=== PATIENT | male | born 1965 | race Caucasian/White ===

== ENCOUNTER 2022-09-10 07:17 | Outpatient (REF) | payer OTHER, SELFPAY ==
[2022-09-10 11:12] LABS: Appearance Urine Turbid; Color Urine Yellow; Glucose Urine UA Negative (Negative); Leukocyte Esterase Urine Negative (Negative); MANUAL DIFF FLAG NO; Nitrite Urine Negative (Negative); PH 5.5 (5.0-9.0); Specific Gravity - Urine 1.025 (1.005-1.025); Urine Blood Negative (Negative); Urine Ketones Negative (Negative); Urine Protein Negative (Neg-Trace)
[2022-09-10 11:28] LABS: Basophils Percent Auto 0.2 % (0-2); Eosinophils Absolute Auto 0.1 X10*3/uL (0.0-0.4); Eosinophils Percent Auto 1.1 % (0-4); Hematocrit 49.5 % (42.0-52.0); Hemoglobin 15.7 g/dl (14.0-18.0); Imm Gran Abs Auto 0.05 X10*3/uL (0.00-0.03); Imm Gran Pct Auto 0.6 % (0.0-0.4); Lymphocytes Absolute Auto 2.7 X10*3/uL (1.2-4.9); Lymphocytes Percent Auto 29.3 % (20-40); Mean Corpuscular HGB Conc 31.7 g/dl (31.0-36.0); Mean Corpuscular Hemoglobin 29.9 pg (27.0-33.0); Mean Corpuscular Volume 94.3 fL (80.0-98.0); Mean Platelet Volume 9.3 fL (9.4-12.4); Monocytes Absolute Auto 0.6 X10*3/uL (0.1-1.2); Neutrophils Absolute Auto 5.6 x10*3/uL (2.0-8.3); Neutrophils Percent Auto 61.8 % (45-73); Platelet Count 216 X10*3/uL (160-400); Red Blood Count 5.25 X10*6/uL (4.60-5.80); Red Cell Distribution Width 12.8 % (11.0-16.0); White Blood Count 9.1 X10*3/uL (4.8-10.8)
[2022-09-10 11:55] LABS: Alanine Aminotransferase 22 U/L (0-40); Albumin Level 3.8 g/dL (3.5-5.0); Alkaline Phosphatase 71 U/L (39-117); Anion Gap 9 (12-20); Aspartate Amino Transferase 19 U/L (5-37); Bilirubin Total 0.4 mg/dL (0.0-1.0); Blood Urea Nitrogen 15 mg/dL (9-16); Calcium 8.5 mg/dL (8.4-10.2); Carbon Dioxide 31 mmol/L (22-29); Chloride 106 mmol/L (96-108); Cholesterol 168 mg/dL; Estimated Glomerular Filt Rate > 60; Glucose Fasting 104 mg/dL (60-99); HDL Cholesterol 29 mg/dL; LDL Cholesterol Calculated 118 mg/dl; Potassium 4.3 mmol/L (3.3-5.1); Prostate Specific Antigen Scr 0.51 ng/mL (<0.05-4.0); Sodium 142 mmol/L (135-145); TSH reflex Free T4 1.81 uIU/mL (0.32-4.0); Triglycerides 106 mg/dL
== END 2022-09-10 07:18 | disposition home or self-care (01) ==
LOC: HO.HMGCLDS 07:17
PROVIDERS: PCP Nurse Practitioner Family; Visit Provider Nurse Practitioner Family
DX: Z00.00 Encounter for general adult medical examination without abnormal findings (principal); Z12.5 Encounter for screening for malignant neoplasm of prostate
CPT/HCPCS: 36415; 80053; 80061; 81003; 84153; 84443; 85025

== ENCOUNTER 2022-09-11 13:44 | Outpatient (REF) | payer OTHER, SELFPAY | END 2022-09-11 13:45 | disposition home or self-care (01) | LOC: HO.SH 13:44 | PROVIDERS: Visit Provider Nurse Practitioner Family | DX: Z01.118 Encounter for examination of ears and hearing with other abnormal findings (principal); H90.3 Sensorineural hearing loss, bilateral; H93.13 Tinnitus, bilateral | CPT/HCPCS: 92557; 92567; 92588; 92700 ==

== ENCOUNTER 2022-10-23 14:00 | Outpatient (REF) | payer OTHER, SELFPAY ==
--- NOTE | ~2022-10-23 | CT_ITS ---
EXAMINATION: CT CHEST SCREENING CLINICAL INFORMATION: Smoker. One pack per day x40 years. COMPARISON: None. TECHNIQUE: Multidetector volumetric CT imaging of the chest is performed without contrast using low dose technique. Additional 2D coronal and sagittal reformatted images and axial 3D maximum intensity projection (MIP) images are generated on the CT workstation. This CT examination was performed using dose optimization techniques as appropriate, variously including the following: *Automated exposure control *Adjustment of mA and/or kV according to patient size (this includes techniques or standardized protocols for targeted exams where dose is matched to indication/reason for exam; i.e. extremities or head) *Use of iterative reconstruction technique DLP: 85 mGy-cm FINDINGS: LUNGS: The lungs are well-expanded and clear of acute pneumonic consolidation. There is no pulmonary nodule, mass, atelectasis or ground-glass density. MEDIASTINUM: The thyroid lobes are symmetric and normal. The central trachea and the bronchi are widely patent. Heart size and the great vessels are normal caliber. Small shotty lymph nodes are seen in the pretracheal space. No pericardial effusion seen. CORONARY ARTERY CALCIFICATION: Mild coronary artery calcifications are present. PLEURA: There is no pleural effusion. No pleural mass or thickening. AXILLA: No lymphadenopathy. UPPER ABDOMEN: Visualized liver, spleen, adrenal glands and kidneys are unremarkable. There is a small radiopaque gallstone. There is bilateral T8-T9 and right T9-T10 facet joint arthropathy. CT/CT lung screening IMPRESSION: Unremarkable CT chest exam. ASSESSMENT: Lung-RADS category 1: Negative RECOMMENDATION: Low-dose annual CT chest.
== END 2022-10-23 14:01 | disposition home or self-care (01) ==
LOC: HO.CT 14:00
PROVIDERS: PCP Nurse Practitioner Family; Visit Provider Physician Assistant Medical
DX: F17.210 Nicotine dependence, cigarettes, uncomplicated (principal)
CPT/HCPCS: 71271; G0296

== ENCOUNTER 2023-03-08 09:14 | Outpatient (REF) | payer OTHER, SELFPAY ==
[2023-03-08 11:06] LABS: MANUAL DIFF FLAG NO
[2023-03-08 11:16] LABS: Appearance Urine Clear; Color Urine Yellow; Glucose Urine UA Negative (Negative); Leukocyte Esterase Urine Negative (Negative); Nitrite Urine Negative (Negative); Urine Blood Negative (Negative); Urine Ketones Negative (Negative); Urine Protein Negative (Neg-Trace)
[2023-03-08 11:21] LABS: Basophils Percent Auto 0.3 % (0-2); Eosinophils Absolute Auto 0.1 X10*3/uL (0.0-0.4); Hematocrit 50.3 % (42.0-52.0); Hemoglobin 16.4 g/dl (14.0-18.0); Imm Gran Abs Auto 0.06 X10*3/uL (0.00-0.03); Imm Gran Pct Auto 0.7 % (0.0-0.4); Lymphocytes Absolute Auto 2.4 X10*3/uL (1.2-4.9); Lymphocytes Percent Auto 28.4 % (20-40); Mean Corpuscular HGB Conc 32.6 g/dl (31.0-36.0); Mean Corpuscular Hemoglobin 30.4 pg (27.0-33.0); Mean Corpuscular Volume 93.3 fL (80.0-98.0); Mean Platelet Volume 9.3 fL (9.4-12.4); Monocytes Absolute Auto 0.5 X10*3/uL (0.1-1.2); Monocytes Percent Auto 6.3 % (2-11); Neutrophils Absolute Auto 5.4 x10*3/uL (2.0-8.3); Neutrophils Percent Auto 63.3 % (45-73); Platelet Count 228 X10*3/uL (160-400); Red Blood Count 5.39 X10*6/uL (4.60-5.80); Red Cell Distribution Width 12.9 % (11.0-16.0); White Blood Count 8.6 X10*3/uL (4.8-10.8)
[2023-03-08 12:06] LABS: Alanine Aminotransferase 19 U/L (0-40); Alkaline Phosphatase 69 U/L (39-117); Anion Gap 12 (12-20); Aspartate Amino Transferase 16 U/L (5-37); Bilirubin Total 0.6 mg/dL (0.0-1.0); Blood Urea Nitrogen 13 mg/dL (9-16); Calcium 9.7 mg/dL (8.4-10.2); Carbon Dioxide 33 mmol/L (22-29); Chloride 105 mmol/L (96-108); Cholesterol 174 mg/dL; Estimated Glomerular Filt Rate > 60; Glucose Fasting 88 mg/dL (60-99); HDL Cholesterol 35 mg/dL; Iron 102 mcg/dL (45-160); LDL Cholesterol Calculated 120 mg/dl; Percent Iron Saturation 36 % (15-50); Potassium 4.7 mmol/L (3.3-5.1); Sodium 145 mmol/L (135-145); Total Iron Binding Capacity 286 mcg/dL (228-428); Total Protein 6.9 g/dL (6.5-8.0); Triglycerides 99 mg/dL; Unsaturated Iron Binding 184 ug/dL
[2023-03-08 12:10] LABS: Ferritin 115 ng/mL (20-250); Vitamin D 25-OH Total 28.2 ng/mL (>30)
[2023-03-08 12:25] LABS: Folate 5.8 ng/mL (> or = 4.0); Vitamin B12 523 pg/mL (200-900)
[2023-03-12 17:03] LABS: Testosterone, Free 29.5 pg/mL (35.0-155.0); Testosterone, Total 217 ng/dL (250-1100)
== END 2023-03-08 09:15 | disposition home or self-care (01) ==
LOC: HO.HMGCLDS 09:14
PROVIDERS: PCP Nurse Practitioner Family; Visit Provider Nurse Practitioner Family
DX: I25.10 Atherosclerotic heart disease of native coronary artery without angina pectoris (principal); R53.83 Other fatigue; E55.9 Vitamin D deficiency, unspecified
CPT/HCPCS: 36415; 80053; 80061; 81003; 82306; 82607; 82728; 82746; 83540; 84402; 84403; 84443; 85025

== ENCOUNTER 2023-03-30 14:06 | Outpatient (AMB) | payer OTHER, SELFPAY ==
--- NOTE | 2023-03-30 14:13 | A.OFFVIS_ITS ---
Intake Vital Signs 03/30/23 14:14 Height 5 ft 11 in Weight 264 lb 8.875 oz BMI 36.9 BP 146/87 H Blood Pressure Location Lt brachial Position Sitting Pulse 92 Intake Visit Reasons: Colonoscopy Screening Intake Note: Rudi presents in the office as a new colonoscopy screening CC: He has no concerns today! 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 PMH includes CAD with hx of PCI 2006 in [facility], tobacco use disorder, HLD. Patient is at average risk of colon cancer due to no family history of colon cancer or colon polyps in first degree relatives. Patient does not have any other gastrointestinal symptoms to include abdominal p ain, nausea, vomiting, diarrhea, blood in stool, weight loss. Labs reviewed to confirm patient does not have anemia. Of note - pt's current meds only include a statin. Not on any antiplatelet or BB . 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 Does not recall having an echo in the past 5-10 years. Cont to smoke - reduced to 1PPD. Also reports daytime fatigue, which he attributes to low testosterone. STOP BANG score suggestive of high probability of mod to severe GIOVANNI. PFSH Medical History CAD (coronary artery disease) History of myocardial infarction Nicotine dependence, cigarettes, uncomplicated Sensorineural hearing loss (SNHL) of both ears Surgical History History of heart artery stent Social History Housing: House Patient Tobacco Use Status: Current everyday Tobacco user Cigarettes Per Day: 8 Years Smoked: (onset 19yo, 1/2-1ppd x 38yrs, 30pyh) e-Cigarette/Vaping Use: Never Used Second Hand Smoke Exposure: No service: No Current occupational status: employed Current occupation: [employer] Current occupational exposures/hazards: Yes Cognitive needs: No Hearing needs: No Vision needs: No Review of Systems Const All systems reviewed & are unremarkable except as noted in HPI and below Physical Exam Vital Signs: Last Vital Signs Pulse 92 03/30/23 14:14 BP 146/87 H 03/30/23 14:14 BMI result Body Mass Index 36.9 Gen appear: NAD, well nourished HEENT: no icterus, no cervical lymphadenopathy Chest: clear to auscultation CVS: Regular S1/S2 Abd: soft, nontender, nondistended Ext: no peripheral edema Neuro: A/Ox3, noted to move all extremities spontaneously Assessment & Plan Assessment & Plan (1) Fatigue: Code(s): R53.83 - Other fatigue (2) CAD (coronary artery disease): Comment: (Hx NE at age 41 - 2 stent placed) Code(s): I25.10 - Atherosclerotic heart disease of [place] coronary artery without angina pectoris (3) Obesity: Code(s): E66.9 - Obesity, unspecified (4) Screening for colon cancer: Code(s): Z12.11 - Encounter for screening for malignant neoplasm of colon Plan Reviewed with the pt that falls under average risk for CRC. 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 However, before this can be scheduled needs basic cardiac work up given hx of ACS in his 40s. Echocardiogram ordered. He is also aware to discuss referral to Cardiology with his PCP. Pt also appears to have features suggestive of GIOVANNI and will recommend sleep study to help inform the anesthesia protocol the day of the procedure. Workload sent to PCP. Fatigue could also be secondary to low Vit D and supplement was sent to pharmacy x 4 weeks. Otherwise, from CRC screening standpoint, once above has been addressed a colonscopy will be booked. Split PEG prep instructions were reviewed and a handout was given as well. Follow up after colo. Orders: Orders CA echo transthoracic complete Today I25.10 - Atherosclerotic heart disease of [place] coronary artery without angina pectoris Medications: New cholecalciferol (vitamin D3) 1,250 mcg PO QWEEK 4 weeks 4 caps 0RF peg 3350-electrolytes 236-22.74-6.74 -5.86 gram (Golytely) as per split prep instructions, until fecal effluent is clear 240 mL PO Q10M 4,000 mL 0RF colonoscopy Coding Level of Care Code New Pt Level 4 (34698) Diagnoses Fatigue R53.83 CAD (coronary artery disease) I25.10 Obesity E66.9 Screening for colon cancer Z12.11
[2023-03-30 14:14] VITALS: BP 146/87; PULSE 92; BMI 36.9
== END 2023-03-30 15:47 | disposition home or self-care (01) ==
PROVIDERS: PCP Nurse Practitioner Family; Visit Provider Internal Medicine
DX: R53.83 Other fatigue (principal); I25.10 Atherosclerotic heart disease of native coronary artery without angina pectoris; E66.9 Obesity, unspecified; Z12.11 Encounter for screening for malignant neoplasm of colon
CPT/HCPCS: 99204

== ENCOUNTER → 2023-03-30 14:06 | Outpatient (BNVA) | payer OTHER, SELFPAY | PROVIDERS: PCP Nurse Practitioner Family; Visit Provider Internal Medicine ==

== ENCOUNTER 2023-04-26 10:30 | Outpatient (AMB) | payer OTHER, SELFPAY ==
--- NOTE | 2023-04-26 10:38 | A.OFFVIS_ITS ---
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 Melo. He has a past medical history of coronary artery disease, hyperlipidemia, CA ap proximately 17 years ago, nicotine dependence and sensorineural hearing loss of both ears. He presents to the office today as a new patient for hypogonadism. In discussion with the patient today he reports during last annual physical with PCP he had reported erectile dysfunction as well as fatigue at which time a testosterone was ordered. These results were reviewed with the patient today. 03/12-Total testosterone--217 09/10-PSA--0.5 When asked he reports symptoms of erectile dysfunction and fatigue to have been present for quite some time. He otherwise denies any urinary issues or concerns at this time. He denies urinary urgency, urinary frequency, incontinence, hematuria, dysuria, foul smelling urine, changes to urinary stream, flank pain, fever, and or chills. He does report nocturia however does not find this bothersome. He is happy with his current voiding parameters. In office urinalysis results reviewed with the patient today. Discussed at length potential causes for microscopic hematuria. Discussed microscopic hematuria in the setting of nicotine dependence. Discussed further microscopic hematuria workup with CT urogram, cytology, and in office cystoscopy. However patient declines at this time. He otherwise offers no issues or concerns at this time. [facility] Medical History CAD (coronary artery disease) History of myocardial infarction Nicotine dependence, cigarettes, uncomplicated Sensorineural hearing loss (SNHL) of both ears Surgical History History of heart artery stent Social History Housing: House Patient Tobacco Use Status: Current everyday Tobacco user Cigarettes Per Day: 8 Years Smoked: (onset 19yo, 1/2-1ppd x 38yrs, 30pyh) e-Cigarette/Vaping Use: Never Used Second Hand Smoke Exposure: No service: No Current occupational status: employed Current occupation: [employer] Current occupational exposures/hazards: Yes Cognitive needs: No Hearing needs: No Vision needs: No Review of Systems Const Reports as per HPI Eyes Reports no additional complaints ENT Reports as per HPI Card Reports as per HPI Resp Reports no additional complaints GI Reports no additional complaints Reports as per HPI Musc Reports no additional complaints Neuro Reports no additional complaints Psych Reports no additional complaints Endo Reports no additional complaints Kedar/Lymph Reports no additional complaints Aller/Immun Reports no additional complaints Physical Exam Const General: cooperative, healthy appearing, comfortable, no acute distress, well developed, alert and awake Nutritional Appearance: overweight Orientation/consciousness: patient oriented x3 Limitations: no limitations HEENT Head: Yes normal to inspection, Yes normocephalic and Yes atraumatic Eyes General: appearance normal, both eyes and all related structures Neck Neck: Yes normal visual inspection and Yes trachea midline Chest Chest palpation & inspection: normal inspection of the chest Resp Effort & Inspection: normal respiratory effort and able to speak in complete sentences Cardio Rate: regular rate GI Inspection: Yes normal to inspection General: Yes no CVA tenderness Back/Spine/Pelvis Back: no CVA tenderness Skin General skin exam: no rashes or lesions noted Neuro General: patient oriented x3 Extrem General: Yes normal to inspection Psych Appearance: grossly normal and well kempt Mental Status: mental status grossly normal Speech and movement: Normal speech and movement present and Clear speech present Affect: normal affect Attitude: cooperative Thought process: Normal thought process present Thought content: Normal thought content present Insight: Good insight present (Psych) Judgement: Good judgement present (Psych) Results AMB Urinalysis, Automated UA Leukoctes 0 Sharon/uL Last Edit by Glen Joseph on 04/26/23 11:00 UA Nitrite Last Edit by Glen Joseph on 04/26/23 11:00 UA Urobilinogen 0.2 mg/dL Last Edit by Glen Vannessaflor on 04/26/23 11:00 UA Protein 0 mg/dL Last Edit by Glen Joseph on 04/26/23 11:00 UA pH 6.0 Last Edit by Donyjuanito Vannessaflor on 04/26/23 11:00 UA Blood 10 Ayan/uL Last Edit by Glen Vannessaflor on 04/26/23 11:00 UA Specific [place] 1.025 Last Edit by Donyjuanito Vannessaflor on 04/26/23 11:00 UA Ketone Last Edit by Glen Joseph on 04/26/23 11:00 UA Bilirubin 0 mg/dL Last Edit by Glen Joseph on 04/26/23 11:00 UA Glucose 0 mg/dL Last Edit by Glen Joseph on 04/26/23 11:00 Results Reviewed Results Reviewed: Laboratory Last Values Urine pH (Auto) 6.0 04/26/23 10:42 Specific [place] (Auto) 1.025 04/26/23 10:42 Urine Protein (Auto) 0 mg/dL 04/26/23 10:42 Glucose (UA)(Auto) 0 mg/dL 04/26/23 10:42 Urine Blood (Auto) 10 Ayan/uL 04/26/23 10:42 Urine Bilirubin (Auto) 0 mg/dL 04/26/23 10:42 Urine Urobilinogen (Auto) 0.2 mg/dL 04/26/23 10:42 Leukocyte Esterase (Auto) 0 Sharon/uL 04/26/23 10:42 Assessment & Plan Assessment & Plan (1) Hypogonadism in male: Code(s): E29.1 - Testicular hypofunction (2) Fatigue: Code(s): R53.83 - Other fatigue (3) Erectile dysfunction: Code(s): N52.9 - Male erectile dysfunction, unspecified Plan In office urinalysis results reviewed with the patient today; will send for cytology Recent testosterone and PSA results reviewed with the patient today; as noted above. Discussed at length microscopic hematuria in the setting of nicotine dependence Discussed further microscopic hematuria workup with cytology, imaging, and in office cystoscopy Will obtain FSH, LH, prolactin, SHBG, testosterone free and total, and TSH for further assessment and evaluation Discussed at length importance of adequate sleep, limiting/quitting smoking, and weight loss for improvement in hypogonadism, erectile dysfunction, and overall health and well-being. Start low-dose 5 mg Cialis daily as discussed and prescribed. Patient denies any bothersome urinary issues at this time. Follow-up in 1 month with labs to be completed prior; or sooner with any issues, concerns, and or questions. Orders: Orders Follicle Stimulating Hormone Today E29.1 - Testicular hypofunction, R53.83 - Other fatigue Lutenizing Hormone Today E29.1 - Testicular hypofunction, R53.83 - Other fatigue Prolactin Today E29.1 - Testicular hypofunction, R53.83 - Other fatigue Sex Hormone Binding Globulin Today E29.1 - Testicular hypofunction, R53.83 - Other fatigue Free T4 (Free Thyroxine) Today E29.1 - Testicular hypofunction, R53.83 - Other fatigue Testosterone, Free/Total Today E29.1 - Testicular hypofunction, R53.83 - Other fatigue Thyroid Stimulating Hormone Today E29.1 - Testicular hypofunction, R53.83 - Other fatigue Urine Cytology Today Z13.9 - Encounter for screening, unspecified AMB Urinalysis Automated Today Z13.9 - Encounter for screening, unspecified Medications: New tadalafil (Cialis) [id number] [facility] [id number] Member [id number] 5 mg PO DAILY 90 days 90 tabs 3RF Patient Instructions: The patient had an opportunity to ask questions regarding the treatment plan. All questions were answered. Physical exam, labs, and imaging were discussed and reviewed in detail. As well as risks, benefits, and discussion of treatment cho ices. No major barriers to understanding were identified. The patient expressed understanding and agreement with the above treatment plan. The patient was made aware they should contact our office by phone for worsening of their current condition, the appearance of new symptoms, or with any questions or concerns. Compliance is encouraged with any medications and follow up testing that is ordered. It is a privilege to be allowed the opportunity to participate in? your urological care.? Again, if you have any questions or concerns If you have any questions or concerns please do not hesitate to contact me. The office is [phone]. This note is constructed using voice recognition software. While every effort has been made to ensure accuracy traffic signal technician errors may have been included. Yours sincerely, KELLY Witt-ASHIA Coding Level of Care Code New Pt Level 4 (74231) Diagnoses Hypogonadism in male E29.1 Fatigue R53.83 Erectile dysfunction N52.9
== END 2023-04-26 12:05 | disposition home or self-care (01) ==
PROVIDERS: PCP Nurse Practitioner Family; Visit Provider Nurse Practitioner Family
DX: E29.1 Testicular hypofunction (principal); R53.83 Other fatigue; N52.9 Male erectile dysfunction, unspecified
CPT/HCPCS: 99204

== ENCOUNTER 2023-04-26 13:53 | Outpatient (REF) | payer OTHER, SELFPAY ==
[2023-04-26 17:22] LABS: Urine Cytology See Pathology rpt
== END 2023-04-26 13:54 | disposition home or self-care (01) ==
LOC: HO.LNP 13:53
PROVIDERS: Visit Provider Nurse Practitioner Family
DX: Z13.9 Encounter for screening, unspecified (principal)
CPT/HCPCS: 88112

== ENCOUNTER → 2023-04-26 14:54 | Outpatient (REF) | payer OTHER, SELFPAY ==
--- NOTE | 2023-04-26 14:56 | CA_ITS ---
Transthoracic Echocardiogram Patient (Last, First, Middle): Rudi Trivedi T Gender: Male Date of : 1965 Age: 58 Procedure Date: 04/26/2023 Procedure Type: Transthoracic Echocardiogram Location: OP Height: 175.26 cm Weight: 119.75 kg BSA: 2.32 m2 Heart Rate: bpm BP: 132 / 80 mmHg Fitter Tacker: Referring MD: Elena Llamas MD Symptoms: I25.10 - Atherosclerotic heart disease of [place] coronary artery without... Study Quality: Fair w Contrast ECG Rhythm: Sinus Conclusions: - The left ventricular systolic function is severely decreased. The calculated ejection fraction is 28% by biplane method. - No obvious valvular pathology seen on this study. Findings Procedure Information Contrast agent, definity, is being given per protocol without apparent complications. Left Ventricle Normal left ventricular cavity size. There is mildly increased left ventricular wall thickness. The left ventricular systolic function is severely decreased. The calculated ejection fraction is 28% by biplane method. There is severe global hypokinesis. Evidence suggests grade I (mild) diastolic dysfunction. Right Ventricle Normal right ventricular cavity size and systolic function. Atria Both atria are normal in size. Aortic Valve There is a normal trileaflet aortic valve. There is no aortic valve stenosis. There is no aortic valve regurgitation. Mitral Valve The mitral valve appears normal. There is no mitral valve regurgitation. There is no mitral valve stenosis. Pulmonic Valve The pulmonic valve is likely normal. Tricuspid Valve There is trace tricuspid valve regurgitation. There is no evidence of pulmonary hypertension. Great Vessels The asc aorta is normal in size. Venous The inferior vena cava is normal in size and collapses greater than 50% with inspiration. Pericardium/Pleural There is no evidence of pericardial effusion. Prior Study Comparison No prior study available for comparison. Recommendations, Care & Conclusions No obvious valvular pathology seen on this study. Measurements 2D Linear Measurements IVSd: 1.40 0.6-0.9/0.6-1.0 cm LVIDd: 4.80 3.9-5.3/4.2-5.9 cm LVIDd Index: 2.07 2.4-3.2/2.2-3.1 cm/m2 LVIDs: 3.10 2.0-3.6 cm LVPWd: 1.40 0.7-1.1 cm Ao Root: 3.50 2.1-3.5 cm LA Diam: 4.20 2.7-3.8/3.0-4.0 cm LAIDs Index: 1.81 1.5-2.3 cm/m2 LV Mass: 341.52 67-162/88-224 g LV Mass Index: 147.21 43-95/49-115 g/m2 LVOT Diam: 2.40 3.0+(-)1.3 cm 2D Systolic Function EF 4C: 23.40 >55% EF 2C: 39.30 >55% EF BiP: 28.30 >55% Mitral Valve MV Pk E: 0.93 MV PK A: 1.12 MV Decel Time: 230.00 E/A: 0.80 E'Lateral: 8.16 E'Medial: 5.77 E/E' Med: 16.10 E/E' Lat: 11.40 PHT: 67.00 MVA PHT: 3.28 Decel [place]: 4.03 Aortic Valve AoV Pk David: 1.61 AoV Mn David: 1.11 AoV VTI: 0.31 AoV Pk Grad: 10.00 Aov Mn Grad: 6.00 [place] Cont.VTI: 2.81 LVOT LVOT Pk David: 1.01 LVOT Mn David: 0.72 LVOT VTI: 0.19 LVOT Pk Grad: 4.00 LVOT Mn Grad: 2.00 LVOT Diam: 2.40 LVOT Area: 4.52 Diastolic Function MV Pk E: 0.93 MV Pk A: 1.12 E/A: 0.80 E'Medial: 5.77 E/E' Med: 16.10 E' Laterial: 8.16 E/E' Lat: 11.40 Right Ventricle TAPSE (mm): 28.00 TVS' David: 15.00 Tricuspid Valve TR Pk David: 1.80 TR Pk Grad: 13.00 RA Press: 3.00 RVSP: 16.00 Great Vessels Aorta Ao Root-2D: 3.50 2.0-3.7 cm Ao Asc: 3.80 2.1-3.4 cm Pulmonary Valve PV Pk David: 1.21 Peak PV Grad: 6.00 Updated in Other Vendor System with Status of Final Jamaal Fisher MD electronically signed on 04/27/2023 9:04:38 AM with status of Final
== END ==
LOC: HO.CARD 14:54
PROVIDERS: PCP Nurse Practitioner Family; Visit Provider Internal Medicine
DX: I25.10 Atherosclerotic heart disease of native coronary artery without angina pectoris (principal)
CPT/HCPCS: 93306; Q9957

== ENCOUNTER → 2023-04-26 14:56 | Outpatient (BNV) | payer OTHER, SELFPAY | PROVIDERS: PCP Nurse Practitioner Family; Visit Provider Internal Medicine | DX: I25.10 Atherosclerotic heart disease of native coronary artery without angina pectoris (principal) | CPT/HCPCS: 93306 ==

== ENCOUNTER 2023-04-27 06:04 | Outpatient (REF) | payer OTHER, SELFPAY ==
[2023-04-27 13:23] LABS: Free T4 (Free Thyroxine) 0.71 ng/dL (0.71-1.85); Thyroid Stimulating Hormone 2.55 uIU/mL (0.32-4.0)
[2023-04-29 04:14] LABS: Sex Hormone Binding Globulin 29 nmol/L (22-77)
[2023-04-29 04:18] LABS: Follicle Stimulating Hormone 4.6 mIU/mL (1.6-8.0); Lutenizing Hormone 3.4 mIU/mL (1.5-9.3); Prolactin 10.5 ng/mL (2.0-18.0)
[2023-05-07 18:28] LABS: Testosterone, Free 57.2 pg/mL (35.0-155.0); Testosterone, Total 261 ng/dL (250-1100)
== END 2023-04-27 06:05 | disposition home or self-care (01) ==
LOC: HO.HMGCLDS 06:04
PROVIDERS: PCP Nurse Practitioner Family; Visit Provider Nurse Practitioner Family
DX: R53.83 Other fatigue (principal); E29.1 Testicular hypofunction
CPT/HCPCS: 36415; 83001; 83002; 84146; 84270; 84402; 84403; 84439; 84443

== ENCOUNTER 2023-06-22 12:30 | Outpatient (AMB) | payer OTHER, SELFPAY ==
--- NOTE | 2023-06-22 12:52 | A.OFFVIS_ITS ---
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 Pt states he does not have any difficulty sleeping. Patients states he snores but denies having any sleeping difficulty. Pt states he is tired a lot. Allergies amoxicillin Allergy (Unknown, Unverified 06/22/23 12:55) anaphylaxis HPI HPI Comments 2 History of Present Illness Details 58 y/o male patient presents for new in- person visit for sleep consultation. Pt reports snoring and daytime tiredness. He sleeps about 7-7:30 hrs nightly, but feels run out of energy quickly. Pt has hx of NM in his 40s, and had two stent in. Pt recently started statin for high cholesterol. He gain about 50 lb over the last two years. GI doctor recommended to do sleep study to r/o sleep apnea. Sleep questionnaire: Have you ever been diagnosed with a sleep disorder? No. Have you ever had a sleep study in the past? No. Have you ever been treated for a sleep disorder? No. Do you take medications for a sleep disorder? No. Do you snore? Yes. Do you wake up gasping at night? No. Do you have episodes of apneas? No. If yes, are they witnessed? No. Do you have episodes of nocturnal chest pain or dyspnea? No. Do you have difficulty initiating sleep? No. Do you have difficulty maintaining sleep? No. Do you wake up tired? Yes. Do you have headaches upon awakening? No. Do you wake up with dry mouth or throat? Yes, once in a while. Do you have GERD? No. Do you have nocturia? Yes. Do you have nocturnal leg cramps? No. Do you have symptoms of restless legs? No. Do you act out your dreams? No. Sleep hygiene questionnaire: What is your usual sleep routine? Usual bedtime is at 9 pm; Usual wake up time is at 4:30 am. Do you take naps? No. Is your sleep environment cool, dark, and quiet? Yes. Do you exercise? No. Do you take caffeine or other stimulants? 3 cups of coffee daily, the last cup of coffee will 3:30 pm. Do you use electronics in bed? No. What is your work schedule? 6 am to 3 pm. Hypersomnolence questionnaire: Do you have daytime tiredness or fatigue? Yes. Do you easily fall asleep when inactive? Yes. Have you ever had episodes of sudden weakness? No. Have you ever had episodes of sudden weakness associated with strong emotions? No. PFSH Medical History History of myocardial infarction Nicotine dependence, cigarettes, uncomplicated Sensorineural hearing loss (SNHL) of both ears CAD (coronary artery disease) Surgical History History of heart artery stent Social History (Updated 06/22/23 @ 12:57 by Narcisa Payne MA) Housing: House Alcohol intake: never Patient Tobacco Use Status: Current everyday Tobacco user Cigarettes Per Day: 8 Years Smoked: (onset 19yo, 1/2-1ppd x 39yrs, 30pyh) e-Cigarette/Vaping Use: Never Used Second Hand Smoke Exposure: No service: No Current occupational status: employed Current occupation: [employer] Current occupational exposures/hazards: Yes Cognitive needs: No Hearing needs: No Vision needs: No Review of Systems Const All systems reviewed & are unremarkable except as noted in HPI and below ENT Reports Normal hearing present Neuro Reports Normal hearing present Physical Exam Vital Signs: Last Vital Signs Pulse 87 06/22/23 12:53 BP 136/82 06/22/23 12:53 Pulse Ox 91 L 06/22/23 12:53 Oxygen Delivery Method Room Air 06/22/23 12:53 BMI result Body Mass Index 37.6 Const General: cooperative and tired appearing Orientation/consciousness: patient oriented x3 Neck Neck: Yes full ROM and Yes supple Resp Effort & Inspection: normal respiratory effort and able to speak in complete sentences Neuro General: patient oriented x3, gait normal, moves all extremities and no focal motor deficits Cranial nerves: Yes Bilaterally intact EOM present, Yes Normal facial strength present, Yes Midline tongue present, Yes Symmetric palate elevation present, Yes Normal hearing present and Yes Ability to bilaterally elevate shoulders present Cognition (Neuro): normal cognition Gait exam (Neuro): Normal gait present Motor exam (neuro): 5/5 motor strength present throughout, Pronator motor function not present and no tremor noted Psych Appearance: grossly normal Mental Status: mental status grossly normal Speech and movement: Normal speech and movement present Affect: normal affect Attitude: cooperative Assessment & Plan Assessment & Plan (1) Sleep apnea: Code(s): G47.30 - Sleep apnea, unspecified (2) CAD (coronary artery disease): Comment: (Hx [place] at age 41 - 2 stent placed) Code(s): I25.10 - Atherosclerotic heart disease of [place] coronary artery without angina pectoris (3) Obesity: Code(s): E66.9 - Obesity, unspecified (4) Snoring: Code(s): R06.83 - Snoring (5) Daytime sleepiness: Code(s): R40.0 - Somnolence Plan Pt is advised to undergo home sleep study to assess for sleep apnea. Will f/u with pt after study to discuss results and appropriate treatment options. Pt to call with any worsening concerns or questions. Sleep hygiene education provided. Advised patient to reduce smoking and reduction advised. Coding Level of Care Code New Pt Level 4 (83704) Diagnoses Sleep apnea G47.30 CAD (coronary artery disease) I25.10 Obesity E66.9 Snoring R06.83 Daytime sleepiness R40.0
[2023-06-22 12:53] VITALS: BP 136/82; PULSE 87; O2SAT 91; BMI 37.6
== END 2023-06-22 13:45 | disposition home or self-care (01) ==
PROVIDERS: PCP Nurse Practitioner Family; Visit Provider Nurse Practitioner Family
DX: G47.30 Sleep apnea, unspecified (principal); I25.10 Atherosclerotic heart disease of native coronary artery without angina pectoris; E66.9 Obesity, unspecified; R06.83 Snoring; R40.0 Somnolence
CPT/HCPCS: 99204

== ENCOUNTER → 2023-06-22 12:30 | Outpatient (BNVA) | payer OTHER, SELFPAY | PROVIDERS: PCP Nurse Practitioner Family; Visit Provider Nurse Practitioner Family ==

== ENCOUNTER 2023-06-24 13:20 | Outpatient (AMB) | payer OTHER, SELFPAY ==
--- NOTE | 2023-06-24 13:57 | MHC.OFFVIS ---
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 He had an echocardiogram few months back and that showed severely impaired LV function and hence he has been referred here. He states that age of 41, he had acute myocardial infarction and was seen at [facility] in [place]. At that time, he had stents put in but no further information available. We do not have the anatomy. After that, he states that he saw a controls technician only once but nothing since that time. He is generally doing okay but has numerous factors. Morbidly obese. Chronic smoker and still smokes. He does not get any clear-cut angina but he states he gets short of breath with activity like going up stairs. FORMERLY [facility], 1928–1983 Medical History History of myocardial infarction Nicotine dependence, cigarettes, uncomplicated Sensorineural hearing loss (SNHL) of both ears CAD (coronary artery disease) Surgical History History of heart artery stent Social History Housing: House Alcohol intake: never Patient Tobacco Use Status: Current everyday Tobacco user Cigarettes Per Day: 8 Years Smoked: (onset 19yo, 1/2-1ppd x 38yrs, 30pyh) e-Cigarette/Vaping Use: Never Used Second Hand Smoke Exposure: No service: No Current occupational status: employed Current occupation: [employer] Current occupational exposures/hazards: Yes Cognitive needs: No Hearing needs: No Vision needs: No Review of Systems Const Denies weakness ENT Denies dizziness Card Denies chest pain, Denies chest pain with activity, Denies syncope, Denies rapid heart rate, Denies pedal edema, Denies edema, Denies leg edema, Denies lightheadedness, Denies palpitations, Denies dyspnea, Denies dyspnea on exertion and Denies orthopnea Resp Denies cough, Denies dyspnea and Denies dyspnea on exertion GI Denies hematochezia and Denies change in stool character Musc Denies abnormal gait, Denies muscle cramps, Denies muscle weakness, Denies numbness, Denies radiating pain into limb and Denies tingling Neuro Denies abnormal gait, Denies dizziness, Denies syncope, Denies numbness, Denies tingling and Denies weakness Endo Denies palpitations Physical Exam Vital Signs: Last Vital Signs Pulse 89 06/24/23 13:58 BP 126/82 06/24/23 13:58 BMI result Body Mass Index 37.5 Const General: comfortable and no acute distress Orientation/consciousness: patient oriented x3 HEENT Other: Unremarkable Head: Yes normal to inspection Neck Neck: Yes normal visual inspection Chest Chest palpation & inspection: normal inspection of the chest Resp Auscultation: clear to auscultation bilaterally Cardio Palpation: normal PMI Heart sounds: S1 normal heart sound present, S2 normal heart sound present, no gallops, no murmurs and no rubs GI Palpation (GI): Soft to palpation Back/Spine/Pelvis Other: unremarkable Skin General skin exam: no rashes or lesions noted Neuro General: patient oriented x3 Extrem General: Yes normal to inspection Psych Mental Status: mental status grossly normal Office Procedures EKG Details: EKG with sinus rhythm at 89/Min; old inferior infarct; cannot exclude old anterior infarct but could also be from body habitus; low-voltage lateral leads again from body habitus versus infar[place] [id number], Complete Assessment & Plan Assessment & Plan (1) Cardiomyopathy: Code(s): I42.9 - Cardiomyopathy, unspecified Qualifiers: Cardiomyopathy type: unspecified Qualified Code(s): I42.9 - Cardiomyopathy, unspecified (2) CAD (coronary artery disease): Comment: (Hx [place] at age 41 - 2 stent placed) Code(s): I25.10 - Atherosclerotic heart disease of [place] coronary artery without angina pectoris Qualifiers: Associated angina: with other forms of angina Coronary Disease-Associated Artery/Lesion type: [place] artery [place] vs. transplanted heart: iroquois heart Qualified Code(s): I25.118 - Atherosclerotic heart disease of [place] coronary artery with other forms of angina pectoris Plan In the echocardiogram, LVEF is 28%. Severe global hypokinesis. No significant valvular issues. Remote history of CAD/UT/PCI about 17 years ago. Will request those records if still available. Need to assess for progressive coronary artery disease. Considering his morbid obesity, stress test may be suboptimal. Hence may proceed with a diagnostic catheterization for further evaluation. Discussed about this with patient and he is agreeable. Once this is performed, will need to optimize medications including addition of ADRIAN inhibitor/ARB or Entresto but may do so after the procedure. Other meds will need to be optimized as well. Follow-up after the procedure. Orders: Orders Cardiac Cath LT Diagnostic Today I25.10 - Atherosclerotic heart disease of [place] coronary artery without angina pectoris, I42.9 - Cardiomyopathy, unspecified Basic Metabolic Panel Today I42.9 - Cardiomyopathy, unspecified Prothrombin Time INR Today I42.9 - Cardiomyopathy, unspecified B Type Natriuretic Peptide Today I42.9 - Cardiomyopathy, unspecified, I50.9 - Heart failure, unspecified Complete Blood Count no Diff Today I42.9 - Cardiomyopathy, unspecified Coding Level of Care Code New Pt Level 4 (94501) Diagnoses Cardiomyopathy, unspecified type I42.9 Cardiomyopathy type: unspecified Coronary artery disease involving iroquois coronary artery of iroquois heart with other form of angina pectoris I25.118 Associated angina: with other forms of angina Coronary Disease-Associated Artery/Lesion type: iroquois artery [place] vs. transplanted heart: iroquois heart CPT Codes EKG - CPT: 06066-[id number], Complete ([id number])
[2023-06-24 13:58] VITALS: BP 126/82; PULSE 89; BMI 37.5
== END 2023-06-24 14:32 | disposition home or self-care (01) ==
PROVIDERS: PCP Nurse Practitioner Family; Visit Provider Internal Medicine
DX: I42.9 Cardiomyopathy, unspecified (principal); I25.118 Atherosclerotic heart disease of native coronary artery with other forms of angina pectoris
CPT/HCPCS: 93010; 99204

== ENCOUNTER 2023-06-24 13:20 | Outpatient (REF) | payer OTHER, SELFPAY ==
[2023-06-24 15:01] LABS: Hematocrit 49.2 % (42.0-52.0); Hemoglobin 15.9 g/dl (14.0-18.0); Mean Corpuscular HGB Conc 32.3 g/dl (31.0-36.0); Mean Corpuscular Hemoglobin 30.2 pg (27.0-33.0); Mean Corpuscular Volume 93.5 fL (80.0-98.0); Mean Platelet Volume 9.1 fL (9.4-12.4); Platelet Count 209 X10*3/uL (160-400); Red Blood Count 5.26 X10*6/uL (4.60-5.80); Red Cell Distribution Width 12.8 % (11.0-16.0); White Blood Count 10.7 X10*3/uL (4.8-10.8)
[2023-06-24 15:26] LABS: Anion Gap 14 (12-20); Blood Urea Nitrogen 12 mg/dL (9-16); Calcium 9.5 mg/dL (8.4-10.2); Carbon Dioxide 30 mmol/L (22-29); Chloride 103 mmol/L (96-108); Estimated Glomerular Filt Rate > 60; Glucose Random 90 mg/dL (60-115); Potassium 4.1 mmol/L (3.3-5.1); Sodium 143 mmol/L (135-145)
[2023-06-24 15:32] LABS: INTERNATIONAL NORM RATIO 1.1 (0.9-1.1); Prothrombin Time 13.3 SEC (11.1-13.3)
== END 2023-06-24 13:21 | disposition home or self-care (01) ==
LOC: HO.LAB 13:20
PROVIDERS: PCP Nurse Practitioner Family; Visit Provider Internal Medicine
DX: I42.9 Cardiomyopathy, unspecified (principal); I25.118 Atherosclerotic heart disease of native coronary artery with other forms of angina pectoris
CPT/HCPCS: 36415; 80048; 83880; 85027; 85610; 93005

== ENCOUNTER → 2023-07-08 23:59 | Outpatient (BNV) | payer OTHER, SELFPAY | PROVIDERS: PCP Nurse Practitioner Family; Visit Provider Internal Medicine Cardiovascular Disease | DX: I42.9 Cardiomyopathy, unspecified (principal) | CPT/HCPCS: 93458; 93571; 99152 ==

== ENCOUNTER 2023-07-20 08:30 | Outpatient (AMB) | payer OTHER, SELFPAY ==
--- NOTE | 2023-07-20 08:58 | MHC.OFFVIS ---
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 He had an echocardiogram few months back and that showed severely impaired LV function and hence he has been referred here. He states that age of 41, he had acute myocardial infarction and was seen at [facility] in [place]. Per cardiac catheterization data, significant stenosis of the 2nd obtuse marginal branch leading to acute posterior wall infarction, status post angioplasty/stent. After that, he states that he saw a cement handler only once but nothing since that time. He is generally doing okay but has numerous factors. Morbidly obese. Chronic smoker and still smokes. He does not get any clear-cut angina but he states he gets short of breath with activity like going up stairs. Since last visit, he underwent a cardiac catheterization. That showed multivessel disease. Cardiac surgery has been recommended. [facility] Medical History History of myocardial infarction Nicotine dependence, cigarettes, uncomplicated Sensorineural hearing loss (SNHL) of both ears CAD (coronary artery disease) Surgical History History of heart artery stent Family History Unknown No problems noted. Social History Housing: House Alcohol intake: never Patient Tobacco Use Status: Current everyday Tobacco user Cigarettes Per Day: 8 Years Smoked: (onset 19yo, 1/2-1ppd x 38yrs, 30pyh) e-Cigarette/Vaping Use: Never Used Second Hand Smoke Exposure: No service: No Current occupational status: employed Current occupation: [employer] Current occupational exposures/hazards: Yes Cognitive needs: No Hearing needs: No Vision needs: No Review of Systems Const Denies weakness ENT Denies dizziness Card Denies chest pain, Denies chest pain with activity, Denies syncope, Denies rapid heart rate, Denies pedal edema, Denies edema, Denies leg edema, Denies lightheadedness, Denies palpitations, Denies dyspnea, Denies dyspnea on exertion and Denies orthopnea Resp Denies cough, Denies dyspnea and Denies dyspnea on exertion GI Denies hematochezia and Denies change in stool character Musc Denies abnormal gait, Denies muscle cramps, Denies muscle weakness, Denies numbness, Denies radiating pain into limb and Denies tingling Neuro Denies abnormal gait, Denies dizziness, Denies syncope, Denies numbness, Denies tingling and Denies weakness Endo Denies palpitations Physical Exam Vital Signs: Last Vital Signs Pulse 75 07/20/23 08:59 BP 112/70 07/20/23 08:59 BMI result Body Mass Index 37.3 Const General: comfortable and no acute distress Orientation/consciousness: patient oriented x3 HEENT Other: Unremarkable Head: Yes normal to inspection Neck Neck: Yes normal visual inspection Chest Chest palpation & inspection: normal inspection of the chest Resp Auscultation: clear to auscultation bilaterally Cardio Palpation: normal PMI Heart sounds: S1 normal heart sound present, S2 normal heart sound present, no gallops, no murmurs and no rubs GI Palpation (GI): Soft to palpation Back/Spine/Pelvis Other: unremarkable Skin General skin exam: no rashes or lesions noted Neuro General: patient oriented x3 Extrem General: Yes normal to inspection Psych Mental Status: mental status grossly normal Assessment & Plan Assessment & Plan (1) Cardiomyopathy: Code(s): I42.9 - Cardiomyopathy, unspecified Qualifiers: Cardiomyopathy type: unspecified Qualified Code(s): I42.9 - Cardiomyopathy, unspecified (2) CAD (coronary artery disease): Code(s): I25.10 - Atherosclerotic heart disease of [place] coronary artery without angina pectoris Qualifiers: Associated angina: with other forms of angina Coronary Disease-Associated Artery/Lesion type: [place] artery [place] vs. transplanted heart: [place] heart Qualified Code(s): I25.118 - Atherosclerotic heart disease of [place] coronary artery with other forms of angina pectoris Plan In the echocardiogram, LVEF is 28%. Severe global hypokinesis. No significant valvular issues. Cardiac catheterization shows severe multivessel disease. He has already been evaluated by cardiac surgery and awaiting CABG. Okay to continue current medications for now but once post bypass, will need to optimize medications for both coronary disease as well as cardiomyopathy. Otherwise, strongly urged him to stop smoking right away. He states he has not done that in the last few days. In the long run, will need to lose weight as well. Will follow-up after bypass. Coding Level of Care Code Est Pt Level 4 (50887) Diagnoses Cardiomyopathy, unspecified type I42.9 Cardiomyopathy type: unspecified Coronary artery disease involving [place] coronary artery of [place] heart with other form of angina pectoris I25.118 Associated angina: with other forms of angina Coronary Disease-Associated Artery/Lesion type: [place] artery [place] vs. transplanted heart: [place] heart
[2023-07-20 08:59] VITALS: BP 112/70; PULSE 75; BMI 37.3
== END 2023-07-20 09:11 | disposition home or self-care (01) ==
PROVIDERS: PCP Nurse Practitioner Family; Visit Provider Internal Medicine
DX: I42.9 Cardiomyopathy, unspecified (principal); I25.118 Atherosclerotic heart disease of native coronary artery with other forms of angina pectoris
CPT/HCPCS: 99214

== ENCOUNTER → 2023-07-20 08:30 | Outpatient (BNVA) | payer OTHER, SELFPAY | PROVIDERS: PCP Nurse Practitioner Family; Visit Provider Internal Medicine ==

== ENCOUNTER 2023-07-27 10:37 | Outpatient (REF) | payer OTHER, SELFPAY ==
--- NOTE | ~2023-07-27 | CT_ITS ---
EXAMINATION: CT CHEST AND ABDOMEN WITHOUT CONTRAST CLINICAL INFORMATION: Atherosclerosis of aorta COMPARISON: Chest CT dated 10/23/2022. No prior CT scan of the abdomen. TECHNIQUE: Multidetector volumetric CT imaging of the chest and abdomen was obtained without contrast. Axial MIP volume rendering provided. Sagittal and coronal reformatted images were obtained. This CT examination was performed using dose optimization techniques as appropriate, variously including the following: *Automated exposure control *Adjustment of mA and/or kV according to patient size (this includes techniques or standardized protocols for targeted exams where dose is matched to indication/reason for exam; i.e. extremities or head) *Use of iterative reconstruction technique DLP: 680 mGy-cm FINDINGS: LUNGS: 4.2 cm or less left lower lobe bullae, similar compared with October 2022. No infiltrate or nodule identified. MEDIASTINUM: The mediastinum appears unremarkable. CORONARY ARTERY CALCIFICATION: Mild to moderate. PLEURA: There is no pleural effusion. No pleural mass or thickening. AXILLA: No lymphadenopathy by size criteria. LIVER, GALLBLADDER, AND BILIARY TREE: The liver appears unremarkable in size, shape, and attenuation. No focal hepatic lesion or biliary ductal dilatation is appreciated. Tiny gallstone. No evidence of gallbladder wall thickening or pericholecystic inflammatory change. PANCREAS: Unremarkable SPLEEN: Unremarkable ADRENAL GLANDS: Unremarkable KIDNEYS AND URETERS: The kidneys appear unremarkable in size, shape, and attenuation. No hydronephrosis, hydroureter, or calculi seen. GASTROINTESTINAL TRACT: The stomach and visualized small bowel appear unremarkable. Scattered colonic diverticula without evidence of diverticulitis. Normal-appearing distal ileum and vermiform appendix. ABDOMINAL WALL: No significant hernia is appreciated. LYMPH NODES: No evidence of adenopathy by size criteria. VASCULAR: Unremarkable. OSSEOUS STRUCTURES: Unremarkable. CT/CT abdomen wo IV con IMPRESSION: No evidence of significant aortic atherosclerosis.
--- NOTE | ~2023-07-27 | US_ITS ---
EXAMINATION: US EXTRACRANIAL CAROTID DUPLEX, BILATERAL CLINICAL INFORMATION: Carotid bruit. COMPARISON: None available. TECHNIQUE: Real-time ultrasound and Doppler techniques (integrating B-mode 2-D vascular images, Doppler spectral analysis and color-flow Doppler imaging) were utilized to interrogate the extracranial carotid arteries, the vertebral arteries and proximal subclavian arteries bilaterally. The degree of stenosis is determined by criteria similar to NASCET. FINDINGS: Right Side: 1. There is mild atherosclerotic plaque seen in the bifurcation/proximal ICA region. 2. The common carotid artery PSV proximally is 97 cm/s and distally 64 cm/s. 3. The proximal internal carotid artery velocities are 58 cm/s systolic and 23 cm/s diastolic. 4. The proximal external carotid artery PSV is 96 cm/s. 5. The vertebral artery shows antegrade flow. 6. The subclavian artery waveforms are normal. Left Side: 1. There is mild atherosclerotic plaque seen in the bifurcation/proximal ICA region. 2. The common carotid artery PSV proximally is 96 cm/s and distally 73 cm/s. 3. The proximal internal carotid artery velocities are 53 cm/s systolic and 18 cm/s diastolic. 4. The proximal external carotid artery PSV is 103 cm/s. 5. The vertebral artery shows antegrade flow. 6. The subclavian artery waveforms are normal. US/US carotid duplex BI IMPRESSION: 1. RIGHT: Minimal, non-hemodynamically significant stenosis of the proximal right internal carotid artery corresponding to a 0-49% stenosis by velocity criteria. 2. LEFT: Minimal, non-hemodynamically significant stenosis of the proximal left internal carotid artery corresponding to a 0-49% stenosis by velocity criteria.
== END 2023-07-27 10:38 | disposition home or self-care (01) ==
LOC: HO.CT 10:37
PROVIDERS: PCP Nurse Practitioner Family; Visit Provider Thoracic Surgery (Cardiothoracic Vascular Surgery)
DX: I70.0 Atherosclerosis of aorta (principal); I71.40 Abdominal aortic aneurysm, without rupture, unspecified; R09.89 Other specified symptoms and signs involving the circulatory and respiratory systems
CPT/HCPCS: 71250; 74150; 93880

== ENCOUNTER 2023-09-14 07:22 | Outpatient (AMB) | payer OTHER, SELFPAY ==
--- NOTE | 2023-09-14 07:38 | A.OFFPC_ITS ---
Vital Signs 09/14/23 07:41 Height 5 ft 11 in Weight 266 lb BMI 37.1 BP 118/74 Blood Pressure Location Rt brachial Position Sitting Pulse 68 Pulse Source Pulse Oximeter Pulse Oximetry (%) 94 Oxygen Delivery Method Room Air Intake Visit Reasons: Annual PE Intake Note: Patient here for physical exam and would like to talk about quad bypass that was done on aug 10. Allergies amoxicillin Allergy (Unknown, Verified 09/14/23 08:15) anaphylaxis Medication List - Last Reconciled 09/14/23 by JACK Escobar amiodarone 200 mg PO BID aspirin (Adult Aspirin Regimen) 81 mg PO DAILY clopidogrel (Plavix) 75 mg PO DAILY metoprolol succinate ER 75 mg PO DAILY rosuvastatin 20 mg PO BEDTIME Tobacco use date assessed: 03/08/23 Dental Screening Dental Screen Date: 09/14/23 Did you have a dental visit in the last 12 months?: No Did you have a dental problem in the last 6 months where you did not have access to dental care?: No Was dental information given to patient?: Patient has dentist HPI Annual PE HPI Details Pt is here for a PE. Will order labs. Due for PSA, will order. Denies dribbling with urination, weak stream, and frequent nocturia. Pt underwent a CABG x4 on August 10. He is scheduled to start cardiac rehab on 09/16. Pt's colon screen was deferred due to CABG. Pt reports quitting smoking. Will increase rosuvastatin from 5mg to 20mg. pt is to continue the amiodarone 200mg bid until september 18, then stop . Pt is following up with his [place] farmer on september 19 + Sep 28. Colonoscopy is postposted currently. Pt refuses all and any vaccines today. Pt is a former smoker for many years. Will order PFT testing. [facility] Medical History History of myocardial infarction Nicotine dependence, cigarettes, uncomplicated Sensorineural hearing loss (SNHL) of both ears CAD (coronary artery disease) Surgical History (Updated 09/14/23 @ 07:49 by JACK Escobar) S/P CABG x 4 History of heart artery stent Family History Unknown No problems noted. Social History Housing: House Alcohol intake: never Patient Tobacco Use Status: Current everyday Tobacco user Cigarettes Per Day: 8 Years Smoked: (onset 19yo, 1/2-1ppd x 38yrs, 30pyh) e-Cigarette/Vaping Use: Never Used Second Hand Smoke Exposure: No service: No Current occupational status: employed Current occupation: [employer] Current occupational exposures/hazards: Yes Cognitive needs: No Hearing needs: No Vision needs: No Questionnaire PHQ-9 Over the last 2 weeks, how often have you been bothered by any of the following problems? 1. Little interest or pleasure in doing things: not at all 2. Feeling down, depressed, or hopeless: not at all 3. Trouble falling or staying asleep, or sleeping too much: not at all 4. Feeling tired or having little energy: not at all 5. Poor appetite or overeating: not at all 6. Feeling bad about yourself - or that you are a failure or have let yourself or your family down: not at all 7. Trouble concentrating on things, such as reading the newspaper or watching television: not at all 8. Moving or speaking so slowly that other people could have noticed. Or the opposite - being so fidgety or restless that you have been moving around a lot more than usual: not at all 9. Thoughts that you would be better off or of hurting yourself in some way: not at all Total score: 0 Depression Screening Interpretation: Negative Depression Screening Done: Yes 09260 - PHQ-9 Billing: Yes Source: Developed by Drs. Rock Guevara, Sana Freeman, Cody Mcwilliams and colleagues, with an educational otis from [employer]. Thrive Questionnaire Date Thrive assessed: 09/09/22 Currently or been in a relationship where the following occur: no concerns reported AUDIT C Alcohol Use Questionnaire (AUDIT-C) 1. How often do you have a drink containing alcohol?: Never 2. How many drinks containing alcohol do you have on a typical day when you are drinking?: 1 or 2 3. How often do you have six or more drinks on one occasion?: Never Total Score: 0 Score Reviewed/Action Taken: No CHRISTIANNE-7 AMB Questionnaire CHRISTIANNE-7 Date CHRISTIANNE - 7 assessed: 09/14/23 Feeling nervous, anxious, or on edge: 0 = Not at all Not being able to stop or control worryin = Not at all Worrying too much about different things: 0 = Not at all Trouble relaxin = Not at all Becoming easily annoyed or irritable: 0 = Not at all Feeling afraid as if something awful might happen: 0 = Not at all Source: Developed by Drs. Rock Guevara, Sana Freeman, Cody Mcwilliams and colleagues, with an educational otis from [employer]. CHRISTIANNE-7 Assessment Billing CHRISTIANNE-7 Assessment Tool: CHRISTIANNE-7 Assessment 11853 Review of Systems Const Denies chills and Denies fever(s) Eyes Denies blurry vision ENT Denies vertigo, Denies dizziness and Denies sore throat Card Denies chest pain at rest, Denies chest pain with activity, Denies diaphoresis, Denies dyspnea and Denies dyspnea on exertion Resp Denies cough, Denies dyspnea, Denies dyspnea on exertion and Denies wheezing GI Denies abdominal pain, Denies melena, Denies hematochezia, Denies constipation, Denies diarrhea and Denies loose stools Denies hematuria Musc Denies numbness and Denies tingling Skin/Breast Denies lesions Neuro Denies vertigo, Denies dizziness, Denies numbness and Denies tingling Psych Denies anxiety, Denies depression, Denies homicidal ideation, Denies suicidal ideation and Denies other (substance abuse) Aller/Immun Denies wheezing Physical exam (Primary Care) Vital Signs: Last Vital Signs Pulse 68 09/14/23 07:41 BP 118/74 09/14/23 07:41 Pulse Ox 94 09/14/23 07:41 Oxygen Delivery Method Room Air 09/14/23 07:41 BMI result Body Mass Index 37.1 Tobacco/Smoking Status: Tobacco use Status Tobacco use date assessed 03/08/23 09/14/23 07:39 Patient Tobacco Use Status Current everyday Tobacco 09/14/23 07:39 e-Cigarette/Vaping Use Never Used 09/14/23 07:39 Depression Screening Interpretation: Negative Thrive Assessment: Date of Thrive Assessment Date Thrive assessed 09/09/22 09/14/23 07:39 Currently or been in a relationship where the following occur: no concerns reported Const General: cooperative Nutritional Appearance: obese Orientation/consciousness: patient oriented x3 HENMT Head: Yes normal to inspection, Yes normocephalic and Yes atraumatic Ears: TM's normal bilaterally Eyes General: appearance normal, both eyes and all related structures Alignment and Position: alignment normal and position normal Neck Neck: Yes normal visual inspection and Yes no lymphadenopathy Thyroid: Thyroid normal Resp Other: faint scattered wheezes, moving air Effort & Inspection: normal respiratory effort Cardio Rate: regular rate Rhythm: regular rhythm Heart sounds: S1 normal heart sound present, S2 normal heart sound present and no murmurs GI Palpation (GI): Soft to palpation and nontender Auscultation: normal bowel sounds Male General Exam: Yes normal external exam Penis: normal penis Scrotum: scrotum normal, testes descended bilaterally and no inguinal hernias Testes: no testicular mass Skin Other: donor sites to RLE medial aspect of upper calf, also noted to left wrist, no signs of infection, small site to proximal left forearm, no signs of infection, large vertical incision to chest, healing well, 2 lap sites to abdomen, healing well without signs of infection Rashes: no rashes Neuro General: patient oriented x3, moves all extremities, no focal motor deficits and deep tendon reflexes 2+ bilaterally Romberg Test: Negative Psych Appearance: grossly normal Mental Status: mental status grossly normal Speech and movement: Normal speech and movement present Affect: normal affect Attitude: cooperative Thought process: Normal thought process present Thought content: Normal thought content present Insight: Good insight present (Psych) Judgement: Good judgement present (Psych) Assessment and Plan Assessment & Plan (1) CAD (coronary artery disease): Code(s): I25.10 - Atherosclerotic heart disease of [place] coronary artery without angina pectoris Qualifiers: Associated angina: with other forms of angina Coronary Disease- Associated Artery/Lesion type: [place] artery [place] vs. transplanted heart: [place] heart Qualified Code(s): I25.118 - Atherosclerotic heart disease of [place] coronary artery with other forms of angina pectoris Plan: Labs ordered (2) S/P CABG x 4: Comment: 08/10/2023 Code(s): Z95.1 - Presence of aortocoronary bypass graft Plan: Labs ordered (3) Screening PSA (prostate specific antigen): Code(s): Z12.5 - Encounter for screening for malignant neoplasm of prostate Plan: PSA ordered (4) Nicotine dependence, cigarettes, uncomplicated: Comment: (current smoker, onset 19yo, 1/2-1ppd x 38yrs, 30pyh) Code(s): F17.210 - Nicotine dependence, cigarettes, uncomplicated Plan The patient agreed to the use of a biomedical engineer for this encounter. Scribed for LUIS Bartlett by Giselle Lawrence biomedical engineer, on 09/14/2023 at 08:00 EST. Orders: Orders Complete Blood Count Auto Diff Today I25.10 - Atherosclerotic heart disease of [place] coronary artery without angina pectoris, Z00.01 - Encounter for general adult medical examination with abnormal findings Comprehensive [place]. Panel Fast Today I25.10 - Atherosclerotic heart disease of [place] coronary artery without angina pectoris, Z00.01 - Encounter for general adult medical examination with abnormal findings TSH reflex Free T4 Today I25.10 - Atherosclerotic heart disease of [place] coronary artery without angina pectoris, Z00.01 - Encounter for general adult medical examination with abnormal findings UA CC w/rflx Micro + Cult Today I25.10 - Atherosclerotic heart disease of [place] coronary artery without angina pectoris, Z00.01 - Encounter for general adult medical examination with abnormal findings Lipid Panel Today I25.10 - Atherosclerotic heart disease of [place] coronary artery without angina pectoris, Z00.01 - Encounter for general adult medical examination with abnormal findings Prostate Specific Antigen Scr Today Z12.5 - Encounter for screening for malignant neoplasm of prostate PFT pulmonary function test Today F17.210 - Nicotine dependence, cigarettes, uncomplicated Medications: Changed From metoprolol succinate ER 25 mg PO DAILY 90 tabs 0RF To metoprolol succinate ER 75 mg PO DAILY From rosuvastatin 5 mg PO BEDTIME 90 tabs 1RF To rosuvastatin 20 mg PO BEDTIME 90 tabs 1RF Coding Level of Care Code Est Pt Prev Care 40-64y(59717) Diagnoses Coronary artery disease involving [place] coronary artery of [place] heart with other form of angina pectoris I25.118 Associated angina: with other forms of angina Coronary Disease-Associated Artery/Lesion type: [place] artery [place] vs. transplanted heart: [place] heart S/P CABG x 4 Z95.1 Screening PSA (prostate specific antigen) Z12.5 Nicotine dependence, cigarettes, uncomplicated F17.210 Additional Codes CHRISTIANNE-7 Assessment Billing - CHRISTIANNE-7 Assessment Tool: CHRISTIANNE-7 Assessment [id number] ([id number])
[2023-09-14 07:41] VITALS: BP 118/74; PULSE 68; O2SAT 94; BMI 37.1
== END 2023-09-14 08:16 | disposition home or self-care (01) ==
PROVIDERS: Visit Provider Nurse Practitioner Family
DX: Z00.00 Encounter for general adult medical examination without abnormal findings (principal); I25.118 Atherosclerotic heart disease of native coronary artery with other forms of angina pectoris; Z95.1 Presence of aortocoronary bypass graft; Z12.5 Encounter for screening for malignant neoplasm of prostate; F17.210 Nicotine dependence, cigarettes, uncomplicated
CPT/HCPCS: 99396

== ENCOUNTER 2023-09-16 06:22 | Outpatient (REF) | payer OTHER, SELFPAY ==
[2023-09-16 11:14] LABS: MANUAL DIFF FLAG NO
[2023-09-16 11:33] LABS: Basophils Percent Auto 0.3 % (0-2); Eosinophils Absolute Auto 0.1 X10*3/uL (0.0-0.4); Eosinophils Percent Auto 1.1 % (0-4); Hematocrit 42.7 % (42.0-52.0); Hemoglobin 13.9 g/dl (14.0-18.0); Imm Gran Abs Auto 0.07 X10*3/uL (0.00-0.03); Lymphocytes Absolute Auto 1.8 X10*3/uL (1.2-4.9); Lymphocytes Percent Auto 24.6 % (20-40); Mean Corpuscular HGB Conc 32.6 g/dl (31.0-36.0); Mean Corpuscular Hemoglobin 31.1 pg (27.0-33.0); Mean Corpuscular Volume 95.5 fL (80.0-98.0); Monocytes Absolute Auto 0.5 X10*3/uL (0.1-1.2); Monocytes Percent Auto 6.8 % (2-11); Neutrophils Absolute Auto 4.9 x10*3/uL (2.0-8.3); Neutrophils Percent Auto 66.2 % (45-73); Platelet Count 162 X10*3/uL (160-400); Red Blood Count 4.47 X10*6/uL (4.60-5.80); Red Cell Distribution Width 13.7 % (11.0-16.0); White Blood Count 7.4 X10*3/uL (4.8-10.8)
[2023-09-16 11:37] LABS: Appearance Urine Turbid; Color Urine Yellow; Glucose Urine UA Negative (Negative); Leukocyte Esterase Urine Negative (Negative); Nitrite Urine Negative (Negative); PH 5.5 (5.0-9.0); Specific Gravity - Urine 1.025 (1.005-1.025); Urine Blood Negative (Negative); Urine Ketones Negative (Negative); Urine Protein Negative (Neg-Trace)
[2023-09-16 12:06] LABS: Alanine Aminotransferase 19 U/L (0-40); Albumin Level 3.9 g/dL (3.5-5.0); Alkaline Phosphatase 74 U/L (39-117); Anion Gap 10 (12-20); Aspartate Amino Transferase 18 U/L (5-37); Bilirubin Total 0.4 mg/dL (0.0-1.0); Blood Urea Nitrogen 18 mg/dL (9-16); Calcium 9.1 mg/dL (8.4-10.2); Carbon Dioxide 31 mmol/L (22-29); Chloride 105 mmol/L (96-108); Cholesterol 129 mg/dL (<200); Estimated Glomerular Filt Rate > 60; Glucose Fasting 92 mg/dL (60-99); HDL Cholesterol 43 mg/dL (>40); LDL Cholesterol Calculated 63 mg/dL (<100); Potassium 4.2 mmol/L (3.3-5.1); Sodium 142 mmol/L (135-145); Total Protein 6.8 g/dL (6.5-8.0); Triglycerides 117 mg/dL (<150)
[2023-09-16 12:08] LABS: Prostate Specific Antigen Scr 0.45 ng/mL (<0.05-4.0)
[2023-09-16 12:24] LABS: TSH reflex Free T4 5.77 uIU/mL (0.32-4.0)
[2023-09-16 12:58] LABS: Free T4 (Free Thyroxine) 0.76 ng/dL (0.71-1.85)
== END 2023-09-16 06:23 | disposition home or self-care (01) ==
LOC: HO.HMGCLDS 06:22
PROVIDERS: PCP Nurse Practitioner Family; Visit Provider Nurse Practitioner Family
DX: Z00.01 Encounter for general adult medical examination with abnormal findings (principal); I25.10 Atherosclerotic heart disease of native coronary artery without angina pectoris; D64.9 Anemia, unspecified; R79.89 Other specified abnormal findings of blood chemistry; Z12.5 Encounter for screening for malignant neoplasm of prostate
CPT/HCPCS: 36415; 80053; 80061; 81003; 84153; 84439; 84443; 85025

== ENCOUNTER 2023-09-28 08:59 | Outpatient (AMB) | payer OTHER, SELFPAY ==
[2023-09-28 09:20] VITALS: BP 120/62; PULSE 71; BMI 38.0
--- NOTE | 2023-09-28 09:20 | A.OFFVIS_ITS ---
Intake Vital Signs 09/28/23 09:20 Height 5 ft 11 in Weight 272 lb 7.861 oz BMI 38.0 BP 120/62 Blood Pressure Location Rt brachial Position Sitting Pulse 71 Pulse Source Pulse Oximeter Intake Visit Reasons: Post CABG Charity Fundraiser Required: No Allergies amoxicillin Allergy (Unknown, Verified 09/28/23 09:22) anaphylaxis Medication List - Last Reconciled 09/28/23 by Annita Hewitt, ARPITA-C aspirin (Adult Aspirin Regimen) 81 mg PO DAILY clopidogrel (Plavix) 75 mg PO DAILY metoprolol succinate ER mg PO rosuvastatin 20 mg PO BEDTIME HPI Post CABG HPI Details Rudi is a 58-year-old male with past medical history of hyperlipidemia, smoking, cardiomyopathy with recent cardiac catheterization showing multivessel CAD. He underwent coronary artery bypass grafting on 08/10/2023 and now presents for follow-up. Today he reports that he has been doing well since his surgery. He is very pleased with his recovery. He is noticing that his breathing is easier any is having less fatigue with activity. He is attending cardiac rehab at [facility]. He denies any chest wall discomfort. No heart palpitations, lightheadedness, presyncope, syncope. No PND, orthopnea or edema. He is taking all meds as directed. He quit smoking the day prior to his surgery. Has not been back to work yet. 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 [facility] Medical History History of myocardial infarction Nicotine dependence, cigarettes, uncomplicated Sensorineural hearing loss (SNHL) of both ears CAD (coronary artery disease) Surgical History S/P CABG x 4 History of heart artery stent Family History Unknown No problems noted. Social History Housing: House Alcohol intake: never Patient Tobacco Use Status: Current everyday Tobacco user Cigarettes Per Day: 8 Years Smoked: (onset 19yo, 1/2-1ppd x 38yrs, 30pyh) e-Cigarette/Vaping Use: Never Used Second Hand Smoke Exposure: No service: No Current occupational status: employed Current occupation: [employer] [place] Current occupational exposures/hazards: Yes Cognitive needs: No Hearing needs: No Vision needs: No Review of Systems Const All systems reviewed & are unremarkable except as noted in HPI and below ENT Denies dizziness Card Denies chest pain, Denies chest pain at rest, Denies chest pain with activity, Denies rapid heart rate, Denies pedal edema, Denies edema, Denies leg edema, Denies lightheadedness, Denies palpitations, Denies dyspnea, Denies dyspnea on exertion and Denies orthopnea Resp Denies cough, Denies dyspnea and Denies dyspnea on exertion GI Denies hematochezia and Denies change in stool character Musc Denies abnormal gait, Denies limited range of motion, Denies muscle cramps, Denies muscle weakness, Denies numbness, Denies radiating pain into limb, Denies stiffness and Denies tingling Neuro Denies abnormal gait, Denies dizziness, Denies numbness and Denies tingling Endo Denies palpitations Physical Exam Vital Signs: Last Vital Signs Pulse 71 09/28/23 09:20 BP 120/62 09/28/23 09:20 BMI result Body Mass Index 38.0 Const General: cooperative, healthy appearing, comfortable and no acute distress Orientation/consciousness: patient oriented x3 Neck Neck: Yes normal visual inspection and Yes no JVD Chest Other: Sternal incision well approximated, well healed, in sites healing well. No signs of infection or dehiscence. Resp Effort & Inspection: normal respiratory effort Auscultation: clear to auscultation bilaterally, no crackles, no rales, no rhonchi and no wheezes Cardio Jugular venous distension: no JVD Rate: regular rate Rhythm: regular rhythm Heart sounds: S1 normal heart sound present, S2 normal heart sound present, no murmurs and no rubs Neuro General: patient oriented x3 Extrem General: Yes normal to inspection and No no pedal edema Psych Appearance: grossly normal Mental Status: mental status grossly normal Speech and movement: Normal speech and movement present Assessment & Plan Assessment & Plan (1) CAD (coronary artery disease): Code(s): I25.10 - Atherosclerotic heart disease of [place] coronary artery without angina pectoris Qualifiers: Associated angina: with other forms of angina Coronary Disease- Associated Artery/Lesion type: [place] artery [place] vs. transplanted heart: [place] heart Qualified Code(s): I25.118 - Atherosclerotic heart disease of [place] coronary artery with other forms of angina pectoris Plan: History of CAD with reported RI and coronary stent in the past. He recently underwent echocardiogram showing severe LV dysfunction with EF 25-30%. He had symptoms of shortness of breath with exertion. He underwent cardiac c atheterization showing severe multi-vessel CAD and was referred for surgical revascularization. He underwent coronary artery bypass grafting on 08/10/2023. Today he reports doing well since his time of surgery. He is attending cardiac rehab at [facility]. He denies having any chest wall discomfort. He tells me his breathing and fatigue symptoms have improved. He is overall pleased with how he is doing. Will have him continue aspirin indefinitely. Continue Plavix for 1 year. Continue metoprolol XL and rosuvastatin with ideal LDL goal less than 70. Labs done 09/16/2023 showed LDL 63. Will check a limited echocardiogram to evaluate EF and wall motion. 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 Will hold off on return to work until full healing of sternum- approximally 12 weeks total. Cardiology follow-up in about 6 weeks, sooner if needed to go over echo results, evaluate for return to work. (2) S/P CABG x 4: Comment: 08/10/2023- rodarte to LAD, radial graft to D1, SVG to OM1 and right PDA Code(s): Z95.1 - Presence of aortocoronary bypass graft Plan: As above (3) Ischemic cardiomyopathy: Code(s): I25.5 - Ischemic cardiomyopathy Plan: Echocardiogram done on 04/26/2023 showed EF 28%. This led to cardiac catheterization then cardiac surgery as above. Will be obtaining limited echo to re-evaluate EF at this time. He will continue on metoprolol. Heart rate and blood pressure well controlled. No clinical signs of heart failure on examination. (4) Hyperlipemia: Code(s): E78.5 - Hyperlipidemia, unspecified Plan: [place] LDL goal less than 70. Currently well controlled on rosuvastatin 20 mg daily. (5) Nicotine dependence, cigarettes, uncomplicated: Comment: (current smoker, onset 19yo, 1/2-1ppd x 38yrs, 30pyh) Code(s): F17.210 - Nicotine dependence, cigarettes, uncomplicated Plan: Patient quit the day for prior to his surgery 08/09/2023. Applauded on this. Instructed to maintain ongoing cessation Plan Time spent on chart review, documentation, interview and assessment Orders: Orders CA echo limited Today I25.5 - Ischemic cardiomyopathy, Z95.1 - Presence of aortocoronary bypass graft Coding Level of Care Code Est Pt Level 4 (61993) Diagnoses Coronary artery disease involving [place] coronary artery of [place] heart with other form of angina pectoris I25.118 Associated angina: with other forms of angina Coronary Disease-Associated Artery/Lesion type: [place] artery [place] vs. transplanted heart: [place] heart S/P CABG x 4 Z95.1 Ischemic cardiomyopathy I25.5 Hyperlipemia E78.5 Nicotine dependence, cigarettes, uncomplicated F17.210 Time Spent (min) 28
== END 2023-09-28 09:59 | disposition home or self-care (01) ==
PROVIDERS: PCP Nurse Practitioner Family; Visit Provider Nurse Practitioner Family
DX: I25.118 Atherosclerotic heart disease of native coronary artery with other forms of angina pectoris (principal); Z95.1 Presence of aortocoronary bypass graft; I25.5 Ischemic cardiomyopathy; E78.5 Hyperlipidemia, unspecified; F17.210 Nicotine dependence, cigarettes, uncomplicated
CPT/HCPCS: 99214

== ENCOUNTER → 2023-09-28 08:59 | Outpatient (BNVA) | payer OTHER, SELFPAY | PROVIDERS: PCP Nurse Practitioner Family; Visit Provider Nurse Practitioner Family ==

== ENCOUNTER → 2023-10-13 13:33 | Outpatient (REF) | payer OTHER, SELFPAY ==
--- NOTE | 2023-10-13 13:35 | CA_ITS ---
Transthoracic Echocardiogram Patient (Last, First, Middle): Rdui Trivedi T Gender: Male Date of : 1965 Age: 58 Procedure Date: 10/13/2023 Procedure Type: Transthoracic Echocardiogram Location: OP Height: 177.8 cm Weight: 123.38 kg BSA: 2.38 m2 Heart Rate: bpm BP: 130 / 70 mmHg Patient Biller: TO Referring MD: Annita Hewitt METAL FILER-Tomas Coupling Machine Operator: Kojo Arboleda MD Symptoms: I25.5 - Ischemic cardiomyopathy Study Quality: Technically Difficult/s/p CABG ECG Rhythm: Sinus Conclusions: - Mildly reduced LV ejection fraction of 45-50% with grade 1 diastolic dysfunction Findings Procedure Information Contrast agent, definity, is being given per protocol without apparent complications. Left Ventricle The left ventricle was not well visualized. Normal left ventricular cavity size. The left ventricular systolic function is mildly decreased. The visually estimated ejection fraction is between 45-50%. Regional wall motion abnormalities can not be excluded due to suboptimal endocardial definition. Spectral Doppler is indicative of an impaired relaxation filling pattern. E/E prime ratio is <8, consistent with normal filling pressures. Evidence suggests grade I (mild) diastolic dysfunction. Prior Study Comparison Changes noted compared to prior study dated: 04/26/2023. LV systolic function is improved Measurements 2D Linear Measurements IVSd: 1.35 0.6-0.9/0.6-1.0 cm LVIDd: 4.70 3.9-5.3/4.2-5.9 cm LVIDd Index: 1.97 2.4-3.2/2.2-3.1 cm/m2 LVIDs: 3.30 2.0-3.6 cm LVPWd: 1.37 0.7-1.1 cm LV Mass: 316.88 67-162/88-224 g LV Mass Index: 133.14 43-95/49-115 g/m2 LVOT Diam: 2.30 3.0+(-)1.3 cm 2D Systolic Function EF 4C: 50.60 >55% EF 2C: 45.70 >55% EF BiP: 47.80 >55% Mitral Valve MV Pk E: 0.89 MV PK A: 1.00 MV Decel Time: 219.00 E/A: 0.90 E'Lateral: 11.20 E'Medial: 7.07 E/E' Med: 12.50 E/E' Lat: 7.90 PHT: 64.00 MVA PHT: 3.44 Decel Bryan: 4.06 LVOT LVOT Pk David: 0.97 LVOT Mn David: 0.64 LVOT VTI: 0.22 LVOT Pk Grad: 4.00 LVOT Mn Grad: 2.00 LVOT Diam: 2.30 LVOT Area: 4.15 Diastolic Function MV Pk E: 0.89 MV Pk A: 1.00 E/A: 0.90 E'Medial: 7.07 E/E' Med: 12.50 E' Laterial: 11.20 E/E' Lat: 7.90 Tricuspid Valve RA Press: 3.00 Updated in Other Vendor System with Status of Final Kojo Arboleda MD electronically signed on 10/13/2023 3:54:14 PM with status of Final
== END ==
LOC: HO.CARD 13:33
PROVIDERS: PCP Nurse Practitioner Family; Visit Provider Nurse Practitioner Family
DX: I25.5 Ischemic cardiomyopathy (principal); Z95.1 Presence of aortocoronary bypass graft
CPT/HCPCS: 93308; Q9957

== ENCOUNTER → 2023-10-13 13:35 | Outpatient (BNV) | payer OTHER, SELFPAY | PROVIDERS: PCP Nurse Practitioner Family; Visit Provider Internal Medicine Cardiovascular Disease | DX: I25.5 Ischemic cardiomyopathy (principal) | CPT/HCPCS: 93308 ==

== ENCOUNTER 2023-10-26 08:59 | Outpatient (AMB) | payer OTHER, SELFPAY ==
--- NOTE | 2023-10-26 09:02 | MHC.OFFVIS ---
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 Required: No Allergies amoxicillin Allergy (Unknown, Verified 10/26/23 09:21) anaphylaxis Medication List - Last Reconciled 10/26/23 by Annita Hewitt, ARPITA-C aspirin (Adult Aspirin Regimen) 81 mg PO DAILY clopidogrel (Plavix) 75 mg PO DAILY metoprolol succinate ER mg PO rosuvastatin 20 mg PO BEDTIME HPI 6 wk f/up carter echo HPI Details Rudi is a 58-year-old male with past medical history of hyperlipidemia, smoking, cardiomyopathy with cardiac catheterization showing multivessel CAD who underwent coronary artery bypass grafting 08/10/2023 and recently had echocardiogram, now presenting for follow-up. Today he reports he is doing very well. He attends cardiac rehab and tolerates it without symptoms. He feels ready to return to operating. No chest wall or other chest discomfort. No shortness of breath, palpitations, lightheadedness, presyncope, syncope, PND, orthopnea. He is no longer smoking. [facility] Medical History History of myocardial infarction Nicotine dependence, cigarettes, uncomplicated Sensorineural hearing loss (SNHL) of both ears CAD (coronary artery disease) Surgical History S/P CABG x 4 History of heart artery stent Family History Unknown No problems noted. Social History Housing: House Alcohol intake: never Patient Tobacco Use Status: Current everyday Tobacco user Cigarettes Per Day: 8 Years Smoked: (onset 19yo, 1/2-1ppd x 38yrs, 30pyh) e-Cigarette/Vaping Use: Never Used Second Hand Smoke Exposure: No service: No Current occupational status: employed Current occupation: [employer] Current occupational exposures/hazards: Yes Cognitive needs: No Hearing needs: No Vision needs: No Review of Systems Const All systems reviewed & are unremarkable except as noted in HPI and below ENT Denies dizziness Card Denies chest pain, Denies chest pain at rest, Denies chest pain with activity, Denies rapid heart rate, Denies pedal edema, Denies edema, Denies leg edema, Denies lightheadedness, Denies palpitations, Denies dyspnea, Denies dyspnea on exertion and Denies orthopnea Resp Denies cough, Denies dyspnea and Denies dyspnea on exertion GI Denies hematochezia and Denies change in stool character Musc Denies abnormal gait, Denies limited range of motion, Denies muscle cramps, Denies muscle weakness, Denies numbness, Denies radiating pain into limb, Denies stiffness and Denies tingling Neuro Denies abnormal gait, Denies dizziness, Denies numbness and Denies tingling Endo Denies palpitations Physical Exam Vital Signs: Last Vital Signs Pulse 64 10/26/23 09:19 BP 120/74 10/26/23 09:19 BMI result Body Mass Index 38.8 Const General: cooperative, healthy appearing, comfortable and no acute distress Orientation/consciousness: patient oriented x3 Neck Neck: Yes normal visual inspection and Yes no JVD Chest Other: Sternal incision well healed, nontender Chest palpation & inspection: normal inspection of the chest Resp Effort & Inspection: normal respiratory effort Auscultation: clear to auscultation bilaterally, no crackles, no rales, no rhonchi and no wheezes Cardio Jugular venous distension: no JVD Rate: regular rate Rhythm: regular rhythm Heart sounds: S1 normal heart sound present, S2 normal heart sound present, no murmurs and no rubs Neuro General: patient oriented x3 Extrem General: Yes normal to inspection, No no pedal edema and No calf tenderness Psych Appearance: grossly normal Mental Status: mental status grossly normal Speech and movement: Normal speech and movement present Assessment & Plan Assessment & Plan (1) CAD (coronary artery disease): Code(s): I25.10 - Atherosclerotic heart disease of [place] coronary artery without angina pectoris Qualifiers: Coronary Disease-Associated Artery/Lesion type: [place] artery [place] vs. transplanted heart: [place] heart Associated angina: with other forms of angina Qualified Code(s): I25.118 - Atherosclerotic heart disease of [place] coronary artery with other forms of angina pectoris Plan: History of CAD with reported NE and coronary stent in the past. He recently underwent echocardiogram 04/26/2023 showing severe LV dysfunction with EF 25-30%. He had symptoms of shortness of breath with exertion. He underwent cardiac catheterization showing severe multi-vessel CAD and was referred for surgical revascularization. He underwent coronary artery bypass grafting on 08/10/2023. Today he reports doing well since his time of surgery. He is attending cardiac rehab at . He denies having any chest wall discomfort. He has no reports all symptoms. Limited echocardiogram done 10/13/2023 showing EF 45-50%, grade 1 diastolic dysfunction. Will have him continue aspirin indefinitely. Continue Plavix for 1 year. Continue metoprolol XL and rosuvastatin with ideal LDL goal less than 70. Labs done 09/16/2023 showed LDL 63. Will add lisinopril, low dose to help with cardiomyopathy. BMP in 1 week, patient notified. Note given for return to work without restrictions on 11/09/23. Continue cardiac rehab. Cardiology follow-up in 4 months for reassessment, sooner if needed. (2) S/P CABG x 4: Comment: 08/10/2023- rodarte to LAD, radial graft to D1, SVG to OM1 and right PDA Code(s): Z95.1 - Presence of aortocoronary bypass graft Plan: As above (3) Ischemic cardiomyopathy: Code(s): I25.5 - Ischemic cardiomyopathy Plan: Echocardiogram done on 04/26/2023 showed EF 28%. This led to cardiac catheterization then cardiac surgery as above. Limited echo done 10/13/2019 EF now 45-50%. Continue metoprolol and will add lisinopril for neurohormonal modulation. Heart rate and blood pressure well controlled. No clinical signs of heart failure on examination. (4) Hyperlipemia: Code(s): E78.5 - Hyperlipidemia, unspecified Plan: [place] LDL goal less than 70. Currently well controlled on rosuvastatin 20 mg daily. (5) Nicotine dependence, cigarettes, uncomplicated: Comment: (current smoker, onset 19yo, 1/2-1ppd x 38yrs, 30pyh) Code(s): F17.210 - Nicotine dependence, cigarettes, uncomplicated Plan: Patient quit the day for prior to his surgery 08/09/2023. Applauded on this. Instructed to maintain ongoing cessation Plan Time spent on chart review, documentation, interview and assessment Orders: Orders Basic Metabolic Panel Today I25.5 - Ischemic cardiomyopathy Medications: New lisinopril 5 mg PO DAILY 30 tabs 5RF Coding Level of Care Code Est Pt Level 4 (25435) Diagnoses Coronary artery disease involving [place] coronary artery of [place] heart with other form of angina pectoris I25.118 Coronary Disease-Associated Artery/Lesion type: [place] artery [place] vs. transplanted heart: [place] heart Associated angina: with other forms of angina S/P CABG x 4 Z95.1 Ischemic cardiomyopathy I25.5 Hyperlipemia E78.5 Nicotine dependence, cigarettes, uncomplicated F17.210 Time Spent (min) 28
[2023-10-26 09:19] VITALS: BP 120/74; PULSE 64; BMI 38.8
== END 2023-10-26 09:46 | disposition home or self-care (01) ==
PROVIDERS: PCP Nurse Practitioner Family; Visit Provider Nurse Practitioner Family
DX: I25.118 Atherosclerotic heart disease of native coronary artery with other forms of angina pectoris (principal); Z95.1 Presence of aortocoronary bypass graft; I25.5 Ischemic cardiomyopathy; E78.5 Hyperlipidemia, unspecified; F17.210 Nicotine dependence, cigarettes, uncomplicated
CPT/HCPCS: 99214

== ENCOUNTER → 2023-10-26 08:59 | Outpatient (BNVA) | payer OTHER, SELFPAY | PROVIDERS: PCP Nurse Practitioner Family; Visit Provider Nurse Practitioner Family ==

== ENCOUNTER 2024-01-10 09:25 | Outpatient (AMB) | payer OTHER, SELFPAY ==
--- NOTE | 2024-01-10 09:48 | A.OFFPC_ITS ---
Vital Signs 01/10/24 09:53 Height 5 ft 11 in Weight 283 lb 6 oz BMI 39.5 BP 110/70 Blood Pressure Location Rt brachial Position Sitting Pulse 65 Pulse Source Pulse Oximeter Pulse Oximetry (%) 95 Oxygen Delivery Method Room Air Intake Visit Reasons: 4 month follow up Intake Note: Patient here to f/u on CAD. pt is following cardio Allergies amoxicillin Allergy (Unknown, Verified 01/10/24 10:18) anaphylaxis Medication List - Last Reconciled 01/10/24 by JACK Escobar aspirin (Adult Aspirin Regimen) 81 mg PO DAILY clopidogrel 75 mg PO DAILY lisinopril 5 mg PO DAILY metoprolol succinate ER 75 mg (3 x 25 mg) PO DAILY 90 days rosuvastatin 20 mg PO BEDTIME Tobacco use date assessed: 01/10/24 Dental Screening Dental Screen Date: 01/10/24 Did you have a dental visit in the last 12 months?: No Did you have a dental problem in the last 6 months where you did not have access to dental care?: No Was dental information given to patient?: Patient has dentist HPI 4 month follow up HPI Details Dyslipidemia: On rosuvastatin 20mg. Will order labs. Pt follows up with cardiology and pulmonology. Denies chest pain, shortness of breath, and dizziness. Pt is obese. Encouraged pt to work on his diet and get his labs drawn [facility] Medical History History of myocardial infarction Nicotine dependence, cigarettes, uncomplicated Sensorineural hearing loss (SNHL) of both ears CAD (coronary artery disease) Surgical History S/P CABG x 4 History of heart artery stent Family History Unknown No problems noted. Social History Housing: House Alcohol intake: never Patient Tobacco Use Status: Former Tobacco user Cigarettes Per Day: 8 Years Smoked: (onset 19yo, 1/2-1ppd x 38yrs, 30pyh) e-Cigarette/Vaping Use: Never Used Second Hand Smoke Exposure: No service: No Current occupational status: employed Current occupation: [employer] Current occupational exposures/hazards: Yes Cognitive needs: No Hearing needs: No Vision needs: No Questionnaire Thrive Questionnaire Date Thrive assessed: 09/09/22 AUDIT C Alcohol Use Questionnaire (AUDIT-C) 1. How often do you have a drink containing alcohol?: Never 3. How often do you have six or more drinks on one occasion?: Never Total Score: 0 Score Reviewed/Action Taken: No CHRISTIANNE-7 AMB Questionnaire CHRISTIANNE-7 Date CHRISTIANNE - 7 assessed: 09/14/23 Source: Developed by Drs. Rock Guevara, Sana Freeman, Cody Mcwilliams and colleagues, with an educational otis from [employer]. Review of Systems Const Reports as per HPI Physical exam (Primary Care) Vital Signs: Last Vital Signs Pulse 65 01/10/24 09:53 BP 110/70 01/10/24 09:53 Pulse Ox 95 01/10/24 09:53 Oxygen Delivery Method Room Air 01/10/24 09:53 BMI result Body Mass Index 39.5 Tobacco/Smoking Status: Tobacco use Status Tobacco use date assessed 01/10/24 01/10/24 09:56 Patient Tobacco Use Status Former Tobacco user 01/10/24 09:56 e-Cigarette/Vaping Use Never Used 01/10/24 09:50 Thrive Assessment: Date of Thrive Assessment Date Thrive assessed 09/09/22 01/10/24 09:50 Const General: cooperative Nutritional Appearance: obese Orientation/consciousness: patient oriented x3 Resp Effort & Inspection: normal respiratory effort Auscultation: clear to auscultation bilaterally Cardio Rate: regular rate Rhythm: regular rhythm Heart sounds: S1 normal heart sound present and S2 normal heart sound present Neuro General: patient oriented x3 Extrem Other: trace to BLE (edema) Psych Appearance: grossly normal Mental Status: mental status grossly normal Speech and movement: Normal speech and movement present Affect: normal affect Attitude: cooperative Thought process: Normal thought process present Thought content: Normal thought content present Insight: Good insight present (Psych) Judgement: Good judgement present (Psych) Assessment and Plan Assessment & Plan (1) Hyperlipemia: Code(s): E78.5 - Hyperlipidemia, unspecified Plan: Labs ordered (2) Obesity: Code(s): E66.9 - Obesity, unspecified Plan: Work on diet Plan The patient agreed to the use of a medical administrator for this encounter. Scribed for Jose G Melo FLOOR REPRESENTATIVE- by Giselle Lawrence medical administrator, on 01/10/2024 at 09:55 EST. Orders: Orders Comprehensive [place]. Panel Fast Today E78.5 - Hyperlipidemia, unspecified UA CC w/rflx Micro + Cult Today E78.5 - Hyperlipidemia, unspecified Lipid Panel Today E78.5 - Hyperlipidemia, unspecified Complete Blood Count Auto Diff Today E78.5 - Hyperlipidemia, unspecified TSH reflex Free T4 Today E78.5 - Hyperlipidemia, unspecified Coding Level of Care Code Est Pt Level 3 (39259) Diagnoses Hyperlipemia E78.5 Obesity E66.9
[2024-01-10 09:53] VITALS: BP 110/70; PULSE 65; O2SAT 95; BMI 39.5
== END 2024-01-10 10:07 | disposition home or self-care (01) ==
PROVIDERS: PCP Nurse Practitioner Family; Visit Provider Nurse Practitioner Family
DX: E78.5 Hyperlipidemia, unspecified (principal); E66.9 Obesity, unspecified; Z68.39 Body mass index [BMI] 39.0-39.9, adult
CPT/HCPCS: 99213

== ENCOUNTER 2024-03-02 14:03 | Outpatient (AMB) | payer OTHER, SELFPAY ==
[2024-03-02 14:27] VITALS: BP 124/62; PULSE 82; BMI 38.9
--- NOTE | 2024-03-02 14:27 | A.OFFVIS_ITS ---
Vital Signs 03/02/24 14:27 Height 5 ft 11 in Weight 278 lb 10.629 oz BMI 38.9 BP 124/62 Blood Pressure Location Lt brachial Position Sitting Pulse 82 Pulse Source Pulse Oximeter Intake Visit Reasons: 4 mth f/up per dc Engineer First Assistant Required: No Accompanied by: Self / Same As Patient Allergies amoxicillin Allergy (Unknown, Verified 01/10/24 10:18) anaphylaxis Medication List - Last Reconciled 03/02/24 by Jamaal Fisher MD aspirin (Adult Aspirin Regimen) 81 mg PO DAILY clopidogrel 75 mg PO DAILY lisinopril 5 mg PO DAILY metoprolol succinate ER 75 mg (3 x 25 mg) PO DAILY 90 days rosuvastatin 20 mg PO BEDTIME HPI Comments Details: Rudi returns for follow-up regarding coronary disease and cardiomyopathy. He carries a diagnosis of coronary disease based on catheterization 2005. He underwent a routine echocardiogram and that showed severe LV dysfunction. Subsequently, followed by cardiac catheterization showing multivessel disease. Then led to coronary artery bypass surgery. For the most part he is generally doing okay. Some leg swelling that is concerning him. Not clear if it is from weight or from saphenous vein grafting or right heart dysfunction. Many comorbidities including obesity, smoking among others. [facility] Medical History History of myocardial infarction Nicotine dependence, cigarettes, uncomplicated Sensorineural hearing loss (SNHL) of both ears CAD (coronary artery disease) Surgical History S/P CABG x 4 History of heart artery stent Family History Unknown No problems noted. Social History Housing: House Alcohol intake: never Patient Tobacco Use Status: Former Tobacco user Cigarettes Per Day: 8 Years Smoked: (onset 19yo, 1/2-1ppd x 38yrs, 30pyh) e-Cigarette/Vaping Use: Never Used Second Hand Smoke Exposure: No service: No Current occupational status: employed Current occupation: [employer] Current occupational exposures/hazards: Yes Cognitive needs: No Hearing needs: No Vision needs: No Review of Systems Const Denies chills, Denies fatigue, Denies fever(s), Denies frequent falls, Denies weakness, Denies weight gain and Denies weight loss ENT Denies dizziness Card Denies chest pain, Denies leg edema, Denies lightheadedness, Denies palpitations, Denies dyspnea and Denies dyspnea on exertion Resp Denies cough, Denies dyspnea and Denies dyspnea on exertion GI Denies hematochezia Musc Denies abnormal gait, Denies muscle weakness, Denies numbness, Denies radiating pain into limb and Denies tingling Neuro Denies abnormal gait, Denies dizziness, Denies frequent falls, Denies numbness, Denies tingling and Denies weakness Endo Denies fatigue and Denies palpitations Physical Exam Vital Signs: Last Vital Signs Pulse 82 03/02/24 14:27 BP 124/62 03/02/24 14:27 BMI result Body Mass Index 38.9 Const General: comfortable and no acute distress Orientation/consciousness: patient oriented x3 HEENT Other: Unremarkable Head: Yes normal to inspection Neck Neck: Yes normal visual inspection Chest Chest palpation & inspection: normal inspection of the chest Resp Auscultation: clear to auscultation bilaterally Cardio Palpation: normal PMI Heart sounds: S1 normal heart sound present, S2 normal heart sound present, no gallops, no murmurs and no rubs GI Palpation (GI): Soft to palpation Back/Spine/Pelvis Other: unremarkable Skin General skin exam: no rashes or lesions noted Neuro General: patient oriented x3 Extrem Other: 1+ edema bilaterally General: Yes normal to inspection Psych Mental Status: mental status grossly normal Assessment & Plan Assessment & Plan (1) CAD (coronary artery disease): Code(s): I25.10 - Atherosclerotic heart disease of [place] coronary artery without angina pectoris Category: Medical Qualifiers: Associated angina: with other forms of angina Coronary Disease- Associated Artery/Lesion type: [place] artery [place] vs. transplanted heart: [place] heart Qualified Code(s): I25.118 - Atherosclerotic heart disease of [place] coronary artery with other forms of angina pectoris Plan: Cardiac catheterization with severe multivessel disease. Now status post coronary artery bypass surgery. He has some sternotomy discomfort but no clear angina or anything else. He can remain on long-term aspirin. Plavix for the 1st year after bypass. Remains on beta-blockers and statins. Cholesterol seems okay. Most recent LDL 63 mg/dL. Triglycerides 117 mg/dL. (2) Cardiomyopathy: Code(s): I42.9 - Cardiomyopathy, unspecified Category: Medical Qualifiers: Cardiomyopathy type: unspecified Qualified Code(s): I42.9 - Cardiomyopathy, unspecified Plan: Initial echocardiogram with LVEF of 28%. In the repeat study post bypass, improved to 45-50%. With regard leg swelling, it could be multifactorial. Obesity definitely plays a role. Right heart dysfunction also may be playing a role. Venous insufficiency, saphenous vein grafting or other possibilities. Try low-dose diuretics. Check BMP in a few weeks. Discussed about that with patient. (3) Obesity: Code(s): E66.9 - Obesity, unspecified Category: Medical Plan: Lot of his issues are clearly from his weight. He states he has not able to lose much weight. Referred to bariatric. At least try the medical weight loss program. Orders: Orders Basic Metabolic Panel 4 Weeks I25.5 - Ischemic cardiomyopathy Referrals Bariatric Surgery Referral E66.01 - Morbid (severe) obesity due to excess calories Medications: New furosemide (Lasix) 20 mg PO DAILY 30 tabs 3RF Coding Level of Care Code Est Pt Level 4 (03637) Diagnoses Coronary artery disease involving [place] coronary artery of [place] heart with other form of angina pectoris I25.118 Associated angina: with other forms of angina Coronary Disease-Associated Artery/Lesion type: [place] artery [place] vs. transplanted heart: [place] heart Cardiomyopathy, unspecified type I42.9 Cardiomyopathy type: unspecified Obesity E66.9
== END 2024-03-02 14:43 | disposition home or self-care (01) ==
PROVIDERS: PCP Nurse Practitioner Family; Visit Provider Internal Medicine
DX: I25.118 Atherosclerotic heart disease of native coronary artery with other forms of angina pectoris (principal); I42.9 Cardiomyopathy, unspecified; E66.9 Obesity, unspecified
CPT/HCPCS: 99214

== ENCOUNTER → 2024-03-02 14:03 | Outpatient (BNVA) | payer OTHER, SELFPAY | PROVIDERS: PCP Nurse Practitioner Family; Visit Provider Internal Medicine ==

== ENCOUNTER 2024-06-01 14:00 | Outpatient (AMB) | payer OTHER, SELFPAY ==
[2024-06-01 14:36] VITALS: BP 108/56; PULSE 92; BMI 39.6
--- NOTE | 2024-06-01 14:36 | A.OFFVIS_ITS ---
Vital Signs 06/01/24 14:36 Height 5 ft 11 in Weight 283 lb 15.286 oz BMI 39.6 BP 108/56 L Blood Pressure Location Lt brachial Position Sitting Pulse 92 Intake Visit Reasons: 3m follow up Public Health Director Required: No Accompanied by: Self / Same As Patient Allergies amoxicillin Allergy (Unknown, Verified 01/10/24 10:18) anaphylaxis Medication List - Last Reconciled 06/01/24 by Jamaal Fisher MD aspirin (Adult Aspirin Regimen) 81 mg PO DAILY clopidogrel 75 mg PO DAILY furosemide (Lasix) 20 mg PO DAILY lisinopril 5 mg PO DAILY 90 days metoprolol succinate ER 75 mg (3 x 25 mg) PO DAILY 90 days rosuvastatin 20 mg PO BEDTIME HPI Comments Details: Rudi returns for follow-up regarding coronary disease and cardiomyopathy. He underwent a routine echocardiogram and that showed severe LV dysfunction. Subsequently, followed by cardiac catheterization showing multivessel disease. Then led to coronary artery bypass surgery. Overall, he states he is doing okay. No clear cardiac symptoms apart from some sternotomy pain. He has not smoked recently. Weight is unfortunately still the same as before. [facility] Medical History History of myocardial infarction Nicotine dependence, cigarettes, uncomplicated Sensorineural hearing loss (SNHL) of both ears CAD (coronary artery disease) Surgical History S/P CABG x 4 History of heart artery stent Family History (Updated 06/01/24 @ 14:41 by Cassy Salgado CMA) Unknown No problems noted. Father Aorta aneurysm Social History Housing: House Alcohol intake: never Patient Tobacco Use Status: Former Tobacco user Cigarettes Per Day: 8 Years Smoked: (onset 19yo, 1/2-1ppd x 38yrs, 30pyh) e-Cigarette/Vaping Use: Never Used Second Hand Smoke Exposure: No service: No Current occupational status: employed Current occupation: [employer] Current occupational exposures/hazards: Yes Cognitive needs: No Hearing needs: No Vision needs: No Review of Systems Const Denies chills, Denies fatigue, Denies fever(s), Denies weight gain and Denies w eight loss ENT Denies dizziness Card Reports chest pain, Reports leg edema, Denies lightheadedness, Denies palpitations, Denies dyspnea on exertion, Denies orthopnea and Denies other Resp Denies cough and Denies dyspnea on exertion GI Denies hematochezia and Denies change in stool character Musc Denies abnormal gait, Denies muscle weakness, Denies numbness, Denies radiating pain into limb and Denies tingling Neuro Denies abnormal gait, Denies dizziness, Denies numbness and Denies tingling Endo Denies fatigue and Denies palpitations Physical Exam Vital Signs: Last Vital Signs Pulse 92 06/01/24 14:36 BP 108/56 L 06/01/24 14:36 BMI result Body Mass Index 39.6 Const General: comfortable and no acute distress Orientation/consciousness: patient oriented x3 HEENT Other: Unremarkable Head: Yes normal to inspection Neck Neck: Yes normal visual inspection Chest Chest palpation & inspection: normal inspection of the chest Resp Auscultation: clear to auscultation bilaterally Cardio Palpation: normal PMI Heart sounds: S1 normal heart sound present, S2 normal heart sound present, no gallops, no murmurs and no rubs GI Palpation (GI): Soft to palpation Back/Spine/Pelvis Other: unremarkable Skin General skin exam: no rashes or lesions noted Neuro General: patient oriented x3 Extrem General: Yes normal to inspection Psych Mental Status: mental status grossly normal Office Procedures EKG Details: EKG with underlying sinus rhythm at 92/Min; cannot exclude old inferior infarct; no significant ST-T changes; [place] [id number], Complete Assessment & Plan Assessment & Plan (1) CAD (coronary artery disease): Code(s): I25.10 - Atherosclerotic heart disease of [place] coronary artery without angina pectoris Category: Medical Qualifiers: Associated angina: with other forms of angina Coronary Disease- Associated Artery/Lesion type: [place] artery [place] vs. transplanted heart: [place] heart Qualified Code(s): I25.118 - Atherosclerotic heart disease of [place] coronary artery with other forms of angina pectoris Plan: Cardiac catheterization with severe multivessel disease. Now status post coronary artery bypass surgery. Some sternotomy discomfort but otherwise doing fine. Long-term aspirin. Can stop Plavix at 1 year coty. Discussed. Remains on beta-blockers and statins. LDL 63 mg/dL and triglycerides 117mg/dl. (2) Cardiomyopathy: Code(s): I42.9 - Cardiomyopathy, unspecified Category: Medical Qualifiers: Cardiomyopathy type: unspecified Qualified Code(s): I42.9 - Cardiomyopathy, unspecified Plan: Initial echocardiogram with LVEF of 28%. In the repeat study post bypass, improved to 45-50%. No symptoms or signs of congestive heart failure. He is on a small dose of diuretic. Check labs. (3) Obesity: Code(s): E66.9 - Obesity, unspecified Category: Medical Plan: Advised bariatric referral but he wants to discuss with PCP. (4) Smoker: Code(s): F17.200 - Nicotine dependence, unspecified, uncomplicated Category: Social Hx Plan: He has recently stopped smoking. Medications: Discontinued clopidogrel Discontinued Reason: Doctor's Order 75 mg PO DAILY 90 tabs 3RF Coding Level of Care Code Est Pt Level 4 (98100) Diagnoses Coronary artery disease involving [place] coronary artery of [place] heart with other form of angina pectoris I25.118 Associated angina: with other forms of angina Coronary Disease-Associated Artery/Lesion type: [place] artery [place] vs. transplanted heart: [place] heart Cardiomyopathy, unspecified type I42.9 Cardiomyopathy type: unspecified Obesity E66.9 Smoker F17.200 CPT Codes EKG - CPT: 48099-[id number], Complete ([id number])
== END 2024-06-01 15:01 | disposition home or self-care (01) ==
PROVIDERS: PCP Nurse Practitioner Family; Visit Provider Internal Medicine
DX: I25.118 Atherosclerotic heart disease of native coronary artery with other forms of angina pectoris (principal); I42.9 Cardiomyopathy, unspecified; E66.9 Obesity, unspecified; F17.200 Nicotine dependence, unspecified, uncomplicated
CPT/HCPCS: 93010; 99214

== ENCOUNTER → 2024-06-01 14:00 | Outpatient (BNVA) | payer OTHER, SELFPAY | PROVIDERS: PCP Nurse Practitioner Family; Visit Provider Internal Medicine | DX: I25.118 Atherosclerotic heart disease of native coronary artery with other forms of angina pectoris (principal); I42.9 Cardiomyopathy, unspecified; E66.9 Obesity, unspecified; Z68.39 Body mass index [BMI] 39.0-39.9, adult; F17.200 Nicotine dependence, unspecified, uncomplicated; Z79.82 Long term (current) use of aspirin; Z79.899 Other long term (current) drug therapy | CPT/HCPCS: 93005 ==

== ENCOUNTER 2024-06-19 06:21 | Outpatient (REF) | payer OTHER, SELFPAY ==
[2024-06-19 10:13] LABS: MANUAL DIFF FLAG NO
[2024-06-19 10:32] LABS: Basophils Percent Auto 0.1 % (0-2); Eosinophils Absolute Auto 0.1 X10*3/uL (0.0-0.4); Eosinophils Percent Auto 1.3 % (0-4); Hematocrit 48.2 % (42.0-52.0); Hemoglobin 15.5 g/dl (14.0-18.0); Imm Gran Abs Auto 0.05 X10*3/uL (0.00-0.03); Imm Gran Pct Auto 0.7 % (0.0-0.4); Lymphocytes Absolute Auto 2.1 X10*3/uL (1.2-4.9); Lymphocytes Percent Auto 27.3 % (20-40); Mean Corpuscular HGB Conc 32.2 g/dl (31.0-36.0); Mean Corpuscular Hemoglobin 30.8 pg (27.0-33.0); Mean Corpuscular Volume 95.6 fL (80.0-98.0); Mean Platelet Volume 9.2 fL (9.4-12.4); Monocytes Absolute Auto 0.5 X10*3/uL (0.1-1.2); Monocytes Percent Auto 6.1 % (2-11); Neutrophils Absolute Auto 4.8 x10*3/uL (2.0-8.3); Neutrophils Percent Auto 64.5 % (45-73); Platelet Count 177 X10*3/uL (160-400); Red Blood Count 5.04 X10*6/uL (4.60-5.80); Red Cell Distribution Width 12.9 % (11.0-16.0); White Blood Count 7.5 X10*3/uL (4.8-10.8)
[2024-06-19 10:34] LABS: Appearance Urine Clear; Color Urine Yellow; Glucose Urine UA Negative (Negative); Leukocyte Esterase Urine Negative (Negative); Nitrite Urine Negative (Negative); Urine Blood Negative (Negative); Urine Ketones Negative (Negative); Urine Protein Negative (Neg-Trace)
[2024-06-19 11:12] LABS: Vitamin B12 523 pg/mL (200-900)
[2024-06-19 11:22] LABS: Alanine Aminotransferase 16 U/L (0-40); Albumin Level 3.8 g/dL (3.5-5.0); Alkaline Phosphatase 65 U/L (39-117); Anion Gap 10 (12-20); Aspartate Amino Transferase 20 U/L (5-37); Bilirubin Total 0.5 mg/dL (0.0-1.0); Blood Urea Nitrogen 13 mg/dL (9-16); Calcium 9.2 mg/dL (8.4-10.2); Carbon Dioxide 32 mmol/L (22-29); Chloride 104 mmol/L (96-108); Cholesterol 92 mg/dL (<200); Estimated Glomerular Filt Rate > 60; Glucose Fasting 103 mg/dL (60-99); Glucose Random 102 mg/dL (60-115); HDL Cholesterol 31 mg/dL (>40); Iron 112 mcg/dL (45-160); LDL Cholesterol Calculated 46 mg/dL (<100); Percent Iron Saturation 40 % (15-50); Potassium 4.1 mmol/L (3.3-5.1); Sodium 142 mmol/L (135-145); Total Iron Binding Capacity 280 mcg/dL (228-428); Total Protein 6.2 g/dL (6.5-8.0); Triglycerides 75 mg/dL (<150); Unsaturated Iron Binding 168 ug/dL
[2024-06-19 11:24] LABS: Ferritin 68 ng/mL (20-250); TSH reflex Free T4 2.57 uIU/mL (0.32-4.0)
[2024-06-20 21:43] LABS: Thyroid Peroxidase Antibodies 14 IU/mL (<9)
[2024-06-22 14:58] LABS: Hematocrit 47.9 % (38.5-50.0); Hemoglobin 15.3 g/dL (13.2-17.1); MCH 30.4 pg (27.0-33.0); MCV 95.2 fL (80.0-100.0); RBC 5.03 Million/uL (4.20-5.80); RDW 12.6 % (11.0-15.0)
== END 2024-06-19 06:22 | disposition home or self-care (01) ==
LOC: HO.HMGCLDS 06:21
PROVIDERS: PCP Nurse Practitioner Family; Referring Provider Internal Medicine; Visit Provider Nurse Practitioner Family
DX: I25.5 Ischemic cardiomyopathy (principal); R79.89 Other specified abnormal findings of blood chemistry; D64.9 Anemia, unspecified; E78.5 Hyperlipidemia, unspecified
CPT/HCPCS: 36415; 80048; 80053; 80061; 81003; 82607; 82728; 82746; 83020; 83540; 84443; 85014; 85018; 85025; 85041; 86376

== ENCOUNTER 2024-07-10 09:59 | Outpatient (AMB) | payer OTHER, SELFPAY ==
[2024-07-10 10:08] VITALS: BP 110/74; PULSE 68; O2SAT 92; BMI 39.7
--- NOTE | 2024-07-10 10:08 | A.OFFPC_ITS ---
Vital Signs 07/10/24 10:08 Height 5 ft 11 in Weight 285 lb BMI 39.7 BP 110/74 Blood Pressure Location Rt brachial Position Sitting Pulse 68 Pulse Source Pulse Oximeter Pulse Oximetry (%) 92 Oxygen Delivery Method Room Air Intake Visit Reasons: 6 Month F/U Intake Note: Pt is here today for 6M follow up Allergies amoxicillin Allergy (Unknown, Verified 07/10/24 10:09) anaphylaxis Medication List - Last Reconciled 07/10/24 by JACK Escobar aspirin (Adult Aspirin Regimen) 81 mg PO DAILY furosemide 20 mg PO DAILY levothyroxine 25 mcg PO DAILY 30 days lisinopril 5 mg PO DAILY 90 days metoprolol succinate ER 75 mg (3 x 25 mg) PO DAILY 90 days rosuvastatin 20 mg PO BEDTIME tirzepatide (weight loss) (Zepbound) 2.5 mg (0.5 mL) subcut QWEEK Tobacco use date assessed: 07/10/24 Dental Screening Dental Screen Date: 07/10/24 Did you have a dental visit in the last 12 months?: No Did you have a dental problem in the last 6 months where you did not have access to dental care?: No Was dental information given to patient?: No HPI 6 Month F/U HPI Details Pt c/o increased fatigue. He does have a hx of elevated TSH and positive thyroid peroxidase. Will start levothyroxine 25mcg. Will order labs and sleep study. Pt was a heavy smoker. Pt reports that he is unable to lose weight. He has tried diet and exercise with no results. Pt's current weight is 285lbs and his BMI is 39.7. Will send zepbound. Denies fever, chills, and dizziness. [facility] Medical History History of myocardial infarction Nicotine dependence, cigarettes, uncomplicated Sensorineural hearing loss (SNHL) of both ears CAD (coronary artery disease) Surgical History S/P CABG x 4 History of heart artery stent Family History Unknown No problems noted. Father Aorta aneurysm Social History Housing: House Alcohol intake: never Patient Tobacco Use Status: Former Tobacco user Cigarettes Per Day: 8 Years Smoked: (onset 19yo, 1/2-1ppd x 38yrs, 30pyh) Packs per year/per ci.00 e-Cigarette/Vaping Use: Never Used Second Hand Smoke Exposure: No service: No Current occupational status: employed Current occupation: [employer] Current occupational exposures/hazards: Yes Cognitive needs: No Hearing needs: No Vision needs: No Questionnaire PHQ-9 Over the last 2 weeks, how often have you been bothered by any of the following problems? 1. Little interest or pleasure in doing things: not at all 2. Feeling down, depressed, or hopeless: not at all 3. Trouble falling or staying asleep, or sleeping too much: not at all 4. Feeling tired or having little energy: not at all 5. Poor appetite or overeating: not at all 6. Feeling bad about yourself - or that you are a failure or have let yourself or your family down: not at all 7. Trouble concentrating on things, such as reading the newspaper or watching television: not at all 8. Moving or speaking so slowly that other people could have noticed. Or the opposite - being so fidgety or restless that you have been moving around a lot m ore than usual: not at all 9. Thoughts that you would be better off or of hurting yourself in some way: not at all Total score: 0 Depression Screening Interpretation: Negative Depression Screening Done: Yes 28857 - PHQ-9 Billing: Yes Source: Developed by Drs. Rock Guevara, Sana Freeman, Cody Mcwilliams and colleagues, with an educational otis from [employer]. Thrive Questionnaire Date Thrive assessed: 07/10/24 I am a: Patient What is your living situation today?: I have a steady place to live Within the past 12 months, did the food you bought not last and you didn't have the money to get more?: Never true Within the past 12 months, did you worry whether your food would run out before you got money to buy more?: Never true Do you have trouble paying for medicines?: No Do you have trouble getting transportation to medical appointments?: No Do you have trouble paying your heating and electricity bill?: No Do you have trouble taking care of your child, family member or friend?: No Do you have trouble with day-to-day activities such as bathing, preparing meals, shopping, managing finances, etc.?: No Are you currently unemployed and looking for a job?: No Are you interested in more education?: No Please select the resources that you would like help with: None Currently or been in a relationship where the following occur: No concerns reported THRIVE Score: 0 AUDIT C Alcohol Use Questionnaire (AUDIT-C) 1. How often do you have a drink containing alcohol?: Monthly or less 2. How many drinks containing alcohol do you have on a typical day when you are drinking?: 1 or 2 3. How often do you have six or more drinks on one occasion?: Never Total Score: 1 Score Reviewed/Action Taken: Yes CHRISTIANNE-7 AMB Questionnaire CHRISTIANNE-7 Date CHRISTIANNE - 7 assessed: 07/10/24 Feeling nervous, anxious, or on edge: 0 = Not at all Not being able to stop or control worryin = Not at all Worrying too much about different things: 0 = Not at all Trouble relaxin = Not at all Being so restless that it is hard to sit still: 0 = Not at all Becoming easily annoyed or irritable: 0 = Not at all Feeling afraid as if something awful might happen: 0 = Not at all Total CHRISTAINNE-7 score (0-4 normal; 5-9 mild; 10-14 moderate; 15-21 severe): 0 Source: Developed by Drs. Rock Guevara, Sana Freeman, Cody Mcwilliams and colleagues, with an educational otis from [employer]. CHRISTIANNE-7 Assessment Billing CHRISTIANNE-7 Assessment Tool: CHRISTIANNE-7 Assessment 48892 Review of Systems Const Reports as per HPI Physical exam (Primary Care) Vital Signs: Last Vital Signs Pulse 68 07/10/24 10:08 BP 110/74 07/10/24 10:08 Pulse Ox 92 07/10/24 10:08 Oxygen Delivery Method Room Air 07/10/24 10:08 BMI result Body Mass Index 39.7 Tobacco/Smoking Status: Tobacco use Status Tobacco use date assessed 07/10/24 07/10/24 10:12 Patient Tobacco Use Status Former Tobacco user 07/10/24 10:12 e-Cigarette/Vaping Use Never Used 07/10/24 10:12 PHQ-9: PHQ-9 Score PHQ-9: Total score 0 07/10/24 10:44 Depression Screening Interpretation: Negative Thrive Assessment: Date of Thrive Assessment Date Thrive assessed 07/10/24 07/10/24 10:12 Currently or been in a relationship where the following occur: No concerns reported Const General: cooperative Nutritional Appearance: obese Orientation/consciousness: patient oriented x3 Resp Effort & Inspection: normal respiratory effort Auscultation: diminished lung sounds Cardio Rate: regular rate Rhythm: regular rhythm Heart sounds: S1 normal heart sound present and S2 normal heart sound present Neuro General: patient oriented x3 Extrem Right lower extremity: edema (trace) Left lower extremity: edema (trace) Psych Appearance: grossly normal Mental Status: mental status grossly normal Speech and movement: Normal speech and movement present Affect: normal affect Attitude: cooperative Thought process: Normal thought process present Thought content: Normal thought content present Insight: Good insight present (Psych) Judgement: Good judgement present (Psych) Coding Level of Care Code Est Pt Level 3 (47218) Diagnoses Fatigue R53.83 Smoker F17.200 Elevated TSH R79.89 Additional Codes CHRISTIANNE-7 Assessment Billing - CHRISTIANNE-7 Assessment Tool: CHRISTIANNE-7 Assessment 43932 ([id number]) Assessment & Plan Assessment & Plan (1) Fatigue: Code(s): R53.83 - Other fatigue Category: Medical Plan: Labs and sleep study ordered (2) Smoker: Code(s): F17.200 - Nicotine dependence, unspecified, uncomplicated Category: Social Hx Plan: Sleep study ordered, previous heavy smoker (3) Elevated TSH: Code(s): R79.89 - Other specified abnormal findings of blood chemistry Category: Medical Plan: Labs ordered, starting levothyroxine 25mcg, repeat thyroid check in 2 months Plan The patient agreed to the use of a chief medical director for this encounter. Scribed for JACK Bartlett by Giselle Lawrence chief medical director, on 07/10/2024 at 10:40 EST. Orders: Orders RT PSG in-lab sleep titration Today F17.200 - Nicotine dependence, unspecified, uncomplicated, R53.83 - Other fatigue Comprehensive Met. Panel Today R53.83 - Other fatigue, R79.89 - Other specified abnormal findings of blood chemistry TSH reflex Free T4 Today R53.83 - Other fatigue, R79.89 - Other specified abnormal findings of blood chemistry UA CC w/rflx Micro + Cult Today R53.83 - Other fatigue, R79.89 - Other specified abnormal findings of blood chemistry Complete Blood Count Auto Diff Today R53.83 - Other fatigue, R79.89 - Other specified abnormal findings of blood chemistry Lipid Panel Today R53.83 - Other fatigue, R79.89 - Other specified abnormal findings of blood chemistry Medications: New levothyroxine 25 mcg PO DAILY 30 days 30 caps 0RF tirzepatide (weight loss) (Zepbound) for 4 weeks 2.5 mg (0.5 mL) subcut QWEEK 2 mL 0RF tirzepatide (weight loss) (Zepbound) for 4 weeks 2.5 mg (0.5 mL) subcut QWEEK 2 mL 0RF levothyroxine 25 mcg PO DAILY 30 caps 0RF 30 days
== END 2024-07-10 11:00 | disposition home or self-care (01) ==
PROVIDERS: PCP Nurse Practitioner Family; Visit Provider Nurse Practitioner Family
DX: R53.83 Other fatigue (principal); F17.200 Nicotine dependence, unspecified, uncomplicated; R79.89 Other specified abnormal findings of blood chemistry

== ENCOUNTER → 2024-07-10 09:59 | Outpatient (BNVA) | payer OTHER, SELFPAY | PROVIDERS: PCP Nurse Practitioner Family; Visit Provider Nurse Practitioner Family | DX: R53.83 Other fatigue (principal); R79.89 Other specified abnormal findings of blood chemistry; Z87.891 Personal history of nicotine dependence | CPT/HCPCS: 96127 ==

== ENCOUNTER 2024-07-25 14:14 | Outpatient (REF) | payer OTHER, SELFPAY ==
[2024-07-25 09:05] VITALS: PULSE 64; RESP 16; O2SAT 91
--- NOTE | 2024-07-25 14:49 | PFT_ITS ---
Flows: FEV1: 43 % of predicted at 1.57 L FVC: 77 % of predicted at 3.64 L FEV1/FVC: 43 % Bronchodilator response: Present Volumes: Total lung capacity: 89 % of predicted at 6.44 L Residual volume: 126 % of predicted at 2.72 L Slow vital capacity: 72 % of predicted at 3.72 L Expiratory reserve volume: 88 % of predicted at 1.19 L Diffusion capacity: Mildly decreased, corrects to normal after adjustment for alveolar ventilation. Impression: Severe obstructive ventilatory defect with positive bronchodilator response. Increased residual volume suggests air trapping. Decreased diffusion capacity suggests emphysema. MTDD
== END 2024-07-25 14:15 | disposition home or self-care (01) ==
LOC: HO.RESP 14:14
PROVIDERS: PCP Nurse Practitioner Family; Visit Provider Nurse Practitioner Family
DX: F17.210 Nicotine dependence, cigarettes, uncomplicated (principal)
CPT/HCPCS: 94010; 94640; 94727; 94729

== ENCOUNTER → 2024-07-25 14:49 | Outpatient (BNV) | payer OTHER, SELFPAY | PROVIDERS: PCP Nurse Practitioner Family; Visit Provider Internal Medicine Pulmonary Disease | DX: J44.9 Chronic obstructive pulmonary disease, unspecified (principal); F17.210 Nicotine dependence, cigarettes, uncomplicated | CPT/HCPCS: 94060; 94727; 94729 ==

== ENCOUNTER 2024-07-26 16:00 | Outpatient (REF) | payer OTHER, SELFPAY | END 2024-07-26 16:01 | disposition home or self-care (01) | LOC: HO.CT 16:00 | PROVIDERS: PCP Nurse Practitioner Family; Visit Provider Nurse Practitioner Family | DX: Z12.2 Encounter for screening for malignant neoplasm of respiratory organs (principal); F17.210 Nicotine dependence, cigarettes, uncomplicated | CPT/HCPCS: 71271 ==

== ENCOUNTER → 2024-09-21 14:34 | Outpatient (REF) | payer OTHER, SELFPAY ==
--- OUTSIDE RECORDS SUMMARY | 2024-09-21 16:02 | XMS_ITS ---
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 Patient signed consent and left the office in stable condition MEDICATIONS Medication SIG (Take, Route, Frequency, Duration) Notes Start Date End Date Status Trelegy Ellipta 200-62.5-25 MCG/ACT Inhalation for 30 Days Activ e Levothyroxine Sodium 25 MCG Oral for 30 Days Active Furosemide 20 MG Oral for 90 Days Active Rosuvastatin Calcium 20 MG Oral for 90 Days Active Wegovy 0.25 MG/0.5ML Inject 0.25 mg Subcutaneous once weekly for 28 days 08/29/2024 Active Lisinopril 5 MG Oral for 90 Days Active Metoprolol Succinate ER 25 MG Oral for 90 Days Active Encounters Encounter Location Date Provider Diagnosis [facility] [address] [place] [address] 09/16/2024 REZA REEVES PLAN OF TREATMENT Next Appt Details Provider Name:REZA REEVES, 09/23/2024 11:30:00 AM, [address] [place], [address], Provider Name:JEANNETTE LEON , 09/26/2024 01:30:00 PM, [address], [address], MEDICATIONS ADMINISTERED Medication Instructions Date of Administration Dosage Notes MICC B12 INJECTION 09/16/2024 1 mL Progress Notes * Rudi TRIVEDIDOB:1965 (59 yo M)Acc No.[id number]:09/16/2024 Progress Note Patient:??Rudi TRIVEDI Provider:??Reza Reeves MD :1965?Age:59 Y?Sex:Ma danna Date:09/16/2024 Address:[address], [place], [id number] Subjective: * Chief Complaints: * ?1. Patient is here for micc shot. Patient signed consent and left the office in stable condition. * Medical History:?? * Medications:??Taking Trelegy Ellipta 200-62.5-25 MCG/ACT Aerosol Powder Breath Activated Inhalation , Taking Lisinopril 5 MG Tablet Oral , Taking Metoprolol Succinate ER 25 MG Tablet Extended Release 24 Hour Oral , Taking Levothyroxine Sodium 25 MCG Tablet Oral , Taking Furosemide 20 MG Tablet Oral , Taking Rosuvastatin Calcium 20 MG Tablet Oral , Taking Wegovy 0.25 MG/0.5ML Solution Auto-injector Inject 0.25 mg Subcutaneous once weekly Objective: Assessment: Plan: * Treatment: * Therapeutic Injections:? MICC B12 INJECTION : 1 mL (Route: Intramuscular) given by Clemente Holden on right arm intramuscular Care Plan: * Problems:?? * Images: Billing Information: * Visit Code:?? * Procedure Codes:?? Care Plan Details* * Sign off status: Pending * Provider:??Reza Reeves MD Date:??09/16
--- OUTSIDE RECORDS SUMMARY | 2024-09-21 16:02 | XMS_ITS ---
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 Administered intram. Pt tolerated well with no reactions MEDICATIONS Medication SIG (Take, Route, Frequency, Duration) Notes Start Date End Date Status Wegovy 0.25 MG/0.5ML Inject 0.25 mg Subcutaneous once weekly for 28 days 08/29/2024 Active Metoprolol Succinate ER 25 MG Oral for 90 Days Active Levothyroxine Sodium 25 MCG Oral for 30 Days Active Furosemide 20 MG Oral for 90 Days Active Rosuvastatin Calcium 20 MG Oral for 90 Days Active Trelegy Ellipta 200-62.5-25 MCG/ACT Inhalation for 30 Days Activ e Lisinopril 5 MG Oral for 90 Days Active Encounters Encounter Location Date Provider Diagnosis [facility] [address] [place] [address] 09/09/2024 REZA REEVES PLAN OF TREATMENT Next Appt Details Provider Name:REZA REEVES, 09/23/2024 11:30:00 AM, [address] [place], [address], Provider Name:JEANNETTE LEON , 09/26/2024 01:30:00 PM, [address], [address], MEDICATIONS ADMINISTERED Medication Instructions Date of Administration Dosage Notes MICC B12 INJECTION 09/09/2024 1 mL Progress Notes * Rudi TRIVEDIDOB:1965 (59 yo M)Acc No.[id number]:09/09/2024 Progress Note Patient:??Rudi TRIVEDI Provider:??Reza Reeves MD :1965?Age:59 Y?Sex:Francis clay Date:09/09/2024 Address: [address], [place], [place] Subjective: * Chief Complaints: * ?1. Pt signed consent a nd received 1ml of MICC. Administered intram. Pt tolerated well with no reactions. * Medical History:?? * Medications:??Taking Trelegy Ellipta [...] : 1 mL (Route: Intramuscular) given by Shannan Lopez on left arm intramuscular Care Plan: * Problems:?? * Images: Billing Information: * Visit Code:?? * Procedure Codes:?? Care Plan Details* * Sign off status: Pending * Provider:??Reza Reeves MD Date:??09/09
--- OUTSIDE RECORDS SUMMARY | 2024-09-21 16:03 | XMS_ITS | Patient Health Record ---
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 Name Role Phone REZA REEVES Unavailable [phone] JEANNETTE LEON Unavailable [phone] ALLERGIES Allergen (clinical drug ingredient) Drug/Non Drug Allergy documented on EMR Reaction Allergy Type Onset Date Status amoxicillin Amoxicillin Unknown Drug Allergy Act elmer REASON FOR REFERRAL No Information MEDICATIONS Medication SIG (Take, Route, Frequency, Duration) [...] once weekly for 28 days 08/29/2024 Active PROBLEMS Problem Type ICD Code Onset Dates Problem Status W/U Status Risk SNOMED Code Notes Problem Mixed hyperlipidemia (E78.2) Active confirmed 448656710 Problem Essential hypertension (I10) Active confirmed 09568552 Problem BMI 40.0-44.9, adult (Z68.41) Active confirmed 108256449 Problem Adult-onset obesity (E66.9) Active confirmed 305422361 Problem COPD without exacerbation (J44.9) Active confirmed 29973438 Problem Coronary artery disease involving other coronary artery bypass graft without angina pectoris (I25.810) Active confirmed 937542171 VITAL SIGNS Heart Rate 73 /min 08/29/2024 Oximetry 95 % 08/29/2024 Blood pressure diastolic 68 mm Hg 08/29/2024 Height 67 in 08/29/2024 Blood pressure systolic 110 mm Hg 08/29/2024 Weight 281 lbs 08/29/2024 BMI 44.01 kg/m2 08/29/2024 Encounters Encounter Location Date Provider Diagnosis [facility] [address] [facility] [place] [address] 09/09/2024 REZA REEVES [facility] [address] [place] [address] 09/16/2024 REZA REEVES [facility] [address] [facility] [address] [address] [address] 08/29/2024 JEANNETTE LEON Adult-onset obesity E66.9 ; BMI 40.0-44.9, adult Z68.41 ; Essential hypertension I10 ; Mixed hyperlipidemia E78.2 ; Coronary artery disease involving other coronary artery bypass graft without angina pectoris I25.810 and COPD without exacerbation J44.[address] [facility] [address] [place] [address] 08/29/2024 JEANNETTE LEON ASSESSMENTS Encounter Date Diagnosis Assessment Notes Treatment Notes Treatment Clinical Notes Section Notes 08/29/2024 BMI 40.0-44.9, adult (ICD-10 - Z68.41) Rudi is a 59-year-old male with history of obesity, hypothyroidism, hyperlipidemia, myocardial infarction status post drug-eluting stent, hypertension, COPD, and quadruple bypass in 2022 who presents to the office today for weight management consult. Medical history, labs, allergies, medications, and social history reviewed with the patient. Provided education on healthy diet and lifestyle which includes high-protein, low carbohydrate, high-fiber, and a variety of fruits and vegetables. Patient encouraged to exercise with emphasis on resistance training minimum 3 times per week to maintain muscle mass and cardio to burn fat. All patient questions answered. Patient will follow-up in 2 to 4 weeks for weight management. 08/29/2024: Weight 281 pounds, BMI 44.01. Seca scan completed today and interpreted with the patient. Has more difficulty with weight management since cardiovascular health declined. Has been trying to modify his diet and increase his physical activity over the past several months however no significant changes in weight. Given clinical presentation and comorbidities he is a good candidate for Wegovy. Discussed proper use of the medication including rotating injection sites and expected side effect profile including but not limited to nausea, constipation, abdominal pain, and heartburn. Advised this medication requires a prior authorization which can take 2 to 4 weeks. Reports no personal history of pancreatitis, no personal or family history of medullary thyroid cancer, and no personal or family history of multiple endocrine neoplasia syndrome type I or II. Will also begin semaglutide 0.25 mg in the office and received a MICC injection. He will follow-up in the office for continued weight management in approximately 4 weeks. All patient questions answered at this time. # Hypertension: Blood pressure stable in office today 110/68. Continue lisinopril 5 mg once daily. Discussed red flag signs of hypertension including but not limited to headache, blurry vision, chest pain, difficulty breathing, abdominal pain, dizziness, or weakness. Will continue to monitor. Please follow with PCP. # Hypothyroidism: Will request recent labs. At this time continue levothyroxine 25 mcg once daily in the morning before breakfast and before other medications. Will continue to monitor. # Hyperlipidemia: Continue rosuvastatin 20 mg once daily. Discussed importance of diet and lifestyle and maintaining healthy cholesterol levels and preventing other comorbidities. Will continue to monitor. # Coronary artery disease: History of myocardial infarction at age 41 status post drug-eluting stent and quadruple bypass in 2022. Regular follow-up with cardiology. Patient today asymptomatic without chest pain, shortness of breath, dyspnea on exertion, or diaphoresis. Continue metoprolol succinate 25 mg once daily. Continue furosemide 20 mg once daily. Will continue to monitor. Please follow-up PCP and cardiology. # COPD: History of tobacco use. Quit smoking in 2022, smoked for 40+ years. Continue Trelegy Ellipta 200-60 2.5-25 mcg inhalation once daily. Will continue to monitor. Please follow-up with PCP. Patient was reassured and welcomed to the practice. We discussed that we stress a hollistic medical approach with emphasis on lifestyle modification. Patient was informed that a healthy lifestyle with exercise and good eating habits can help reduce his risk of medical complications. Patient is explained that obesity increases his risk of diabetes, cardiovascular disease, or organ damage. We spent a lot of time discussing the relationship between food, exercise, sleep, mental health and obesity. Patient was counseled on the importance EATING local, organic food when possible. Patient was educated on clean 15 and dirty dozen. I provided information about reading books called The Food Rules by Pavan Coleman and Eat Fat Get Lean by Dr Caleb Lin. Self education is important in the journey for weight management. Patient was offered diagnostic testing/ SECA scale. We want to measure visceral adiposity, advanced body composition, adverse lipids, fatty acid balance, risk for heart disease and atherosclerosis, markers of inflammation and genetic susceptibility. Patient was counseled on weight management and was advised to lose weight using A. Meal Replacement Products Patient was educated on the replacement products called optifast. This is a good way of taking fixed amount of calories. It has been shown in studies to be ineffective weight management tool. This however has to be coupled with lifestyle intervention as well as laboratory data and EKG monitoring. It is impossible to know how a person will tolerate complete meal replacement. The side effects of meal replacement and weight loss could include syncopal attacks, dizziness, gallstones, potential cholecystectomy, possible heart attack and even . The benefits of meal replacement would be potential weight loss but no guarantees can be made. Meal replacement products are not covered by insurance. Once the patient has bought these products we cannot return them B. Lifestyle management which includes several strategies as below 1. Eat a low carbohydrate good fat good protein diet. Eliminate refined carbohydrates from the diet. Limit sugared beverages. Eat local organic when possible. Cook your own meals. Read food labels. Focus on healthy snacks. Portion control and food with low glycemic index 2. Exercise regularly. Try to get at least 6000 steps a day. Use a predominant to track activity level. Consider using apps like 7 minute excercise, myfitnesspal, lose it, stick as needed for self-monitoring and weight management. Consider group exercises. Consider hiring a personal banking advisor. Regular exercise is mederos to sustainable health and prevents as a buffer against weight regain 3. Sleep is most important for healing. Try to sleep at least 6-8 hours a night. A good quality sleep needs a sleep ritual with ideal room temperature of around 68. It might help to take a shower and have no electronics in the room and sleep in a very dark room without artificial light. Start sleep routine and get up early in the morning and go to bed on time. 4. Make a social connection. Surround yourself with positive people with positive energy. Connect with friends and family. 5. Get into the habit of meditating and mindfulness while doing everything. 6. Go outside and connect with nature. C. Prescription medications Patient was educated on the use of prescription medications for medical weight loss. This is a growing list and includes phentermine, Topamax,Qsymia, contrave, belviq and saxenda, wegovy etc. All prescription medications could have side effects including but not limited to kidney stones, seizure disorder cardiac arrhythmias heart attack pancreatitis, GI effects, Etc. Patient was encouraged to read the prescription insert and have coaching with their pharmacist and make an informed decision about taking medication and know that these medications are being prescribed with good intentions and we do not know how a patient would react to her medication. Some medications are FDA approved for weight loss and there is also off label use depending on patient's inability to afford medications in an attempt to lose weight D. Behavioral counseling was done to establish a relationship between food and an mood. Patient was provided information about local counseling and psychiatry and Dr Mccall at [facility]. We would like to cover regular topics and build on low glycemic eating exercise mindful eating, using yoga and meditation along with deep breathing and connecting with friends and family. E. MASS PAT reviewed, Patient's current medications were reviewed and opinion was given on medication that can cause weight gain and can be substituted F. Patient was assessed for risk with obesity including and not limiting to atherosclerosis heart disease stroke kidney disease, restrictive lung disease, irritable bowel syndrome and overall mortality. Risk of developing prediabetes diabetes and metabolic syndrome was discussed G. Therapeutic plan: We have decided to make therapeutic plan which would include choosing wisely on calories restricting portion getting active, tracking weight, getting good quality sleep and working on time management H. Patient will follow up in 4 weeks for weight management Total time spent today was 60 minutes of which greater than 50% was spent on coordinating and counseling After consultation and careful review of medical history, this patient would benefit from Wegovy based off of the following criteria met: Patient is over the age of 18, has a BMI of 44.01. Additional comorbidities include hypertension, hyperlipidemia, hypothyroidism, myocardial infarction, CABG, and COPD. Patient has trialed other methods of weight loss including improving diet, exercise without success over three months. This medication is prescribed by or in consultation with a board certified obesity and weight management physician (Dr. Reza Reeves or Dr. Timoteo Reeves). Case discussed with collaborating physician Penelope Reeves who reviewed the assessment and plan. Chart, medications, labs, vital signs reviewed. Dictation was accomplished with the use of VR1 voice recognition software, prone to medical misidentifications and grammatical errors. This is unintentional and the practitioner does try to identify and correct these, but some could still be present. Please do not hesitate to contact practitioner for clarification. All questions answered to patients satisfaction. Patient verbalized understanding of diagnosis and treatments explained. To call sooner prior to next visit it any questions/concerns arise. 08/29/2024 Adult-onset obesity (ICD-10 - E66.9) Rudi is a 59-year-old male with history of obesity, hypothyroidism, hyperlipidemia, myocardial infarction status post drug-eluting stent, hypertension, COPD, and quadruple bypass in 2022 who presents to the office today for weight management consult. Medical history, labs, allergies, medications, and social history reviewed with the patient. Provided education on healthy diet and lifestyle which includes high-protein, low carbohydrate, high-fiber, and a variety of fruits and vegetables. Patient encouraged to exercise with emphasis on resistance training minimum 3 times per week to maintain muscle mass and cardio to burn fat. All patient questions answered. Patient will follow-up in 2 to 4 weeks for weight management. 08/29/2024: Weight 281 pounds, BMI 44.01. Seca scan completed today and interpreted with the patient. Has more difficulty with weight management since cardiovascular health declined. Has been trying to modify his diet and increase his physical activity over the past several months however no significant changes in weight. Given clinical presentation and comorbidities he is a good candidate for Wegovy. Discussed proper use of the medication including rotating injection sites and expected side effect profile including but not limited to nausea, constipation, abdominal pain, and heartburn. Advised this medication requires a prior authorization which can take 2 to 4 weeks. Reports no personal history of pancreatitis, no personal or family history of medullary thyroid cancer, and no personal or family history of multiple endocrine neoplasia syndrome type I or II. Will also begin semaglutide 0.25 mg in the office and received a [facility] injection. He will follow-up in the office for continued weight management in approximately 4 weeks. All patient questions answered at this time. # Hypertension: Blood pressure stable in office today 110/68. Continue lisinopril 5 mg once daily. Discussed red flag signs of hypertension including but not limited to headache, blurry vision, chest pain, difficulty breathing, abdominal pain, dizziness, or weakness. Will continue to monitor. Please follow with PCP. # Hypothyroidism: Will request recent labs. At this time continue levothyroxine 25 mcg once daily in the morning before breakfast and before other medications. Will continue to monitor. # Hyperlipidemia: Continue rosuvastatin 20 mg once daily. Discussed importance of diet and lifestyle and maintaining healthy cholesterol levels and preventing other comorbidities. Will continue to monitor. # Coronary artery disease: History of myocardial infarction at age 41 status post drug-eluting stent and quadruple bypass in 2022. Regular follow-up with cardiology. Patient today asymptomatic without chest pain, shortness of breath, dyspnea on exertion, or diaphoresis. Continue metoprolol succinate 25 mg once daily. Continue furosemide 20 mg once daily. Will continue to monitor. Please follow-up PCP and cardiology. # COPD: History of tobacco use. Quit smoking in 2022, smoked for 40+ years. Continue Trelegy Ellipta 200-60 2.5-25 mcg inhalation once daily. Will continue to monitor. Please follow-up with PCP. Patient was reassured and welcomed to the practice. We discussed that we stress a hollistic medical approach with emphasis on lifestyle modification. Patient was informed that a healthy lifestyle with exercise and good eating habits can help reduce his risk of medical complications. Patient is explained that obesity increases his risk of diabetes, cardiovascular disease, or organ damage. We spent a lot of time discussing the relationship between food, exercise, sleep, mental health and obesity. Patient was counseled on the importance EATING local, organic food when possible. Patient was educated on clean 15 and dirty dozen. I provided information about reading books called The Food Rules by Pavan Coleman and Eat Fat Get Lean by Dr Caleb Lin. Self education is important in the journey for weight management. Patient was offered diagnostic testing/ SECA scale. We want to measure visceral adiposity, advanced body composition, adverse lipids, fatty acid balance, risk for heart disease and atherosclerosis, markers of inflammation and genetic susceptibility. Patient was counseled on weight management and was advised to lose weight using A. Meal Replacement Products Patient was educated on the replacement products called optifast. This is a good way of taking fixed amount of calories. It has been shown in studies to be ineffective weight management tool. This however has to be coupled with lifestyle intervention as well as laboratory data and EKG monitoring. It is impossible to know how a person will tolerate complete meal replacement. The side effects of meal replacement and weight loss could include syncopal attacks, dizziness, gallstones, potential cholecystectomy, possible heart attack and even . The benefits of meal replacement would be potential weight loss but no guarantees can be made. Meal replacement products are not covered by insurance. Once the patient has bought these products we cannot return them B. Lifestyle management which includes several strategies as below 1. Eat a low carbohydrate good fat good protein diet. Eliminate refined carbohydrates from the diet. Limit sugared beverages. Eat local organic when possible. Cook your own meals. Read food labels. Focus on healthy snacks. Portion control and food with low glycemic index 2. Exercise regularly. Try to get at least 6000 steps a day. Use a predominant to track activity level. Consider using apps like 7 minute excercise, mySeabagspal, lose it, stick as needed for self-monitoring and weight management. Consider group exercises. Consider hiring a personal banking advisor. Regular exercise is mederos to sustainable health and prevents as a buffer against weight regain 3. Sleep is most important for healing. Try to sleep at least 6-8 hours a night. A good quality sleep needs a sleep ritual with ideal room temperature of around 68. It might help to take a shower and have no electronics in the room and sleep in a very dark room without artificial light. Start sleep routine and get up early in the morning and go to bed on time. 4. Make a social connection. Surround yourself with positive people with positive energy. Connect with friends and family. 5. Get into the habit of meditating and mindfulness while doing everything. 6. Go outside and connect with nature. C. Prescription medications Patient was educated on the use of prescription medications for medical weight loss. This is a growing list and includes phentermine, Topamax,Qsymia, contrave, belviq and saxenda, wegovy etc. All prescription medications could have side effects including but not limited to kidney stones, seizure disorder cardiac arrhythmias heart attack pancreatitis, GI effects, Etc. Patient was encouraged to read the prescription insert and have coaching with their pharmacist and make an informed decision about taking medication and know that these medications are being prescribed with good intentions and we do not know how a patient would react to her medication. Some medications are FDA approved for weight loss and there is also off label use depending on patient's inability to afford medications in an attempt to lose weight D. Behavioral counseling was done to establish a relationship between food and an mood. Patient was provided information about local counseling and psychiatry and Dr Mccall at [facility]. We would like to cover regular topics and build on low glycemic eating exercise mindful eating, using yoga and meditation along with deep breathing and connecting with friends and family. E. MASS PAT reviewed, Patient's current medications were reviewed and opinion was given on medication that can cause weight gain and can be substituted F. Patient was assessed for risk with obesity including and not limiting to atherosclerosis heart disease stroke kidney disease, restrictive lung disease, irritable bowel syndrome and overall mortality. Risk of developing prediabetes diabetes and metabolic syndrome was discussed G. Therapeutic plan: We have decided to make therapeutic plan which would include choosing wisely on calories restricting portion getting active, tracking weight, getting good quality sleep and working on time management H. Patient will follow up in 4 weeks for weight management Total time spent today was 60 minutes of which greater than 50% was spent on coordinating and counseling After consultation and careful review of medical history, this patient would benefit from Wegovy based off of the following criteria met: Patient is over the age of 18, has a BMI of 44.01. Additional comorbidities include hypertension, hyperlipidemia, hypothyroidism, myocardial infarction, CABG, and COPD. Patient has trialed other methods of weight loss including improving diet, exercise without success over three months. This medication is prescribed by or in consultation with a board certified obesity and weight management physician (Dr. Reza Reeves or Dr. Timoteo Reeves). Case discussed with collaborating physician Penelope Reeves who reviewed the assessment and plan. Chart, medications, labs, vital signs reviewed. Dictation was accomplished with the use of VR1 voice recognition software, prone to medical misidentifications and grammatical errors. This is unintentional and the practitioner does try to identify and correct these, but some could still be present. Please do not hesitate to contact practitioner for clarification. All questions answered to patients satisfaction. Patient verbalized understanding of diagnosis and treatments explained. To call sooner prior to next visit it any questions/concerns arise. 08/29/2024 Essential hypertension (ICD-10 - I10) Rudi is a 59-year-old male with history of obesity, hypothyroidism, hyperlipidemia, myocardial infarction status post drug-eluting stent, hypertension, COPD, and quadruple bypass in 2022 who presents to the office today for weight management consult. Medical history, labs, allergies, medications, and social history reviewed with the patient. Provided education on healthy diet and lifestyle which includes high-protein, low carbohydrate, high-fiber, and a variety of fruits and vegetables. Patient encouraged to exercise with emphasis on resistance training minimum 3 times per week to maintain muscle mass and cardio to burn fat. All patient questions answered. Patient will follow-up in 2 to 4 weeks for weight management. 08/29/2024: Weight 281 pounds, BMI 44.01. Seca scan completed today and interpreted with the patient. Has more difficulty with weight management since cardiovascular health declined. Has been trying to modify his diet and increase his physical activity over the past several months however no significant changes in weight. Given clinical presentation and comorbidities he is a good candidate for Wegovy. Discussed proper use of the medication including rotating injection sites and expected side effect profile including but not limited to nausea, constipation, abdominal pain, and heartburn. Advised this medication requires a prior authorization which can take 2 to 4 weeks. Reports no personal history of pancreatitis, no personal or family history of medullary thyroid cancer, and no personal or family history of multiple endocrine neoplasia syndrome type I or II. Will also begin semaglutide 0.25 mg in the office and received a [facility] injection. He will follow-up in the office for continued weight management in approximately 4 weeks. All patient questions answered at this time. # Hypertension: Blood pressure stable in office today 110/68. Continue lisinopril 5 mg once daily. Discussed red flag signs of hypertension including but not limited to headache, blurry vision, chest pain, difficulty breathing, abdominal pain, dizziness, or weakness. Will continue to monitor. Please follow with PCP. # Hypothyroidism: Will request recent labs. At this time continue levothyroxine 25 mcg once daily in the morning before breakfast and before other medications. Will continue to monitor. # Hyperlipidemia: Continue rosuvastatin 20 mg once daily. Discussed importance of diet and lifestyle and maintaining healthy cholesterol levels and preventing other comorbidities. Will continue to monitor. # Coronary artery disease: History of myocardial infarction at age 41 status post drug-eluting stent and quadruple bypass in 2022. Regular follow-up with cardiology. Patient today asymptomatic without chest pain, shortness of breath, dyspnea on exertion, or diaphoresis. Continue metoprolol succinate 25 mg once daily. Continue furosemide 20 mg once daily. Will continue to monitor. Please follow-up PCP and cardiology. # COPD: History of tobacco use. Quit smoking in 2022, smoked for 40+ years. Continue Trelegy Ellipta 200-60 2.5-25 mcg inhalation once daily. Will continue to monitor. Please follow-up with PCP. Patient was reassured and welcomed to the practice. We discussed that we stress a hollistic medical approach with emphasis on lifestyle modification. Patient was informed that a healthy lifestyle with exercise and good eating habits can help reduce his risk of medical complications. Patient is explained that obesity increases his risk of diabetes, cardiovascular disease, or organ damage. We spent a lot of time discussing the relationship between food, exercise, sleep, mental health and obesity. Patient was counseled on the importance EATING local, organic food when possible. Patient was educated on clean 15 and dirty dozen. I provided information about reading books called The Food Rules by Pavan Coleman and Eat Fat Get Lean by Dr Caleb Lin. Self education is important in the journey for weight management. Patient was offered diagnostic testing/ SECA scale. We want to measure visceral adiposity, advanced body composition, adverse lipids, fatty acid balance, risk for heart disease and atherosclerosis, markers of inflammation and genetic susceptibility. Patient was counseled on weight management and was advised to lose weight using A. Meal Replacement Products Patient was educated on the replacement products called optifast. This is a good way of taking fixed amount of calories. It has been shown in studies to be ineffective weight management tool. This however has to be coupled with lifestyle intervention as well as laboratory data and EKG monitoring. It is impossible to know how a person will tolerate complete meal replacement. The side effects of meal replacement and weight loss could include syncopal attacks, dizziness, gallstones, potential cholecystectomy, possible heart attack and even . The benefits of meal replacement would be potential weight loss but no guarantees can be made. Meal replacement products are not covered by insurance. Once the patient has bought these products we cannot return them B. Lifestyle management which includes several strategies as below 1. Eat a low carbohydrate good fat good protein diet. Eliminate refined carbohydrates from the diet. Limit sugared beverages. Eat local organic when possible. Cook your own meals. Read food labels. Focus on healthy snacks. Portion control and food with low glycemic index 2. Exercise regularly. Try to get at least 6000 steps a day. Use a predominant to track activity level. Consider using apps like 7 minute excercise, myfitnesspal, lose it, stick as needed for self-monitoring and weight management. Consider group exercises. Consider hiring a personal banking advisor. Regular exercise is mederos to sustainable health and prevents as a buffer against weight regain 3. Sleep is most important for healing. Try to sleep at least 6-8 hours a night. A good quality sleep needs a sleep ritual with ideal room temperature of around 68. It might help to take a shower and have no electronics in the room and sleep in a very dark room without artificial light. Start sleep routine and get up early in the morning and go to bed on time. 4. Make a social connection. Surround yourself with positive people with positive energy. Connect with friends and family. 5. Get into the habit of meditating and mindfulness while doing everything. 6. Go outside and connect with nature. C. Prescription medications Patient was educated on the use of prescription medications for medical weight loss. This is a growing list and includes phentermine, Topamax,Qsymia, contrave, belviq and saxenda, wegovy etc. All prescription medications could have side effects including but not limited to kidney stones, seizure disorder cardiac arrhythmias heart attack pancreatitis, GI effects, Etc. Patient was encouraged to read the prescription insert and have coaching with their pharmacist and make an informed decision about taking medication and know that these medications are being prescribed with good intentions and we do not know how a patient would react to her medication. Some medications are FDA approved for weight loss and there is also off label use depending on patient's inability to afford medications in an attempt to lose weight D. Behavioral counseling was done to establish a relationship between food and an mood. Patient was provided information about local counseling and psychiatry and Dr Mccall at [facility]. We would like to cover regular topics and build on low glycemic eating exercise mindful eating, using yoga and meditation along with deep breathing and connecting with friends and family. E. MASS PAT reviewed, Patient's current medications were reviewed and opinion was given on medication that can cause weight gain and can be substituted F. Patient was assessed for risk with obesity including and not limiting to atherosclerosis heart disease stroke kidney disease, restrictive lung disease, irritable bowel syndrome and overall mortality. Risk of developing prediabetes diabetes and metabolic syndrome was discussed G. Therapeutic plan: We have decided to make therapeutic plan which would include choosing wisely on calories restricting portion getting active, tracking weight, getting good quality sleep and working on time management H. Patient will follow up in 4 weeks for weight management Total time spent today was 60 minutes of which greater than 50% was spent on coordinating and counseling After consultation and careful review of medical history, this patient would benefit from Wegovy based off of the following criteria met: Patient is over the age of 18, has a BMI of 44.01. Additional comorbidities include hypertension, hyperlipidemia, hypothyroidism, myocardial infarction, CABG, and COPD. Patient has trialed other methods of weight loss including improving diet, exercise without success over three months. This medication is prescribed by or in consultation with a board certified obesity and weight management physician (Dr. Reza Reeves or Dr. Timoteo Reeves). Case discussed with collaborating physician Penelope Reeves who reviewed the assessment and plan. Chart, medications, labs, vital signs reviewed. Dictation was accomplished with the use of VR1 voice recognition software, prone to medical misidentifications and grammatical errors. This is unintentional and the practitioner does try to identify and correct these, but some could still be present. Please do not hesitate to contact practitioner for clarification. All questions answered to patients satisfaction. Patient verbalized understanding of diagnosis and treatments explained. To call sooner prior to next visit it any questions/concerns arise. 08/29/2024 Mixed hyperlipidemia (ICD-10 - E78.2) Rudi is a 59-year-old male with history of obesity, hypothyroidism, hyperlipidemia, myocardial infarction status post drug-eluting stent, hypertension, COPD, and quadruple bypass in 2022 who presents to the office today for weight management consult. Medical history, labs, allergies, medications, and social history reviewed with the patient. Provided education on healthy diet and lifestyle which includes high-protein, low carbohydrate, high-fiber, and a variety of fruits and vegetables. Patient encouraged to exercise with emphasis on resistance training minimum 3 times per week to maintain muscle mass and cardio to burn fat. All patient questions answered. Patient will follow-up in 2 to 4 weeks for weight management. 08/29/2024: Weight 281 pounds, BMI 44.01. Seca scan completed today and interpreted with the patient. Has more difficulty with weight management since cardiovascular health declined. Has been trying to modify his diet and increase his physical activity over the past several months however no significant changes in weight. Given clinical presentation and comorbidities he is a good candidate for Wegovy. Discussed proper use of the medication including rotating injection sites and expected side effect profile including but not limited to nausea, constipation, abdominal pain, and heartburn. Advised this medication requires a prior authorization which can take 2 to 4 weeks. Reports no personal history of pancreatitis, no personal or family history of medullary thyroid cancer, and no personal or family history of multiple endocrine neoplasia syndrome type I or II. Will also begin semaglutide 0.25 mg in the office and received a [facility] injection. He will follow-up in the office for continued weight management in approximately 4 weeks. All patient questions answered at this time. # Hypertension: Blood pressure stable in office today 110/68. Continue lisinopril 5 mg once daily. Discussed red flag signs of hypertension including but not limited to headache, blurry vision, chest pain, difficulty breathing, abdominal pain, dizziness, or weakness. Will continue to monitor. Please follow with PCP. # Hypothyroidism: Will request recent labs. At this time continue levothyroxine 25 mcg once daily in the morning before breakfast and before other medications. Will continue to monitor. # Hyperlipidemia: Continue rosuvastatin 20 mg once daily. Discussed importance of diet and lifestyle and maintaining healthy cholesterol levels and preventing other comorbidities. Will continue to monitor. # Coronary artery disease: History of myocardial infarction at age 41 status post drug-eluting stent and quadruple bypass in 2022. Regular follow-up with cardiology. Patient today asymptomatic without chest pain, shortness of breath, dyspnea on exertion, or diaphoresis. Continue metoprolol succinate 25 mg once daily. Continue furosemide 20 mg once daily. Will continue to monitor. Please follow-up PCP and cardiology. # COPD: History of tobacco use. Quit smoking in 2022, smoked for 40+ years. Continue Trelegy Ellipta 200-60 2.5-25 mcg inhalation once daily. Will continue to monitor. Please follow-up with PCP. Patient was reassured and welcomed to the practice. We discussed that we stress a hollistic medical approach with emphasis on lifestyle modification. Patient was informed that a healthy lifestyle with exercise and good eating habits can help reduce his risk of medical complications. Patient is explained that obesity increases his risk of diabetes, cardiovascular disease, or organ damage. We spent a lot of time discussing the relationship between food, exercise, sleep, mental health and obesity. Patient was counseled on the importance EATING local, organic food when possible. Patient was educated on clean 15 and dirty dozen. I provided information about reading books called The Food Rules by Pavan Coleman and Eat Fat Get Lean by Dr Caleb Lin. Self education is important in the journey for weight management. Patient was offered diagnostic testing/ SECA scale. We want to measure visceral adiposity, advanced body composition, adverse lipids, fatty acid balance, risk for heart disease and atherosclerosis, markers of inflammation and genetic susceptibility. Patient was counseled on weight management and was advised to lose weight using A. Meal Replacement Products Patient was educated on the replacement products called optifast. This is a good way of taking fixed amount of calories. It has been shown in studies to be ineffective weight management tool. This however has to be coupled with lifestyle intervention as well as laboratory data and EKG monitoring. It is impossible to know how a person will tolerate complete meal replacement. The side effects of meal replacement and weight loss could include syncopal attacks, dizziness, gallstones, potential cholecystectomy, possible heart attack and even . The benefits of meal replacement would be potential weight loss but no guarantees can be made. Meal replacement products are not covered by insurance. Once the patient has bought these products we cannot return them B. Lifestyle management which includes several strategies as below 1. Eat a low carbohydrate good fat good protein diet. Eliminate refined carbohydrates from the diet. Limit sugared beverages. Eat local organic when possible. Cook your own meals. Read food labels. Focus on healthy snacks. Portion control and food with low glycemic index 2. Exercise regularly. Try to get at least 6000 steps a day. Use a predominant to track activity level. Consider using apps like 7 minute excercise, myfitnesspal, lose it, stick as needed for self-monitoring and weight management. Consider group exercises. Consider hiring a personal banking advisor. Regular exercise is mederos to sustainable health and prevents as a buffer against weight regain 3. Sleep is most important for healing. Try to sleep at least 6-8 hours a night. A good quality sleep needs a sleep ritual with ideal room temperature of around 68. It might help to take a shower and have no electronics in the room and sleep in a very dark room without artificial light. Start sleep routine and get up early in the morning and go to bed on time. 4. Make a social connection. Surround yourself with positive people with positive energy. Connect with friends and family. 5. Get into the habit of meditating and mindfulness while doing everything. 6. Go outside and connect with nature. C. Prescription medications Patient was educated on the use of prescription medications for medical weight loss. This is a growing list and includes phentermine, Topamax,Qsymia, contrave, belviq and saxenda, wegovy etc. All prescription medications could have side effects including but not limited to kidney stones, seizure disorder cardiac arrhythmias heart attack pancreatitis, GI effects, Etc. Patient was encouraged to read the prescription insert and have coaching with their pharmacist and make an informed decision about taking medication and know that these medications are being prescribed with good intentions and we do not know how a patient would react to her medication. Some medications are FDA approved for weight loss and there is also off label use depending on patient's inability to afford medications in an attempt to lose weight D. Behavioral counseling was done to establish a relationship between food and an mood. Patient was provided information about local counseling and psychiatry and Dr Mccall at [facility]. We would like to cover regular topics and build on low glycemic eating exercise mindful eating, using yoga and meditation along with deep breathing and connecting with friends and family. E. MASS PAT reviewed, Patient's current medications were reviewed and opinion was given on medication that can cause weight gain and can be substituted F. Patient was assessed for risk with obesity including and not limiting to atherosclerosis heart disease stroke kidney disease, restrictive lung disease, irritable bowel syndrome and overall mortality. Risk of developing prediabetes diabetes and metabolic syndrome was discussed G. Therapeutic plan: We have decided to make therapeutic plan which would include choosing wisely on calories restricting portion getting active, tracking weight, getting good quality sleep and working on time management H. Patient will follow up in 4 weeks for weight management Total time spent today was 60 minutes of which greater than 50% was spent on coordinating and counseling After consultation and careful review of medical history, this patient would benefit from Wemichaely based off of the following criteria met: Patient is over the age of 18, has a BMI of 44.01. Additional comorbidities include hypertension, hyperlipidemia, hypothyroidism, myocardial infarction, CABG, and COPD. Patient has trialed other methods of weight loss including improving diet, exercise without success over three months. This medication is prescribed by or in consultation with a board certified obesity and weight management physician (Dr. Reza Reeves or Dr. Timoteo Reeves). Case discussed with collaborating physician Penelope Reeves who reviewed the assessment and plan. Chart, medications, labs, vital signs reviewed. Dictation was accomplished with the use of VR1 voice recognition software, prone to medical misidentifications and grammatical errors. This is unintentional and the practitioner does try to identify and correct these, but some could still be present. Please do not hesitate to contact practitioner for clarification. All questions answered to patients satisfaction. Patient verbalized understanding of diagnosis and treatments explained. To call sooner prior to next visit it any questions/concerns arise. 08/29/2024 Coronary artery disease involving other coronary artery bypass graft without angina pectoris (ICD-10 - I25.810) Rudi is a 59-year-old male with history of obesity, hypothyroidism, hyperlipidemia, myocardial infarction status post drug-eluting stent, hypertension, COPD, and quadruple bypass in 2022 who presents to the office today for weight management consult. Medical history, labs, allergies, medications, and social history reviewed with the patient. Provided education on healthy diet and lifestyle which includes high-protein, low carbohydrate, high-fiber, and a variety of fruits and vegetables. Patient encouraged to exercise with emphasis on resistance training minimum 3 times per week to maintain muscle mass and cardio to burn fat. All patient questions answered. Patient will follow-up in 2 to 4 weeks for weight management. 08/29/2024: Weight 281 pounds, BMI 44.01. Seca scan completed today and interpreted with the patient. Has more difficulty with weight management since cardiovascular health declined. Has been trying to modify his diet and increase his physical activity over the past several months however no significant changes in weight. Given clinical presentation and comorbidities he is a good candidate for Wegovy. Discussed proper use of the medication including rotating injection sites and expected side effect profile including but not limited to nausea, constipation, abdominal pain, and heartburn. Advised this medication requires a prior authorization which can take 2 to 4 weeks. Reports no personal history of pancreatitis, no personal or family history of medullary thyroid cancer, and no personal or family history of multiple endocrine neoplasia syndrome type I or II. Will also begin semaglutide 0.25 mg in the office and received a [facility] injection. He will follow-up in the office for continued weight management in approximately 4 weeks. All patient questions answered at this time. # Hypertension: Blood pressure stable in office today 110/68. Continue lisinopril 5 mg once daily. Discussed red flag signs of hypertension including but not limited to headache, blurry vision, chest pain, difficulty breathing, abdominal pain, dizziness, or weakness. Will continue to monitor. Please follow with PCP. # Hypothyroidism: Will request recent labs. At this time continue levothyroxine 25 mcg once daily in the morning before breakfast and before other medications. Will continue to monitor. # Hyperlipidemia: Continue rosuvastatin 20 mg once daily. Discussed importance of diet and lifestyle and maintaining healthy cholesterol levels and preventing other comorbidities. Will continue to monitor. # Coronary artery disease: History of myocardial infarction at age 41 status post drug-eluting stent and quadruple bypass in 2022. Regular follow-up with cardiology. Patient today asymptomatic without chest pain, shortness of breath, dyspnea on exertion, or diaphoresis. Continue metoprolol succinate 25 mg once daily. Continue furosemide 20 mg once daily. Will continue to monitor. Please follow-up PCP and cardiology. # COPD: History of tobacco use. Quit smoking in 2022, smoked for 40+ years. Continue Trelegy Ellipta 200-60 2.5-25 mcg inhalation once daily. Will continue to monitor. Please follow-up with PCP. Patient was reassured and welcomed to the practice. We discussed that we stress a hollistic medical approach with emphasis on lifestyle modification. Patient was informed that a healthy lifestyle with exercise and good eating habits can help reduce his risk of medical complications. Patient is explained that obesity increases his risk of diabetes, cardiovascular disease, or organ damage. We spent a lot of time discussing the relationship between food, exercise, sleep, mental health and obesity. Patient was counseled on the importance EATING local, organic food when possible. Patient was educated on clean 15 and dirty dozen. I provided information about reading books called The Food Rules by Pavan Coleman and Eat Fat Get Lean by Dr Caleb Lin. Self education is important in the journey for weight management. Patient was offered diagnostic testing/ SECA scale. We want to measure visceral adiposity, advanced body composition, adverse lipids, fatty acid balance, risk for heart disease and atherosclerosis, markers of inflammation and genetic susceptibility. Patient was counseled on weight management and was advised to lose weight using A. Meal Replacement Products Patient was educated on the replacement products called optifast. This is a good way of taking fixed amount of calories. It has been shown in studies to be ineffective weight management tool. This however has to be coupled with lifestyle intervention as well as laboratory data and EKG monitoring. It is impossible to know how a person will tolerate complete meal replacement. The side effects of meal replacement and weight loss could include syncopal attacks, dizziness, gallstones, potential cholecystectomy, possible heart attack and even . The benefits of meal replacement would be potential weight loss but no guarantees can be made. Meal replacement products are not covered by insurance. Once the patient has bought these products we cannot return them B. Lifestyle management which includes several strategies as below 1. Eat a low carbohydrate good fat good protein diet. Eliminate refined carbohydrates from the diet. Limit sugared beverages. Eat local organic when possible. Cook your own meals. Read food labels. Focus on healthy snacks. Portion control and food with low glycemic index 2. Exercise regularly. Try to get at least 6000 steps a day. Use a predominant to track activity level. Consider using apps like 7 minute excercise, mySeabagspal, lose it, stick as needed for self-monitoring and weight management. Consider group exercises. Consider hiring a personal banking advisor. Regular exercise is mederos to sustainable health and prevents as a buffer against weight regain 3. Sleep is most important for healing. Try to sleep at least 6-8 hours a night. A good quality sleep needs a sleep ritual with ideal room temperature of around 68. It might help to take a shower and have no electronics in the room and sleep in a very dark room without artificial light. Start sleep routine and get up early in the morning and go to bed on time. 4. Make a social connection. Surround yourself with positive people with positive energy. Connect with friends and family. 5. Get into the habit of meditating and mindfulness while doing everything. 6. Go outside and connect with nature. C. Prescription medications Patient was educated on the use of prescription medications for medical weight loss. This is a growing list and includes phentermine, Topamax,Qsymia, contrave, belviq and saxenda, wegovy etc. All prescription medications could have side effects including but not limited to kidney stones, seizure disorder cardiac arrhythmias heart attack pancreatitis, GI effects, Etc. Patient was encouraged to read the prescription insert and have coaching with their pharmacist and make an informed decision about taking medication and know that these medications are being prescribed with good intentions and we do not know how a patient would react to her medication. Some medications are FDA approved for weight loss and there is also off label use depending on patient's inability to afford medications in an attempt to lose weight D. Behavioral counseling was done to establish a relationship between food and an mood. Patient was provided information about local counseling and psychiatry and Dr Mccall at [facility]. We would like to cover regular topics and build on low glycemic eating exercise mindful eating, using yoga and meditation along with deep breathing and connecting with friends and family. E. MASS PAT reviewed, Patient's current medications were reviewed and opinion was given on medication that can cause weight gain and can be substituted F. Patient was assessed for risk with obesity including and not limiting to atherosclerosis heart disease stroke kidney disease, restrictive lung disease, irritable bowel syndrome and overall mortality. Risk of developing prediabetes diabetes and metabolic syndrome was discussed G. Therapeutic plan: We have decided to make therapeutic plan which would include choosing wisely on calories restricting portion getting active, tracking weight, getting good quality sleep and working on time management H. Patient will follow up in 4 weeks for weight management Total time spent today was 60 minutes of which greater than 50% was spent on coordinating and counseling After consultation and careful review of medical history, this patient would benefit from Wegovy based off of the following criteria met: Patient is over the age of 18, has a BMI of 44.01. Additional comorbidities include hypertension, hyperlipidemia, hypothyroidism, myocardial infarction, CABG, and COPD. Patient has trialed other methods of weight loss including improving diet, exercise without success over three months. This medication is prescribed by or in consultation with a board certified obesity and weight management physician (Dr. Reza Reeves or Dr. Timoteo Reeves). Case discussed with collaborating physician Penelope Reeves who reviewed the assessment and plan. Chart, medications, labs, vital signs reviewed. Dictation was accomplished with the use of VR1 voice recognition software, prone to medical misidentifications and grammatical errors. This is unintentional and the practitioner does try to identify and correct these, but some could still be present. Please do not hesitate to contact practitioner for clarification. All questions answered to patients satisfaction. Patient verbalized understanding of diagnosis and treatments explained. To call sooner prior to next visit it any questions/concerns arise. 08/29/2024 COPD without exacerbation (ICD-10 - J44.9) Rudi is a 59-year-old male with history of obesity, hypothyroidism, hyperlipidemia, myocardial infarction status post drug-eluting stent, hypertension, COPD, and quadruple bypass in 2022 who presents to the office today for weight management consult. Medical history, labs, allergies, medications, and social history reviewed with the patient. Provided education on healthy diet and lifestyle which includes high-protein, low carbohydrate, high-fiber, and a variety of fruits and vegetables. Patient encouraged to exercise with emphasis on resistance training minimum 3 times per week to maintain muscle mass and cardio to burn fat. All patient questions answered. Patient will follow-up in 2 to 4 weeks for weight management. 08/29/2024: Weight 281 pounds, BMI 44.01. Seca scan completed today and interpreted with the patient. Has more difficulty with weight management since cardiovascular health declined. Has been trying to modify his diet and increase his physical activity over the past several months however no significant changes in weight. Given clinical presentation and comorbidities he is a good candidate for Wegovy. Discussed proper use of the medication including rotating injection sites and expected side effect profile including but not limited to nausea, constipation, abdominal pain, and heartburn. Advised this medication requires a prior authorization which can take 2 to 4 weeks. Reports no personal history of pancreatitis, no personal or family history of medullary thyroid cancer, and no personal or family history of multiple endocrine neoplasia syndrome type I or II. Will also begin semaglutide 0.25 mg in the office and received a [facility] injection. He will follow-up in the office for continued weight management in approximately 4 weeks. All patient questions answered at this time. # Hypertension: Blood pressure stable in office today 110/68. Continue lisinopril 5 mg once daily. Discussed red flag signs of hypertension including but not limited to headache, blurry vision, chest pain, difficulty breathing, abdominal pain, dizziness, or weakness. Will continue to monitor. Please follow with PCP. # Hypothyroidism: Will request recent labs. At this time continue levothyroxine 25 mcg once daily in the morning before breakfast and before other medications. Will continue to monitor. # Hyperlipidemia: Continue rosuvastatin 20 mg once daily. Discussed importance of diet and lifestyle and maintaining healthy cholesterol levels and preventing other comorbidities. Will continue to monitor. # Coronary artery disease: History of myocardial infarction at age 41 status post drug-eluting stent and quadruple bypass in 2022. Regular follow-up with cardiology. Patient today asymptomatic without chest pain, shortness of breath, dyspnea on exertion, or diaphoresis. Continue metoprolol succinate 25 mg once daily. Continue furosemide 20 mg once daily. Will continue to monitor. Please follow-up PCP and cardiology. # COPD: History of tobacco use. Quit smoking in 2022, smoked for 40+ years. Continue Trelegy Ellipta 200-60 2.5-25 mcg inhalation once daily. Will continue to monitor. Please follow-up with PCP. Patient was reassured and welcomed to the practice. We discussed that we stress a hollistic medical approach with emphasis on lifestyle modification. Patient was informed that a healthy lifestyle with exercise and good eating habits can help reduce his risk of medical complications. Patient is explained that obesity increases his risk of diabetes, cardiovascular disease, or organ damage. We spent a lot of time discussing the relationship between food, exercise, sleep, mental health and obesity. Patient was counseled on the importance EATING local, organic food when possible. Patient was educated on clean 15 and dirty dozen. I provided information about reading books called The Food Rules by Pavan Coleman and Eat Fat Get Lean by Dr Caleb Lin. Self education is important in the journey for weight management. Patient was offered diagnostic testing/ SECA scale. We want to measure visceral adiposity, advanced body composition, adverse lipids, fatty acid balance, risk for heart disease and atherosclerosis, markers of inflammation and genetic susceptibility. Patient was counseled on weight management and was advised to lose weight using A. Meal Replacement Products Patient was educated on the replacement products called optifast. This is a good way of taking fixed amount of calories. It has been shown in studies to be ineffective weight management tool. This however has to be coupled with lifestyle intervention as well as laboratory data and EKG monitoring. It is impossible to know how a person will tolerate complete meal replacement. The side effects of meal replacement and weight loss could include syncopal attacks, dizziness, gallstones, potential cholecystectomy, possible heart attack and even . The benefits of meal replacement would be potential weight loss but no guarantees can be made. Meal replacement products are not covered by insurance. Once the patient has bought these products we cannot return them B. Lifestyle management which includes several strategies as below 1. Eat a low carbohydrate good fat good protein diet. Eliminate refined carbohydrates from the diet. Limit sugared beverages. Eat local organic when possible. Cook your own meals. Read food labels. Focus on healthy snacks. Portion control and food with low glycemic index 2. Exercise regularly. Try to get at least 6000 steps a day. Use a predominant to track activity level. Consider using apps like 7 minute excercise, [employer], lose it, stick as needed for self-monitoring and weight management. Consider group exercises. Consider hiring a personal banking advisor. Regular exercise is mederos to sustainable health and prevents as a buffer against weight regain 3. Sleep is most important for healing. Try to sleep at least 6-8 hours a night. A good quality sleep needs a sleep ritual with ideal room temperature of around 68. It might help to take a shower and have no electronics in the room and sleep in a very dark room without artificial light. Start sleep routine and get up early in the morning and go to bed on time. 4. Make a social connection. Surround yourself with positive people with positive energy. Connect with friends and family. 5. Get into the habit of meditating and mindfulness while doing everything. 6. Go outside and connect with nature. C. Prescription medications Patient was educated on the use of prescription medications for medical weight loss. This is a growing list and includes phentermine, Topamax,Qsymia, contrave, belviq and saxenda, wegovy etc. All prescription medications could have side effects including but not limited to kidney stones, seizure disorder cardiac arrhythmias heart attack pancreatitis, GI effects, Etc. Patient was encouraged to read the prescription insert and have coaching with their pharmacist and make an informed decision about taking medication and know that these medications are being prescribed with good intentions and we do not know how a patient would react to her medication. Some medications are FDA approved for weight loss and there is also off label use depending on patient's inability to afford medications in an attempt to lose weight D. Behavioral counseling was done to establish a relationship between food and an mood. Patient was provided information about local counseling and psychiatry and Dr Mccall at [facility]. We would like to cover regular topics and build on low glycemic eating exercise mindful eating, using yoga and meditation along with deep breathing and connecting with friends and family. E. MASS PAT reviewed, Patient's current medications were reviewed and opinion was given on medication that can cause weight gain and can be substituted F. Patient was assessed for risk with obesity including and not limiting to atherosclerosis heart disease stroke kidney disease, restrictive lung disease, irritable bowel syndrome and overall mortality. Risk of developing prediabetes diabetes and metabolic syndrome was discussed G. Therapeutic plan: We have decided to make therapeutic plan which would include choosing wisely on calories restricting portion getting active, tracking weight, getting good quality sleep and working on time management H. Patient will follow up in 4 weeks for weight management Total time spent today was 60 minutes of which greater than 50% was spent on coordinating and counseling After consultation and careful review of medical history, this patient would benefit from Wegovy based off of the following criteria met: Patient is over the age of 18, has a BMI of 44.01. Additional comorbidities include hypertension, hyperlipidemia, hypothyroidism, myocardial infarction, CABG, and COPD. Patient has trialed other methods of weight loss including improving diet, exercise without success over three months. This medication is prescribed by or in consultation with a board certified obesity and weight management physician (Dr. Reza Reeves or Dr. Timoteo Reeves). Case discussed with collaborating physician Penelope Reeves who reviewed the assessment and plan. Chart, medications, labs, vital signs reviewed. Dictation was accomplished with the use of VR1 voice recognition software, prone to medical misidentifications and grammatical errors. This is unintentional and the practitioner does try to identify and correct these, but some could still be present. Please do not hesitate to contact practitioner for clarification. All questions answered to patients satisfaction. Patient verbalized understanding of diagnosis and treatments explained. To call sooner prior to next visit it any questions/concerns arise. PLAN OF TREATMENT Next Appt Details Provider Name:REZA REEVES, 09/23/2024 11:30:00 AM, [address] , [place], [address], Provider Name:JEANNETTE LEON , 09/26/2024 01:30:00 PM, [address] [facility] [address], [place], [address], Insurance Providers Payer Name Payer Address Payer Phone Subscriber Number Group Number Insured Name Patient Relationship to Insured Coverage Start Date Coverage End Date [facility] [address] [place] [address] [phone] [id number] Rudi Trivedi Self - patient is the insured MEDICATIONS ADMINISTERED Medication Instructions Date of Administration Dosage Notes MICC B12 INJECTION 08/29/2024 1 mg MICC B12 INJECTION 09/09/2024 1 mL MICC B12 INJECTION 09/16/2024 1 mL Semaglutide 08/29/2024 .25 mg MEDICAL (GENERAL) HISTORY Medical History History ICD Code high blood pressure hearing loss thyroid disease weight gain/loss Surgical History Surgery Date(Month/Year) BYPASS 2022
--- OUTSIDE RECORDS SUMMARY | 2024-09-21 16:03 | XMS_ITS ---
Author Organization [facility] Address [address] [place] [address] Care Team Providers Care Twisting Operator Name Role Phone JEANNETTE LEON Unavailable [phone] Encounters Encounter Location Date Provider Diagnosis [facility] [address] [place] [address] 08/29/2024 JEANNETTE LEON PLAN OF TREATMENT Next Appt Details Provider Name:KELVIN CARDOZO, 09/23/2024 11:30:00 AM, [address], [place], [address], Provider Name:JEANNETTE LEON , 09/26/2024 01:30:00 PM, [address], [address], [place], [address], Progress Notes * Rudi TRIVEDIDOB:1965 (59 yo M)Acc No.[id number]:08/29/2024 Patient:??Rudi TRIVEDI :1965?Age:59 Y?Sex:Ma le Address:[address] [place] [address] * true * Date:??
== END ==
LOC: HO.SL 14:34
PROVIDERS: PCP Nurse Practitioner Family; Visit Provider Nurse Practitioner Family
DX: R06.83 Snoring (principal); G47.30 Sleep apnea, unspecified
CPT/HCPCS: 95806

== ENCOUNTER → 2024-09-21 14:47 | Outpatient (BNV) | payer OTHER, SELFPAY | PROVIDERS: PCP Nurse Practitioner Family; Visit Provider Internal Medicine | DX: G47.33 Obstructive sleep apnea (adult) (pediatric) (principal) | CPT/HCPCS: 95806 ==

== ENCOUNTER 2024-09-25 10:27 | Outpatient (AMB) | payer OTHER, SELFPAY ==
[2024-09-25 10:30] VITALS: BP 110/72; PULSE 72; O2SAT 94; BMI 40.0
--- NOTE | 2024-09-25 10:30 | A.OFFPC_ITS ---
Vital Signs 09/25/24 10:30 Height 5 ft 11 in Weight 287 lb BMI 40.0 BP 110/72 Blood Pressure Location Rt brachial Position Sitting Pulse 72 Pulse Source Pulse Oximeter Pulse Oximetry (%) 94 Oxygen Delivery Method Room Air Intake Visit Reasons: Annual PE Intake Note: pt is here for annual exam Manager Managed Backup Services Required: No Accompanied by: Self / Same As Patient Allergies amoxicillin Allergy (Unknown, Verified 09/25/24 11:55) anaphylaxis Medication List - Last Reconciled 09/25/24 by KELLY Escobar- aspirin (Adult Aspirin Regimen) 81 mg PO DAILY rnjklxgrfra-leplcffba-gtyojjkf 200-62.5-25 mcg (Trelegy Ellipta) 1 inh inhalation DAILY furosemide 20 mg PO DAILY levothyroxine 25 mcg PO DAILY 30 days lisinopril 5 mg PO DAILY 90 days metoprolol succinate ER 75 mg (3 x 25 mg) PO DAILY 90 days rosuvastatin 20 mg PO BEDTIME semaglutide (weight loss) (Wegovy) 0.25 mg (0.5 mL) subcut QWEEK Tobacco use date assessed: 09/25/24 Dental Screening Dental Screen Date: 09/25/24 Did you have a dental visit in the last 12 months?: Yes Did you have a dental problem in the last 6 months where you did not have access to dental care?: No Was dental information given to patient?: Patient has dentist HPI Annual PE HPI Details History of Present Illness The patient is a 59-year-old male presenting for a routine physical examination. He has a significant past medical history of morbid obesity and a history of smoking. The patient has been under regular care with both pulmonary and cardiology specialists, suggesting past interventions for smoking-related conditions, although he no longer smokes. There is a noted gap in his colonoscopy scheduling, for which clearance from cardiology had been previously requested, leading to a delay in this screening. Currently, he denies chest pain, shortness of breath, fevers, chills, hematochezia, constipation, diarrhea, suicidal ideation, homicidal ideation, major depression, and major anxiety. The patient has been proactive in obtaining annual low-dose CAT scans, consistent with his smoking history. He refused a digital rectal exam but accepted PSA labs to be entered. His previous course includes awareness of vaccination availability at pharmacies, with plans to administer a Tdap vaccine during this visit. Health Maintenance - Plans for Cologuard testing due to del ay in colonoscopy - Annual low-dose CAT scans for history of smoking - PSA lab testing ordered - Administration of Tdap vaccine in the office today Social History - Former smoker; no current tobacco use Review of Systems - Cardiac: Denies chest pain - Respiratory: Denies shortness of breat h - Constitutional: Denies fevers, chills - Gastrointestinal: Denies blood in stoo l, constipation, diarrhea - Psychiatric: Denies suicidal ideation, homicidal ideation, major depression, major anxiety Physical Exam General: Cooperative, healthy appearing, comfortable, no acute distress and well developed, morbidly obese Orientation: Patient oriented x3 Limitations: No limitations Head: Normal to inspection Ears: Hearing grossly normal bilaterally Nose: Normal external nose present Face and sinus: Normal facial exam Eyes: Appearance normal, both eyes and all related structures Neck: Normal visual inspection and Yes full ROM Respiratory: Normal respiratory effort and able to speak in complete sentences. Clear to auscultation bilaterally Cardiovascular: Regular rate and rhythm. Normal S1 and S2 GI: Normal to inspection. Soft to palpation and nontender Skin: No rashes or lesions noted Neuro: Patient oriented x3 Extremities: +1 pitting edema in lower extremities Results Plan - Continue monitoring morbid obesity, en courage weight loss and lifestyle modifications. - Arrange Cologuard testing due to curre nt colonoscopy delay. - Continued abstinence from smoking shou ld be reinforced to the patient. - Administer Tdap vaccine as preventive measure during today's visit. - Ensure regular follow-up with cardiolo gy and pulmonary specialists. Patient was informed and verbally consented to the use of an ambient scribe for clinic note documentation during this visit. Discussion Notes I discussed the importance of proceeding with a Cologuard test due to the delay in scheduling a colonoscopy, considering the cardiology clearance requirements. We reviewed his history of smoking and the ongoing strategy of annual low-dose CAT scans to monitor for potential pulmonary conditions. The patient consented to receive the Tdap vaccination in the office today. I confirmed his understanding of lifestyle changes necessary for managing morbid obesity and the continuation of his coordination with specialized care for complete management of his health. Patient Instructions - Undergo Cologuard testing as planned. 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 - Maintain smoking cessation and continu e efforts towards weight management. - Be aware that you have received the Td ap vaccine today for protection against tetanus, diphtheria, and pertussis. - If any new symptoms occur, or current symptoms worsen, please seek medical attention promptly. [facility] Medical History Obesity (BMI 30-39.9) Hyperlipemia History of myocardial infarction Nicotine dependence, cigarettes, uncomplicated Sensorineural hearing loss (SNHL) of both ears CAD (coronary artery disease) Surgical History S/P CABG x 4 (~2022) History of heart artery stent (~2005) Family History Unknown No problems noted. Father Aorta aneurysm Social History Housing: House Alcohol intake: never Patient Tobacco Use Status: Former Tobacco user Cigarettes Per Day: 8 Years Smoked: (onset 19yo, 1/2-1ppd x 38yrs, 30pyh) e-Cigarette/Vaping Use: Never Used Second Hand Smoke Exposure: No service: No Current occupational status: employed Current occupation: [employer] Current occupational exposures/hazards: Yes Cognitive needs: No Hearing needs: No Vision needs: No Questionnaire PHQ-9 Over the last 2 weeks, how often have you been bothered by any of the following problems? 1. Little interest or pleasure in doing things: not at all 2. Feeling down, depressed, or hopeless: not at all 3. Trouble falling or staying asleep, or sleeping too much: not at all 4. Feeling tired or having little energy: not at all 5. Poor appetite or overeating: not at all 6. Feeling bad about yourself - or that you are a failure or have let yourself or your family down: not at all 7. Trouble concentrating on things, such as reading the newspaper or watching television: not at all 8. Moving or speaking so slowly that other people could have noticed. Or the opposite - being so fidgety or restless that you have been moving around a lot more than usual: not at all 9. Thoughts that you would be better off or of hurting yourself in some way: not at all Total score: 0 Depression Screening Interpretation: Negative Depression Screening Done: Yes 63359 - PHQ-9 Billing: Yes Source: Developed by Drs. Rock Guevara, Sana Freeman, Cody Mcwilliams and colleagues, with an educational otis from [employer]. Thrive Questionnaire Date Thrive assessed: 09/25/24 I am a: Patient What is your living situation today?: I have a steady place to live Within the past 12 months, did the food you bought not last and you didn't have the money to get more?: Never true Within the past 12 months, did you worry whether your food would run out before you got money to buy more?: Never true Do you have trouble paying for medicines?: No Do you have trouble getting transportation to medical appointments?: No Do you have trouble paying your heating and electricity bill?: No Do you have trouble taking care of your child, family member or friend?: No Do you have trouble with day-to-day activities such as bathing, preparing meals, shopping, managing finances, etc.?: No Are you currently unemployed and looking for a job?: No Are you interested in more education?: No Please select the resources that you would like help with: None Currently or been in a relationship where the following occur: No concerns reported THRIVE Score: 0 AUDIT C Alcohol Use Questionnaire (AUDIT-C) 1. How often do you have a drink containing alcohol?: Never 3. How often do you have six or more drinks on one occasion?: Never Total Score: 0 Score Reviewed/Action Taken: Yes CHRISTIANNE-7 AMB Questionnaire CHRISTIANNE-7 Date CHRISTIANNE - 7 assessed: 09/25/24 Feeling nervous, anxious, or on edge: 0 = Not at all Not being able to stop or control worryin = Not at all Worrying too much about different things: 0 = Not at all Trouble relaxin = Not at all Being so restless that it is hard to sit still: 0 = Not at all Becoming easily annoyed or irritable: 0 = Not at all Feeling afraid as if something awful might happen: 0 = Not at all Total CHRISTIANNE-7 score (0-4 normal; 5-9 mild; 10-14 moderate; 15-21 severe): 0 Source: Developed by Drs. Rock Guevara, Sana Freeman, Cody Mcwilliams and colleagues, with an educational otis from [employer]. CHRISTIANNE-7 Assessment Billing CHRISTIANNE-7 Assessment Tool: CHRISTIANNE-7 Assessment 74610 Physical exam (Primary Care) Vital Signs: Last Vital Signs Pulse 72 09/25/24 10:30 BP 110/72 09/25/24 10:30 Pulse Ox 94 09/25/24 10:30 Oxygen Delivery Method Room Air 09/25/24 10:30 BMI result Body Mass Index 40.0 Tobacco/Smoking Status: Tobacco use Status Tobacco use date assessed 09/25/24 09/25/24 10:31 Patient Tobacco Use Status Former Tobacco user 09/25/24 10:31 e-Cigarette/Vaping Use Never Used 09/25/24 10:31 PHQ-9: PHQ-9 Score PHQ-9: Total score 0 09/25/24 10:31 Depression Screening Interpretation: Negative Thrive Assessment: Date of Thrive Assessment Date Thrive assessed 09/25/24 09/25/24 10:31 Currently or been in a relationship where the following occur: No concerns reported Coding Level of Care Code Est Pt Prev Care 40-64y(82816) Diagnoses Physical exam Z00.00 Screening PSA (prostate specific antigen) Z12.5 Additional Codes CHRISTIANNE-7 Assessment Billing - CHRISTIANNE-7 Assessment Tool: CHRISTIANNE-7 Assessment 30569 ([id number]) PHQ-9 - 23858 - PHQ-9 Billing: Yes ([id number]) Assessment & Plan Assessment & Plan (1) Physical exam: Code(s): Z00.00 - Encounter for general adult medical examination without abnormal findings Category: Medical (2) Screening PSA (prostate specific antigen): Code(s): Z12.5 - Encounter for screening for malignant neoplasm of prostate Category: Medical Plan . Orders: Orders TSH reflex Free T4 Today Z00.00 - Encounter for general adult medical examination without abnormal findings UA CC w/rflx Micro + Cult Today Z00.00 - Encounter for general adult medical examination without abnormal findings Prostate Specific Antigen Scr Today Z12.5 - Encounter for screening for malignant neoplasm of prostate Complete Blood Count Auto Diff Today Z00.00 - Encounter for general adult medical examination without abnormal findings Comprehensive [place]. Panel Fast Today Z00.00 - Encounter for general adult medical examination without abnormal findings Lipid Panel Today Z00.00 - Encounter for general adult medical examination without abnormal findings Vitamin B12 and Folate Today R53.83 - Other fatigue Referrals Cologuard Test Z12.11 - Encounter for screening for malignant neoplasm of colon, Z12.12 - Encounter for screening for malignant neoplasm of rectum
--- OUTSIDE RECORDS SUMMARY | 2024-09-25 11:30 | XMS_ITS ---
Author Organization [facility] Address [address] [place] [address] Care Team Providers Care Room Service Server Name Role Phone REZA REEVES Unavailable [phone] REASON FOR VISIT Patient is here for [...] Active Encounters Encounter Location Date Provider Diagnosis [facility] [address] [place] [address] 09/16/2024 REZA REEVES PLAN OF TREATMENT Next Appt Details Provider Name:JEANNETTE LEON , 09/26/2024 01:30:00 PM, [address] [place] [address], [phone], Provider Name:REZA REEVES, 09/30/2024 10:00:00 AM, [address] [place], [address], MEDICATIONS ADMINISTERED Medication Instructions Date of Administration Dosage Notes MICC B12 INJECTION 09/16/2024 1 mL Progress Notes * Rudi TRIVEDIDOB:1965 (59 yo M)Acc No.[id number]:09/16/2024 Progress Note Patient:??Rudi TRIVEDI Provider:??Reza Reeves MD :1965?Age:59 Y?Sex:Ma danna Date:09/16/2024 Address:[address], [place], [id number] Subjective: * Chief Complaints: * ?1. Patient [...]
--- OUTSIDE RECORDS SUMMARY | 2024-09-25 11:30 | XMS_ITS ---
Author Organization [facility] Address [address] [place] [address] Care Team Providers Care Change Manager Name Role Phone REZA REEVES Unavailable [phone] REASON FOR VISIT pt here for a micc inj, tolerated well MEDICATIONS Medication SIG (Take, Route, Frequency, Duration) Notes Start Date End Date Status Trelegy Ellipta 200-62.5-25 MCG/ACT Inhalation for 30 Days Activ e Wegovy 0.25 MG/0.5ML Inject 0.25 mg Subcutaneous once weekly for 28 days 08/29/2024 Active Furosemide 20 MG Oral for 90 Days Active Rosuvastatin Calcium 20 MG Oral for 90 Days Active Levothyroxine Sodium 25 MCG Oral for 30 Days Active Lisinopril 5 MG Oral for 90 Days Active Metoprolol Succinate ER 25 MG Oral for 90 Days Active Encounters Encounter Location Date Provider Diagnosis [facility] [address] [place] [address] 09/23/2024 REZA REEVES PLAN OF TREATMENT Next Appt Details Provider Name:JEANNETTE LEON , 09/26/2024 01:30:00 PM, [address] [place] [address], [facility] [address], [address], Provider Name:REZA REEVES, 09/30/2024 10:00:00 AM, [address] [place], [address], MEDICATIONS ADMINISTERED Medication Instructions Date of Administration Dosage Notes MICC B12 INJECTION 09/23/2024 1 mL Progress Notes * Rudi TRIVEDIDOB:1965 (59 yo M)Acc No.[id number]:09/23/2024 Progress Note Patient:??Rudi TRIVEDI Provider:??Reza Reeves MD :1965?Age:59 Y?Sex:Ma le Date:09/23/2024 Address: [address], [place], [id number] Subjective: * Chief Complaints: * ?1. Pt here for a micc inj, tolerated well. * Medical History:?? * Medications:??Taking Trelegy Ellipta [...] MICC B12 INJECTION : 1 mL (Route: Subcutaneous) given by Myriam Rodríguez on subcutaneus Care Plan: * Problems:?? * Images: Billing Information: * Visit Code:?? * Procedure Codes:?? Care Plan Details* * Sign off status: Pending * Provider:??Reza Reeves MD Date:??09/23
--- OUTSIDE RECORDS SUMMARY | 2024-09-25 11:30 | XMS_ITS | Patient Health Record ---
Author Organization [facility] Address [address] [place] [address] Care Team Providers Care Drivers' Cash Clerk Name Role Phone REZA REEVES Unavailable [phone] JEANNETTE LEON Unavailable [phone] ALLERGIES Allergen (clinical drug ingredient) Drug/Non Drug [...] 25 MG Oral for 90 Days Active PROBLEMS Problem Type ICD Code Onset Dates Problem Status W/U Status Risk SNOMED Code Notes Problem Mixed hyperlipidemia (E78.2) Active confirmed 759576121 Problem Essential hypertension (I10) Active confirmed 34085107 Problem BMI 40.0-44.9, adult (Z68.41) Active confirmed 547070510 Problem Adult-onset obesity (E66.9) Active confirmed 807095308 Problem COPD without exacerbation (J44.9) Active confirmed 99682966 Problem Coronary artery disease involving other coronary artery bypass graft without angina pectoris (I25.810) Active confirmed 400586819 VITAL SIGNS Heart Rate 73 /min 08/29/2024 Oximetry 95 % 08/29/2024 Blood pressure diastolic 68 mm Hg 08/29/2024 Height 67 in 08/29/2024 Blood pressure systolic 110 mm Hg 08/29/2024 Weight 281 lbs 08/29/2024 BMI 44.01 kg/m2 08/29/2024 Encounters Encounter Location Date Provider Diagnosis [facility] [address] [facility] [place] [address] 09/09/2024 [facility] [address] [place] [address] 09/16/2024 [facility] [address] [facility] [address] 09/23/[address] [facility] [address] [place] [address] 08/29/2024 JEANNETTE LEON Adult-onset obesity E66.9 ; BMI 40.0-44.9, adult Z68.41 ; Essential hypertension I10 ; Mixed hyperlipidemia E78.2 ; Coronary artery disease involving other coronary artery bypass graft without angina pectoris I25.810 and COPD without exacerbation J44.[address] [facility] [address] [place] [address] 08/29/2024 JEANNETTE LEON ASSESSMENTS Encounter Date Diagnosis [...] group exercises. Consider hiring a personal banking assistant. Regular exercise is mederos to sustainable health [...] counseling and psychiatry and Dr Mccall at [facility]. We would like to cover regular topics [...] Dictation was accomplished with the use of [employer] (HDS) voice recognition software, prone to medical misidentifications [...] mg in the office and received a [facility] injection. He will follow-up in [...] Consider using apps like 7 minute excercise, [employer]akers Academ[employer]al, lose it, stick as needed for self-monitoring and weight management. Consider group exercises. Consider hiring a personal banking assistant. Regular exercise is mederos to sustainable health [...] counseling and psychiatry and Dr Mccall at [facility]. We would like to cover regular topics [...] Dictation was accomplished with the use of [employer] Service (HDS) voice recognition software, prone to medical misidentifications [...] mg in the office and received a [facility] injection. He will follow-up in [...] group exercises. Consider hiring a personal banking assistant. Regular exercise is mederos to sustainable health [...] counseling and psychiatry and Dr Mccall at [facility]. We would like to cover regular topics [...] Dictation was accomplished with the use of [employer] (HDS) voice recognition software, prone to medical misidentifications [...] Consider using apps like 7 minute excercise, [employer], lose it, stick as needed for self-monitoring and weight management. Consider group exercises. Consider hiring a personal banking assistant. Regular exercise is mederos to sustainable health [...] counseling and psychiatry and Dr Mccall at [facility]. We would like to cover regular topics [...] Dictation was accomplished with the use of [employer] Service (HDS) voice recognition software, prone to medical misidentifications [...] Consider using apps like 7 minute excercise, [employer], lose it, stick as needed for self-monitoring and weight management. Consider group exercises. Consider hiring a personal banking assistant. Regular exercise is mederos to sustainable health [...] about local counseling and psychiatry and Dr cMcall at [facility]. We would like to cover regular topics [...] Dictation was accomplished with the use of Home [employer] Service (HDS) voice recognition software, prone to medical misidentifications [...] mg in the office and received a [facility] injection. He will follow-up in [...] Consider using apps like 7 minute excercise, [employer], lose it, stick as needed for self-monitoring and weight management. Consider group exercises. Consider hiring a personal banking assistant. Regular exercise is mederos to sustainable health [...] counseling and psychiatry and Dr Mccall at [facility]. We would like to cover regular topics [...] Dictation was accomplished with the use of Home [employer] Service (HDS) voice recognition software, prone to medical misidentifications [...] Name:JEANNETTE LEON , 09/26/2024 01:30:00 PM, [address], [facility] [address], [address], Provider Name:REZA REEVES, 09/30/2024 10:00:00 AM, [address] , [place], [address], Insurance Providers Payer Name Payer Address Payer Phone Subscriber Number Group Number Insured Name Patient Relationship to Insured Coverage Start Date Coverage End Date [facility] [address] [facility] [place] [id number] [phone] [id number] Rudi Trivedi Self - patient is the insured MEDICATIONS ADMINISTERED Medication Instructions Date of Administration Dosage Notes MICC B12 INJECTION 08/29/2024 1 mg MICC B12 INJECTION 09/09/2024 1 mL MICC B12 INJECTION 09/16/2024 1 mL MICC B12 INJECTION 09/23/2024 1 mL Semaglutide 08/29/2024 .25 mg MEDICAL (GENERAL) HISTORY Medical History History ICD Code high blood pressure hearing loss thyroid disease weight gain/loss Surgical History Surgery Date(Month/Year) BYPASS 2022
--- OUTSIDE RECORDS SUMMARY | 2024-09-25 11:30 | XMS_ITS ---
Author Organization [facility] Address [address] [place] [address] Care Team Providers Care Digital Account Director Name Role Phone REZA REEVES Unavailable [phone] REASON FOR VISIT Pt signed consent and [...] Active Encounters Encounter Location Date Provider Diagnosis [facility] [address] [place] [address] 09/09/2024 REZA REEVES PLAN OF TREATMENT Next Appt Details Provider Name:JEANNETTE LEON , 09/26/2024 01:30:00 PM, [address] [place] [address], [phone], Provider Name:REZA REEVES, 09/30/2024 10:00:00 AM, [address] [place], [address], MEDICATIONS ADMINISTERED Medication Instructions Date of Administration Dosage Notes MICC B12 INJECTION 09/09/2024 1 mL Progress Notes * Rudi TRIVEDIDOB:1965 (59 yo M)Acc No.[id number]:09/09/2024 Progress Note Patient:??Rudi TRIVEDI Provider:??Reza Reeves MD :1965?Age:59 Y?Sex:Francis clay Date:09/09/2024 Address: [address], [place], [place] Subjective: * Chief Complaints: * ?1. Pt [...]
== END 2024-09-25 11:57 | disposition home or self-care (01) ==
PROVIDERS: PCP Nurse Practitioner Family; Visit Provider Nurse Practitioner Family
DX: Z00.00 Encounter for general adult medical examination without abnormal findings (principal); Z12.5 Encounter for screening for malignant neoplasm of prostate; Z23 Encounter for immunization

== ENCOUNTER → 2024-09-25 10:27 | Outpatient (BNVA) | payer OTHER, SELFPAY | PROVIDERS: PCP Nurse Practitioner Family; Visit Provider Nurse Practitioner Family | DX: Z00.00 Encounter for general adult medical examination without abnormal findings (principal); Z23 Encounter for immunization; E66.01 Morbid (severe) obesity due to excess calories; Z68.41 Body mass index [BMI] 40.0-44.9, adult | CPT/HCPCS: 90471; 90472; 90656; 90715; 96127 ==

== ENCOUNTER 2024-10-18 12:53 | Outpatient (AMB) | payer OTHER, SELFPAY ==
--- NOTE | 2024-10-18 12:57 | A.OFFVIS_ITS ---
Vital Signs 10/18/24 13:02 Height 5 ft 11 in Weight 278 lb 6 oz BMI 38.8 BP 100/70 Blood Pressure Location Lt brachial Position Sitting Pulse 78 Pulse Source Pulse Oximeter Pulse Oximetry (%) 93 Oxygen Delivery Method Room Air Intake Visit Reasons: INP-GIOVANNI Intake Note: Patient presents for a new patient evaluation for GIOVANNI. Pt has no concerns. 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 handed male referred to us for sleep evaluation. HST 10/03/2024 GIOVANNI with AHI 53 nocturnal hyoxemia persistent through the night w/ avg O2 desaturation 85% He goes to bed at 9pm and gets up at 5am, with 6-7 bathroom breaks as he is on furosemide. H/O of CABG X4 in 07/2023. His BMI is 39 today, TSH is now normal, has Josué. He us taking Wegovy for 7 weeks, is motivated to lose weight, bikes daily for 30min. He is a former smoker, has difficulty sleeping and still coughing and wheezing at night. 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 Mood, memory and diet is good. [facility], [facility] Medical History Obesity (BMI 30-39.9) Hyperlipemia History of myocardial infarction Nicotine dependence, cigarettes, uncomplicated Sensorineural hearing loss (SNHL) of both ears CAD (coronary artery disease) Surgical History S/P CABG x 4 (~2022) History of heart artery stent (~2005) Family History Unknown No problems noted. Father Aorta aneurysm Social History Housing: House Alcohol intake: never Patient Tobacco Use Status: Former Tobacco user Cigarettes Per Day: 8 Years Smoked: (onset 19yo, 1/2-1ppd x 38yrs, 30pyh) e-Cigarette/Vaping Use: Never Used Second Hand Smoke Exposure: No service: No Current occupational status: employed Current occupation: [employer] Current occupational exposures/hazards: Yes Cognitive needs: No Hearing needs: No Vision needs: No Review of Systems Const All systems reviewed & are unremarkable except as noted in HPI and below ENT Reports Normal hearing present Neuro Reports Normal hearing present Physical Exam Vital Signs: Last Vital Signs Pulse 78 10/18/24 13:02 BP 100/70 10/18/24 13:02 Pulse Ox 93 10/18/24 13:02 Oxygen Delivery Method Room Air 10/18/24 13:02 BMI result Body Mass Index 38.8 Const General: cooperative and tired appearing Orientation/consciousness: patient oriented x3 Neck Neck: Yes full ROM and Yes supple Resp Effort & Inspection: normal respiratory effort and able to speak in complete sentences Neuro General: patient oriented x3, gait normal, moves all extremities and no focal motor deficits Cranial nerves: Yes Bilaterally intact EOM present, Yes Normal facial strength present, Yes Midline tongue present, Yes Symmetric palate elevation present, Yes Normal hearing present and Yes Ability to bilaterally elevate shoulders present Cognition (Neuro): normal cognition Gait exam (Neuro): Normal gait present Motor exam (neuro): 5/5 motor strength present throughout, Pronator motor function not present and no tremor noted Psych Appearance: grossly normal Mental Status: mental status grossly normal Speech and movement: Normal speech and movement present Affect: normal affect Attitude: cooperative Results Reviewed Results Reviewed: [facility] ED Note 07/2023 CABG Assessment & Plan Assessment & Plan (1) Daytime sleepiness: Code(s): R40.0 - Somnolence Category: Medical (2) Snoring: Code(s): R06.83 - Snoring Category: Medical (3) Nocturnal hypoxemia: Code(s): G47.34 - Idiopathic sleep related nonobstructive alveolar hypoventilation Category: Medical Plan Snoring, and excessive daytime fatigue: Home Sleep Test completed 10/03/2024 -AHI was 52 and O2 sat 85% nocturnal hypoxemia persistent Will f/u in Lab Titration study F/U in 3 months Orders: Orders RT PSG in-lab sleep titration Today G47.33 - Obstructive sleep apnea (adult) (pediatric) Coding Level of Care Code New Pt Level 4 (53066) Diagnoses Daytime sleepiness R40.0 Snoring R06.83 Nocturnal hypoxemia G47.34 Sleep Questionnaire Difficulty falling asleep: No Number of arousals: 6x Snoring: Yes Witnessed apneas: No Gasping arousals: No Nocturia: Yes GERD: No Vivid dreams: No Acting out dreams: No Abnormal behavior in sleep: Yes Abnormal movements in sleep: No Morning headaches: No Excessive daytime sleepiness: No Daytime naps: No Restless legs: No Hallucinations: No Sleep paralysis: No Drop attacks: No Sleep Study: Yes (HST on 10/03/2024) CPAP: No
[2024-10-18 13:02] VITALS: BP 100/70; PULSE 78; O2SAT 93; BMI 38.8
--- OUTSIDE RECORDS SUMMARY | 2024-10-18 15:00 | XMS_ITS ---
Author Organization [facility] Address [address] [place] [address] Care Team Providers Care Hard Rock Miner Name Role Phone JEANNETTE LEON Unavailable [phone] REZA REEVES Unavailable [phone] REASON FOR VISIT Pt signed consent and received 1ml of MICC Intramuscularly. Pt tolerated well with no interactions MEDICATIONS Medication SIG (Take, Route, Frequency, Duration) Notes Start Date End Date Status Lisinopril 5 MG Oral for 90 Days Active Metoprolol Succinate ER 25 MG Oral for 90 Days Active Levothyroxine Sodium 25 MCG Oral for 30 Days Active Furosemide 20 MG Oral for 90 Days Active Trelegy Ellipta 200-62.5-25 MCG/ACT Inhalation for 30 Days Activ e Wegovy 0.5 MG/0.5ML Inject 0.5 mg Subcutaneous once weekly for 28 days 08/29/2024 Active Rosuvastatin Calcium 20 MG Oral for 90 Days Active Encounters Encounter Location Date Provider Diagnosis [facility] [address] [place] [address] 10/07/2024 REZA REEVES PLAN OF TREATMENT Next Appt Details Provider Name:REZA REEVES, 10/21/2024 10:00:00 AM, [address] , [place], [address], Provider Name:JEANNETTE LEON , 10/24/2024 01:30:00 PM, [address] [facility], [facility] [address], [place], [address], MEDICATIONS ADMINISTERED Medication Instructions Date of Administration Dosage Notes MICC B12 INJECTION 10/07/2024 1 mL Progress Notes * Solo TRIVEDIB:1965 (59 yo M)Acc No.[id number]:10/07/2024 Progress Note Patient:??Rudi TRIVEDI Provider:??Reza Reeves MD :1965?Age:59 Y?Sex:Francis clay Date:10/07/2024 Address:[address] [place] [address] , [place], [id number] Subjective: * Chief Complaints: * ?1. Pt signed consent a nd received 1ml of MICC Intramuscularly. Pt tolerated well with no interactions. * Medical History:?? * Medications:??Taking Trelegy Ellipta 200-62.5-25 MCG/ACT Aerosol Powder Breath Activated Inhalation , Taking Lisinopril 5 MG Tablet Oral , Taking Metoprolol Succinate ER 25 MG Tablet Extended Release 24 Hour Oral , Taking Levothyroxine Sodium 25 MCG Tablet Oral , Taking Furosemide 20 MG Tablet Oral , Taking Rosuvastatin Calcium 20 MG Tablet Oral , Taking Wegovy 0.5 MG/0.5ML Solution Auto-injector Inject 0.5 mg Subcutaneous once weekly Objective: Assessment: Plan: * Treatment: * Therapeutic Injections:? MICC B12 INJECTION : 1 mL (Route: Intramuscular) given by Shannan Lopez on left deltoid Care Plan: * Problems:?? * Images: Billing Information: * Visit Code:?? * Procedure Codes:?? Care Plan Details* * Sign off status: Pending * Provider:??Reza Reeves MD Date:??10/07
--- OUTSIDE RECORDS SUMMARY | 2024-10-18 15:00 | XMS_ITS ---
Author Organization [facility] Address [address] [place] [address] Care Team Providers Care Medical Bill Processor Name Role Phone JEANNETTE LEON Unavailable [phone] REZA REEVES Unavailable [phone] REASON FOR VISIT Pt signed consent and received 1ML of MICC, intramuscular. Pt tolerated well with no reactions MEDICATIONS Medication SIG (Take, Route, Frequency, Duration) Notes Start Date End Date Status Furosemide 20 MG Oral for 90 Days Active Levothyroxine Sodium 25 MCG Oral for 30 Days Active Metoprolol Succinate ER 25 MG Oral for 90 Days Active Lisinopril 5 MG Oral for 90 Days Active Trelegy Ellipta 200-62.5-25 MCG/ACT Inhalation for 30 Days Activ e Wegovy 0.5 MG/0.5ML Inject 0.5 mg Subcutaneous once weekly for 28 days 08/29/2024 Active Rosuvastatin Calcium 20 MG Oral for 90 Days Active Encounters Encounter Location Date Provider Diagnosis [facility] [address] [place] [address] 09/30/2024 REZA REEVES PLAN OF TREATMENT Next Appt Details Provider Name:REZA REEVES, 10/21/2024 10:00:00 AM, [address] , [place], [address], Provider Name:JEANNETTE LEON , 10/24/2024 01:30:00 PM, [address] [facility], [facility] [address], [place], [address], MEDICATIONS ADMINISTERED Medication Instructions Date of Administration Dosage Notes MICC B12 INJECTION 09/30/2024 1 mL Progress Notes * Ricky TRIVEDI:1965 (59 yo M)Acc No.[id number]:09/30/2024 Progress Note Patient:??Rudi TRIVEDI Provider:??Reza Reeves MD :1965?Age:59 Y?Sex:Francis clay Date:09/30/2024 Address:[address] [place] [address] , [place], [facility] Subjective: * Chief Complaints: * ?1. Pt signed consent a nd received 1ML of MICC, intramuscular. Pt tolerated well with no reactions. * [...] off status: Pending * Provider:??Reza Reeves MD Date:??09/30
--- OUTSIDE RECORDS SUMMARY | 2024-10-18 15:00 | XMS_ITS ---
Author Organization [facility] Address [address] [place] [address] Care Team Providers Care Bandage Maker Name Role Phone JEANNETTE LEON Unavailable [phone] REZA REEVES Unavailable [phone] REASON FOR VISIT Pt signed consent and received 1ml of MICC, intramuscular into L deltoid. Pt tolerated well with noreactions. MEDICATIONS Medication SIG (Take, Route, Frequency, Duration) Notes Start Date End Date Status Furosemide 20 MG Oral for 90 Days Active Rosuvastatin Calcium 20 MG Oral for 90 Days Active Wegovy 0.5 MG/0.5ML Inject 0.5 mg Subcutaneous once weekly for 28 days 08/29/2024 Active Metoprolol Succinate ER 25 MG Oral for 90 Days Active Levothyroxine Sodium 25 MCG Oral for 30 Days Active Lisinopril 5 MG Oral for 90 Days Active Trelegy Ellipta 200-62.5-25 MCG/ACT Inhalation for 30 Days Activ e Encounters Encounter Location Date Provider Diagnosis [facility] [address] [place] [address] 10/14/2024 REZA REEVES PLAN OF TREATMENT Next Appt Details Provider Name:REZA REEVES, 10/21/2024 10:00:00 AM, [address] , [place], [address], Provider Name:JEANNETTE LEON , 10/24/2024 01:30:00 PM, [address] [facility], [facility] [address], [place], [address], MEDICATIONS ADMINISTERED Medication Instructions Date of Administration Dosage Notes MICC B12 INJECTION 10/14/2024 1 mL Progress Notes * Ricky TRIVEDI:1965 (59 yo M)Acc No.[id number]:10/14/2024 Progress Note Patient:??Rudi TRIVEDI Provider:??Reza Reeves MD :1965?Age:59 Y?Sex:Francis clay Date:10/14/2024 Address: [address], [place], [id number] Subjective: * Chief Complaints: * ?1. Pt signed consent a nd received 1ml of MICC, intramuscular into L deltoid. Pt tolerated well with no reactions.. * Medical History:?? * Medications:??Taking Trelegy Ellipta [...] off status: Pending * Provider:??Reza Reeves MD Date:??10/14
--- OUTSIDE RECORDS SUMMARY | 2024-10-18 15:00 | XMS_ITS | Patient Health Record ---
Author Organization [facility] Address [address] [place] [address] Care Team Providers Care Body Shop Technician Name Role Phone JEANNETTE LEON Unavailable [phone] REZA REEVES Unavailable [phone] ALLERGIES Allergen (clinical drug ingredient) Drug/Non Drug Allergy documented on EMR Reaction Allergy Type Onset Date Status amoxicillin Amoxicillin Unknown Drug Allergy Act elmer REASON FOR REFERRAL No Information MEDICATIONS Medication SIG (Take, Route, Frequency, Duration) Notes Start Date End Date Status Lisinopril 5 MG Oral for 90 Days Active Trelegy Ellipta 200-62.5-25 MCG/ACT Inhalation for 30 Days Activ e Furosemide 20 MG Oral for 90 Days Active Rosuvastatin Calcium 20 MG Oral for 90 Days Active Wegovy 0.5 MG/0.5ML Inject 0.5 mg Subcutaneous once weekly for 28 days 08/29/2024 Active Metoprolol Succinate ER 25 MG Oral for 90 Days Active Levothyroxine Sodium 25 MCG Oral for 30 Days Active PROBLEMS Problem Type ICD Code Onset Dates Problem Status W/U Status Risk SNOMED Code Notes Problem Mixed hyperlipidemia (E78.2) Active confirmed 211019813 Problem Essential hypertension (I10) Active confirmed 42746420 Problem BMI 40.0-44.9, adult (Z68.41) Active confirmed 653925610 Problem Adult-onset obesity (E66.9) Active confirmed 651467124 Problem COPD without exacerbation (J44.9) Active confirmed 83508491 Problem Coronary artery disease involving other coronary artery bypass graft without angina pectoris (I25.810) Active confirmed 466624031 VITAL SIGNS Heart Rate 90 /min 09/26/2024 Oximetry 97 % 09/26/2024 Blood pressure diastolic 74 mm Hg 09/26/2024 Height 67 in 09/26/2024 Blood pressure systolic 114 mm Hg 09/26/2024 Weight 281 lbs 09/26/2024 BMI 44.01 kg/m2 09/26/2024 Encounters Encounter Location Date Provider Diagnosis [facility] [address] [facility] [address] 09/09/[address] [facility] [address] [facility] [address] 09/16/[address] [facility] [address] [facility] [address] 09/23/[address] [facility] [address] [facility] [address] 09/30/[address] [facility] [address] [facility] [place] [address] 10/07/2024 [facility] [address] [facility] [place] [address] 10/14/2024 REZA REEVES [facility] [address] [facility] [address] [address] 08/29/2024 JEANNETTE LEON Adult-onset obesity E66.9 ; BMI 40.0-44.9, adult Z68.41 ; Essential hypertension I10 ; Mixed hyperlipidemia E78.2 ; Coronary artery disease involving other coronary artery bypass graft without angina pectoris I25.810 and COPD without exacerbation J44.[address] [facility] [address] [facility] [facility] [address] [place] [phone] 09/26/2024 JEANNETTE LEON Adult-onset obesity E66.9 ; BMI 40.0-44.9, adult Z68.41 ; Essential hypertension I10 ; Mixed hyperlipidemia E78.2 ; Coronary artery disease involving other coronary artery bypass graft without angina pectoris I25.810 and COPD without exacerbation J44.[address] [facility] [address] [facility] [facility] [address] [place] [phone] 08/29/2024 JEANNETTE LEON ASSESSMENTS Encounter Date Diagnosis [...] mg in the office and received a [facility] injection. He will follow-up in the office [...] books called The Food Rules by Pavan Coelman and Eat Fat Get Lean by Dr [...] Consider group exercises. Consider hiring a personal finance instructor. Regular exercise is mederos to sustainable health [...] counseling and psychiatry and Dr Mccall at [facility]. We would like to cover regular topics [...] Dictation was accomplished with the use of Towi voice recognition software, prone to medical misidentifications [...] Consider using apps like 7 minute excercise, my[employer] Pharm[employer]nesspal, lose it, stick as needed for self-monitoring and weight management. Consider group exercises. Consider hiring a personal finance instructor. Regular exercise is mederos to sustainable health [...] counseling and psychiatry and Dr Mccall at [facility]. We would like to cover regular topics [...] Dictation was accomplished with the use of Towi voice recognition software, prone to medical misidentifications and grammatical errors. This is unintentional and the practitioner does try to identify and correct these, but some could still be present. Please do not hesitate to contact practitioner for clarification. All questions answered to patients satisfaction. Patient verbalized understanding of diagnosis and treatments explained. To call sooner prior to next visit it any questions/concerns arise. 09/26/2024 BMI 40.0-44.9, adult (ICD-10 - Z68.41) Patient is here for weight management follow-up. We focused on significance of healthy lifestyle changes. We talked about need to track steps with goal between 6000-10,000 steps daily, focus on portion control, read food labels, get adequate sleep between 7 to 8 hours, get adequate rest to the body, meditate, frequent nutritious meals including vegetables and healthy choices of lean meats, fish, and elimination of refined carbohydrates. We also talked about mindfulness and mindful eating. Particular focus was on continuing mindful eating and physical activity. Total time spent with 30 minutes with greater than 50% spent on counseling and coordinating care. 08/29/2024: Weight 281 pounds, BMI 44.01. Seca [...] mg in the office and received [facility]. He will follow-up in the office for continued weight management in approximately 4 weeks. All patient questions answered at this time. 09/26/2024: Weight 281 pounds, BMI 44.01. Seca scan completed today and interpreted with the patient. Overall weight has been stable since consultation. Has been tolerating Wegovy 0.25 mg well without side effects. We reviewed goals of diet and lifestyle and patient has been exercising with stationary bike, walking, and sit ups. Plan at this time to increase to 0.5 mg of Wegovy once weekly. Discussed proper use of the medication and expected side effect profile. He will follow-up in office in approximately 4 weeks for further management. # Hypertension: Blood pressure stable in office today 114/74. Continue lisinopril 5 mg once daily. Discussed red flag signs of hypertension including but not limited to headache, blurry vision, chest pain, difficulty breathing, abdominal pain, dizziness, or weakness. Will continue to monitor. Please follow with PCP. # Hypothyroidism: Continue levothyroxine 25 mcg once daily in the [...] continue to monitor. Please follow-up with PCP. All questions have been answered to patient's satisfaction. Patient verbalized understanding of diagnosis and treatments explained. Advised to call sooner prior to next visit it any questions/concerns arise. Case discussed with collaborating physician Erin Reeves who reviewed the assessment and plan. Chart, medications, labs, vital signs reviewed. Dictation was accomplished with the use of Towi voice recognition software, which is prone to medical misidentifications and grammatical errors. This are unintentional and the practitioner does try to identify and correct these, but some could still be present. Please do not hesitate to contact practitioner for clarification. 09/26/2024 Adult-onset obesity (ICD-10 - E66.9) Patient is here for weight management follow-up. We focused on significance of healthy lifestyle changes. We talked about need to track steps with goal between 6000-10,000 steps daily, focus on portion control, read food labels, get adequate sleep between 7 to 8 hours, get adequate rest to the body, meditate, frequent nutritious meals including vegetables and healthy choices of lean meats, fish, and elimination of refined carbohydrates. We also talked about mindfulness and mindful eating. Particular focus was on continuing mindful eating and physical activity. Total time spent with 30 minutes with greater than 50% spent on counseling and coordinating care. 08/29/2024: Weight 281 pounds, BMI 44.01. Seca [...] mg in the office and received a [facility] injection. He will follow-up in the office for continued weight management in approximately 4 weeks. All patient questions answered at this time. 09/26/2024: Weight 281 pounds, BMI 44.01. Seca scan completed today and interpreted with the patient. Overall weight has been stable since consultation. Has been tolerating Wegovy 0.25 mg well without side effects. We reviewed goals of diet and lifestyle and patient has been exercising with stationary bike, walking, and sit ups. Plan at this time to increase to 0.5 mg of Wegovy once weekly. Discussed proper use of the medication and expected side effect profile. He will follow-up in office in approximately 4 weeks for further management. # Hypertension: Blood pressure stable in office today 114/74. Continue lisinopril 5 mg once daily. Discussed red flag signs of hypertension including but not limited to headache, blurry vision, chest pain, difficulty breathing, abdominal pain, dizziness, or weakness. Will continue to monitor. Please follow with PCP. # Hypothyroidism: Continue levothyroxine 25 mcg once daily in the [...] continue to monitor. Please follow-up with PCP. All questions have been answered to patient's satisfaction. Patient verbalized understanding of diagnosis and treatments explained. Advised to call sooner prior to next visit it any questions/concerns arise. Case discussed with collaborating physician Erin Reeves who reviewed the assessment and plan. Chart, medications, labs, vital signs reviewed. Dictation was accomplished with the use of Towi voice recognition software, which is prone to medical misidentifications and grammatical errors. This are unintentional and the practitioner does try to identify and correct these, but some could still be present. Please do not hesitate to contact practitioner for clarification. 08/29/2024 Essential hypertension (ICD-10 - I10) Rudi [...] mg in the office and received a [facility] injection. He will follow-up in the office [...] Consider using apps like 7 minute excercise, Indotradingpal, lose it, stick as needed for self-monitoring and weight management. Consider group exercises. Consider hiring a personal finance instructor. Regular exercise is mederos to sustainable health [...] counseling and psychiatry and Dr Mccall at [facility]. We would like to cover regular topics [...] Dictation was accomplished with the use of Towi voice recognition software, prone to medical misidentifications and grammatical errors. This is unintentional and the practitioner does try to identify and correct these, but some could still be present. Please do not hesitate to contact practitioner for clarification. All questions answered to patients satisfaction. Patient verbalized understanding of diagnosis and treatments explained. To call sooner prior to next visit it any questions/concerns arise. 09/26/2024 Essential hypertension (ICD-10 - I10) Patient is here for weight management follow-up. We focused on significance of healthy lifestyle changes. We talked about need to track steps with goal between 6000-10,000 steps daily, focus on portion control, read food labels, get adequate sleep between 7 to 8 hours, get adequate rest to the body, meditate, frequent nutritious meals including vegetables and healthy choices of lean meats, fish, and elimination of refined carbohydrates. We also talked about mindfulness and mindful eating. Particular focus was on continuing mindful eating and physical activity. Total time spent with 30 minutes with greater than 50% spent on counseling and coordinating care. 08/29/2024: Weight 281 pounds, BMI 44.01. Seca [...] All patient questions answered at this time. 09/26/2024: Weight 281 pounds, BMI 44.01. Seca scan completed today and interpreted with the patient. Overall weight has been stable since consultation. Has been tolerating Wegovy 0.25 mg well without side effects. We reviewed goals of diet and lifestyle and patient has been exercising with stationary bike, walking, and sit ups. Plan at this time to increase to 0.5 mg of Wegovy once weekly. Discussed proper use of the medication and expected side effect profile. He will follow-up in office in approximately 4 weeks for further management. # Hypertension: Blood pressure stable in office today 114/74. Continue lisinopril 5 mg once daily. Discussed red flag signs of hypertension including but not limited to headache, blurry vision, chest pain, difficulty breathing, abdominal pain, dizziness, or weakness. Will continue to monitor. Please follow with PCP. # Hypothyroidism: Continue levothyroxine 25 mcg once daily in the [...] continue to monitor. Please follow-up with PCP. All questions have been answered to patient's satisfaction. Patient verbalized understanding of diagnosis and treatments explained. Advised to call sooner prior to next visit it any questions/concerns arise. Case discussed with collaborating physician Erin Reeves who reviewed the assessment and plan. Chart, medications, labs, vital signs reviewed. Dictation was accomplished with the use of Towi voice recognition software, which is prone to medical misidentifications and grammatical errors. This are unintentional and the practitioner does try to identify and correct these, but some could still be present. Please do not hesitate to contact practitioner for clarification. 08/29/2024 Mixed hyperlipidemia (ICD-10 - E78.2) Rudi [...] mg in the office and received a [facility] injection. He will follow-up in the office [...] Consider using apps like 7 minute excercise, Indotradingpal, lose it, stick as needed for self-monitoring and weight management. Consider group exercises. Consider hiring a personal finance instructor. Regular exercise is mederos to sustainable health [...] counseling and psychiatry and Dr Mccall at [facility]. We would like to cover regular topics [...] Dictation was accomplished with the use of Towi voice recognition software, prone to medical misidentifications and grammatical errors. This is unintentional and the practitioner does try to identify and correct these, but some could still be present. Please do not hesitate to contact practitioner for clarification. All questions answered to patients satisfaction. Patient verbalized understanding of diagnosis and treatments explained. To call sooner prior to next visit it any questions/concerns arise. 09/26/2024 Mixed hyperlipidemia (ICD-10 - E78.2) Patient is here for weight management follow-up. We focused on significance of healthy lifestyle changes. We talked about need to track steps with goal between 6000-10,000 steps daily, focus on portion control, read food labels, get adequate sleep between 7 to 8 hours, get adequate rest to the body, meditate, frequent nutritious meals including vegetables and healthy choices of lean meats, fish, and elimination of refined carbohydrates. We also talked about mindfulness and mindful eating. Particular focus was on continuing mindful eating and physical activity. Total time spent with 30 minutes with greater than 50% spent on counseling and coordinating care. 08/29/2024: Weight 281 pounds, BMI 44.01. Seca [...] mg in the office and received a [facility] injection. He will follow-up in the office for continued weight management in approximately 4 weeks. All patient questions answered at this time. 09/26/2024: Weight 281 pounds, BMI 44.01. Seca scan completed today and interpreted with the patient. Overall weight has been stable since consultation. Has been tolerating Wegovy 0.25 mg well without side effects. We reviewed goals of diet and lifestyle and patient has been exercising with stationary bike, walking, and sit ups. Plan at this time to increase to 0.5 mg of Wegovy once weekly. Discussed proper use of the medication and expected side effect profile. He will follow-up in office in approximately 4 weeks for further management. # Hypertension: Blood pressure stable in office today 114/74. Continue lisinopril 5 mg once daily. Discussed red flag signs of hypertension including but not limited to headache, blurry vision, chest pain, difficulty breathing, abdominal pain, dizziness, or weakness. Will continue to monitor. Please follow with PCP. # Hypothyroidism: Continue levothyroxine 25 mcg once daily in the [...] continue to monitor. Please follow-up with PCP. All questions have been answered to patient's satisfaction. Patient verbalized understanding of diagnosis and treatments explained. Advised to call sooner prior to next visit it any questions/concerns arise. Case discussed with collaborating physician Erin Reeves who reviewed the assessment and plan. Chart, medications, labs, vital signs reviewed. Dictation was accomplished with the use of Towi voice recognition software, which is prone to medical misidentifications and grammatical errors. This are unintentional and the practitioner does try to identify and correct these, but some could still be present. Please do not hesitate to contact practitioner for clarification. 08/29/2024 Coronary artery disease involving other coronary [...] mg in the office and received a [facility] injection. He will follow-up in the office [...] Consider using apps like 7 minute excercise, myfitGlance Apppal, lose it, stick as needed for self-monitoring and weight management. Consider group exercises. Consider hiring a personal finance instructor. Regular exercise is mederos to sustainable health [...] counseling and psychiatry and Dr Mccall at [facility]. We would like to cover regular topics [...] Dictation was accomplished with the use of Towi voice recognition software, prone to medical misidentifications and grammatical errors. This is unintentional and the practitioner does try to identify and correct these, but some could still be present. Please do not hesitate to contact practitioner for clarification. All questions answered to patients satisfaction. Patient verbalized understanding of diagnosis and treatments explained. To call sooner prior to next visit it any questions/concerns arise. 09/26/2024 Coronary artery disease involving other coronary artery bypass graft without angina pectoris (ICD-10 - I25.810) Patient is here for weight management follow-up. We focused on significance of healthy lifestyle changes. We talked about need to track steps with goal between 6000-10,000 steps daily, focus on portion control, read food labels, get adequate sleep between 7 to 8 hours, get adequate rest to the body, meditate, frequent nutritious meals including vegetables and healthy choices of lean meats, fish, and elimination of refined carbohydrates. We also talked about mindfulness and mindful eating. Particular focus was on continuing mindful eating and physical activity. Total time spent with 30 minutes with greater than 50% spent on counseling and coordinating care. 08/29/2024: Weight 281 pounds, BMI 44.01. Seca [...] All patient questions answered at this time. 09/26/2024: Weight 281 pounds, BMI 44.01. Seca scan completed today and interpreted with the patient. Overall weight has been stable since consultation. Has been tolerating Wegovy 0.25 mg well without side effects. We reviewed goals of diet and lifestyle and patient has been exercising with stationary bike, walking, and sit ups. Plan at this time to increase to 0.5 mg of Wegovy once weekly. Discussed proper use of the medication and expected side effect profile. He will follow-up in office in approximately 4 weeks for further management. # Hypertension: Blood pressure stable in office today 114/74. Continue lisinopril 5 mg once daily. Discussed red flag signs of hypertension including but not limited to headache, blurry vision, chest pain, difficulty breathing, abdominal pain, dizziness, or weakness. Will continue to monitor. Please follow with PCP. # Hypothyroidism: Continue levothyroxine 25 mcg once daily in the [...] continue to monitor. Please follow-up with PCP. All questions have been answered to patient's satisfaction. Patient verbalized understanding of diagnosis and treatments explained. Advised to call sooner prior to next visit it any questions/concerns arise. Case discussed with collaborating physician Erin Reeves who reviewed the assessment and plan. Chart, medications, labs, vital signs reviewed. Dictation was accomplished with the use of Towi voice recognition software, which is prone to medical misidentifications and grammatical errors. This are unintentional and the practitioner does try to identify and correct these, but some could still be present. Please do not hesitate to contact practitioner for clarification. 09/26/2024 COPD without exacerbation (ICD-10 - J44.9) Patient is here for weight management follow-up. We focused on significance of healthy lifestyle changes. We talked about need to track steps with goal between 6000-10,000 steps daily, focus on portion control, read food labels, get adequate sleep between 7 to 8 hours, get adequate rest to the body, meditate, frequent nutritious meals including vegetables and healthy choices of lean meats, fish, and elimination of refined carbohydrates. We also talked about mindfulness and mindful eating. Particular focus was on continuing mindful eating and physical activity. Total time spent with 30 minutes with greater than 50% spent on counseling and coordinating care. 08/29/2024: Weight 281 pounds, BMI 44.01. Seca [...] mg in the office and received a [facility] injection. He will follow-up in the office for continued weight management in approximately 4 weeks. All patient questions answered at this time. 09/26/2024: Weight 281 pounds, BMI 44.01. Seca scan completed today and interpreted with the patient. Overall weight has been stable since consultation. Has been tolerating Wegovy 0.25 mg well without side effects. We reviewed goals of diet and lifestyle and patient has been exercising with stationary bike, walking, and sit ups. Plan at this time to increase to 0.5 mg of Wegovy once weekly. Discussed proper use of the medication and expected side effect profile. He will follow-up in office in approximately 4 weeks for further management. # Hypertension: Blood pressure stable in office today 114/74. Continue lisinopril 5 mg once daily. Discussed red flag signs of hypertension including but not limited to headache, blurry vision, chest pain, difficulty breathing, abdominal pain, dizziness, or weakness. Will continue to monitor. Please follow with PCP. # Hypothyroidism: Continue levothyroxine 25 mcg once daily in the [...] continue to monitor. Please follow-up with PCP. All questions have been answered to patient's satisfaction. Patient verbalized understanding of diagnosis and treatments explained. Advised to call sooner prior to next visit it any questions/concerns arise. Case discussed with collaborating physician Erin Reeves who reviewed the assessment and plan. Chart, medications, labs, vital signs reviewed. Dictation was accomplished with the use of Towi voice recognition software, which is prone to medical misidentifications and grammatical errors. This are unintentional and the practitioner does try to identify and correct these, but some could still be present. Please do not hesitate to contact practitioner for clarification. 08/29/2024 COPD without exacerbation (ICD-10 - J44.9) [...] mg in the office and received a [facility] injection. He will follow-up in the office [...] Consider using apps like 7 minute excercise, myGetMyBoatpal, lose it, stick as needed for self-monitoring and weight management. Consider group exercises. Consider hiring a personal finance instructor. Regular exercise is mederos to sustainable health [...] counseling and psychiatry and Dr Mccall at [employer]. We would like to cover regular topics [...] Dictation was accomplished with the use of Towi voice recognition software, prone to medical misidentifications [...] Provider Name:REZA REEVES, 10/21/2024 10:00:00 AM, [address], [place], [address], Provider Name:JEANNETTE LEON , 10/24/2024 01:30:00 PM, [address] [facility] [address], [place], [address], Insurance Providers Payer Name Payer Address Payer Phone Subscriber Number Group Number Insured Name Patient Relationship to Insured Coverage Start Date Coverage End Date [facility] [address] [place] [address] [phone] [id number] Rudi Trivedi Self - patient is the insured MEDICATIONS ADMINISTERED Medication Instructions Date of Administration Dosage Notes MICC B12 INJECTION 08/29/2024 1 mg MICC B12 INJECTION 09/09/2024 1 mL MICC B12 INJECTION 09/16/2024 1 mL MICC B12 INJECTION 09/23/2024 1 mL MICC B12 INJECTION 09/30/2024 1 mL MICC B12 INJECTION 10/07/2024 1 mL MICC B12 INJECTION 10/14/2024 1 mL Semaglutide 08/29/2024 .25 mg MEDICAL (GENERAL) HISTORY Medical History History ICD Code high blood pressure hearing loss thyroid disease weight gain/loss Surgical History Surgery Date(Month/Year) BYPASS 2022
== END 2024-10-18 14:02 | disposition home or self-care (01) ==
PROVIDERS: PCP Nurse Practitioner Family; Visit Provider Physician Assistant Medical
DX: R40.0 Somnolence (principal); R06.83 Snoring; G47.34 Idiopathic sleep related nonobstructive alveolar hypoventilation
CPT/HCPCS: 99204

== ENCOUNTER 2024-11-21 13:45 | Outpatient (AMB) | payer OTHER, SELFPAY ==
[2024-11-21 14:01] VITALS: BP 110/60; PULSE 76; BMI 36.4
--- NOTE | 2024-11-21 14:01 | MHC.OFFVIS ---
Vital Signs 11/21/24 14:01 Height 5 ft 11 in Weight 261 lb BMI 36.4 BP 110/60 Blood Pressure Location Lt brachial Position Sitting Pulse 76 Pulse Source Pulse Oximeter Intake Visit Reasons: 6m follow up Allergies amoxicillin Allergy (Unknown, Verified 10/18/24 13:02) anaphylaxis Medication List - Last Reconciled 11/21/24 by Jamaal Fisher MD aspirin (Adult Aspirin Regimen) 81 mg PO DAILY wfavqcftvax-kdeaekkbs-yugzdfef 200-62.5-25 mcg (Trelegy Ellipta) 1 inh inhalation DAILY furosemide 20 mg PO DAILY levothyroxine 25 mcg PO DAILY 30 days lisinopril 5 mg PO DAILY 90 days metoprolol succinate ER 75 mg (3 x 25 mg) PO DAILY 90 days rosuvastatin 20 mg PO BEDTIME semaglutide (weight loss) (Monetvsydni) 0.25 mg (0.5 mL) subcut QWEEK HPI Comments Details: Rudi returns for follow-up regarding coronary disease and cardiomyopathy. To recall, in 2022, he underwent a routine echocardiogram and that showed severe LV dysfunction. Then underwent cardiac catheterization showing multivessel coronary artery disease leading to coronary artery bypass surgery. Since that time, he is doing generally good. No clear-cut complaints. No angina. Has been trying to lose weight with semaglutide. [facility] Medical History Obesity (BMI 30-39.9) Hyperlipemia History of myocardial infarction Nicotine dependence, cigarettes, uncomplicated Sensorineural hearing loss (SNHL) of both ears CAD (coronary artery disease) Surgical History S/P CABG x 4 (~2022) History of heart artery stent (~2005) Family History Unknown No problems noted. Father Aorta aneurysm Social History Housing: House Alcohol intake: never Patient Tobacco Use Status: Former Tobacco user Cigarettes Per Day: 8 Years Smoked: (onset 19yo, 1/2-1ppd x 38yrs, 30pyh) e-Cigarette/Vaping Use: Never Used Second Hand Smoke Exposure: No service: No Current occupational status: employed Current occupation: [employer] Current occupational exposures/hazards: Yes Cognitive needs: No Hearing needs: No Vision needs: No Review of Systems Const Denies weakness ENT Denies dizziness Card Denies chest pain, Denies chest pain with activity, Denies syncope, Denies rapid heart rate, Denies pedal edema, Denies edema, Denies leg edema, Denies lightheadedness, Denies palpitations, Denies dyspnea, Denies dyspnea on exertion and Denies orthopnea Resp Denies cough, Denies dyspnea and Denies dyspnea on exertion GI Denies hematochezia and Denies change in stool character Musc Denies abnormal gait, Denies muscle cramps, Denies muscle weakness, Denies numbness, Denies radiating pain into limb and Denies tingling Neuro Denies abnormal gait, Denies dizziness, Denies syncope, Denies numbness, Denies tingling and Denies weakness Endo Denies palpitations Physical Exam Vital Signs: Last Vital Signs Pulse 76 11/21/24 14:01 BP 110/60 11/21/24 14:01 BMI result Body Mass Index 36.4 Const General: comfortable and no acute distress Orientation/consciousness: patient oriented x3 HEENT Other: Unremarkable Head: Yes normal to inspection Neck Neck: Yes normal visual inspection Chest Chest palpation & inspection: normal inspection of the chest Resp Auscultation: clear to auscultation bilaterally Cardio Palpation: normal PMI Heart sounds: S1 normal heart sound present, S2 normal heart sound present, no gallops, no murmurs and no rubs GI Palpation (GI): Soft to palpation Back/Spine/Pelvis Other: unremarkable Skin General skin exam: no rashes or lesions noted Neuro General: patient oriented x3 Extrem General: Yes normal to inspection Psych Mental Status: mental status grossly normal Assessment & Plan Assessment & Plan (1) CAD (coronary artery disease): Comment: (2 stents age 41, CABG x 4 age 58) Code(s): I25.10 - Atherosclerotic heart disease of [place] coronary artery without angina pectoris Category: Medical Qualifiers: Associated angina: with other forms of angina Coronary Disease-Associated Artery/Lesion type: [place] artery [place] vs. transplanted heart: [place] heart Qualified Code(s): I25.118 - Atherosclerotic heart disease of [place] coronary artery with other forms of angina pectoris Plan: Cardiac catheterization with severe multivessel disease. Now status post coronary artery bypass surgery from 07/2023. Continue aspirin, beta-blockers and statins. Last LDL cholesterol 46 mg/dL. Triglycerides 75 mg/dL. (2) Cardiomyopathy: Code(s): I42.9 - Cardiomyopathy, unspecified Category: Medical Qualifiers: Cardiomyopathy type: unspecified Qualified Code(s): I42.9 - Cardiomyopathy, unspecified Plan: Initial echocardiogram with LVEF of 28%. In the repeat study post bypass, improved to 45-50%. No symptoms or signs of congestive heart failure. He is on a small dose of diuretic but okay to use intermittently or stopped. We discussed about this today. (3) Obesity: Code(s): E66.9 - Obesity, unspecified Category: Medical Plan: Has been taking semaglutide and has lost some weight. Hopefully can lose significantly more weight. (4) Smoker: Code(s): F17.200 - Nicotine dependence, unspecified, uncomplicated Category: Social Hx Plan: Stopped. Orders: Orders CA echo transthoracic complete 6 Months I25.5 - Ischemic cardiomyopathy Coding Level of Care Code Est Pt Level 4 (04168) Complex EM visit Add On G2211 Diagnoses Coronary artery disease involving [place] coronary artery of [place] heart with other form of angina pectoris I25.118 Associated angina: with other forms of angina Coronary Disease-Associated Artery/Lesion type: [place] artery [place] vs. transplanted heart: [place] heart Cardiomyopathy, unspecified type I42.9 Cardiomyopathy type: unspecified Obesity E66.9 Smoker F17.200
--- OUTSIDE RECORDS SUMMARY | 2024-11-21 17:23 | XMS_ITS | Patient Health Record ---
Author Organization [facility] Address [address] [facility] [place] [place] [address] Care Team Providers Care Sequins Slinger Name Role Phone JEANNETTE LEON Unavailable [phone] REZA REEVES Unavailable [phone] ALLERGIES Allergen (clinical drug ingredient) Drug/Non Drug Allergy documented on EMR Reaction Allergy Type Onset Date Status amoxicillin Amoxicillin Unknown Drug Allergy Act elmer REASON FOR REFERRAL No Information MEDICATIONS Medication SIG (Take, Route, Frequency, Duration) Notes Start Date End Date Status Lisinopril 5 MG Oral for 90 Days Active Metoprolol Succinate ER 25 MG Oral for 90 Days Active Trelegy Ellipta 200-62.5-25 MCG/ACT Inhalation for 30 Days Activ e Rosuvastatin Calcium 20 MG Oral for 90 Days Active Wegovy 1 MG/0.5ML Inject 1 mg Subcutan eous once weekly for 28 days 08/29/2024 Active Levothyroxine Sodium 25 MCG Oral for 30 Days Active Furosemide 20 MG Oral for 90 Days Active PROBLEMS Problem Type ICD Code Onset Dates Problem Status W/U Status Risk SNOMED Code Notes Problem Mixed hyperlipidemia (E78.2) Active confirmed 995591719 Problem Essential hypertension (I10) Active confirmed 71449967 Problem BMI 40.0-44.9, adult (Z68.41) Active confirmed 137187982 Problem Adult-onset obesity (E66.9) Active confirmed 823477099 Problem COPD without exacerbation (J44.9) Active confirmed 73029543 Problem Coronary artery disease involving other coronary artery bypass graft without angina pectoris (I25.810) Active confirmed 856699229 VITAL SIGNS Heart Rate 78 /min 11/21/2024 Blood pressure diastolic 70 mm Hg 11/21/2024 Oximetry 94 % 11/21/2024 Height 67 in 11/21/2024 Blood pressure systolic 112 mm Hg 11/21/2024 Weight 262 lbs 11/21/2024 BMI 41.03 kg/m2 11/21/2024 Encounters Encounter Location Date Provider Diagnosis [facility] [address] [facility] [place] [address] 09/09/[address] [facility] [address] [facility] [place] [address] 09/16/[address] [facility] [address] [facility] [place] [address] 09/23/[address] [facility] [address] [place] [address] 09/30/[address] [facility] [address] [place] [address] 10/07/[address] [facility] [address] [place] [address] 10/14/[address] [facility] [address] [place] [address] 10/21/[address] [facility] [address] [place] [address] 10/28/[address] [facility] [address] [place] [address] 11/04/[address] [facility] [address] [place] [address] 11/11/2024 TALHEDY ALVAREZAN [facility] [address] [facility] [address] [address] 08/29/2024 JEANNETTE LEON Adult-onset obesity E66.9 ; BMI 40.0-44.9, adult Z68.41 ; Essential hypertension I10 ; Mixed hyperlipidemia E78.2 ; Coronary artery disease involving other coronary artery bypass graft without angina pectoris I25.810 and COPD without exacerbation J44.[address] [facility] [address] [place] [address] 09/26/2024 JEANNETTE LEON Adult-onset obesity E66.9 ; BMI 40.0-44.9, adult Z68.41 ; Essential hypertension I10 ; Mixed hyperlipidemia E78.2 ; Coronary artery disease involving other coronary artery bypass graft without angina pectoris I25.810 and COPD without exacerbation J44.9 [facility] [address] [facility] [address] [place] [address] 10/24/2024 JEANNETTE EARLINEROCAEL Adult-onset obesity E66.9 ; BMI 40.0-44.9, adult Z68.41 ; Essential hypertension I10 ; Mixed hyperlipidemia E78.2 ; Coronary artery disease involving other coronary artery bypass graft without angina pectoris I25.810 and COPD without exacerbation J44.9 [facility] [address] [facility] [address] [place] [address] 11/21/2024 JEANNETTE EARLINEROCAEL Adult-onset obesity E66.9 ; BMI 40.0-44.9, adult Z68.41 ; Essential hypertension I10 ; Mixed hyperlipidemia E78.2 ; Coronary artery disease involving other coronary artery bypass graft without angina pectoris I25.810 and COPD without exacerbation J44.9 [facility] [address] [facility] [address] [place], [place] 08/29/2024 JEANNETTE LEON ASSESSMENTS Encounter Date Diagnosis Assessment Notes Treatment Notes Treatment Clinical Notes Section Notes 08/29/2024 BMI 40.0-44.9, adult (ICD-10 - Z68.41) uRdi is a 59-year-old male with history of [...] Consider group exercises. Consider hiring a personal chef. Regular exercise is mederos to sustainable health [...] counseling and psychiatry and Dr Mccall at [facility]. We would like to cover regular topics [...] Dictation was accomplished with the use of [employer] voice recognition software, prone to medical misidentifications [...] mg in the office and received a [facility] injection. He will follow-up in the [...] Consider using apps like 7 minute excercise, myRacemipal, lose it, stick as needed for self-monitoring and weight management. Consider group exercises. Consider hiring a personal chef. Regular exercise is mederos to sustainable health [...] counseling and psychiatry and Dr Mccall at [facility]. We would like to cover regular topics [...] Dictation was accomplished with the use of [employer] voice recognition software, prone to medical misidentifications [...] mg in the office and received a [facility] injection. He will follow-up in the [...] Dictation was accomplished with the use of [employer] voice recognition software, which is prone to [...] mg in the office and received a [facility] injection. He will follow-up in the [...] Dictation was accomplished with the use of [employer] voice recognition software, which is prone to medical misidentifications and grammatical errors. This are unintentional and the practitioner does try to identify and correct these, but some could still be present. Please do not hesitate to contact practitioner for clarification. 10/24/2024 Adult-onset obesity (ICD-10 - E66.9) Patient is [...] mg in the office and received a [facility] injection. He will follow-up in the [...] in approximately 4 weeks for further management. 10/24/2024: Weight 273.3 pounds, BMI 42.8. Seca scan completed today and interpreted with patient. Patient down 8 pounds from last visit which he was congratulated for. Fat mass has decreased by 10 pounds from 135 to 125 pounds. Has had approximately a 1-1/2 pounds increase of muscle mass. Currently on Wegovy 0.5 mg weekly. Reports good tolerance of medication. Reviewed goals of diet and exercise as well as hydration 60 to 80 ounces daily. Plan at this time to increase dose of Wegovy to 1 mg once weekly. Discussed proper use of medication and potential side effect profile. Patient will follow-up in office in approximately 4 weeks for further management. # Hypertension: Blood pressure stable in office today 124/78. Continue lisinopril 5 mg once daily. Discussed [...] Dictation was accomplished with the use of [employer] voice recognition software, which is prone to medical misidentifications and grammatical errors. This are unintentional and the practitioner does try to identify and correct these, but some could still be present. Please do not hesitate to contact practitioner for clarification. 11/21/2024 Adult-onset obesity (ICD-10 - E66.9) Patient is [...] mg in the office and received a [facility] injection. He will follow-up in the [...] in approximately 4 weeks for further management. 10/24/2024: Weight 273.3 pounds, BMI 42.8. Seca scan completed today and interpreted with patient. Patient down 8 pounds from last visit which he was congratulated for. Fat mass has decreased by 10 pounds from 135 to 125 pounds. Has had approximately a 1-1/2 pounds increase of muscle mass. Currently on Wegovy 0.5 mg weekly. Reports good tolerance of medication. Reviewed goals of diet and exercise as well as hydration 60 to 80 ounces daily. Plan at this time to increase dose of Wegovy to 1 mg once weekly. Discussed proper use of medication and potential side effect profile. Patient will follow-up in office in approximately 4 weeks for further management. 11/21/2024: Weight 262 pounds, BMI 41.03. Seca scan completed today and interpreted with the patient. Overall down about 11 pounds from last visit. Down 1 pound of fat mass, also down approximately 5 pounds of muscle mass. We discussed importance of increasing his resistance training with use of bands or free weights as well as maintaining good protein intake to avoid further loss. Visceral adipose tissue index decreasing. Plan at this time is to maintain current dose and will reevaluate at next visit. # Hypertension: Blood pressure stable in office today 112/70. Continue lisinopril 5 mg once daily. Discussed [...] questions/concerns arise. Case discussed with collaborating physician Erni Reeves who reviewed the assessment and plan. Chart, medications, labs, vital signs reviewed. Dictation was accomplished with the use of [employer] voice recognition software, which is prone to medical misidentifications and grammatical errors. This are unintentional and the practitioner does try to identify and correct these, but some could still be present. Please do not hesitate to contact practitioner for clarification. 11/21/2024 BMI 40.0-44.9, adult (ICD-10 - Z68.41) Patient [...] mg in the office and received a [facility] injection. He will follow-up in the [...] in approximately 4 weeks for further management. 10/24/2024: Weight 273.3 pounds, BMI 42.8. Seca scan completed today and interpreted with patient. Patient down 8 pounds from last visit which he was congratulated for. Fat mass has decreased by 10 pounds from 135 to 125 pounds. Has had approximately a 1-1/2 pounds increase of muscle mass. Currently on Wegovy 0.5 mg weekly. Reports good tolerance of medication. Reviewed goals of diet and exercise as well as hydration 60 to 80 ounces daily. Plan at this time to increase dose of Wegovy to 1 mg once weekly. Discussed proper use of medication and potential side effect profile. Patient will follow-up in office in approximately 4 weeks for further management. 11/21/2024: Weight 262 pounds, BMI 41.03. Seca scan completed today and interpreted with the patient. Overall down about 11 pounds from last visit. Down 1 pound of fat mass, also down approximately 5 pounds of muscle mass. We discussed importance of increasing his resistance training with use of bands or free weights as well as maintaining good protein intake to avoid further loss. Visceral adipose tissue index decreasing. Plan at this time is to maintain current dose and will reevaluate at next visit. # Hypertension: Blood pressure stable in office today 112/70. Continue lisinopril 5 mg once daily. Discussed [...] Dictation was accomplished with the use of [employer] voice recognition software, which is prone to medical misidentifications and grammatical errors. This are unintentional and the practitioner does try to identify and correct these, but some could still be present. Please do not hesitate to contact practitioner for clarification. 10/24/2024 BMI 40.0-44.9, adult (ICD-10 - Z68.41) Patient [...] mg in the office and received a [facility] injection. He will follow-up in the [...] in approximately 4 weeks for further management. 10/24/2024: Weight 273.3 pounds, BMI 42.8. Seca scan completed today and interpreted with patient. Patient down 8 pounds from last visit which he was congratulated for. Fat mass has decreased by 10 pounds from 135 to 125 pounds. Has had approximately a 1-1/2 pounds increase of muscle mass. Currently on Wegovy 0.5 mg weekly. Reports good tolerance of medication. Reviewed goals of diet and exercise as well as hydration 60 to 80 ounces daily. Plan at this time to increase dose of Wegovy to 1 mg once weekly. Discussed proper use of medication and potential side effect profile. Patient will follow-up in office in approximately 4 weeks for further management. # Hypertension: Blood pressure stable in office today 124/78. Continue lisinopril 5 mg once daily. Discussed [...] Dictation was accomplished with the use of [employer] voice recognition software, which is prone to medical misidentifications and grammatical errors. This are unintentional and the practitioner does try to identify and correct these, but some could still be present. Please do not hesitate to contact practitioner for clarification. 09/26/2024 Essential hypertension (ICD-10 - I10) Patient [...] mg in the office and received a [facility] injection. He will follow-up in the [...] Dictation was accomplished with the use of [employer] voice recognition software, which is prone to [...] Consider using apps like 7 minute excercise, [employer], lose it, stick as needed for self-monitoring and weight management. Consider group exercises. Consider hiring a personal chef. Regular exercise is mederos to sustainable health [...] counseling and psychiatry and Dr Mccall at [facility]. We would like to cover regular topics [...] Dictation was accomplished with the use of [employer] voice recognition software, prone to medical misidentifications [...] Consider group exercises. Consider hiring a personal chef. Regular exercise is mederos to sustainable health [...] counseling and psychiatry and Dr Mccall at [facility]. We would like to cover regular topics [...] Dictation was accomplished with the use of [employer] voice recognition software, prone to medical misidentifications [...] mg in the office and received a [facility] injection. He will follow-up in the [...] Dictation was accomplished with the use of [employer] voice recognition software, which is prone to medical misidentifications and grammatical errors. This are unintentional and the practitioner does try to identify and correct these, but some could still be present. Please do not hesitate to contact practitioner for clarification. 10/24/2024 Essential hypertension (ICD-10 - I10) Patient is [...] mg in the office and received a [facility] injection. He will follow-up in the [...] in approximately 4 weeks for further management. 10/24/2024: Weight 273.3 pounds, BMI 42.8. Seca scan completed today and interpreted with patient. Patient down 8 pounds from last visit which he was congratulated for. Fat mass has decreased by 10 pounds from 135 to 125 pounds. Has had approximately a 1-1/2 pounds increase of muscle mass. Currently on Wegovy 0.5 mg weekly. Reports good tolerance of medication. Reviewed goals of diet and exercise as well as hydration 60 to 80 ounces daily. Plan at this time to increase dose of Wegovy to 1 mg once weekly. Discussed proper use of medication and potential side effect profile. Patient will follow-up in office in approximately 4 weeks for further management. # Hypertension: Blood pressure stable in office today 124/78. Continue lisinopril 5 mg once daily. Discussed [...] Dictation was accomplished with the use of [employer] voice recognition software, which is prone to medical misidentifications and grammatical errors. This are unintentional and the practitioner does try to identify and correct these, but some could still be present. Please do not hesitate to contact practitioner for clarification. 11/21/2024 Essential hypertension (ICD-10 - I10) Patient is [...] mg in the office and received a [facility] injection. He will follow-up in the [...] in approximately 4 weeks for further management. 10/24/2024: Weight 273.3 pounds, BMI 42.8. Seca scan completed today and interpreted with patient. Patient down 8 pounds from last visit which he was congratulated for. Fat mass has decreased by 10 pounds from 135 to 125 pounds. Has had approximately a 1-1/2 pounds increase of muscle mass. Currently on Wegovy 0.5 mg weekly. Reports good tolerance of medication. Reviewed goals of diet and exercise as well as hydration 60 to 80 ounces daily. Plan at this time to increase dose of Wegovy to 1 mg once weekly. Discussed proper use of medication and potential side effect profile. Patient will follow-up in office in approximately 4 weeks for further management. 11/21/2024: Weight 262 pounds, BMI 41.03. Seca scan completed today and interpreted with the patient. Overall down about 11 pounds from last visit. Down 1 pound of fat mass, also down approximately 5 pounds of muscle mass. We discussed importance of increasing his resistance training with use of bands or free weights as well as maintaining good protein intake to avoid further loss. Visceral adipose tissue index decreasing. Plan at this time is to maintain current dose and will reevaluate at next visit. # Hypertension: Blood pressure stable in office today 112/70. Continue lisinopril 5 mg once daily. Discussed [...] Dictation was accomplished with the use of [employer] voice recognition software, which is prone to medical misidentifications and grammatical errors. This are unintentional and the practitioner does try to identify and correct these, but some could still be present. Please do not hesitate to contact practitioner for clarification. 11/21/2024 Mixed hyperlipidemia (ICD-10 - E78.2) Patient is [...] mg in the office and received a [facility] injection. He will follow-up in the [...] in approximately 4 weeks for further management. 10/24/2024: Weight 273.3 pounds, BMI 42.8. Seca scan completed today and interpreted with patient. Patient down 8 pounds from last visit which he was congratulated for. Fat mass has decreased by 10 pounds from 135 to 125 pounds. Has had approximately a 1-1/2 pounds increase of muscle mass. Currently on Wegovy 0.5 mg weekly. Reports good tolerance of medication. Reviewed goals of diet and exercise as well as hydration 60 to 80 ounces daily. Plan at this time to increase dose of Wegovy to 1 mg once weekly. Discussed proper use of medication and potential side effect profile. Patient will follow-up in office in approximately 4 weeks for further management. 11/21/2024: Weight 262 pounds, BMI 41.03. Seca scan completed today and interpreted with the patient. Overall down about 11 pounds from last visit. Down 1 pound of fat mass, also down approximately 5 pounds of muscle mass. We discussed importance of increasing his resistance training with use of bands or free weights as well as maintaining good protein intake to avoid further loss. Visceral adipose tissue index decreasing. Plan at this time is to maintain current dose and will reevaluate at next visit. # Hypertension: Blood pressure stable in office today 112/70. Continue lisinopril 5 mg once daily. Discussed [...] Dictation was accomplished with the use of [employer] voice recognition software, which is prone to medical misidentifications and grammatical errors. This are unintentional and the practitioner does try to identify and correct these, but some could still be present. Please do not hesitate to contact practitioner for clarification. 09/26/2024 Coronary artery disease involving other coronary [...] mg in the office and received a [facility] injection. He will follow-up in the [...] Dictation was accomplished with the use of [employer] voice recognition software, which is prone to medical misidentifications and grammatical errors. This are unintentional and the practitioner does try to identify and correct these, but some could still be present. Please do not hesitate to contact practitioner for clarification. 10/24/2024 Mixed hyperlipidemia (ICD-10 - E78.2) Patient is [...] mg in the office and received a [facility] injection. He will follow-up in the [...] in approximately 4 weeks for further management. 10/24/2024: Weight 273.3 pounds, BMI 42.8. Seca scan completed today and interpreted with patient. Patient down 8 pounds from last visit which he was congratulated for. Fat mass has decreased by 10 pounds from 135 to 125 pounds. Has had approximately a 1-1/2 pounds increase of muscle mass. Currently on Wegovy 0.5 mg weekly. Reports good tolerance of medication. Reviewed goals of diet and exercise as well as hydration 60 to 80 ounces daily. Plan at this time to increase dose of Wegovy to 1 mg once weekly. Discussed proper use of medication and potential side effect profile. Patient will follow-up in office in approximately 4 weeks for further management. # Hypertension: Blood pressure stable in office today 124/78. Continue lisinopril 5 mg once daily. Discussed [...] Dictation was accomplished with the use of [employer] voice recognition software, which is prone to [...] mg in the office and received a [facility] injection. He will follow-up in the [...] Consider using apps like 7 minute excercise, [employer], lose it, stick as needed for self-monitoring and weight management. Consider group exercises. Consider hiring a personal chef. Regular exercise is mederos to sustainable health [...] counseling and psychiatry and Dr Mccall at [facility]. We would like to cover regular topics [...] Dictation was accomplished with the use of [employer] voice recognition software, prone to medical misidentifications [...] next visit it any questions/concerns arise. 09/26/2024 COPD without exacerbation (ICD-10 - J44.9) [...] mg in the office and received a [facility] injection. He will follow-up in the [...] Dictation was accomplished with the use of [employer] voice recognition software, which is prone to [...] mg in the office and received a [facility] injection. He will follow-up in the [...] Consider group exercises. Consider hiring a personal chef. Regular exercise is mederos to sustainable health [...] counseling and psychiatry and Dr Mccall at [facility]. We would like to cover regular topics [...] Dictation was accomplished with the use of [employer] voice recognition software, prone to medical misidentifications and grammatical errors. This is unintentional and the practitioner does try to identify and correct these, but some could still be present. Please do not hesitate to contact practitioner for clarification. All questions answered to patients satisfaction. Patient verbalized understanding of diagnosis and treatments explained. To call sooner prior to next visit it any questions/concerns arise. 10/24/2024 Coronary artery disease involving other coronary artery [...] mg in the office and received a [facility] injection. He will follow-up in the [...] in approximately 4 weeks for further management. 10/24/2024: Weight 273.3 pounds, BMI 42.8. Seca scan completed today and interpreted with patient. Patient down 8 pounds from last visit which he was congratulated for. Fat mass has decreased by 10 pounds from 135 to 125 pounds. Has had approximately a 1-1/2 pounds increase of muscle mass. Currently on Wegovy 0.5 mg weekly. Reports good tolerance of medication. Reviewed goals of diet and exercise as well as hydration 60 to 80 ounces daily. Plan at this time to increase dose of Wegovy to 1 mg once weekly. Discussed proper use of medication and potential side effect profile. Patient will follow-up in office in approximately 4 weeks for further management. # Hypertension: Blood pressure stable in office today 124/78. Continue lisinopril 5 mg once daily. Discussed [...] Dictation was accomplished with the use of [employer] voice recognition software, which is prone to medical misidentifications and grammatical errors. This are unintentional and the practitioner does try to identify and correct these, but some could still be present. Please do not hesitate to contact practitioner for clarification. 11/21/2024 Coronary artery disease involving other coronary artery [...] mg in the office and received a [facility] injection. He will follow-up in the [...] in approximately 4 weeks for further management. 10/24/2024: Weight 273.3 pounds, BMI 42.8. Seca scan completed today and interpreted with patient. Patient down 8 pounds from last visit which he was congratulated for. Fat mass has decreased by 10 pounds from 135 to 125 pounds. Has had approximately a 1-1/2 pounds increase of muscle mass. Currently on Wegovy 0.5 mg weekly. Reports good tolerance of medication. Reviewed goals of diet and exercise as well as hydration 60 to 80 ounces daily. Plan at this time to increase dose of Wegovy to 1 mg once weekly. Discussed proper use of medication and potential side effect profile. Patient will follow-up in office in approximately 4 weeks for further management. 11/21/2024: Weight 262 pounds, BMI 41.03. Seca scan completed today and interpreted with the patient. Overall down about 11 pounds from last visit. Down 1 pound of fat mass, also down approximately 5 pounds of muscle mass. We discussed importance of increasing his resistance training with use of bands or free weights as well as maintaining good protein intake to avoid further loss. Visceral adipose tissue index decreasing. Plan at this time is to maintain current dose and will reevaluate at next visit. # Hypertension: Blood pressure stable in office today 112/70. Continue lisinopril 5 mg once daily. Discussed [...] Dictation was accomplished with the use of [employer] voice recognition software, which is prone to medical misidentifications and grammatical errors. This are unintentional and the practitioner does try to identify and correct these, but some could still be present. Please do not hesitate to contact practitioner for clarification. 11/21/2024 COPD without exacerbation (ICD-10 - J44.9) Patient [...] mg in the office and received a [facility] injection. He will follow-up in the [...] in approximately 4 weeks for further management. 10/24/2024: Weight 273.3 pounds, BMI 42.8. Seca scan completed today and interpreted with patient. Patient down 8 pounds from last visit which he was congratulated for. Fat mass has decreased by 10 pounds from 135 to 125 pounds. Has had approximately a 1-1/2 pounds increase of muscle mass. Currently on Wegovy 0.5 mg weekly. Reports good tolerance of medication. Reviewed goals of diet and exercise as well as hydration 60 to 80 ounces daily. Plan at this time to increase dose of Wegovy to 1 mg once weekly. Discussed proper use of medication and potential side effect profile. Patient will follow-up in office in approximately 4 weeks for further management. 11/21/2024: Weight 262 pounds, BMI 41.03. Seca scan completed today and interpreted with the patient. Overall down about 11 pounds from last visit. Down 1 pound of fat mass, also down approximately 5 pounds of muscle mass. We discussed importance of increasing his resistance training with use of bands or free weights as well as maintaining good protein intake to avoid further loss. Visceral adipose tissue index decreasing. Plan at this time is to maintain current dose and will reevaluate at next visit. # Hypertension: Blood pressure stable in office today 112/70. Continue lisinopril 5 mg once daily. Discussed [...] Dictation was accomplished with the use of [employer] voice recognition software, which is prone to medical misidentifications and grammatical errors. This are unintentional and the practitioner does try to identify and correct these, but some could still be present. Please do not hesitate to contact practitioner for clarification. 10/24/2024 COPD without exacerbation (ICD-10 - J44.9) Patient [...] mg in the office and received a [facility] injection. He will follow-up in the [...] in approximately 4 weeks for further management. 10/24/2024: Weight 273.3 pounds, BMI 42.8. Seca scan completed today and interpreted with patient. Patient down 8 pounds from last visit which he was congratulated for. Fat mass has decreased by 10 pounds from 135 to 125 pounds. Has had approximately a 1-1/2 pounds increase of muscle mass. Currently on Wegovy 0.5 mg weekly. Reports good tolerance of medication. Reviewed goals of diet and exercise as well as hydration 60 to 80 ounces daily. Plan at this time to increase dose of Wegovy to 1 mg once weekly. Discussed proper use of medication and potential side effect profile. Patient will follow-up in office in approximately 4 weeks for further management. # Hypertension: Blood pressure stable in office today 124/78. Continue lisinopril 5 mg once daily. Discussed [...] Dictation was accomplished with the use of [employer] voice recognition software, which is prone to medical misidentifications and grammatical errors. This are unintentional and the practitioner does try to identify and correct these, but some could still be present. Please do not hesitate to contact practitioner for clarification. PLAN OF TREATMENT Next Appt Details Provider Name:JEANNETTE LEON , 12/19/2024 11:00:00 AM, [address] [facility], [facility] [address], [place], [address], Insurance Providers Payer Name Payer Address Payer Phone Subscriber Number Group Number Insured Name Patient Relationship to Insured Coverage Start Date Coverage End Date [facility] [address] [place] [address] [id number] Rudi Trivedi Self - patient is the insured MEDICATIONS ADMINISTERED Medication Instructions Date of Administration Dosage Notes MICC B12 INJECTION 08/29/2024 1 mg MICC B12 INJECTION 09/09/2024 1 mL MICC B12 INJECTION 09/16/2024 1 mL MICC B12 INJECTION 09/23/2024 1 mL MICC B12 INJECTION 09/30/2024 1 mL MICC B12 INJECTION 10/07/2024 1 mL MICC B12 INJECTION 10/14/2024 1 mL MICC B12 INJECTION 10/21/2024 1 MICC B12 INJECTION 10/28/2024 1 mL MICC B12 INJECTION 11/21/2024 1 mL Semaglutide 08/29/2024 .25 mg MEDICAL (GENERAL) HISTORY Medical History History ICD Code high blood pressure hearing loss thyroid disease weight gain/loss Surgical History Surgery Date(Month/Year) BYPASS 2022
--- OUTSIDE RECORDS SUMMARY | 2024-11-21 17:24 | XMS_ITS ---
Author Organization [facility] Address [address] [place] [address] Care Team Providers Care Cook Taco Name Role Phone EDWARD JEANNETET Unavailable [phone] ALLERGIES Allergen (clinical drug ingredient) Drug/Non Drug Allergy documented on EMR Reaction Allergy Type Onset Date Status amoxicillin Amoxicillin Unknown Drug Allergy Act elmer REASON FOR VISIT seca and micc given in left deltoid pt tolerated well MEDICATIONS Medication SIG (Take, Route, Frequency, Duration) Notes Start Date End Date Status Lisinopril 5 MG Oral for 90 Days Active Metoprolol Succinate ER 25 MG Oral for 90 Days Active Rosuvastatin Calcium 20 MG Oral for 90 Days Active Levothyroxine Sodium 25 MCG Oral for 30 Days Active Furosemide 20 MG Oral for 90 Days Active Trelegy Ellipta 200-62.5-25 MCG/ACT Inhalation for 30 Days Activ e Wegovy 1 MG/0.5ML Inject 1 mg Subcutan eous once weekly for 28 days 08/29/2024 Active VITAL SIGNS Blood pressure systolic 112 mm Hg 11/22/19 25 Blood pressure diastolic 70 mm Hg 025 Heart Rate 78 /min 11/21/2024 Height 67 in 11/21/2024 Weight 262 lbs 11/21/2024 BMI 41.03 kg/m2 11/21/2024 Oximetry 94 % 11/21/2024 Encounters Encounter Location Date Provider Diagnosis [facility] [address] [address] 11/21/2024 JEANNETTE LEON Adult-onset obesity E66.9 ; BMI 40.0-44.9, adult Z68.41 ; Essential hypertension I10 ; Mixed hyperlipidemia E78.2 ; Coronary artery disease involving other coronary artery bypass graft without angina pectoris I25.810 and COPD without exacerbation J44.9 ASSESSMENTS Encounter Date Diagnosis Assessment Notes Treatment Notes Treatment Clinical Notes Section Notes 11/21/2024 Adult-onset obesity (ICD-10 - E66.9) Patient [...] mg in the office and received a [facility] injection. He will follow-up in the [...] Dictation was accomplished with the use of [employer] voice recognition software, which is prone to [...] mg in the office and received a [facility] injection. He will follow-up in the office [...] Dictation was accomplished with the use of [employer] voice recognition software, which is prone to [...] mg in the office and received a [facility] injection. He will follow-up in the [...] Dictation was accomplished with the use of [employer] voice recognition software, which is prone to [...] mg in the office and received a [facility] injection. He will follow-up in the [...] Dictation was accomplished with the use of Dragon voice recognition software, which is prone to [...] mg in the office and received a [facility] injection. He will follow-up in the [...] Dictation was accomplished with the use of [employer] voice recognition software, which is prone to [...] mg in the office and received a [facility] injection. He will follow-up in the [...] Dictation was accomplished with the use of [employer] voice recognition software, which is prone to medical misidentifications and grammatical errors. This are unintentional and the practitioner does try to identify and correct these, but some could still be present. Please do not hesitate to contact practitioner for clarification. PLAN OF TREATMENT Next Appt Details Provider Name:JEANNETTE LEON , 12/19/2024 11:00:00 AM, [address] [place] [address], [address], MEDICATIONS ADMINISTERED Medication Instructions Date of Administration Dosage Notes MICC B12 INJECTION 11/21/2024 1 mL Progress Notes * Rudi TRIVEDIDOB:1965 (59 yo M)Acc No.[id number]:11/21/2024 Patient:??Rudi TRIVEDI Provider:??JEANNETTE LEON :1965?Age:59 Y?Sex:Francis le Date:11/21/2024 Address: [address], [place], [id number] Subjective: * Chief Complaints: * ?1. Seca and micc given in left deltoid pt tolerated well. * HPI: ?Constitutional:? Rudi is a 59-year-old male with history of hypothyroidism, hyperlipidemia, myocardial infarction status post drug-eluting stent, hypertension, COPD, and quadruple bypass in 2022 who presents today for weight management follow-up. He was last seen 10/24/2024 at which time weight was 273 pounds, BMI 42.8. Currently on Wegovy 1 mg once weekly. Reporting good tolerance of medication without adverse side effects. States that current dose has been helping to manage his appetite and hunger. Using stationary bike for exercise. Reports good water intake. Continues to report good benefits of B12 injection on his energy levels. No other concerns at this time. * ROS:?Constitutional: Denies sudden weight loss, fever, night sweats, excessive fatigue, or changes in sleep. ???CV: Denies chest pain or heart palpitations. ???Respiratory: Denies SOB, wheezing, or pleuritic pain. ???GI: Denies n/v/d, constipation, blood in stools, pain associated with eating, indigestion, or difficulty/pain with swallowing. ???MSK: Denies back pain, joint deformity/pain, or muscle weakness. ???Integumentary: Denies skin changes. ???Endocrine: Denies polyuria, polyphagia, or polydipsia. No heat/cold intolerance or excessive thirst. * Medical History:??High blood pressure, Hearing loss, Thyroid disease, Weight gain/loss. * Surgical History:??BYPASS . * Hospitalization/Major Diagno stic Procedure:??Denies Past Hospitalization. * Family History:??Father: ali ve.??Mother: alive.??1 son(s) , 1 daughter(s) - healthy. .?? * Social History:?QUIT SMOKING IN 2022 DID SMOKE FOR 40+ YEARS ???SOCIAL DRINKER. * Medications:??Taking Trelegy Ellipta 200-62.5-25 MCG/ACT Aerosol Powder Breath Activated Inhalation , Taking Lisinopril 5 MG Tablet Oral , Taking Metoprolol Succinate ER 25 MG Tablet Extended Release 24 Hour Oral , Taking Levothyroxine Sodium 25 MCG Tablet Oral , Taking Furosemide 20 MG Tablet Oral , Taking Rosuvastatin Calcium 20 MG Tablet Oral , Taking Wegovy 1 MG/0.5ML Solution Auto-injector Inject 1 mg Subcutaneous once weekly , Medication List reviewed and reconciled with the patient * Allergies:??Amoxicillin. Objective: * Vitals:??HR:78/min, BP:112/7 0mm Hg, Wt:262lbs, BMI:41.03Index, Ht: 67 in, Oxygen sat %:94%. * Physical Examination:?General: Age appropriate, well-appearing 59-year-old male in no acute distress, speaking in full sentences without respiratory compromise. Well groomed, well developed. Alert, interactive. ?Skin: Warm, dry and intact. No lesions/rashes/erythema. ?HEENT: Normocephalic/atraumatic. ?Neck/Thyroid: Thyroid symmetrical, nonenlarged, and free of nodules to palpation. ?Lungs: Clear to auscultation bilaterally. ?CV: Regular rate and rhythm without murmurs, rubs, or gallops. 2+ radial pulses bilaterally. ?Neuro: CN II-XII grossly intact. Steady gait with non-assisted ambulation observed. ?Psych: Stable mood and affect. Assessment: * Assessment: 1.??Adult-onset obesity - E6 6.9 (Primary)??2.??BMI 40.0-44.9, adult - Z68.41??3.??Essential hypertension - I10??4.??Mixed hyperlipidemia - E78.2??5.??Coronary artery disease involving other coronary artery bypass graft without angina pectoris - I25.810??6.??COPD without exacerbation - J44.9?? Patient is here for weight m anagement follow-up. We focused on significance of healthy [...] mg in the office and received a [facility] injection. He will follow-up in the [...] Dictation was accomplished with the use of [employer] voice recognition software, which is prone to medical misidentifications and grammatical errors. This are unintentional and the practitioner does try to identify and correct these, but some could still be present. Please do not hesitate to contact practitioner for clarification. Plan: * Treatment: * Therapeutic Injections:? MICC B12 INJECTION : 1 mL (Route: Intramuscular) given by Amanda Miller on left deltoid * Procedure Codes:??69134 P/M TUMBLING BARREL PAINTER, INDIV 15 MIN * Images: Billing Information: * Visit Code:?? 67617 Office Visit, Est Pt., Level 4. Modifiers: 25, SA * Procedure Codes:?? 48645 P/M TUMBLING BARREL PAINTER, INDIV 15 MIN. * Sign off status: Completed true * Provider:??JEANNETTE LEON Date:?? 025 History and Physical Notes * HPI (History of Present Illness) Category Sub-Category Detail Notes Category Not es Constitutional Rudi is a 59 -year-old male with history of hypothyroidism, hyperlipidemia, myocardial infarction status post drug-eluting stent, hypertension, COPD, and quadruple bypass in 2022 who presents today for weight management follow-up. He was last seen 10/24/2024 at which time weight was 273 pounds, BMI 42.8. Currently on Wegovy 1 mg once weekly. Reporting good tolerance of medication without adverse side effects. States that current dose has been helping to manage his appetite and hunger. Using stationary bike for exercise. Reports good water intake. Continues to report good benefits of B12 injection on his energy levels. No other concerns at this time. Physical Examination Category Sub-Category Detail Notes Section Note s General: Age appropriate, well-appearing 59-year-old male in no acute distress, speaking in full sentences without respiratory compromise. Well groomed, well developed. Alert, interactive. Skin: Warm, dry and intact. No lesions/rashes/erythema. HEENT: Normocephalic/atraumatic. Neck/Thyroid: Thyroid symmetrical, nonenlarged, and free of nodules to palpation. Lungs: Clear to auscultation bilaterally. CV: Regular rate and rhythm without murmurs, rubs, or gallops. 2+ radial pulses bilaterally. Neuro: CN II-XII grossly intact. Steady gait with non-assisted ambulation observed. Psych: Stable mood and affect.
--- OUTSIDE RECORDS SUMMARY | 2024-11-21 17:24 | XMS_ITS ---
Author Organization [facility] Address [address] [place] [address] Care Team Providers Care Diamond Sorter Name Role Phone EARLINEJEANNETTE COTE Unavailable [phone] REZA REEVES [phone] REASON FOR VISIT MICC Encounters Encounter Location Date Provider Diagnosis [facility] [address] [place] [address] 11/11/2024 REZA REEVES PLAN OF TREATMENT Next Appt Details Provider Name:JEANNETTE LEON , 12/19/2024 11:00:00 AM, [address] [facility], [facility] [address], [place], [address], Progress Notes * Rudi TRIVEDIDOB:1965 (59 yo M)Acc No.[id number]:11/11/2024 Progress Note Patient:??REAL Rudi Provider:??Reza Reeves MD :1965?Age:59 Y?Sex:Ma le Date:11/11/2024 Address[address] [place] Subjective: * Chief Complaints: * ?1. MICC. * Medical History:?? Objective: Assessment: Plan: * Treatment: Care Plan: * Problems:?? * Images: Billing Information: * Visit Code:?? * Procedure Codes:?? Care Plan Details* * Sign off status: Pending * Provider:??Reza Reeves MD Date:??11/11
--- OUTSIDE RECORDS SUMMARY | 2024-11-21 17:24 | XMS_ITS ---
Author Organization [facility] Address [address] [place] [address] Care Team Providers Care Student Development Dean Name Role Phone EARLINEJEANNETTE COTE Unavailable [phone] REZA REEVES [phone] REASON FOR VISIT MICC Encounters Encounter Location Date Provider Diagnosis [facility] [address] [place] [address] 11/04/2024 REZA REEVES PLAN OF TREATMENT Next Appt Details Provider Name:JEANNETTE LEON , 12/19/2024 11:00:00 AM, [address] [facility] [address], [facility] [address], [place], [address], Progress Notes * Rudi TRIVEDIDOB:1965 (59 yo M)Acc No.[id number]:11/04/2024 Progress Note Patient:??REAL Rudi Provider:??Reza Reeves MD :1965?Age:59 Y?Sex:Ma le Date:11/04/2024 Address[address] [place] Subjective: * Chief Complaints: * ?1. MICC. * Medical History:?? Objective: Assessment: Plan: * Treatment: Care Plan: * Problems:?? * Images: Billing Information: * Visit Code:?? * Procedure Codes:?? Care Plan Details* * Sign off status: Pending * Provider:??Reza Reeves MD Date:??11/04
== END 2024-11-21 14:15 | disposition home or self-care (01) ==
PROVIDERS: PCP Nurse Practitioner Family; Visit Provider Internal Medicine
DX: I25.118 Atherosclerotic heart disease of native coronary artery with other forms of angina pectoris (principal); I42.9 Cardiomyopathy, unspecified; E66.9 Obesity, unspecified; F17.200 Nicotine dependence, unspecified, uncomplicated
CPT/HCPCS: 99214

== ENCOUNTER 2025-01-03 06:04 | Outpatient (REF) | payer OTHER, SELFPAY ==
--- OUTSIDE RECORDS SUMMARY | 2025-01-03 06:06 | XMS_ITS | Patient Health Record ---
Author Organization [facility] Address [address] [facility] [place] [address] Care Team Providers Care Transitions Manager Name Role Phone JEANNETTE LEON Unavailable [phone] REZA REEVES Unavailable [phone] ALLERGIES Allergen (clinical drug ingredient) Drug/Non Drug Allergy documented on EMR Reaction Allergy Type Onset Date Status amoxicillin Amoxicillin Unknown Drug Allergy Act elmer REASON FOR REFERRAL No Information MEDICATIONS Medication SIG (Take, Route, Frequency, Duration) Notes Start Date End Date Status Rosuvastatin Calcium 20 MG Oral for 90 Days Active Wegovy 1.7 MG/0.75ML Inject 1.7 mg Subcutaneous once weekly for 28 days 08/29/2024 Active Trelegy Ellipta 200-62.5-25 MCG/ACT Inhalation for 30 Days Active Lisinopril 5 MG Oral for 90 Days Active Metoprolol Succinate ER 25 MG Oral for 90 Days Active Levothyroxine Sodium 25 MCG Oral for 30 Days Active Furosemide 20 MG Oral for 90 Days Not-Taking PROBLEMS Problem Type ICD Code Onset Dates Problem Status W/U Status Risk SNOMED Code Notes Problem Mixed hyperlipidemia (E78.2) Active confirmed 942553817 Problem Essential hypertension (I10) Active confirmed 52611623 Problem BMI 40.0-44.9, adult (Z68.41) Active confirmed 602710511 Problem Adult-onset obesity (E66.9) Active confirmed 521678849 Problem COPD without exacerbation (J44.9) Active confirmed 07800352 Problem Coronary artery disease involving other coronary artery bypass graft without angina pectoris (I25.810) Active confirmed 327011076 VITAL SIGNS Heart Rate 93 /min 12/19/2024 Blood pressure diastolic 74 mm Hg 12/19/2024 Oximetry 99 % 12/19/2024 Height 67 in 12/19/2024 Blood pressure systolic 108 mm Hg 12/19/2024 Weight 259 lbs 12/19/2024 BMI 40.56 kg/m2 12/19/2024 Encounters Encounter Location Date Provider Diagnosis [facility] [address] [place] [address] 09/09/[address] [facility] [address] [place] [address] 09/16/[address] [facility] [address] [place] [address] 09/23/[address] [facility] [address] [place] [address] 09/30/[address] [facility] [address] [place] [address] 10/07/[address] [facility] [address] [place] [address] 10/14/[address] [facility] [address] [place] [address] 10/21/[address] [facility] [address] [place] [address] 10/28/[address] [facility] [address] [place] [address] 11/04/[address] [facility] [address] [place] [address] 11/11/[address] [facility] [address] [place] [address] 11/25/[address] [facility] [address] [place] 12/16/[address] [facility] [address] [place] [address] 12/23/[address] [facility] [address] [place] [address] 12/30/2024 TALAL REEVES [facility] [address] [facility] [address] [place] [address] 08/29/2024 JEANNETTE LEON Adult-onset obesity E66.9 ; BMI 40.0-44.9, adult Z68.41 ; Essential hypertension I10 ; Mixed hyperlipidemia E78.2 ; Coronary artery disease involving other coronary artery bypass graft without angina pectoris I25.810 and COPD without exacerbation J44.[address] [facility] [address] [facility] [address] [facility] [address] [place] [address] 09/26/2024 JEANNETTE LEON Adult-onset obesity E66.9 ; BMI 40.0-44.9, adult Z68.41 ; Essential hypertension I10 ; Mixed hyperlipidemia E78.2 ; Coronary artery disease involving other coronary artery bypass graft without angina pectoris I25.810 and COPD without exacerbation J44.[address] [facility] [address] [facility] [address] [facility] [address] [place] [address] 10/24/2024 JEANNETTE LEON Adult-onset obesity E66.9 ; BMI 40.0-44.9, adult Z68.41 ; Essential hypertension I10 ; Mixed hyperlipidemia E78.2 ; Coronary artery disease involving other coronary artery bypass graft without angina pectoris I25.810 and COPD without exacerbation J44.[address] [facility] [address] [facility] [address] [facility] [address] [facility] [address] [place] [address] 11/21/2024 JEANNETTE LEON Adult-onset obesity E66.9 ; BMI 40.0-44.9, adult Z68.41 ; Essential hypertension I10 ; Mixed hyperlipidemia E78.2 ; Coronary artery disease involving other coronary artery bypass graft without angina pectoris I25.810 and COPD without exacerbation J44.[address] [facility] [address] [facility] [address] [facility] [address] 12/19/2024 JEANNETTE LEON Adult-onset obesity E66.9 ; BMI 40.0-44.9, adult Z68.41 ; Essential hypertension I10 ; Mixed hyperlipidemia E78.2 ; Coronary artery disease involving other coronary artery bypass graft without angina pectoris I25.810 and COPD without exacerbation J44.[address] [facility] [address] [facility] [address] [facility] [address] 08/29/2024 JEANNETTE LEON ASSESSMENTS Encounter Date Diagnosis [...] mg in the office and received a [facility] injection. He will follow-up in the [...] Consider using apps like 7 minute excercise, myfitIMayGoupal, lose it, stick as needed for self-monitoring and weight management. Consider group exercises. Consider hiring a personal lines account manager. Regular exercise is mederos to sustainable health [...] counseling and psychiatry and Dr Mccall at [facility]. We would like to cover regular topics [...] Dictation was accomplished with the use of SailPlay voice recognition software, prone to medical misidentifications [...] mg in the office and received a [facility] injection. He will follow-up in the [...] Consider group exercises. Consider hiring a personal lines account manager. Regular exercise is mederos to sustainable health [...] counseling and psychiatry and Dr Mccall at [facility]. We would like to cover regular topics [...] Dictation was accomplished with the use of SailPlay voice recognition software, prone to medical misidentifications [...] Dictation was accomplished with the use of S[employer] voice recognition software, which is prone to [...] mg in the office and received a [facility] injection. He will follow-up in the [...] Dictation was accomplished with the use of Sail[employer] voice recognition software, which is prone to [...] mg in the office and received a [facility] injection. He will follow-up in the [...] Dictation was accomplished with the use of SailPlay voice recognition software, which is prone to [...] mg in the office and received a [facility] injection. He will follow-up in the [...] not hesitate to contact practitioner for clarification. 12/19/2024 Adult-onset obesity (ICD-10 - E66.9) Patient is [...] mg in the office and received a [facility] injection. He will follow-up in the [...] dose and will reevaluate at next visit. 12/19/2024: Weight 259 pounds, BMI 40.56. Seca scan completed today and interpreted with the patient. Patient is down about 9 pounds of fat mass and has gained 4 pounds of muscle mass. Congratulated for this change. Visceral adiposity remains stable at this time. Currently on Wegovy 1 mg weekly. Tolerating medication well without adverse effects. Reviewed goals of diet and exercise, patient is using stationary bike as well as increasing steps. Plan at this time is to increase dose to 1.7 mg and we will reevaluate at his next follow-up visit in approximately 4 weeks. # Hypertension: Blood pressure stable in office today 108/74. Continue lisinopril 5 mg once daily. Discussed [...] Continue metoprolol succinate 25 mg once daily. No longer on Lasix per recommendation of cardiology. Will continue to monitor. Please follow-up PCP [...] Dictation was accomplished with the use of SailPlay voice recognition software, which is prone to medical misidentifications and grammatical errors. This are unintentional and the practitioner does try to identify and correct these, but some could still be present. Please do not hesitate to contact practitioner for clarification. 12/19/2024 BMI 40.0-44.9, adult (ICD-10 - Z68.41) Patient [...] mg in the office and received a [facility] injection. He will follow-up in the [...] dose and will reevaluate at next visit. 12/19/2024: Weight 259 pounds, BMI 40.56. Seca scan completed today and interpreted with the patient. Patient is down about 9 pounds of fat mass and has gained 4 pounds of muscle mass. Congratulated for this change. Visceral adiposity remains stable at this time. Currently on Wegovy 1 mg weekly. Tolerating medication well without adverse effects. Reviewed goals of diet and exercise, patient is using stationary bike as well as increasing steps. Plan at this time is to increase dose to 1.7 mg and we will reevaluate at his next follow-up visit in approximately 4 weeks. # Hypertension: Blood pressure stable in office today 108/74. Continue lisinopril 5 mg once daily. Discussed [...] Continue metoprolol succinate 25 mg once daily. No longer on Lasix per recommendation of cardiology. Will continue to monitor. Please follow-up PCP [...] Dictation was accomplished with the use of SailPlay voice recognition software, which is prone to [...] mg in the office and received a [facility] injection. He will follow-up in the [...] Dictation was accomplished with the use of SailPlay voice recognition software, which is prone to [...] Dictation was accomplished with the use of SailPlay voice recognition software, which is prone to [...] Dictation was accomplished with the use of SailPlay voice recognition software, which is prone to [...] Consider using apps like 7 minute excercise, myRelTelpal, lose it, stick as needed for self-monitoring and weight management. Consider group exercises. Consider hiring a personal lines account manager. Regular exercise is mederos to sustainable health [...] counseling and psychiatry and Dr cMcall at [facility]. We would like to cover regular topics [...] Dictation was accomplished with the use of SailPlay voice recognition software, prone to medical misidentifications [...] mg in the office and received a [facility] injection. He will follow-up in the [...] Consider using apps like 7 minute excercise, Neurapal, lose it, stick as needed for self-monitoring and weight management. Consider group exercises. Consider hiring a personal lines account manager. Regular exercise is mederos to sustainable health [...] counseling and psychiatry and Dr Mccall at [facility]. We would like to cover regular topics [...] Dictation was accomplished with the use of SailPlay voice recognition software, prone to medical misidentifications [...] mg in the office and received a [facility] injection. He will follow-up in the [...] Dictation was accomplished with the use of SailPlay voice recognition software, which is prone to [...] mg in the office and received a [facility] injection. He will follow-up in the [...] Dictation was accomplished with the use of SailPlay voice recognition software, which is prone to medical misidentifications and grammatical errors. This are unintentional and the practitioner does try to identify and correct these, but some could still be present. Please do not hesitate to contact practitioner for clarification. 12/19/2024 Essential hypertension (ICD-10 - I10) Patient is [...] mg in the office and received a [facility] injection. He will follow-up in the [...] dose and will reevaluate at next visit. 12/19/2024: Weight 259 pounds, BMI 40.56. Seca scan completed today and interpreted with the patient. Patient is down about 9 pounds of fat mass and has gained 4 pounds of muscle mass. Congratulated for this change. Visceral adiposity remains stable at this time. Currently on Wegovy 1 mg weekly. Tolerating medication well without adverse effects. Reviewed goals of diet and exercise, patient is using stationary bike as well as increasing steps. Plan at this time is to increase dose to 1.7 mg and we will reevaluate at his next follow-up visit in approximately 4 weeks. # Hypertension: Blood pressure stable in office today 108/74. Continue lisinopril 5 mg once daily. Discussed [...] Continue metoprolol succinate 25 mg once daily. No longer on Lasix per recommendation of cardiology. Will continue to monitor. Please follow-up PCP [...] Dictation was accomplished with the use of SailPlay voice recognition software, which is prone to [...] mg in the office and received a [facility] injection. He will follow-up in the [...] Dictation was accomplished with the use of SailPlay voice recognition software, which is prone to [...] mg in the office and received a [facility] injection. He will follow-up in the [...] Dictation was accomplished with the use of SailPlay voice recognition software, which is prone to medical misidentifications and grammatical errors. This are unintentional and the practitioner does try to identify and correct these, but some could still be present. Please do not hesitate to contact practitioner for clarification. 12/19/2024 Mixed hyperlipidemia (ICD-10 - E78.2) Patient is [...] dose and will reevaluate at next visit. 12/19/2024: Weight 259 pounds, BMI 40.56. Seca scan completed today and interpreted with the patient. Patient is down about 9 pounds of fat mass and has gained 4 pounds of muscle mass. Congratulated for this change. Visceral adiposity remains stable at this time. Currently on Wegovy 1 mg weekly. Tolerating medication well without adverse effects. Reviewed goals of diet and exercise, patient is using stationary bike as well as increasing steps. Plan at this time is to increase dose to 1.7 mg and we will reevaluate at his next follow-up visit in approximately 4 weeks. # Hypertension: Blood pressure stable in office today 108/74. Continue lisinopril 5 mg once daily. Discussed [...] Continue metoprolol succinate 25 mg once daily. No longer on Lasix per recommendation of cardiology. Will continue to monitor. Please follow-up PCP [...] Dictation was accomplished with the use of SailPlay voice recognition software, which is prone to [...] mg in the office and received a [facility] injection. He will follow-up in the [...] Dictation was accomplished with the use of SailPlay voice recognition software, which is prone to [...] Dictation was accomplished with the use of SailPlay voice recognition software, which is prone to [...] mg in the office and received a [facility] injection. He will follow-up in the [...] Consider using apps like 7 minute excercise, myfitIMayGoupal, lose it, stick as needed for self-monitoring and weight management. Consider group exercises. Consider hiring a personal lines account manager. Regular exercise is mederos to sustainable health [...] counseling and psychiatry and Dr Mccall at [facility]. We would like to cover regular topics [...] Dictation was accomplished with the use of SailPlay voice recognition software, prone to medical misidentifications [...] Dictation was accomplished with the use of SailPlay voice recognition software, which is prone to [...] Consider using apps like 7 minute excercise, myRelTelpal, lose it, stick as needed for self-monitoring and weight management. Consider group exercises. Consider hiring a personal lines account manager. Regular exercise is mederos to sustainable health [...] counseling and psychiatry and Dr Mccall at [facility]. We would like to cover regular topics [...] Dictation was accomplished with the use of SailPlay voice recognition software, prone to medical misidentifications [...] mg in the office and received a [facility] injection. He will follow-up in the [...] Dictation was accomplished with the use of SailPlay voice recognition software, which is prone to [...] mg in the office and received a [facility] injection. He will follow-up in the [...] Dictation was accomplished with the use of SailPlay voice recognition software, which is prone to medical misidentifications and grammatical errors. This are unintentional and the practitioner does try to identify and correct these, but some could still be present. Please do not hesitate to contact practitioner for clarification. 12/19/2024 Coronary artery disease involving other coronary artery [...] mg in the office and received a [facility] injection. He will follow-up in the [...] dose and will reevaluate at next visit. 12/19/2024: Weight 259 pounds, BMI 40.56. Seca scan completed today and interpreted with the patient. Patient is down about 9 pounds of fat mass and has gained 4 pounds of muscle mass. Congratulated for this change. Visceral adiposity remains stable at this time. Currently on Wegovy 1 mg weekly. Tolerating medication well without adverse effects. Reviewed goals of diet and exercise, patient is using stationary bike as well as increasing steps. Plan at this time is to increase dose to 1.7 mg and we will reevaluate at his next follow-up visit in approximately 4 weeks. # Hypertension: Blood pressure stable in office today 108/74. Continue lisinopril 5 mg once daily. Discussed [...] Continue metoprolol succinate 25 mg once daily. No longer on Lasix per recommendation of cardiology. Will continue to monitor. Please follow-up PCP [...] Dictation was accomplished with the use of SailPlay voice recognition software, which is prone to medical misidentifications and grammatical errors. This are unintentional and the practitioner does try to identify and correct these, but some could still be present. Please do not hesitate to contact practitioner for clarification. 12/19/2024 COPD without exacerbation (ICD-10 - J44.9) Patient [...] mg in the office and received a [facility] injection. He will follow-up in the [...] dose and will reevaluate at next visit. 12/19/2024: Weight 259 pounds, BMI 40.56. Seca scan completed today and interpreted with the patient. Patient is down about 9 pounds of fat mass and has gained 4 pounds of muscle mass. Congratulated for this change. Visceral adiposity remains stable at this time. Currently on Wegovy 1 mg weekly. Tolerating medication well without adverse effects. Reviewed goals of diet and exercise, patient is using stationary bike as well as increasing steps. Plan at this time is to increase dose to 1.7 mg and we will reevaluate at his next follow-up visit in approximately 4 weeks. # Hypertension: Blood pressure stable in office today 108/74. Continue lisinopril 5 mg once daily. Discussed [...] Continue metoprolol succinate 25 mg once daily. No longer on Lasix per recommendation of cardiology. Will continue to monitor. Please follow-up PCP [...] Dictation was accomplished with the use of SailPlay voice recognition software, which is prone to [...] mg in the office and received a [facility] injection. He will follow-up in the [...] Dictation was accomplished with the use of Sail[employer] voice recognition software, which is prone to [...] mg in the office and received a [facility] injection. He will follow-up in the [...] Dictation was accomplished with the use of SailPlay voice recognition software, which is prone to medical misidentifications and grammatical errors. This are unintentional and the practitioner does try to identify and correct these, but some could still be present. Please do not hesitate to contact practitioner for clarification. PLAN OF TREATMENT Next Appt Details Provider Name:REZA REEVES, 01/06/2025 10:45:00 AM, [address], [place], [address], Provider Name:REZA REEVES, 01/13/2025 11:00:00 AM, [address], [place], [address], Provider Name:REZA REEVES, 01/20/2025 11:15:00 AM, [address], [place], [address], Provider Name:JEANNETTE LEON , 01/23/2025 09:00:00 AM, [address] [facility], [facility] [address], [place], [address], Insurance Providers Payer Name Payer Address Payer Phone Subscriber Number Group Number Insured Name Patient Relationship to Insured Coverage Start Date Coverage End Date [facility] [address] [place] [address] [phone] [id number] Rudi Trivedi Self - patient is the [...] mL MICC B12 INJECTION 11/21/2024 1 mL MICC B12 INJECTION 12/16/2024 1 mL MICC B12 INJECTION 12/23/2024 1 MICC B12 INJECTION 12/30/2024 Semaglutide 08/29/2024 .25 mg MEDICAL (GENERAL) HISTORY Medical History History ICD Code high blood pressure hearing loss thyroid disease weight gain/loss Surgical History Surgery Date(Month/Year) BYPASS 2022
--- OUTSIDE RECORDS SUMMARY | 2025-01-03 06:06 | XMS_ITS ---
Author Organization [facility] Address [address] [facility] [place] [address] Care Team Providers Care Basic Combatant Swimmer Name Role Phone JEANNETTE LEON Unavailable [phone] REZA REEVES Unavailable [phone] REASON FOR VISIT Pt here for MICC injection, pt tolerated well with no reaction. MEDICATIONS Medication SIG (Take, Route, Frequency, Duration) Notes Start Date End Date Status Rosuvastatin Calcium 20 MG Oral for 90 Days Active Wegovy 1.7 MG/0.75ML Inject 1.7 mg Subcutaneous once weekly for 28 days 08/29/2024 Active Metoprolol Succinate ER 25 MG Oral for 90 Days Active Levothyroxine Sodium 25 MCG Oral for 30 Days Active Furosemide 20 MG Oral for 90 Days Not-Taking Trelegy Ellipta 200-62.5-25 MCG/ACT Inhalation for 30 Days Active Lisinopril 5 MG Oral for 90 Days Active Encounters Encounter Location Date Provider Diagnosis [facility] [address] [facility] [place] [address] 12/30/2024 REZA REEVES PLAN OF TREATMENT Next Appt Details Provider Name:REZA REEVES, 01/06/2025 10:45:00 AM, [address] [facility] [place], [address], Provider Name:REZA REEVES, 01/13/2025 11:00:00 AM, [address] [facility] [place], [address], Provider Name:REZA REEVES, 01/20/2025 11:15:00 AM, [address] [facility] [place], [address], Provider Name:JEANNETTE LEON , 01/23/2025 09:00:00 AM, [address] [facility], [facility] [address], [place], [address], MEDICATIONS ADMINISTERED Medication Instructions Date of Administration Dosage Notes MICC B12 INJECTION 12/30/2024 Progress Notes * Rudi TRIVEDIDOB:1965 (59 yo M)Acc No.[id number]:12/30/2024 Progress Note Patient:??Rudi TRIVEDI Provider:??Reza Reeves MD :1965?Age:59 Y?Sex:Ma le Date:12/30/2024 Address: [address], [place], [place] Subjective: * Chief Complaints: * ?1. Pt here for MICC in jection, pt tolerated well with no reaction.. * Medical History:?? * Medications:??Taking Trelegy Ellipta [...] Not-Taking Furosemide 20 MG Tablet Oral Objective: Assessment: Plan: * Treatment: * Therapeutic Injections:? MICC B12 INJECTION (Route: Intramuscular) given by Eloy Grissom on right arm subcutaneous Care Plan: * Problems:?? * Images: Billing Information: * Visit Code:?? * Procedure Codes:?? Care Plan Details* * Sign off status: Pending * Provider:??Reza Reeves MD Date:??12/30
--- OUTSIDE RECORDS SUMMARY | 2025-01-03 06:06 | XMS_ITS ---
Author Organization [facility] Address [address] [place] [address] Care Team Providers Care Cashier Checker Name Role Phone EARLINENISHA COTEJEANNETTE Unavailable [phone] MEDICATIONS Medication SIG (Take, Route, Frequency, Duration) Notes Start Date End Date Status Lisinopril 5 MG Oral for 90 Days Active Metoprolol Succinate ER 25 MG Oral for 90 Days Active Wegovy 1.7 MG/0.75ML Inject 1.7 mg Subcutaneous once weekly for 28 days 08/29/2024 Active Levothyroxine Sodium 25 MCG Oral for 30 Days Active Furosemide 20 MG Oral for 90 Days Not-Taking Trelegy Ellipta 200-62.5-25 MCG/ACT Inhalation for 30 Days Active Rosuvastatin Calcium 20 MG Oral for 90 Days Active VITAL SIGNS Blood pressure systolic 108 mm Hg 12/20/19 25 Blood pressure diastolic 74 mm Hg 025 Heart Rate 93 /min 12/19/2024 Height 67 in 12/19/2024 Weight 259 lbs 12/19/2024 BMI 40.56 kg/m2 12/19/2024 Oximetry 99 % 12/19/2024 Encounters Encounter Location Date Provider Diagnosis [facility] [address] [facility] [address] [place] [address] 12/19/2024 JEANNETTE LEON Adult-onset obesity E66.9 ; BMI 40.0-44.9, adult Z68.41 ; Essential hypertension I10 ; Mixed hyperlipidemia E78.2 ; Coronary artery disease involving other coronary artery bypass graft without angina pectoris I25.810 and COPD without exacerbation J44.9 ASSESSMENTS Encounter Date Diagnosis Assessment Notes Treatment Notes Treatment Clinical Notes Section Notes 12/19/2024 Adult-onset obesity (ICD-10 - E66.9) Patient [...] mg in the office and received a [facility] injection. He will follow-up in the [...] Dictation was accomplished with the use of [employer] voice recognition software, which is prone to [...] questions/concerns arise. Case discussed with collaborating physician rEin Reeves who reviewed the assessment and plan. Chart, medications, labs, vital signs reviewed. Dictation was accomplished with the use of [employer] voice recognition software, which is prone to [...] mg in the office and received a [facility] injection. He will follow-up in the [...] Dictation was accomplished with the use of [employer] voice recognition software, which is prone to [...] mg in the office and received a [facility] injection. He will follow-up in the [...] Dictation was accomplished with the use of [employer] voice recognition software, which is prone to [...] mg in the office and received a [facility] injection. He will follow-up in the [...] Dictation was accomplished with the use of [employer] voice recognition software, which is prone to [...] mg in the office and received a [facility] injection. He will follow-up in the [...] Dictation was accomplished with the use of [employer] voice recognition software, which is prone to medical misidentifications and grammatical errors. This are unintentional and the practitioner does try to identify and correct these, but some could still be present. Please do not hesitate to contact practitioner for clarification. PLAN OF TREATMENT Medication Medication Name Sig Start Date Stop Date Notes Wegovy 1.7 MG/0.75ML Inject 1.7 mg Subcu taneous once weekly for 28 days 08/29/2024 Next Appt Details Provider Name:KELVIN REEVES, 01/06/2025 10:45:00 AM, [address], [place], [address], Provider Name:KELVIN REEVES, 01/13/2025 11:00:00 AM, [address], [place], [address], Provider Name:KELVIN REEVES, 01/20/2025 11:15:00 AM, [address], [place], [address], Provider Name:JEANNETTE LEON , 01/23/2025 09:00:00 AM, [address] [facility], [address], [address], Progress Notes * Rudi TRIVEDIDOB:1965 (59 yo M)Acc No.[id number]:12/19/2024 Patient:??Rudi TRIVEDI Provider:??JEANNETTE LEON :1965?Age:59 Y?Sex:Francis danna Date:12/19/2024 Address: [address], [place], [id number] Subjective: * Chief Complaints: * ? * HPI: ?Constitutional:? Today weight is 259lbs, BMI 40.3. Body composition is overall improving with increase in muscle mass and decrease in fat mass. He would like to increase dose due to increased cravings and appetite the days leading up to his injection. His is tolerating the current dose well. Rudi is a 59-year-old male with history of hypothyroidism, hyperlipidemia, myocardial infarction status post drug-eluting stent, hypertension, COPD, and quadruple bypass in 2022 who presents today for weight management follow-up. He was last seen on 11/21/2024 at which time weight was 262 pounds, BMI 41.03. Currently on Wegovy 1 mg weekly. Has been tolerating medication well without adverse effects. Has been consistent with his stationary bike for exercise as well as incorporating more walking and recent yardwork. Reports some hunger increased towards end of dose. No other concerns today, would like to trial increase to 1.7 mg. * ROS:?Constitutional: Denies sudden weight loss, fever, [...] heat/cold intolerance or excessive thirst. * Medical History:?? * Medications:??Taking Trelegy Ellipta [...] Inject 1 mg Subcutaneous once weekly , Not- Taking Furosemide 20 MG Tablet Oral Objective: * Vitals:??HR:93/min, BP:108/7 4mm Hg, Wt:259lbs, BMI:40.56Index, Ht: 67 in, Oxygen sat %:99%. * Physical Examination:?General: Age appropriate, well-appearing 59-year-old [...] mg in the office and received a [facility] injection. He will follow-up in the [...] Dictation was accomplished with the use of [employer] voice recognition software, which is prone to medical misidentifications and grammatical errors. This are unintentional and the practitioner does try to identify and correct these, but some could still be present. Please do not hesitate to contact practitioner for clarification. Plan: * Treatment: * Procedure Codes:??99418 P/M WASHHOUSE HAND, INDIV 15 MIN, Modifiers: 33 , SA * Images: Billing Information: * Visit Code:?? 22682 Office Visit, Est Pt., Level 4. Modifiers: 25, SA * Procedure Codes:?? 85108 P/M WASHHOUSE HAND, INDIV 15 MIN. Modifiers: 33, SA * Sign off status: Completed true * Provider:??JEANNETTE LEON Date:?? 025 History and Physical Notes * HPI (History of Present Illness) Category Sub-Category Detail Notes Category Not es Constitutional Today weight is 259lbs, BMI 40.3. Body composition is overall improving with increase in muscle mass and decrease in fat mass. He would like to increase dose due to increased cravings and appetite the days leading up to his injection. His is tolerating the current dose well. Rudi is a 59-year-old male with history of hypothyroidism, hyperlipidemia, myocardial infarction status post drug-eluting stent, hypertension, COPD, and quadruple bypass in 2022 who presents today for weight management follow-up. He was last seen on 11/21/2024 at which time weight was 262 pounds, BMI 41.03. Currently on Wegovy 1 mg weekly. Has been tolerating medication well without adverse effects. Has been consistent with his stationary bike for exercise as well as incorporating more walking and recent yardwork. Reports some hunger increased towards end of dose. No other concerns today, would like to trial increase to 1.7 mg. Physical Examination Category Sub-Category Detail Notes Section [...]
--- OUTSIDE RECORDS SUMMARY | 2025-01-03 06:06 | XMS_ITS ---
Author Organization [facility] Address [address] [facility] [place] [address] Care Team Providers Care Grinder Machine Knife Setter Name Role Phone JEANNETTE LEON Unavailable [phone] REZA REEVES Unavailable [phone] REASON FOR VISIT pt here for micc inj pt tolerated well consent form signed MEDICATIONS Medication SIG (Take, Route, Frequency, Duration) Notes Start Date End Date Status Lisinopril 5 MG Oral for 90 Days Active Trelegy Ellipta 200-62.5-25 MCG/ACT Inhalation for 30 Days Active Levothyroxine Sodium 25 MCG Oral for 30 Days Active Metoprolol Succinate ER 25 MG Oral for 90 Days Active Wegovy 1.7 MG/0.75ML Inject 1.7 mg Subcutaneous once weekly for 28 days 08/29/2024 Active Rosuvastatin Calcium 20 MG Oral for 90 Days Active Furosemide 20 MG Oral for 90 Days Not-Taking Encounters Encounter Location Date Provider Diagnosis [facility] [address] [facility] [place] [address] 12/23/2024 REZA REEVES PLAN OF TREATMENT Next Appt Details Provider Name:REZA REEVES, 01/06/2025 10:45:00 AM, [address] [facility] [place], [address], Provider Name:REZA REEVES, 01/13/2025 11:00:00 AM, [address] [place], [address], Provider Name:REZA REEVES, 01/20/2025 11:15:00 AM, [address] [facility] [place], [address], Provider Name:JEANNETTE LEON , 01/23/2025 09:00:00 AM, [address] [facility] [address], [address], [place], [address], MEDICATIONS ADMINISTERED Medication Instructions Date of Administration Dosage Notes MICC B12 INJECTION 12/23/2024 1 Progress Notes * Rudi TRIVEDIDOB:1965 (59 yo M)Acc No.[id number]:12/23/2024 Progress Note Patient:??Rudi TRIVEDI Provider:??Reza Reeves MD :1965?Age:59 Y?Sex:Ma le Date:12/23/2024 Address: [address], [place], [place] Subjective: * Chief Complaints: * ?1. Pt here for micc in j pt tolerated well consent form signed. * Medical History:?? * Medications:??Taking Trelegy Ellipta [...] Therapeutic Injections:? MICC B12 INJECTION : 1 (Route: Intramuscular) given by Lisa Mallory on left deltoid Care Plan: * Problems:?? * Images: Billing Information: * Visit Code:?? * Procedure Codes:?? Care Plan Details* * Sign off status: Pending * Provider:??Reza Reeves MD Date:??12/23
[2025-01-03 10:09] LABS: MANUAL DIFF FLAG NO
[2025-01-03 10:19] LABS: Basophils Percent Auto 0.2 % (0-2); Eosinophils Absolute Auto 0.1 X10*3/uL (0.0-0.4); Eosinophils Percent Auto 0.9 % (0-4); Hematocrit 47.2 % (42.0-52.0); Hemoglobin 15.4 g/dl (14.0-18.0); Imm Gran Abs Auto 0.05 X10*3/uL (0.00-0.03); Imm Gran Pct Auto 0.5 % (0.0-0.4); Lymphocytes Absolute Auto 2.4 X10*3/uL (1.2-4.9); Lymphocytes Percent Auto 23.6 % (20-40); Mean Corpuscular HGB Conc 32.6 g/dl (31.0-36.0); Mean Corpuscular Volume 91.8 fL (80.0-98.0); Mean Platelet Volume 9.2 fL (9.4-12.4); Monocytes Absolute Auto 0.5 X10*3/uL (0.1-1.2); Monocytes Percent Auto 5.4 % (2-11); Neutrophils Absolute Auto 6.9 x10*3/uL (2.0-8.3); Neutrophils Percent Auto 69.4 % (45-73); Platelet Count 200 X10*3/uL (160-400); Red Blood Count 5.14 X10*6/uL (4.60-5.80); Red Cell Distribution Width 12.8 % (11.0-16.0)
[2025-01-03 11:11] LABS: Appearance Urine Hazy; Color Urine Yellow; Glucose Urine UA Negative (Negative); Leukocyte Esterase Urine Negative (Negative); Nitrite Urine Negative (Negative); PH 6.5 (5.0-9.0); Specific Gravity - Urine >= 1.030 (1.005-1.025); Urine Blood Negative (Negative); Urine Ketones Negative (Negative); Urine Protein Trace mg/dL (Neg-Trace)
[2025-01-03 11:13] LABS: Alanine Aminotransferase 19 U/L (0-40); Alkaline Phosphatase 63 U/L (39-117); Anion Gap 11 (12-20); Aspartate Amino Transferase 25 U/L (5-37); Bilirubin Total 0.7 mg/dL (0.0-1.0); Blood Urea Nitrogen 14 mg/dL (9-16); Calcium 9.4 mg/dL (8.4-10.2); Carbon Dioxide 30 mmol/L (22-29); Chloride 107 mmol/L (96-108); Cholesterol 101 mg/dL (<200); Estimated Glomerular Filt Rate > 60; Glucose Fasting 107 mg/dL (60-99); HDL Cholesterol 32 mg/dL (>40); LDL Cholesterol Calculated 51 mg/dL (<100); Potassium 4.7 mmol/L (3.3-5.1); Sodium 143 mmol/L (135-145); Total Protein 6.4 g/dL (6.5-8.0); Triglycerides 90 mg/dL (<150)
[2025-01-03 11:14] LABS: TSH reflex Free T4 1.04 uIU/mL (0.32-4.0)
[2025-01-03 11:19] LABS: Prostate Specific Antigen Scr 0.44 ng/mL (<0.05-4.0); Vitamin B12 1346 pg/mL (200-900)
== END 2025-01-03 06:05 | disposition home or self-care (01) ==
LOC: HO.HMGCLDS 06:04
PROVIDERS: PCP Nurse Practitioner Family; Visit Provider Nurse Practitioner Family
DX: Z00.00 Encounter for general adult medical examination without abnormal findings (principal); Z12.5 Encounter for screening for malignant neoplasm of prostate; R53.83 Other fatigue
CPT/HCPCS: 36415; 80053; 80061; 81003; 82607; 82746; 84153; 84443; 85025

== ENCOUNTER 2025-01-15 15:33 | Outpatient (REF) | payer OTHER, SELFPAY ==
--- NOTE | ~2025-01-15 | CT_ITS ---
CLINICAL HISTORY: F17.210 - Nicotine dependence, cigarettes, uncomplicated CT lung cancer screening (LDCT) Comparison: CT/AL/SR - CT LUNG SCREENING - 07/26/24 16:17 EST Technique: Axial CT images of the chest using low-dose technique. Referring provider counseled the patient on shared decision-making for LDCT screening. Additional counseling was provided on smoking cessation. Effective radiation dose total: DLP 64 mGycm, CTDIvol 1.9 mGy. Findings: Nodule previously described in the posterior aspect of the right upper lobe has resolved. Some pleural-based nodular opacities are also seen in the right upper lobe on image number 35 of series number 6 also present previously and unchanged. There is moderate coronary artery disease. Limited upper abdomen: Unremarkable The patient is status post median sternotomy and presumably CABG surgery. Impression: LungRADS 2 - Benign Appearance: Continue annual screening with low dose Chest CT in 12 months. ##L2# Category 1: Normal; continue annual screening Category 2: Benign appearance or behavior, continue annual screening Category 3: Probably benign, [address] recommended Category 4A: Suspicious, [address] recommended; may consider PET/CT Category 4B: Suspicious, Additional diagnostics and/or tissue sampling recommended Category 4X: Suspicious, Additional diagnostics and/or tissue sampling recommended Category 0: Recalls (incomplete screen due to Incomplete coverage, Noise, Respiratory motion, Expiration, Obscured by acute abnormality) This document has been electronically signed by: Roland Alfaro MD on 01/17/2025 13:22:00
--- OUTSIDE RECORDS SUMMARY | 2025-01-15 18:20 | XMS_ITS ---
Author Organization [facility] Address [address] [place] [address] Care Team Providers Care Surgical Manager Name Role Phone JEANNETTE LEON Unavailable [phone] REZA REEVES Unavailable [phone] REASON FOR VISIT pt here for micc injection pt tolerated well consent form signed MEDICATIONS Medication SIG (Take, Route, Frequency, Duration) Notes Start Date End Date Status Metoprolol Succinate ER 25 MG Oral for 90 Days Active Furosemide 20 MG Oral for 90 Days Not-Taking Levothyroxine Sodium 25 MCG Oral for 30 Days Active Wegovy 1.7 MG/0.75ML Inject 1.7 mg Subcutaneous once weekly for 28 days 08/29/2024 Active Rosuvastatin Calcium 20 MG Oral for 90 Days Active Lisinopril 5 MG Oral for 90 Days Active Trelegy Ellipta 200-62.5-25 MCG/ACT Inhalation for 30 Days Active Encounters Encounter Location Date Provider Diagnosis [facility] [address] [place] [address] 01/13/2025 REZA REEVES PLAN OF TREATMENT Next Appt Details Provider Name:REZA REEVES, 01/20/2025 11:15:00 AM, [address] [facility], [place], [address], Provider Name:JEANNETTE LEON , 01/23/2025 09:00:00 AM, [address] [place] [address], [address], MEDICATIONS ADMINISTERED Medication Instructions Date of Administration Dosage Notes MICC B12 INJECTION 01/13/2025 Progress Notes * Ricky TRIVEDI:1965 (59 yo M)Acc No.[id number]:01/13/2025 Progress Note Patient:??Rudi TRIVEDI Provider:??Reza Reeves MD :1965?Age:59 Y?Sex:Francis clay Date:01/13/2025 Address: [address], [place], [place] Subjective: * Chief Complaints: * ?1. [facility] pt tolerated well consent form signed. * [...] off status: Pending * Provider:??Reza Reeves MD Date:??01/13
--- OUTSIDE RECORDS SUMMARY | 2025-01-15 18:20 | XMS_ITS ---
Author Organization [facility] Address [address] [place] [address] Care Team Providers Care Admitting Supervisor Name Role Phone JEANNETTE LEON Unavailable [phone] REZA REEVES Unavailable [phone] REASON FOR VISIT Pt here for MICC [...] Active Encounters Encounter Location Date Provider Diagnosis [facility] [address] [place] [address] 12/30/2024 REZA REEVES PLAN OF TREATMENT Next Appt Details Provider Name:REZA REEVES, 01/20/2025 11:15:00 AM, [address] [place], [address], Provider Name:JEANNETTE LEON , 01/23/2025 09:00:00 AM, [address] [facility] [address], [place], [address], MEDICATIONS ADMINISTERED Medication Instructions Date of Administration Dosage Notes MICC B12 INJECTION 12/30/2024 Progress Notes * Ricky TRIVEDI:1965 (59 yo M)Acc No.[id number]:12/30/2024 Progress Note Patient:??Rudi TRIVEDI Provider:??Reza Reeves MD :1965?Age:59 Y?Sex:Francis clay Date:12/30/2024 Address:[address] [place], [place] [address], [place] Subjective: * Chief Complaints: * ?1. Pt here for MICC in ction, pt tolerated well with no reaction.. * [...]
--- OUTSIDE RECORDS SUMMARY | 2025-01-15 18:21 | XMS_ITS | Patient Health Record ---
Author Organization [facility] Address [address] [facility] [place] [address] Care Team Providers Care Emergency Man Name Role Phone JEANNETTE LEON Unavailable [phone] REZA REEVES Unavailable [phone] ALLERGIES Allergen (clinical drug ingredient) Drug/Non Drug [...] 200-62.5-25 MCG/ACT Inhalation for 30 Days Active Wegovy 1.7 MG/0.75ML Inject 1.7 mg Subcutaneous once weekly for 28 days 08/29/2024 Active Rosuvastatin Calcium 20 MG Oral for 90 Days Active PROBLEMS Problem Type ICD Code Onset Dates Problem Status W/U Status Risk SNOMED Code Notes Problem Mixed hyperlipidemia (E78.2) Active confirmed 044648750 Problem Essential hypertension (I10) Active confirmed 19328975 Problem BMI 40.0-44.9, adult (Z68.41) Active confirmed 679956860 Problem Adult-onset obesity (E66.9) Active confirmed 198499296 Problem COPD without exacerbation (J44.9) Active confirmed 82471792 Problem Coronary artery disease involving other coronary artery bypass graft without angina pectoris (I25.810) Active confirmed 832083783 VITAL SIGNS Heart Rate 93 /min 12/19/2024 Blood pressure diastolic 74 mm Hg 12/19/2024 Oximetry 99 % 12/19/2024 Height 67 in 12/19/2024 Blood pressure systolic 108 mm Hg 12/19/2024 Weight 259 lbs 12/19/2024 BMI 40.56 kg/m2 12/19/2024 Encounters Encounter Location Date Provider Diagnosis [facility] [address] [place] [address] 09/09/[address] [facility] [address] [place] [address] 09/16/[address] [facility] [address] [place] [address] 09/23/[address] [facility] [address] [place] [address] 09/30/[address] [facility] [address] [place] [address] 10/07/[address] [facility] [address] [place] [address] 10/14/[address] [facility] [address] [place] [address] 10/21/[address] [facility] [address] [place] [address] 10/28/[address] [facility] [address] [place] [address] 11/04/[address] [facility] [address] [place] [address] 11/11/[address] [facility] [address] [place] [address] 11/25/[address] [facility] [address] [place] [address] 12/16/[address] [facility] [address] [place] [address] 12/23/[address] [facility] [address] [place] [address] 12/30/[address] [facility] [address] [place] [address] 01/06/[address] [facility] [address] [place] [address] 01/13/[address] [facility] [address] [facility] [address] [facility] [address] [facility] [address] [place] [address] 08/29/2024 JEANNETTE LEON Adult-onset obesity E66.9 ; BMI 40.0-44.9, adult Z68.41 ; Essential hypertension I10 ; Mixed hyperlipidemia E78.2 ; Coronary artery disease involving other coronary artery bypass graft without angina pectoris I25.810 and COPD without exacerbation J44.[address] [facility] [address] [address] 09/26/2024 JEANNETTE LEON Adult-onset obesity E66.9 ; BMI 40.0-44.9, adult Z68.41 ; Essential hypertension I10 ; Mixed hyperlipidemia E78.2 ; Coronary artery disease involving other coronary artery bypass graft without angina pectoris I25.810 and COPD without exacerbation J44.9 [facility] [address] [address] 10/24/2024 JEANNETTE LEON Adult-onset obesity E66.9 ; BMI 40.0-44.9, adult Z68.41 ; Essential hypertension I10 ; Mixed hyperlipidemia E78.2 ; Coronary artery disease involving other coronary artery bypass graft without angina pectoris I25.810 and COPD without exacerbation J44.9 [facility] [address] 11/21/2024 JEANNETTE LEON Adult-onset obesity E66.9 ; BMI 40.0-44.9, adult Z68.41 ; Essential hypertension I10 ; Mixed hyperlipidemia E78.2 ; Coronary artery disease involving other coronary artery bypass graft without angina pectoris I25.810 and COPD without exacerbation J44.9 [facility] [address] [address] 12/19/2024 JEANNETTE LEON Adult-onset obesity E66.9 ; BMI 40.0-44.9, adult Z68.41 ; Essential hypertension I10 ; Mixed hyperlipidemia E78.2 ; Coronary artery disease involving other coronary artery bypass graft without angina pectoris I25.810 and COPD without exacerbation J44.[address] [facility] [address] [address] 08/29/2024 JEANNETTE LEON ASSESSMENTS Encounter Date Diagnosis [...] mg in the office and received a [facility] injection. He will follow-up in the office [...] Consider using apps like 7 minute excercise, [employer], lose it, stick as needed for self-monitoring and weight management. Consider group exercises. Consider hiring a personal property assessor. Regular exercise is mederos to sustainable health [...] counseling and psychiatry and Dr Mccall at [facility]. We would like to cover regular topics [...] Dictation was accomplished with the use of uchoose voice recognition software, prone to medical misidentifications [...] Consider using apps like 7 minute excercise, [employer], lose it, stick as needed for self-monitoring and weight management. Consider group exercises. Consider hiring a personal property assessor. Regular exercise is mederos to sustainable health [...] counseling and psychiatry and Dr Mccall at [facility]. We would like to cover regular topics [...] Dictation was accomplished with the use of uchoose voice recognition software, prone to medical misidentifications [...] Dictation was accomplished with the use of uchoose voice recognition software, which is prone to [...] mg in the office and received a [facility] injection. He will follow-up in the office [...] Dictation was accomplished with the use of uchoose voice recognition software, which is prone to [...] mg in the office and received a [facility] injection. He will follow-up in the office [...] Dictation was accomplished with the use of uchoose voice recognition software, which is prone to [...] mg in the office and received a [facility] injection. He will follow-up in the office [...] Dictation was accomplished with the use of uchoose voice recognition software, which is prone to [...] mg in the office and received a [facility] injection. He will follow-up in the office [...] Dictation was accomplished with the use of uchoose voice recognition software, which is prone to [...] mg in the office and received a [facility] injection. He will follow-up in the office [...] Dictation was accomplished with the use of uchoose voice recognition software, which is prone to [...] mg in the office and received a [facility] injection. He will follow-up in the office [...] Dictation was accomplished with the use of uchoose voice recognition software, which is prone to [...] mg in the office and received a [facility] injection. He will follow-up in the office [...] Dictation was accomplished with the use of uchoose voice recognition software, which is prone to [...] mg in the office and received a [facility] injection. He will follow-up in the office [...] Dictation was accomplished with the use of uchoose voice recognition software, which is prone to [...] Consider using apps like 7 minute excercise, [employer]spe[employer]pal, lose it, stick as needed for self-monitoring and weight management. Consider group exercises. Consider hiring a personal property assessor. Regular exercise is mederos to sustainable health [...] counseling and psychiatry and Dr Mccall at [facility]. We would like to cover regular topics [...] Dictation was accomplished with the use of uchoose voice recognition software, prone to medical misidentifications [...] mg in the office and received a [facility] injection. He will follow-up in the office [...] Consider using apps like 7 minute excercise, [employer], lose it, stick as needed for self-monitoring and weight management. Consider group exercises. Consider hiring a personal property assessor. Regular exercise is mederos to sustainable health [...] counseling and psychiatry and Dr Mccall at [facility]. We would like to cover regular topics [...] Dictation was accomplished with the use of uchoose voice recognition software, prone to medical misidentifications [...] mg in the office and received a [facility] injection. He will follow-up in the office [...] Dictation was accomplished with the use of uchoose voice recognition software, which is prone to [...] mg in the office and received a [facility] injection. He will follow-up in the office [...] Dictation was accomplished with the use of uchoose voice recognition software, which is prone to [...] mg in the office and [facility]. He will follow-up in the [...] Dictation was accomplished with the use of uchoose voice recognition software, which is prone to [...] mg in the office and received a [facility] injection. He will follow-up in the office [...] History of tobacco use. Quit smoking in 2023, smoked for 40+ years. Continue Trelegy Ellipta [...] Dictation was accomplished with the use of uchoose voice recognition software, which is prone to [...] mg in the office and received a [facility] injection. He will follow-up in the office [...] Dictation was accomplished with the use of uchoose voice recognition software, which is prone to [...] mg in the office and received a [facility] injection. He will follow-up in the office [...] Dictation was accomplished with the use of uchoose voice recognition software, which is prone to [...] mg in the office and received a [facility] injection. He will follow-up in the office [...] Dictation was accomplished with the use of uchoose voice recognition software, which is prone to [...] mg in the office and received a [facility] injection. He will follow-up in the office [...] Dictation was accomplished with the use of uchoose voice recognition software, which is prone to [...] mg in the office and received a [facility] injection. He will follow-up in the office [...] Consider using apps like 7 minute excercise, my[employer]pperpal, lose it, stick as needed for self-monitoring and weight management. Consider group exercises. Consider hiring a personal property assessor. Regular exercise is mederos to sustainable health [...] counseling and psychiatry and Dr Mccall at [facility]. We would like to cover regular topics [...] Dictation was accomplished with the use of uchoose voice recognition software, prone to medical misidentifications [...] mg in the office and received a [facility] injection. He will follow-up in the office [...] Dictation was accomplished with the use of uchoose voice recognition software, which is prone to [...] mg in the office and received [facility]. He will follow-up in the [...] Consider using apps like 7 minute excercise, [employer]spepperpal, lose it, stick as needed for self-monitoring and weight management. Consider group exercises. Consider hiring a personal property assessor. Regular exercise is mederos to sustainable health [...] counseling and psychiatry and Dr Mccall at [facility]. We would like to cover regular topics [...] Dictation was accomplished with the use of uchoose voice recognition software, prone to medical misidentifications [...] mg in the office and received a [facility] injection. He will follow-up in the office [...] Dictation was accomplished with the use of uchoose voice recognition software, which is prone to [...] mg in the office and received a [facility] injection. He will follow-up in the office [...] Dictation was accomplished with the use of uchoose voice recognition software, which is prone to [...] mg in the office and received a [facility]. He will follow-up in the [...] Dictation was accomplished with the use of uchoose voice recognition software, which is prone to [...] mg in the office and received a [facility] injection. He will follow-up in the office [...] Dictation was accomplished with the use of uchoose voice recognition software, which is prone to [...] Dictation was accomplished with the use of uchoose voice recognition software, which is prone to [...] mg in the office and received a [facility]. He will follow-up in the [...] Dictation was accomplished with the use of uchoose voice recognition software, which is prone to medical misidentifications and grammatical errors. This are unintentional and the practitioner does try to identify and correct these, but some could still be present. Please do not hesitate to contact practitioner for clarification. PLAN OF TREATMENT Next Appt Details Provider Name:REZA REEVES, 01/20/2025 11:15:00 AM, [address], [place], [address], Provider Name:JEANNETTE LEON , 01/23/2025 09:00:00 AM, [address] [facility] [address], [facility] [address], [address], Insurance Providers Payer Name Payer Address Payer Phone Subscriber Number Group Number Insured Name Patient Relationship to Insured Coverage Start Date Coverage End Date [facility] [address] [facility] [place] [id number] Rudi Trivedi Self - patient is the [...] INJECTION 12/23/2024 1 MICC B12 INJECTION 12/30/2024 MICC B12 INJECTION 01/13/2025 Semaglutide 08/29/2024 .25 mg MEDICAL (GENERAL) HISTORY Medical History History ICD Code high blood pressure hearing loss thyroid disease weight gain/loss Surgical History Surgery Date(Month/Year) BYPASS 2022
--- OUTSIDE RECORDS SUMMARY | 2025-01-15 18:21 | XMS_ITS ---
Author Organization [facility] Address [address] [place] [address] Care Team Providers Care Maintenance Mgr Name Role Phone JEANNETTE LEON Unavailable [phone] REZA REEVES [phone] REASON FOR VISIT [facility] Encounters Encounter Location Date Provider Diagnosis [facility] [address] [place] [address] 01/06/2025 REZA REEVES PLAN OF TREATMENT Next Appt Details Provider Name:REZA REEVES, 01/20/2025 11:15:00 AM, [address] , [place], [address], Provider Name:JEANNETTE LEON , 01/23/2025 09:00:00 AM, [address] [place] [address], [phone], Progress Notes * Rudi TRIVEDIDOB:1965 (59 yo M)Acc No.[id number]:01/06/2025 Progress Note Patient:??Rudi TRIVEDI Provider:??eRza Reeves MD :1965?Age:59 Y?Sex:Ma le Date:01/06/2025 Address:[address], [place] Subjective: * Chief Complaints: * ?1. [facility]. * Medical History:?? Objective: Assessment: Plan: * Treatment: Care Plan: * Problems:?? * Images: Billing Information: * Visit Code:?? * Procedure Codes:?? Care Plan Details* * Sign off status: Pending * Provider:??Reza Reeves MD Date:??01/06
== END 2025-01-15 15:34 | disposition home or self-care (01) ==
LOC: HO.CT 15:33
PROVIDERS: PCP Nurse Practitioner Family; Visit Provider Nurse Practitioner Family
DX: R91.1 Solitary pulmonary nodule (principal); F17.210 Nicotine dependence, cigarettes, uncomplicated
CPT/HCPCS: 71250

== ENCOUNTER → 2025-01-15 15:34 | Outpatient (BNV) | payer OTHER, SELFPAY | PROVIDERS: PCP Nurse Practitioner Family; Visit Provider Radiology Diagnostic Radiology | DX: Z12.2 Encounter for screening for malignant neoplasm of respiratory organs (principal); F17.210 Nicotine dependence, cigarettes, uncomplicated | CPT/HCPCS: 71250 ==

== ENCOUNTER 2025-01-24 08:46 | Outpatient (AMB) | payer OTHER, SELFPAY ==
[2025-01-24 08:52] VITALS: BP 102/70; PULSE 85; TEMP 37.1; O2SAT 98; BMI 35.8
--- NOTE | 2025-01-24 08:52 | A.OFFPC_ITS ---
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 Accompanied by: Self / Same As Patient Allergies amoxicillin Allergy (Unknown, Verified 01/24/25 09:22) anaphylaxis Medication List - Last Reconciled 01/24/25 by KELLY Escobar- aspirin (Adult Aspirin Regimen) 81 mg PO DAILY iscwwvmdcfu-biplxifgs-mildvxtb 200-62.5-25 mcg (Trelegy Ellipta) 1 inh inhalation DAILY furosemide 20 mg PO DAILY levothyroxine 25 mcg PO DAILY lisinopril 5 mg PO DAILY 90 days metoprolol succinate ER 75 mg (3 x 25 mg) PO DAILY 90 days rosuvastatin 20 mg PO BEDTIME semaglutide (weight loss) (Wegovy) 2.4 mg subcut QWEEK Tobacco use date assessed: 09/25/24 Dental Screening Dental Screen Date: 09/25/24 HPI 4 months f/up HPI Details Chief Complaint Patient presents for follow-up of hypertension and dyslipidemia management. History of Present Illness The patient is a 59-year-old male presenting for follow-up of hypertension and dyslipidemia management. He has long-standing essential hypertension and dyslipidemia, which are routinely monitored. Recently, he commenced a weight loss program, resulting in impressive weight reduction and increased energy. He is experiencing excellent control of LDL cholesterol with statin therapy, but his fasting blood sugar has elevated slightly despite dietary efforts. The patient remains under regular cardiology care and denies symptoms of chest pain or increased shortness of breath. Encouraged pt to perform the cologuard test Social History - The patient no longer smokes. - He is part of a structured weight loss program external to this office. - He is on a weight management medicatio n, Wegovy. Health Maintenance - The patient is part of a low-dose CT s can program for pulmonary health. - LDL cholesterol recently recorded at 5 1 mg/dL, continuation of statin therapy advised. - Fasting blood glucose slightly elevate d; dietary adjustments ongoing. - Thyroid function maintained with levot hyroxine therapy. Review of Systems - Cardiovascular: Denies chest pain. - Pulmonary: Denies increased shortness of breath. Physical Exam General: Cooperative, healthy appearing, comfortable, no acute distress and well developed, obese Orientation: Patient oriented x3 Limitations: No limitations Head: Normal to inspection Ears: Hearing grossly normal bilaterally Nose: Normal external nose present Face and sinus: Normal facial exam Eyes: Appearance normal, both eyes and all related structures Neck: Normal visual inspection and Yes full ROM Respiratory: Normal respiratory effort and able to speak in complete sentences. Clear to auscultation bilaterally Cardiovascular: Regular rate and rhythm. Normal S1 and S2. No carotid bruits auscultated GI: Normal to inspection. Soft to palpation and nontender Skin: No rashes or lesions noted Neuro: Patient oriented x3 Extremities: Normal to inspection Results - Labs: LDL of 51 mg/dL; fasting blood s ugars elevated slightly. Plan The patient's management for essential hypertension and dyslipidemia continues with effective statin therapy and lifestyle modifications. The weight loss program is yielding beneficial results facilitated by Wegovy. Continuous monitoring of blood pressure, lipid levels, and dietary adjustments are necessary to manage fasting blood sugars. Cardiovascular health is under ongoing observation, with stable thyroid function maintained on levothyroxine. A follow- up is scheduled for six months to reassess the current management approach and patient outcomes. Discussion Notes I discussed with the patient the importance of maintaining current therapies for hypertension and dyslipidemia. The benefits of participating in the weight loss program, evidenced by his improved health metrics, were acknowledged. The positive impact of statin therapy was emphasized, with LDL levels remaining well-controlled. I highlighted the need to address the elevated fasting glucose through dietary modifications and monitor its progression. The patient consented to ongoing management strategies, including continued engagement with the weight loss program and use of Wegovy. A scheduled follow-up in six months will provide an opportunity to reassess disease management and response to current therapies. Patient Instructions - Continue taking your medications as pr escribed, especially statin and levothyroxine. - Follow dietary guidelines to manage bl ood sugar levels. - Stay engaged in your weight loss progr am to further improve your health. - Keep following up with cardiology appo intments as scheduled. - [facility] Medical History Obesity (BMI 30-39.9) Hyperlipemia History of myocardial infarction Nicotine dependence, cigarettes, uncomplicated Sensorineural hearing loss (SNHL) of both ears CAD (coronary artery disease) Surgical History S/P CABG x 4 (~2022) History of heart artery stent (~2005) Family History Unknown No problems noted. Father Aorta aneurysm Social History Housing: House Alcohol intake: never Patient Tobacco Use Status: Former Tobacco user Cigarettes Per Day: 8 Years Smoked: (onset 19yo, 1/2-1ppd x 38yrs, 30pyh) e-Cigarette/Vaping Use: Never Used Second Hand Smoke Exposure: No service: No Current occupational status: employed Current occupation: [employer] Current occupational exposures/hazards: Yes Cognitive needs: No Hearing needs: No Vision needs: No Questionnaire PHQ-9 Over the last 2 weeks, how often have you been bothered by any of the following problems? 1. Little interest or pleasure in doing things: not at all 2. Feeling down, depressed, or hopeless: not at all 3. Trouble falling or staying asleep, or sleeping too much: not at all 4. Feeling tired or having little energy: not at all 5. Poor appetite or overeating: not at all 6. Feeling bad about yourself - or that you are a failure or have let yourself or your family down: not at all 7. Trouble concentrating on things, such as reading the newspaper or watching television: not at all 8. Moving or speaking so slowly that other people could have noticed. Or the opposite - being so fidgety or restless that you have been moving around a lot more than usual: not at all 9. Thoughts that you would be better off or of hurting yourself in some way: not at all Total score: 0 Depression Screening Interpretation: Negative Depression Screening Done: Yes 47846 - PHQ-9 Billing: Yes Source: Developed by Drs. Rock Guevara, Sana Freeman, Cody Mcwilliams and colleagues, with an educational otis from [employer]. Thrive Questionnaire Date Thrive assessed: 09/25/24 I am a: Patient What is your living situation today?: I have a steady place to live Within the past 12 months, did the food you bought not last and you didn't have the money to get more?: Never true Within the past 12 months, did you worry whether your food would run out before you got money to buy more?: Never true Do you have trouble paying for medicines?: No Do you have trouble getting transportation to medical appointments?: No Do you have trouble paying your heating and electricity bill?: No Do you have trouble taking care of your child, family member or friend?: No Do you have trouble with day-to-day activities such as bathing, preparing meals, shopping, managing finances, etc.?: No Are you currently unemployed and looking for a job?: No Are you interested in more education?: No Please select the resources that you would like help with: None Currently or been in a relationship where the following occur: No concerns reported THRIVE Score: 0 AUDIT C Alcohol Use Questionnaire (AUDIT-C) 1. How often do you have a drink containing alcohol?: Never 3. How often do you have six or more drinks on one occasion?: Never Total Score: 0 Score Reviewed/Action Taken: Yes CHRISTIANNE-7 AMB Questionnaire CHRISTIANNE-7 Date CHRISTIANNE - 7 assessed: 01/24/25 Feeling nervous, anxious, or on edge: 0 = Not at all Not being able to stop or control worryin = Not at all Worrying too much about different things: 0 = Not at all Trouble relaxin = Not at all Being so restless that it is hard to sit still: 0 = Not at all Becoming easily annoyed or irritable: 0 = Not at all Feeling afraid as if something awful might happen: 0 = Not at all Total CHRISTIANNE-7 score (0-4 normal; 5-9 mild; 10-14 moderate; 15-21 severe): 0 Source: Developed by Drs. Rock Guevara, Sana Freeman, Cody Mcwilliams and colleagues, with an educational otis from [employer]. CHRISTIANNE-7 Assessment Billing CHRISTIANNE-7 Assessment Tool: CHRISTIANNE-7 Assessment 84129 Physical exam (Primary Care) Vital Signs: Last Vital Signs Temp 98.8 F 01/24/25 08:52 Pulse 85 01/24/25 08:52 BP 102/70 01/24/25 08:52 Pulse Ox 98 01/24/25 08:52 Oxygen Delivery Method Room Air 01/24/25 08:52 BMI result Body Mass Index 35.8 Tobacco/Smoking Status: Tobacco use Status Tobacco use date assessed 09/25/24 01/24/25 08:54 Patient Tobacco Use Status Former Tobacco user 01/24/25 08:54 e-Cigarette/Vaping Use Never Used 01/24/25 08:54 PHQ-9: PHQ-9 Score PHQ-9: Total score 0 01/24/25 09:07 Depression Screening Interpretation: Negative Thrive Assessment: Date of Thrive Assessment Date Thrive assessed 09/25/24 01/24/25 08:54 Currently or been in a relationship where the following occur: No concerns reported Coding Level of Care Code Est Pt Level 4 (31323) Diagnoses Obesity E66.9 Hyperlipemia E78.5 Hypothyroid E03.9 Additional Codes CHRISTIANNE-7 Assessment Billing - CHRISTIANNE-7 Assessment Tool: CHRISTIANNE-7 Assessment 48802 ([id number]) PHQ-9 - 66329 - PHQ-9 Billing: Yes ([id number]) Assessment & Plan Assessment & Plan (1) Obesity: Code(s): E66.9 - Obesity, unspecified Category: Medical (2) Hyperlipemia: Code(s): E78.5 - Hyperlipidemia, unspecified Category: Medical (3) Hypothyroid: Code(s): E03.9 - Hypothyroidism, unspecified Category: Medical Plan .
--- OUTSIDE RECORDS SUMMARY | 2025-01-24 09:12 | XMS_ITS ---
Author Organization [facility] Address [address] [place] [address] Care Team Providers Care Operations Vice President Name Role Phone JEANNETTE LEON Unavailable [phone] ALLERGIES Allergen (clinical drug ingredient) Drug/Non Drug Allergy documented on EMR Reaction Allergy Type Onset Date Status amoxicillin Amoxicillin Unknown Drug Allergy Act elmer REASON FOR VISIT pt here for wt mgt seca done MEDICATIONS Medication SIG (Take, Route, Frequency, Duration) Notes Start Date End Date Status Levothyroxine Sodium 25 MCG Oral for 30 Days Active Metoprolol Succinate ER 25 MG Oral for 90 Days Active Furosemide 20 MG Oral for 90 Days Not-Taking Rosuvastatin Calcium 20 MG Oral for 90 Days Active Wegovy 2.4 MG/0.75ML Inject 2.4 mg Subcutaneous once weekly for 28 days 08/29/2024 Active Lisinopril 5 MG Oral for 90 Days Active Trelegy Ellipta 200-62.5-25 MCG/ACT Inhalation for 30 Days Active VITAL SIGNS Blood pressure systolic 112 mm Hg 01/24/20 25 Blood pressure diastolic 80 mm Hg 025 Heart Rate 78 /min 01/23/2025 Height 67 in 01/23/2025 Weight 259 lbs 01/23/2025 BMI 40.56 kg/m2 01/23/2025 Oximetry 93 % 01/23/2025 Encounters Encounter Location Date Provider Diagnosis [facility] [address] [address] 01/23/2025 JEANNETTE LEON Adult-onset obesity E66.9 ; BMI 40.0-44.9, adult Z68.41 ; Essential hypertension I10 ; Mixed hyperlipidemia E78.2 ; Coronary artery disease involving other coronary artery bypass graft without angina pectoris I25.810 ; COPD without exacerbation J44.9 ; Elevated vitamin B12 level R79.89 and Nutritional counseling Z71.3 ASSESSMENTS Encounter Date Diagnosis Assessment Notes Treatment Notes Treatment Clinical Notes Section Notes 01/23/2025 Adult-onset obesity (ICD-10 - E66.9) Patient is [...] mg in the office and received a [facility] injection. He will follow-up in [...] next follow-up visit in approximately 4 weeks. 01/23/2025: Weight 259 pounds, BMI 40.56. Seca scan completed and discussed with the patient. Weight is stable from his last visit. On body analysis he is down approximately 1 pound of fat mass. Has also had a 1 pound decrease of muscle, continues to maintain low amounts of muscle for his body composition. Patient is currently on Wegovy 1.7 mg weekly. Reports good tolerance to the medication without adverse effects. We reviewed goals of diet and exercise including protein goals as well as increasing hydration. Discussed benefit of increasing his activity particularly use of the resistance bike. Plan at this time is to increase dose to 2.4 mg weekly and follow-up in approximately 4 to 6 weeks. # Hypertension: Blood pressure stable in office today 112/80. Continue lisinopril 5 mg once daily. Discussed [...] Hyperlipidemia: Continue rosuvastatin 20 mg once daily. Lipid panel recently obtained with PCP within normal limits, cholesterol 101, LDL 51, and HDL 32. Patient will now begin use of daily co-Q10 supplements. Discussed importance of diet and lifestyle and [...] continue to monitor. Please follow-up with PCP. # Elevated B12 level: Recent serum level of vitamin B12 10/02/1944. Patient had been taking weekly B12 injections in office, advised patient to take a few week hiatus and then can resume B12 injections at intervals of every 2 to 4 weeks. Will continue to monitor lab. All questions have been answered to patient's satisfaction. Patient verbalized understanding of diagnosis and treatments explained. Advised to call sooner prior to next visit it any questions/concerns arise. Case discussed with collaborating physician Erin Reeves who reviewed the assessment and plan. Chart, medications, labs, vital signs reviewed. Dictation was accomplished with the use of ACE voice recognition software, which is prone to medical misidentifications and grammatical errors. This are unintentional and the practitioner does try to identify and correct these, but some could still be present. Please do not hesitate to contact practitioner for clarification. 01/23/2025 BMI 40.0-44.9, adult (ICD-10 - Z68.41) Patient [...] mg in the office and received a [facility] injection. He will follow-up in [...] next follow-up visit in approximately 4 weeks. 01/23/2025: Weight 259 pounds, BMI 40.56. Seca scan completed and discussed with the patient. Weight is stable from his last visit. On body analysis he is down approximately 1 pound of fat mass. Has also had a 1 pound decrease of muscle, continues to maintain low amounts of muscle for his body composition. Patient is currently on Wegovy 1.7 mg weekly. Reports good tolerance to the medication without adverse effects. We reviewed goals of diet and exercise including protein goals as well as increasing hydration. Discussed benefit of increasing his activity particularly use of the resistance bike. Plan at this time is to increase dose to 2.4 mg weekly and follow-up in approximately 4 to 6 weeks. # Hypertension: Blood pressure stable in office today 112/80. Continue lisinopril 5 mg once daily. Discussed [...] Hyperlipidemia: Continue rosuvastatin 20 mg once daily. Lipid panel recently obtained with PCP within normal limits, cholesterol 101, LDL 51, and HDL 32. Patient will now begin use of daily co-Q10 supplements. Discussed importance of diet and lifestyle and [...] continue to monitor. Please follow-up with PCP. # Elevated B12 level: Recent serum level of vitamin B12 10/02/1944. Patient had been taking weekly B12 injections in office, advised patient to take a few week hiatus and then can resume B12 injections at intervals of every 2 to 4 weeks. Will continue to monitor lab. All questions have been answered to patient's satisfaction. Patient verbalized understanding of diagnosis and treatments explained. Advised to call sooner prior to next visit it any questions/concerns arise. Case discussed with collaborating physician Erin Reeves who reviewed the assessment and plan. Chart, medications, labs, vital signs reviewed. Dictation was accomplished with the use of ACE voice recognition software, which is prone to medical misidentifications and grammatical errors. This are unintentional and the practitioner does try to identify and correct these, but some could still be present. Please do not hesitate to contact practitioner for clarification. 01/23/2025 Essential hypertension (ICD-10 - I10) Patient is [...] mg in the office and received a [facility] injection. He will follow-up in [...] next follow-up visit in approximately 4 weeks. 01/23/2025: Weight 259 pounds, BMI 40.56. Seca scan completed and discussed with the patient. Weight is stable from his last visit. On body analysis he is down approximately 1 pound of fat mass. Has also had a 1 pound decrease of muscle, continues to maintain low amounts of muscle for his body composition. Patient is currently on Wegovy 1.7 mg weekly. Reports good tolerance to the medication without adverse effects. We reviewed goals of diet and exercise including protein goals as well as increasing hydration. Discussed benefit of increasing his activity particularly use of the resistance bike. Plan at this time is to increase dose to 2.4 mg weekly and follow-up in approximately 4 to 6 weeks. # Hypertension: Blood pressure stable in office today 112/80. Continue lisinopril 5 mg once daily. Discussed [...] Hyperlipidemia: Continue rosuvastatin 20 mg once daily. Lipid panel recently obtained with PCP within normal limits, cholesterol 101, LDL 51, and HDL 32. Patient will now begin use of daily co-Q10 supplements. Discussed importance of diet and lifestyle and [...] continue to monitor. Please follow-up with PCP. # Elevated B12 level: Recent serum level of vitamin B12 10/02/1944. Patient had been taking weekly B12 injections in office, advised patient to take a few week hiatus and then can resume B12 injections at intervals of every 2 to 4 weeks. Will continue to monitor lab. All questions have been answered to patient's satisfaction. Patient verbalized understanding of diagnosis and treatments explained. Advised to call sooner prior to next visit it any questions/concerns arise. Case discussed with collaborating physician Erin Reeves who reviewed the assessment and plan. Chart, medications, labs, vital signs reviewed. Dictation was accomplished with the use of ACE voice recognition software, which is prone to medical misidentifications and grammatical errors. This are unintentional and the practitioner does try to identify and correct these, but some could still be present. Please do not hesitate to contact practitioner for clarification. 01/23/2025 Mixed hyperlipidemia (ICD-10 - E78.2) Patient is [...] mg in the office and received a [facility] injection. He will follow-up in [...] next follow-up visit in approximately 4 weeks. 01/23/2025: Weight 259 pounds, BMI 40.56. Seca scan completed and discussed with the patient. Weight is stable from his last visit. On body analysis he is down approximately 1 pound of fat mass. Has also had a 1 pound decrease of muscle, continues to maintain low amounts of muscle for his body composition. Patient is currently on Wegovy 1.7 mg weekly. Reports good tolerance to the medication without adverse effects. We reviewed goals of diet and exercise including protein goals as well as increasing hydration. Discussed benefit of increasing his activity particularly use of the resistance bike. Plan at this time is to increase dose to 2.4 mg weekly and follow-up in approximately 4 to 6 weeks. # Hypertension: Blood pressure stable in office today 112/80. Continue lisinopril 5 mg once daily. Discussed [...] Hyperlipidemia: Continue rosuvastatin 20 mg once daily. Lipid panel recently obtained with PCP within normal limits, cholesterol 101, LDL 51, and HDL 32. Patient will now begin use of daily co-Q10 supplements. Discussed importance of diet and lifestyle and [...] continue to monitor. Please follow-up with PCP. # Elevated B12 level: Recent serum level of vitamin B12 10/02/1944. Patient had been taking weekly B12 injections in office, advised patient to take a few week hiatus and then can resume B12 injections at intervals of every 2 to 4 weeks. Will continue to monitor lab. All questions have been answered to patient's satisfaction. Patient verbalized understanding of diagnosis and treatments explained. Advised to call sooner prior to next visit it any questions/concerns arise. Case discussed with collaborating physician Erin Reeves who reviewed the assessment and plan. Chart, medications, labs, vital signs reviewed. Dictation was accomplished with the use of ACE voice recognition software, which is prone to medical misidentifications and grammatical errors. This are unintentional and the practitioner does try to identify and correct these, but some could still be present. Please do not hesitate to contact practitioner for clarification. 01/23/2025 Coronary artery disease involving other coronary artery [...] mg in the office and received a [facility] injection. He will follow-up in [...] next follow-up visit in approximately 4 weeks. 01/23/2025: Weight 259 pounds, BMI 40.56. Seca scan completed and discussed with the patient. Weight is stable from his last visit. On body analysis he is down approximately 1 pound of fat mass. Has also had a 1 pound decrease of muscle, continues to maintain low amounts of muscle for his body composition. Patient is currently on Wegovy 1.7 mg weekly. Reports good tolerance to the medication without adverse effects. We reviewed goals of diet and exercise including protein goals as well as increasing hydration. Discussed benefit of increasing his activity particularly use of the resistance bike. Plan at this time is to increase dose to 2.4 mg weekly and follow-up in approximately 4 to 6 weeks. # Hypertension: Blood pressure stable in office today 112/80. Continue lisinopril 5 mg once daily. Discussed [...] Hyperlipidemia: Continue rosuvastatin 20 mg once daily. Lipid panel recently obtained with PCP within normal limits, cholesterol 101, LDL 51, and HDL 32. Patient will now begin use of daily co-Q10 supplements. Discussed importance of diet and lifestyle and [...] continue to monitor. Please follow-up with PCP. # Elevated B12 level: Recent serum level of vitamin B12 10/02/1944. Patient had been taking weekly B12 injections in office, advised patient to take a few week hiatus and then can resume B12 injections at intervals of every 2 to 4 weeks. Will continue to monitor lab. All questions have been answered to patient's satisfaction. Patient verbalized understanding of diagnosis and treatments explained. Advised to call sooner prior to next visit it any questions/concerns arise. Case discussed with collaborating physician Erin Reeves who reviewed the assessment and plan. Chart, medications, labs, vital signs reviewed. Dictation was accomplished with the use of ACE voice recognition software, which is prone to medical misidentifications and grammatical errors. This are unintentional and the practitioner does try to identify and correct these, but some could still be present. Please do not hesitate to contact practitioner for clarification. 01/23/2025 COPD without exacerbation (ICD-10 - J44.9) Patient [...] mg in the office and received a [facility] injection. He will follow-up in [...] next follow-up visit in approximately 4 weeks. 01/23/2025: Weight 259 pounds, BMI 40.56. Seca scan completed and discussed with the patient. Weight is stable from his last visit. On body analysis he is down approximately 1 pound of fat mass. Has also had a 1 pound decrease of muscle, continues to maintain low amounts of muscle for his body composition. Patient is currently on Wegovy 1.7 mg weekly. Reports good tolerance to the medication without adverse effects. We reviewed goals of diet and exercise including protein goals as well as increasing hydration. Discussed benefit of increasing his activity particularly use of the resistance bike. Plan at this time is to increase dose to 2.4 mg weekly and follow-up in approximately 4 to 6 weeks. # Hypertension: Blood pressure stable in office today 112/80. Continue lisinopril 5 mg once daily. Discussed [...] Hyperlipidemia: Continue rosuvastatin 20 mg once daily. Lipid panel recently obtained with PCP within normal limits, cholesterol 101, LDL 51, and HDL 32. Patient will now begin use of daily co-Q10 supplements. Discussed importance of diet and lifestyle and [...] continue to monitor. Please follow-up with PCP. # Elevated B12 level: Recent serum level of vitamin B12 10/02/1945. Patient had been taking weekly B12 injections in office, advised patient to take a few week hiatus and then can resume B12 injections at intervals of every 2 to 4 weeks. Will continue to monitor lab. All questions have been answered to patient's satisfaction. Patient verbalized understanding of diagnosis and treatments explained. Advised to call sooner prior to next visit it any questions/concerns arise. Case discussed with collaborating physician Erin Reeves who reviewed the assessment and plan. Chart, medications, labs, vital signs reviewed. Dictation was accomplished with the use of ACE voice recognition software, which is prone to medical misidentifications and grammatical errors. This are unintentional and the practitioner does try to identify and correct these, but some could still be present. Please do not hesitate to contact practitioner for clarification. 01/23/2025 Elevated vitamin B12 level (ICD-10 - R79.89) Patient is here for weight management follow-up. [...] mg in the office and received a [facility] injection. He will follow-up in the office [...] next follow-up visit in approximately 4 weeks. 01/23/2025: Weight 259 pounds, BMI 40.56. Seca scan completed and discussed with the patient. Weight is stable from his last visit. On body analysis he is down approximately 1 pound of fat mass. Has also had a 1 pound decrease of muscle, continues to maintain low amounts of muscle for his body composition. Patient is currently on Wegovy 1.7 mg weekly. Reports good tolerance to the medication without adverse effects. We reviewed goals of diet and exercise including protein goals as well as increasing hydration. Discussed benefit of increasing his activity particularly use of the resistance bike. Plan at this time is to increase dose to 2.4 mg weekly and follow-up in approximately 4 to 6 weeks. # Hypertension: Blood pressure stable in office today 112/80. Continue lisinopril 5 mg once daily. Discussed [...] Hyperlipidemia: Continue rosuvastatin 20 mg once daily. Lipid panel recently obtained with PCP within normal limits, cholesterol 101, LDL 51, and HDL 32. Patient will now begin use of daily co-Q10 supplements. Discussed importance of diet and lifestyle and [...] continue to monitor. Please follow-up with PCP. # Elevated B12 level: Recent serum level of vitamin B12 10/02/1945. Patient had been taking weekly B12 injections in office, advised patient to take a few week hiatus and then can resume B12 injections at intervals of every 2 to 4 weeks. Will continue to monitor lab. All questions have been answered to patient's satisfaction. Patient verbalized understanding of diagnosis and treatments explained. Advised to call sooner prior to next visit it any questions/concerns arise. Case discussed with collaborating physician Erin Reeves who reviewed the assessment and plan. Chart, medications, labs, vital signs reviewed. Dictation was accomplished with the use of ACE voice recognition software, which is prone to medical misidentifications and grammatical errors. This are unintentional and the practitioner does try to identify and correct these, but some could still be present. Please do not hesitate to contact practitioner for clarification. 01/23/2025 Nutritional counseling (ICD-10 - Z71.3) Patient is here for weight management follow-up. [...] next follow-up visit in approximately 4 weeks. 01/23/2025: Weight 259 pounds, BMI 40.56. Seca scan completed and discussed with the patient. Weight is stable from his last visit. On body analysis he is down approximately 1 pound of fat mass. Has also had a 1 pound decrease of muscle, continues to maintain low amounts of muscle for his body composition. Patient is currently on Wegovy 1.7 mg weekly. Reports good tolerance to the medication without adverse effects. We reviewed goals of diet and exercise including protein goals as well as increasing hydration. Discussed benefit of increasing his activity particularly use of the resistance bike. Plan at this time is to increase dose to 2.4 mg weekly and follow-up in approximately 4 to 6 weeks. # Hypertension: Blood pressure stable in office today 112/80. Continue lisinopril 5 mg once daily. Discussed [...] Hyperlipidemia: Continue rosuvastatin 20 mg once daily. Lipid panel recently obtained with PCP within normal limits, cholesterol 101, LDL 51, and HDL 32. Patient will now begin use of daily co-Q10 supplements. Discussed importance of diet and lifestyle and [...] continue to monitor. Please follow-up with PCP. # Elevated B12 level: Recent serum level of vitamin B12 10/02/1945. Patient had been taking weekly B12 injections in office, advised patient to take a few week hiatus and then can resume B12 injections at intervals of every 2 to 4 weeks. Will continue to monitor lab. All questions have been answered to patient's satisfaction. Patient verbalized understanding of diagnosis and treatments explained. Advised to call sooner prior to next visit it any questions/concerns arise. Case discussed with collaborating physician Erin Reeves who reviewed the assessment and plan. Chart, medications, labs, vital signs reviewed. Dictation was accomplished with the use of ACE voice recognition software, which is prone to medical misidentifications and grammatical errors. This are unintentional and the practitioner does try to identify and correct these, but some could still be present. Please do not hesitate to contact practitioner for clarification. PLAN OF TREATMENT Medication Medication Name Sig Start Date Stop Date Notes Wegovy 2.4 MG/0.75ML Inject 2.4 mg Subcu taneous once weekly for 28 days 08/29/2024 Next Appt Details Provider Name:JEANNETTE LEON , 03/06/2025 08:30:00 AM, [address] [place] [address], [id number], Progress Notes * Rudi TRIVEDIDOB:1965 (59 yo M)Acc No.[id number]:01/23/2025 Patient:??FAROOQ Rudi Provider:??JEANNETTE LEON :1965?Age:59 Y?Sex:Ma le Date:01/23/2025 Address: [address], [place], [id number] Subjective: * Chief Complaints: * ?1. Pt here for wt mgt seca done. * HPI: ?Constitutional:? Rudi is a 59-year-old male with history of hypothyroidism, hyperlipidemia, myocardial infarction status post drug-eluting stent, hypertension, COPD, and quadruple bypass in 2022 who presents today for weight management follow-up. Patient was last evaluated in office on 12/19/2024 at which time weight was 259 pounds, BMI 40.56. Patient is currently on Wegovy 1.7 mg weekly. Patient reports no side effects on current dose of Wegovy. Reports regular bowel movements. Endorses some increased appetite towards end of the week. Otherwise reports well-balanced diet and good dietary discipline. Has been doing more housework and yard work, reports less exercise on his bike recently. No other concerns at this time. ?Patient recently had some updated labs with his PCP. CBC and CMP unremarkable. Updated lipid panel with cholesterol 101, LDL 51, HDL 32. TSH 1.04. B12 levels are increased at 1346. * ROS:?Constitutional: Denies sudden weight loss, fever, [...] , Not-Taking Furosemide 20 MG Tablet Oral , Medication List reviewed and reconciled with the patient * Allergies:??Amoxicillin. Objective: * Vitals:??HR:78/min, BP:112/8 0mm Hg, Wt:259lbs, BMI:40.56Index, Ht: 67 in, Oxygen sat %:93%. * Physical Examination:?General: Age appropriate, well-appearing 59-year-old [...] angina pectoris - I25.810??6.??COPD without exacerbation - J44.9??7.??Elevated vitamin B12 level - R79.89??8.??Nutritional counseling - Z71.3?? Patient is here for weight m anagement [...] mg in the office and received a [facility] injection. He will follow-up in the office [...] next follow-up visit in approximately 4 weeks. 01/23/2025: Weight 259 pounds, BMI 40.56. Seca scan completed and discussed with the patient. Weight is stable from his last visit. On body analysis he is down approximately 1 pound of fat mass. Has also had a 1 pound decrease of muscle, continues to maintain low amounts of muscle for his body composition. Patient is currently on Wegovy 1.7 mg weekly. Reports good tolerance to the medication without adverse effects. We reviewed goals of diet and exercise including protein goals as well as increasing hydration. Discussed benefit of increasing his activity particularly use of the resistance bike. Plan at this time is to increase dose to 2.4 mg weekly and follow-up in approximately 4 to 6 weeks. # Hypertension: Blood pressure stable in office today 112/80. Continue lisinopril 5 mg once daily. Discussed [...] Hyperlipidemia: Continue rosuvastatin 20 mg once daily. Lipid panel recently obtained with PCP within normal limits, cholesterol 101, LDL 51, and HDL 32. Patient will now begin use of daily co-Q10 supplements. Discussed importance of diet and lifestyle and [...] continue to monitor. Please follow-up with PCP. # Elevated B12 level: Recent serum level of vitamin B12 10/02/1945. Patient had been taking weekly B12 injections in office, advised patient to take a few week hiatus and then can resume B12 injections at intervals of every 2 to 4 weeks. Will continue to monitor lab. All questions have been answered to patient's satisfaction. Patient verbalized understanding of diagnosis and treatments explained. Advised to call sooner prior to next visit it any questions/concerns arise. Case discussed with collaborating physician Erin Reeves who reviewed the assessment and plan. Chart, medications, labs, vital signs reviewed. Dictation was accomplished with the use of [employer] voice recognition software, which is prone to medical misidentifications and grammatical errors. This are unintentional and the practitioner does try to identify and correct these, but some could still be present. Please do not hesitate to contact practitioner for clarification. Plan: * Treatment: * Procedure Codes:??49068 P/M JUDO INSTRUCTOR, INDIV 15 MIN, Modifiers: 33 , SA * Images: Billing Information: * Visit Code:?? 88319 Office Visit, Est Pt., Level 4. Modifiers: SA * Procedure Codes:?? 37760 P/M JUDO INSTRUCTOR, INDIV 15 MIN. Modifiers: 33, SA * Sign off status: Completed true * Provider:??JEANNETTE LEON Date:?? 025 History and Physical Notes * HPI (History of Present Illness) Category Sub-Category Detail Notes Category Not es Constitutional Rudi is a 59-year-old male with history of hypothyroidism, hyperlipidemia, myocardial infarction status post drug-eluting stent, hypertension, COPD, and quadruple bypass in 2022 who presents today for weight management follow-up. Patient was last evaluated in office on 12/19/2024 at which time weight was 259 pounds, BMI 40.56. Patient is currently on Wegovy 1.7 mg weekly. Patient reports no side effects on current dose of Wegovy. Reports regular bowel movements. Endorses some increased appetite towards end of the week. Otherwise reports well-balanced diet and good dietary discipline. Has been doing more housework and yard work, reports less exercise on his bike recently. No other concerns at this time. Patient recently had some updated labs with his PCP. CBC and CMP unremarkable. Updated lipid panel with cholesterol 101, LDL 51, HDL 32. TSH 1.04. B12 levels are increased at 1346. Physical Examination Category Sub-Category Detail Notes Section [...]
--- OUTSIDE RECORDS SUMMARY | 2025-01-24 09:12 | XMS_ITS ---
Author Organization [facility] Address [address] [place] [phone] Care Team Providers Care Shoe Laster Name Role Phone JEANNETTE LEON Unavailable [phone] REZA REEVES Unavailable [phone] REASON FOR VISIT pt here for micc [...] Active Encounters Encounter Location Date Provider Diagnosis [facility] [address] [place] [phone] 01/13/2025 REZA REEVES PLAN OF TREATMENT Next Appt Details Provider Name:JEANNETTE LEON , 03/06/2025 08:30:00 AM, [address] [place] [address], [phone], MEDICATIONS ADMINISTERED Medication Instructions Date of Administration Dosage Notes MICC B12 INJECTION 01/13/2025 Progress Notes * Rudi TRIVEDIDOB:1965 (59 yo M)Acc No.[id number]:01/13/2025 Progress Note Patient:??Rudi TRIVEDI Provider:??Reza Reeves MD :1965?Age:59 Y?Sex:Francis clay Date:01/13/2025 Address: [address], [place], [id number] Subjective: * Chief Complaints: * ?1. Pt here for micc in [facility] pt tolerated well consent form signed. [...]
--- OUTSIDE RECORDS SUMMARY | 2025-01-24 09:13 | XMS_ITS | Patient Health Record ---
Author Organization [facility] Address [address] [facility] [place] [address] Care Team Providers Care Semiconductor Processing Technician Name Role Phone JEANNETTE LEON Unavailable [phone] REZA REEVES Unavailable [phone] ALLERGIES Allergen (clinical drug ingredient) Drug/Non Drug [...] 200-62.5-25 MCG/ACT Inhalation for 30 Days Active Furosemide 20 MG Oral for 90 Days Not-Taking Rosuvastatin Calcium 20 MG Oral for 90 Days Active Wegovy 2.4 MG/0.75ML Inject 2.4 mg Subcutaneous once weekly for 28 days 08/29/2024 Active PROBLEMS Problem Type ICD Code Onset Dates Problem Status W/U Status Risk SNOMED Code Notes Problem Mixed hyperlipidemia (E78.2) Active confirmed 667620600 Problem Essential hypertension (I10) Active confirmed 30974817 Problem BMI 40.0-44.9, adult (Z68.41) Active confirmed 991337019 Problem Adult-onset obesity (E66.9) Active confirmed 745794606 Problem COPD without exacerbation (J44.9) Active confirmed 05188391 Problem Coronary artery disease involving other coronary artery bypass graft without angina pectoris (I25.810) Active confirmed 171450692 VITAL SIGNS Heart Rate 78 /min 01/23/2025 Blood pressure diastolic 80 mm Hg 01/23/2025 Oximetry 93 % 01/23/2025 Height 67 in 01/23/2025 Blood pressure systolic 112 mm Hg 01/23/2025 Weight 259 lbs 01/23/2025 BMI 40.56 kg/m2 01/23/2025 Encounters Encounter Location Date Provider Diagnosis [facility] [address] [place] [address] 09/09/[address] [facility] [address] [place] [address] 09/16/[address] [facility] [address] [place] [address] 09/23/[address] [facility] [address] [place] [address] 09/30/[address] [facility] [address] [place] [address] 10/07/[address] [facility] [address] [place] [address] 10/14/[address] [facility] [address] [place] [address] 10/21/[address] [facility] [address] [place] [address] 10/28/[address] [facility] [address] [place] [address] 11/04/[address] [facility] [address] [place] [address] 11/11/[address] [facility] [address] [place] [address] 11/25/[address] [facility] [address] [place] [address] 12/16/[address] [facility] [address] [place] [address] 12/23/[address] [facility] [address] [place] [address] 12/30/[address] [facility] [address] [place] [address] 01/06/[address] [facility] [address] [place] [address] 01/13/[address] [facility] [address] [place] [address] 01/20/2025 REZA REEVES [facility] [address] [facility] [address] [facility] [address] [place] [phone] 08/29/2024 JEANNETTE PATTENROCAEL Adult-onset obesity E66.9 ; BMI 40.0-44.9, adult Z68.41 ; Essential hypertension I10 ; Mixed hyperlipidemia E78.2 ; Coronary artery disease involving other coronary artery bypass graft without angina pectoris I25.810 and COPD without exacerbation J44.[address] [facility] [facility] [address] [facility] [address] [facility] [address] [place] [address] 09/26/2024 JEANNETTEJEANNE LEON Adult-onset obesity E66.9 ; BMI 40.0-44.9, adult Z68.41 ; Essential hypertension I10 ; Mixed hyperlipidemia E78.2 ; Coronary artery disease involving other coronary artery bypass graft without angina pectoris I25.810 and COPD without exacerbation J44.[address] [facility] [address] [facility] [address] [facility] [address] [place] [address] 10/24/2024 JEANNETTEJEANNE PATTENROCAEL Adult-onset obesity E66.9 ; BMI 40.0-44.9, adult Z68.41 ; Essential hypertension I10 ; Mixed hyperlipidemia E78.2 ; Coronary artery disease involving other coronary artery bypass graft without angina pectoris I25.810 and COPD without exacerbation J44.[address] [facility] [address] [facility] [address] [facility] [address] [place] [phone] 11/21/2024 JEANNETTEJEANNE PATTENROCAEL Adult-onset obesity E66.9 ; BMI 40.0-44.9, adult Z68.41 ; Essential hypertension I10 ; Mixed hyperlipidemia E78.2 ; Coronary artery disease involving other coronary artery bypass graft without angina pectoris I25.810 and COPD without exacerbation J44.[address] [facility] [address] [facility] [address] [facility] [address] [place] [address] 12/19/2024 JEANNETTEJEANNE PATTENROCAEL Adult-onset obesity E66.9 ; BMI 40.0-44.9, adult Z68.41 ; Essential hypertension I10 ; Mixed hyperlipidemia E78.2 ; Coronary artery disease involving other coronary artery bypass graft without angina pectoris I25.810 and COPD without exacerbation J44.[address] [facility] [address] [address] 01/23/2025 JEANNETTE LEON Adult-onset obesity E66.9 ; BMI 40.0-44.9, adult Z68.41 ; Essential hypertension I10 ; Mixed hyperlipidemia E78.2 ; Coronary artery disease involving other coronary artery bypass graft without angina pectoris I25.810 ; COPD without exacerbation J44.9 ; Elevated vitamin B12 level R79.89 and Nutritional counseling Z71.3 [place] [address] [address] 08/29/2024 JEANNETTE LEON ASSESSMENTS Encounter Date Diagnosis [...] mg in the office and received a [facility] injection. He will follow-up in the office [...] Consider using apps like 7 minute excercise, mydemandmartpal, lose it, stick as needed for self-monitoring and weight management. Consider group exercises. Consider hiring a retail personal banker. Regular exercise is mederos to sustainable health [...] counseling and psychiatry and Dr Mccall at [facility]. We would like to cover regular topics [...] Dictation was accomplished with the use of [employer] voice recognition software, prone to medical misidentifications [...] mg in the office and received a [facility] injection. He will follow-up in the office [...] Consider using apps like 7 minute excercise, [employer]pal, lose it, stick as needed for self-monitoring and weight management. Consider group exercises. Consider hiring a retail personal banker. Regular exercise is mederos to sustainable health [...] counseling and psychiatry and Dr Mccall at [facility]. We would like to cover regular topics [...] Dictation was accomplished with the use of [employer] voice recognition software, prone to medical misidentifications [...] mg in the office and [facility]. He will follow-up in the [...] Dictation was accomplished with the use of [employer] voice recognition software, which is prone to [...] Dictation was accomplished with the use of [employer] voice recognition software, which is prone to [...] mg in the office and received a [facility] injection. He will follow-up in the office [...] Dictation was accomplished with the use of [employer] voice recognition software, which is prone to [...] mg in the office and [facility]. He will follow-up in the [...] Dictation was accomplished with the use of [employer] voice recognition software, which is prone to [...] Dictation was accomplished with the use of [employer] voice recognition software, which is prone to [...] mg in the office and received a [facility] injection. He will follow-up in the office [...] Dictation was accomplished with the use of [employer] voice recognition software, which is prone to medical misidentifications and grammatical errors. This are unintentional and the practitioner does try to identify and correct these, but some could still be present. Please do not hesitate to contact practitioner for clarification. 01/23/2025 Adult-onset obesity (ICD-10 - E66.9) Patient [...] mg in the office and received a [facility] injection. He will follow-up in the office [...] mg in the office and received a [facility] injection. He will follow-up in the office [...] Dictation was accomplished with the use of [employer] voice recognition software, which is prone to [...] mg in the office and received a [facility] injection. He will follow-up in the office [...] Dictation was accomplished with the use of [employer] voice recognition software, which is prone to [...] mg in the office and received a [facility] injection. He will follow-up in the office [...] Dictation was accomplished with the use of [employer] voice recognition software, which is prone to [...] mg in the office and [facility]. He will follow-up in the [...] Dictation was accomplished with the use of [employer] voice recognition software, which is prone to [...] mg in the office and received a [facility] injection. He will follow-up in the office [...] Consider using apps like 7 minute excercise, mydemandmartpal, lose it, stick as needed for self-monitoring and weight management. Consider group exercises. Consider hiring a retail personal banker. Regular exercise is mederos to sustainable health [...] counseling and psychiatry and Dr Mccall at [facility]. We would like to cover regular topics [...] Dictation was accomplished with the use of [employer] voice recognition software, prone to medical misidentifications and grammatical errors. This is unintentional and the practitioner does try to identify and correct these, but some could still be present. Please do not hesitate to contact practitioner for clarification. All questions answered to patients satisfaction. Patient verbalized understanding of diagnosis and treatments explained. To call sooner prior to next visit it any questions/concerns arise. 01/23/2025 Essential hypertension (ICD-10 - I10) Patient [...] mg in the office and received a [facility] injection. He will follow-up in the office [...] Dictation was accomplished with the use of [employer] voice recognition software, which is prone to [...] mg in the office and received a [facility] injection. He will follow-up in the office [...] Dictation was accomplished with the use of [employer] voice recognition software, which is prone to [...] management. Consider group exercises. Consider hiring a retail personal banker. Regular exercise is mederos to sustainable health [...] counseling and psychiatry and Dr Mccall at [facility]. We would like to cover regular topics [...] Dictation was accomplished with the use of [employer] voice recognition software, prone to medical misidentifications [...] mg in the office and received a [facility] injection. He will follow-up in the office [...] Dictation was accomplished with the use of [employer] voice recognition software, which is prone to [...] mg in the office and received a [facility] injection. He will follow-up in the office [...] Dictation was accomplished with the use of [employer] voice recognition software, which is prone to [...] mg in the office and received a [facility] injection. He will follow-up in the office [...] arise. Case discussed with collaborating physician Erin Reeevs who reviewed the assessment and plan. Chart, medications, labs, vital signs reviewed. Dictation was accomplished with the use of [employer] voice recognition software, which is prone to [...] mg in the office and received a [facility] injection. He will follow-up in the office [...] Dictation was accomplished with the use of [employer] voice recognition software, which is prone to [...] mg in the office and received a [facility] injection. He will follow-up in the office [...] Dictation was accomplished with the use of [employer] voice recognition software, which is prone to [...] mg in the office and received a [facility] injection. He will follow-up in the office [...] Dictation was accomplished with the use of [employer] voice recognition software, which is prone to [...] mg in the office and [facility]. He will follow-up in the [...] Dictation was accomplished with the use of [employer] voice recognition software, which is prone to [...] Dictation was accomplished with the use of [employer] voice recognition software, which is prone to [...] mg in the office and received a [facility] injection. He will follow-up in the office [...] Consider using apps like 7 minute excercise, mydemandmartpal, lose it, stick as needed for self-monitoring and weight management. Consider group exercises. Consider hiring a retail personal banker. Regular exercise is mederos to sustainable health [...] counseling and psychiatry and Dr Mccall at [facility]. We would like to cover regular topics [...] Dictation was accomplished with the use of [employer] voice recognition software, prone to medical misidentifications and grammatical errors. This is unintentional and the practitioner does try to identify and correct these, but some could still be present. Please do not hesitate to contact practitioner for clarification. All questions answered to patients satisfaction. Patient verbalized understanding of diagnosis and treatments explained. To call sooner prior to next visit it any questions/concerns arise. 01/23/2025 Coronary artery disease involving other coronary [...] mg in the office and received a [facility] injection. He will follow-up in the office [...] Dictation was accomplished with the use of [employer] voice recognition software, which is prone to [...] mg in the office and received a [facility] injection. He will follow-up in the office [...] Dictation was accomplished with the use of [employer] voice recognition software, which is prone to [...] mg in the office and received a [facility] injection. He will follow-up in the office [...] Consider using apps like 7 minute excercise, [employer]pal, lose it, stick as needed for self-monitoring and weight management. Consider group exercises. Consider hiring a retail personal banker. Regular exercise is mederos to sustainable health [...] counseling and psychiatry and Dr Mccall at [facility]. We would like to cover regular topics [...] Dictation was accomplished with the use of [employer] voice recognition software, prone to medical misidentifications [...] mg in the office and received a [facility] injection. He will follow-up in the office [...] Dictation was accomplished with the use of [employer] voice recognition software, which is prone to [...] mg in the office and received a [facility] injection. He will follow-up in the office [...] Dictation was accomplished with the use of [employer] voice recognition software, which is prone to [...] mg in the office and received a [facility] injection. He will follow-up in the office [...] Dictation was accomplished with the use of [employer] voice recognition software, which is prone to [...] mg in the office and received a [facility] injection. He will follow-up in the office [...] Dictation was accomplished with the use of [employer] voice recognition software, which is prone to [...] mg in the office and [facility]. He will follow-up in the [...] Dictation was accomplished with the use of [employer] voice recognition software, which is prone to [...] mg in the office and received a [facility] injection. He will follow-up in the office [...] Dictation was accomplished with the use of [employer] voice recognition software, which is prone to [...] mg in the office and [facility]. He will follow-up in the [...] Dictation was accomplished with the use of [employer] voice recognition software, which is prone to [...] Dictation was accomplished with the use of [employer] voice recognition software, which is prone to [...] Dictation was accomplished with the use of [employer] voice recognition software, which is prone to medical misidentifications and grammatical errors. This are unintentional and the practitioner does try to identify and correct these, but some could still be present. Please do not hesitate to contact practitioner for clarification. PLAN OF TREATMENT Next Appt Details Provider Name:JEANNETTE LEON , 03/06/2025 08:30:00 AM, [address] [facility], [facility] [address], [place], [address], Insurance Providers Payer Name Payer Address Payer Phone Subscriber Number Group Number Insured Name Patient Relationship to Insured Coverage Start Date Coverage End Date [facility] [address] [place] [address] [id number] Rudi Trivedi Self - patient is the [...] B12 INJECTION 12/30/2024 MICC B12 INJECTION 01/13/2025 MICC B12 INJECTION 01/20/2025 1 mL Semaglutide 08/29/2024 .25 mg MEDICAL (GENERAL) HISTORY Medical History History ICD Code high blood pressure hearing loss thyroid disease weight gain/loss Surgical History Surgery Date(Month/Year) BYPASS 2022
--- OUTSIDE RECORDS SUMMARY | 2025-01-24 09:13 | XMS_ITS ---
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 Name Role Phone JEANNETTE LEON Unavailable [phone] REZA REEVES Unavailable [phone] REASON FOR VISIT pt here for a [...] 20 MG Oral for 90 Days Not-Taking Metoprolol Succinate ER 25 MG Oral for 90 Days Active Lisinopril 5 MG Oral for 90 Days Active Trelegy Ellipta 200-62.5-25 MCG/ACT Inhalation for 30 Days Active Encounters Encounter Location Date Provider Diagnosis [facility] [address] [place] [phone] 01/20/2025 REZA REEVES PLAN OF TREATMENT Next Appt Details Provider Name:JEANNETTE LEON , 03/06/2025 08:30:00 AM, [address] [place] [address], [phone], MEDICATIONS ADMINISTERED Medication Instructions Date of Administration Dosage Notes MICC B12 INJECTION 01/20/2025 1 mL Progress Notes * Rudi TRIVEDIDOB:1965 (59 yo M)Acc No.[id number]:01/20/2025 Progress Note Patient:??Rudi TRIVEDI Provider:??Reza Reeves MD :1965?Age:59 Y?Sex:Francis clay Date:01/20/2025 Address: [address], [place], [id number] Subjective: * Chief Complaints: * ?1. Pt [...] off status: Pending * Provider:??Reza Reeves MD Date:??01/20
== END 2025-01-24 09:33 | disposition home or self-care (01) ==
LOC: HO.HMCC 08:47
PROVIDERS: PCP Nurse Practitioner Family; Visit Provider Nurse Practitioner Family
DX: E78.5 Hyperlipidemia, unspecified (principal); E66.9 Obesity, unspecified; E03.9 Hypothyroidism, unspecified; Z68.35 Body mass index [BMI] 35.0-35.9, adult

== ENCOUNTER → 2025-01-24 08:46 | Outpatient (BNVA) | payer OTHER, SELFPAY | PROVIDERS: PCP Nurse Practitioner Family; Visit Provider Nurse Practitioner Family | DX: E78.5 Hyperlipidemia, unspecified (principal); I10 Essential (primary) hypertension; E03.9 Hypothyroidism, unspecified; E66.9 Obesity, unspecified; Z68.35 Body mass index [BMI] 35.0-35.9, adult; Z79.899 Other long term (current) drug therapy | CPT/HCPCS: 96127 ==

== ENCOUNTER 2025-04-09 07:09 | Outpatient (AMB) | payer OTHER, SELFPAY ==
[2025-04-09 07:13] VITALS: BP 106/64; PULSE 96; TEMP 36.8; O2SAT 94; BMI 34.3
--- NOTE | 2025-04-09 07:13 | AM.OFFWIN_ITS ---
Intake Vital Signs 04/09/25 07:13 Height 5 ft 11 in Weight 246 lb BMI 34.3 BP 106/64 Blood Pressure Location Rt brachial Position Sitting Pulse 96 Pulse Source Pulse Oximeter Temp 98.3 F Temp Source Oral Pulse Oximetry (%) 94 Oxygen Delivery Method Room Air Intake Visit Reasons: EP Pain on LT shoulder & rib cage area Intake Note: presents with left shoulder and left rib cage pain for a couple days Patient Tobacco Use Status: Former Tobacco user Allergies amoxicillin Allergy (Unknown, Verified 04/09/25 07:15) anaphylaxis Do you need a note to return to daycare/school/sports/work: Yes HPI HPI Comments History of Present Illness Details History - The patient is a 60-year-old male pres enting with acute right-sided back pain and difficulty breathing. - The back pain began two weeks ago afte r lifting an air conditioner, initially managed with pain medication. - The pain worsened after picking up an air conditioner for his son, described as stabbing and exacerbated by lying down. - Difficulty breathing when lying down l ed to sleeping in an upright position. - He was having pain in the right upper back then it moved to the left upper back. - He was doing better and had a weird pa in in the left anterior shoulder. - He also has an intermittent pain under the ribs on the left side. - He states that it does not hurt when h e touches it. - History of smoking and quadruple bypas s surgery, with regular CT scans for lung health monitoring. - Reports burning sensation in the chest post-surgery due to nerve irritation. - Experiencing constipation, managed wit h stool softeners. - He has been gassy - He denies CP, SOB, cough, fever, chill s, or LOPEZ. Physical Exam General: cooperative, healthy appearing and comfortable, patient oriented x3 Head: Normal to inspection, normocephalic/atraumatic Effort & Inspection: Normal respiratory effort and able to speak in complete sentences. Cardiac: RRR, no M/R/G noted. Normal S1 and S2. No crepitus. No TTP of the chest wall. Respiratory: Clear to auscultation bilaterally. Back/spine: No CVA tenderness bilaterally. Cervical, thoracic and lumbar spine normal to inspection. Cervical ROM normal, no midline spinous tenderness noted. Thoracic ROM normal, lumbar ROM normal. No midline vertebral spinous tenderness noted. No step offs noted. No TTP of the thoracic or lumbar paraspinous or paravertebral muscles. DTR are 2+ on the lower extremities noted. Ambulates with a steady gait. Extremities: Straight leg raise test negative on right; Straight leg raise test negative on left; motor strength normal 5/5 bilaterally. Neuro: Sensation intact. No tingling down the arms. Patient was informed and verbally consented to the use of an ambient scribe for clinic note documentation during this visit. [facility] Medical History Obesity (BMI 30-39.9) Hyperlipemia History of myocardial infarction Nicotine dependence, cigarettes, uncomplicated Sensorineural hearing loss (SNHL) of both ears CAD (coronary artery disease) Surgical History S/P CABG x 4 (~2022) History of heart artery stent (~2005) Family History Unknown No problems noted. Father Aorta aneurysm Social History Housing: House Alcohol intake: never Patient Tobacco Use Status: Former Tobacco user Cigarettes Per Day: 8 Years Smoked: (onset 19yo, 1/2-1ppd x 38yrs, 30pyh) e-Cigarette/Vaping Use: Never Used Second Hand Smoke Exposure: No service: No Current occupational status: employed Current occupation: [employer] Current occupational exposures/hazards: Yes Cognitive needs: No Hearing needs: No Vision needs: No Review of Systems Const All systems reviewed & are unremarkable except as noted in HPI and below Physical Exam Vital Signs: Last Vital Signs Temp 98.3 F 04/09/25 07:13 Pulse 96 04/09/25 07:13 BP 106/64 04/09/25 07:13 Pulse Ox 94 04/09/25 07:13 Oxygen Delivery Method Room Air 04/09/25 07:13 BMI result Body Mass Index 34.3 Results Reviewed Results Reviewed: Reviewed the CXR results Assessment & Plan Assessment & Plan (1) Chest wall pain: Code(s): R07.89 - Other chest pain Plan Most likely costochondritis vs spasm vs gas vs constipation Plan- 1. Costochondritis - A chest x-ray is planned to exclude other causes of pain and confirm no lung nodules. - A muscle relaxer is prescribed to relieve muscle spasms and pain. - Continue with Tylenol as needed - Activities as tolerated 2. Muscle Spasms - Prescribed a muscle relaxer to alleviate spasms and discomfort. 3. Constipation - Continued use of stool softeners as previously advised. Orders: Orders XR chest 2V Today R05.9 - Cough, unspecified Medications: New cyclobenzaprine 5 mg PO Q8H PRN 21 tabs 0RF Muscle Spasm 7 days Coding Level of Care Code Est Pt Level 4 (96152) Diagnoses Chest wall pain R07.89
== END 2025-04-09 08:36 | disposition home or self-care (01) ==
PROVIDERS: PCP Nurse Practitioner Family; Visit Provider Physician Assistant Medical
DX: R07.89 Other chest pain (principal)

== ENCOUNTER 2025-04-09 07:09 | Outpatient (REF) | payer OTHER, SELFPAY ==
--- NOTE | ~2025-04-09 | XR_ITS ---
EXAMINATION: XR CHEST CLINICAL INFORMATION: R05.9 - Cough, unspecified COMPARISON: Low-dose CT chest 01/07/2025, 07/26/2024. TECHNIQUE: 2 views of the chest were obtained. FINDINGS: The cardiac, hilar, and mediastinal contours are normal. There is been prior median sternotomy and probable CABG. Mild pulmonary hyperaeration bilaterally. There is patchy bibasilar opacity present. There is mild blunting of the costophrenic sulci bilaterally. There is no pneumothorax or pleural effusion. There is no focal osseous or soft tissue abnormality. XR/XR chest 2V IMPRESSION: 1. COPD. 2. Prior median sternotomy and probable CABG. 3. Patchy bibasilar opacities with blunting of the costophrenic sulci. Findings suggest bibasilar pneumonia with possible small effusions present. Electronically signed by: Ismael Snow MD 04/09/2025 08:57 AM EDT
== END 2025-04-09 07:10 | disposition home or self-care (01) ==
LOC: HO.HMGCX 07:09
PROVIDERS: PCP Nurse Practitioner Family; Visit Provider Physician Assistant Medical
DX: R05.9 Cough, unspecified (principal); J44.9 Chronic obstructive pulmonary disease, unspecified
CPT/HCPCS: 71046

== ENCOUNTER → 2025-04-09 08:31 | Outpatient (BNV) | payer OTHER, SELFPAY | PROVIDERS: PCP Nurse Practitioner Family; Visit Provider Radiology Diagnostic Radiology | DX: J44.9 Chronic obstructive pulmonary disease, unspecified (principal) | CPT/HCPCS: 71046 ==

== ENCOUNTER 2025-05-07 09:56 | Outpatient (REF) | payer OTHER, SELFPAY ==
--- NOTE | ~2025-05-07 | XR_ITS ---
EXAMINATION: XR FOOT 3 OR MORE VIEWS LEFT HISTORY: M79.672 - Pain in left foot COMPARISON: There are no prior studies available for comparison. FINDINGS: Three views of the left foot are submitted. Osseous mineralization is normal. There is no fracture or dislocation. The joint spaces are preserved. The soft tissues are unremarkable. XR/XR foot LT min 3V IMPRESSION: Unremarkable examination of the left foot Electronically signed by: Rock Childress MD 05/07/2025 12:30 PM EDT
== END 2025-05-07 09:57 | disposition home or self-care (01) ==
LOC: HO.HMGCX 09:56
PROVIDERS: PCP Nurse Practitioner Family; Visit Provider Physician Assistant
DX: M79.672 Pain in left foot (principal); M79.89 Other specified soft tissue disorders
CPT/HCPCS: 73630

== ENCOUNTER 2025-05-07 09:56 | Outpatient (AMB) | payer OTHER, SELFPAY ==
--- OUTSIDE RECORDS SUMMARY | 2025-05-07 10:49 | XMS_ITS | Patient Health Record ---
[facility] [address] [address] Address [address] [place] [address] Care Team Providers Care Athletics Director Name Role Phone JEANNETTE LEON Unavailable [phone] REZA REEVES Unavailable [phone] Allergies Allergen (clinical drug ingredient) Drug/Non Drug Allergy documented on EMR Reaction Allergy Type Onset Date Status amoxicillin Amoxicillin Unknown Drug Allergy Act elmer Reason For Referral No Information Medications Medication SIG (Take, Route, Frequency, Duration) Notes Start Date End Date Status Furosemide 20 MG Oral; Duration: 90 Days Not-Taking Wegovy 1.7 MG/0.75ML Inject 1.7 mg Subcutaneous once weekly; Duration: 28 days 08/29/2024 Active Rosuvastatin Calcium 20 MG Oral; Duration: 90 Days Acti ve Trelegy Ellipta 200-62.5-25 MCG/ACT Inhalation; Duration: 30 Days Active Levothyroxine Sodium 25 MCG Oral; Duration: 30 Days Acti ve Metoprolol Succinate ER 25 MG Oral; Duration: 90 Days Acti ve Lisinopril 5 MG Oral; Duration: 90 Days Active Problems Problem Type SNOMED Code ICD Code Onset Dates Problem Status W/U Status Risk Notes Problem Mixed hyperlipidemia (927376730) Mixed hyperlipidemia (E78.2) Active confirmed Problem Essential hypertension (75637649) Essential hypertension (I10) Active confirmed Problem Body mass index 40+ - morbidly obese (744285780) BMI 40.0-44.9, adult (Z68.41) Active confirmed Problem Obese class II (622318621459428) BMI 39.0-39.9,adult (Z68.39) Active confirmed Problem Adult-onset obesity (310809115) Adult-onset obesity (E66.9) Active confirmed Problem Chronic obstructive lung disease (82644197) COPD without exacerbation (J44.9) Active confirmed Problem Arteriosclerosis of coronary artery bypass graft (524366923) Coronary artery disease involving other coronary artery bypass graft without angina pectoris (I25.810) Active confirmed Vital Signs Heart Rate 81 /min 03/06/2025 Oximetry 96 % 03/06/2025 Blood pressure diastolic 70 mm Hg 03/06/2025 Height 67 in 03/06/2025 Blood pressure systolic 110 mm Hg 03/06/2025 Weight 251.5 lbs 03/06/2025 BMI 39.39 kg/m2 03/06/2025 Encounters Encounter Location Date Provider Diagnosis [facility] [address] [place] [address] 09/09/2024 TALAL REEVES [facility] [address] [place], [place] 09/16/2024 TALAL REEVES [facility] [address] [place] [address] 09/23/2024 TALAL REEVES [facility] [address] [place] [address] 09/30/2024 TALAL REEVES [facility] [address] [place] [address] 10/07/2024 TALAL REEVES [facility] [address] [place] [address] 10/14/2024 TALAL REEVES [facility] [address] [place] [address] 10/21/2024 TALAL REEVES [facility] [address] [place] [address] 10/28/2024 TALAL REEVES [facility] [address] [place] [address] 12/16/2024 TALAL REEVES [facility] [address] [place] [address] 12/23/2024 TALAL REEVES [facility] [address] [place] [address] 12/30/2024 TALAL REEVES [facility] [address] [place] [address] 01/06/2025 TALAL REEVES [facility] [address] [place] [address] 01/13/2025 TALHEDY REEVES [facility] [address] [place] [address] 01/20/2025 DARNELLHEDY REEVES [facility] [address] [address] 08/29/2024 JEANNETTE LEON Adult-onset obesity E66.9 ; BMI 40.0-44.9, adult Z68.41 ; Essential hypertension I10 ; Mixed hyperlipidemia E78.2 ; Coronary artery disease involving other coronary artery bypass graft without angina pectoris I25.810 and COPD without exacerbation J44.9 [facility] [address] [address] 09/26/2024 JEANNETTE LEON Adult-onset obesity E66.9 ; BMI 40.0-44.9, adult Z68.41 ; Essential hypertension I10 ; Mixed hyperlipidemia E78.2 ; Coronary artery disease involving other coronary artery bypass graft without angina pectoris I25.810 and COPD without exacerbation J44.9 [facility] [address] [address] 10/24/2024 JEANNETTE LEON Adult-onset obesity E66.9 ; BMI 40.0-44.9, adult Z68.41 ; Essential hypertension I10 ; Mixed hyperlipidemia E78.2 ; Coronary artery disease involving other coronary artery bypass graft without angina pectoris I25.810 and COPD without exacerbation J44.9 [facility] [address] [address] 11/21/2024 JEANNETTE LEON Adult-onset obesity E66.9 ; BMI 40.0-44.9, adult Z68.41 ; Essential hypertension I10 ; Mixed hyperlipidemia E78.2 ; Coronary artery disease involving other coronary artery bypass graft without angina pectoris I25.810 and COPD without exacerbation J44.9 [facility] [address] [address] 12/19/2024 JEANNETTE LEON Adult-onset obesity E66.9 ; BMI 40.0-44.9, adult Z68.41 ; Essential hypertension I10 ; Mixed hyperlipidemia E78.2 ; Coronary artery disease involving other coronary artery bypass graft without angina pectoris I25.810 and COPD without exacerbation J44.9 [facility] [address] [facility] [address] [place] [address] 01/23/2025 JEANNETTE LEON Adult-onset obesity E66.9 ; BMI 40.0-44.9, adult Z68.41 ; Essential hypertension I10 ; Mixed hyperlipidemia E78.2 ; Coronary artery disease involving other coronary artery bypass graft without angina pectoris I25.810 ; COPD without exacerbation J44.9 ; Elevated vitamin B12 level R79.89 and Nutritional counseling Z71.[address] [facility] [address] [facility] [address] [place] [address] 03/06/2025 JEANNETTE LEON BMI 39.0-39.9,adult Z68.39 ; Adult-onset obesity E66.9 ; Essential hypertension I10 ; Mixed hyperlipidemia E78.2 ; Coronary artery disease involving other coronary artery bypass graft without angina pectoris I25.810 ; COPD without exacerbation J44.9 ; Elevated vitamin B12 level R79.89 and Nutritional counseling Z71.3 [facility] [address] [facility] [address] [place] [address] 08/29/2024 JEANNETTE LEON [facility] [address] [facility] [address] [place] [address] 03/09/2025 JEANNETTE LEON Assessments Encounter Date Diagnosis (ICD Code) Assessment Notes Treatment Notes Treatment Clinical Notes [...] Consider group exercises. Consider hiring a personal development mentor. Regular exercise is mederos to sustainable health [...] counseling and psychiatry and Dr Mccall at [email or web address]. We would like to cover regular topics [...] Dictation was accomplished with the use of [employer] voice recognition software, prone to medical misidentifications [...] mg in the office and received a [facility] injection. He will follow-up in the [...] Consider using apps like 7 minute excercise, myAbcodiapal, lose it, stick as needed for self-monitoring and weight management. Consider group exercises. Consider hiring a personal development mentor. Regular exercise is mederos to sustainable health [...] counseling and psychiatry and Dr Mccall at [email or web address]. We would like to cover regular topics [...] Dictation was accomplished with the use of [employer] voice recognition software, prone to medical misidentifications [...] mg in the office and received a [facility] injection. He will follow-up in the [...] Dictation was accomplished with the use of [employer] voice recognition software, which is prone to [...] mg in the office and [facility]. He will follow-up in [...] Dictation was accomplished with the use of [employer] voice recognition software, which is prone to [...] mg in the office and received a [facility] injection. He will follow-up in the [...] Dictation was accomplished with the use of [employer] voice recognition software, which is prone to [...] mg in the office and received [facility] injection. He will follow-up in [...] Dictation was accomplished with the use of [employer] voice recognition software, which is prone to [...] mg in the office and received a [facility] injection. He will follow-up in the [...] Dictation was accomplished with the use of [employer] voice recognition software, which is prone to [...] Dictation was accomplished with the use of [employer] voice recognition software, which is prone to [...] mg in the office and received a [facility] injection. He will follow-up in the [...] Dictation was accomplished with the use of [employer] voice recognition software, which is prone to medical misidentifications and grammatical errors. This are unintentional and the practitioner does try to identify and correct these, but some could still be present. Please do not hesitate to contact practitioner for clarification. 03/06/2025 BMI 39.0-39.9,adult (ICD-10 - Z68.39) Patient is here for weight management follow-up. [...] mg in the office and received a [facility] injection. He will follow-up in the [...] follow-up in approximately 4 to 6 weeks. 03/06/2025: Weight 251 pounds, BMI 39.39. Seca scan completed and discussed with the patient. Patient is down 8 pounds from his last visit. He is down 9 pounds of fat mass. Fat mass index has reduced from 17.8-16.5. He has now increased amounts of muscle composition, previously 25.8% of his body weight, now 26.5%. Visceral adiposity reducing from 6.5 L to 5.2 L. He currently is on Wegovy 2.4 mg weekly. He endorses some constipation on the medication. Reports very high suppression of appetite and like to consider decreasing dose. Had trialed every other week dosing. He otherwise has been doing very well in this program, therefore at this time plan will be to decrease dose to 1.7 mg weekly and follow-up in 4 to 6 weeks. MICC administered today in office as well. # Hypertension: Blood pressure stable in office today 110/70. Continue lisinopril 5 mg once daily. Discussed [...] level: Recent serum level of vitamin B12 of 1946. Patient had been taking weekly B12 injections in office, advised patient to take a few week hiatus and then can resume B12 injections at intervals of every 2 to 4 weeks. MICC received today and tolerated well. All questions have been answered to patient's satisfaction. Patient verbalized understanding of diagnosis and treatments explained. Advised to call sooner prior to next visit it any questions/concerns arise. Case discussed with collaborating physician Erin Reeves who reviewed the assessment and plan. Chart, medications, labs, vital signs reviewed. Dictation was accomplished with the use of [employer] voice recognition software, which is prone to medical misidentifications and grammatical errors. This are unintentional and the practitioner does try to identify and correct these, but some could still be present. Please do not hesitate to contact practitioner for clarification. 03/06/2025 Adult-onset obesity (ICD-10 - E66.9) Patient is [...] mg in the office and received a [facility] injection. He will follow-up in the [...] follow-up in approximately 4 to 6 weeks. 03/06/2025: Weight 251 pounds, BMI 39.39. Seca scan completed and discussed with the patient. Patient is down 8 pounds from his last visit. He is down 9 pounds of fat mass. Fat mass index has reduced from 17.8-16.5. He has now increased amounts of muscle composition, previously 25.8% of his body weight, now 26.5%. Visceral adiposity reducing from 6.5 L to 5.2 L. He currently is on Wegovy 2.4 mg weekly. He endorses some constipation on the medication. Reports very high suppression of appetite and like to consider decreasing dose. Had trialed every other week dosing. He otherwise has been doing very well in this program, therefore at this time plan will be to decrease dose to 1.7 mg weekly and follow-up in 4 to 6 weeks. MICC administered today in office as well. # Hypertension: Blood pressure stable in office today 110/70. Continue lisinopril 5 mg once daily. Discussed [...] level: Recent serum level of vitamin B12 of 1946. Patient had been taking weekly B12 injections in office, advised patient to take a few week hiatus and then can resume B12 injections at intervals of every 2 to 4 weeks. MICC received today and tolerated well. All questions have been answered to patient's satisfaction. Patient verbalized understanding of diagnosis and treatments explained. Advised to call sooner prior to next visit it any questions/concerns arise. Case discussed with collaborating physician Erin Reeves who reviewed the assessment and plan. Chart, medications, labs, vital signs reviewed. Dictation was accomplished with the use of [employer] voice recognition software, which is prone to [...] mg in the office and received a [facility] injection. He will follow-up in the [...] Dictation was accomplished with the use of [employer] voice recognition software, which is prone to medical misidentifications and grammatical errors. This are unintentional and the practitioner does try to identify and correct these, but some could still be present. Please do not hesitate to contact practitioner for clarification. 03/06/2025 Essential hypertension (ICD-10 - I10) Patient is [...] follow-up in approximately 4 to 6 weeks. 03/06/2025: Weight 251 pounds, BMI 39.39. Seca scan completed and discussed with the patient. Patient is down 8 pounds from his last visit. He is down 9 pounds of fat mass. Fat mass index has reduced from 17.8-16.5. He has now increased amounts of muscle composition, previously 25.8% of his body weight, now 26.5%. Visceral adiposity reducing from 6.5 L to 5.2 L. He currently is on Wegovy 2.4 mg weekly. He endorses some constipation on the medication. Reports very high suppression of appetite and like to consider decreasing dose. Had trialed every other week dosing. He otherwise has been doing very well in this program, therefore at this time plan will be to decrease dose to 1.7 mg weekly and follow-up in 4 to 6 weeks. MICC administered today in office as well. # Hypertension: Blood pressure stable in office today 110/70. Continue lisinopril 5 mg once daily. Discussed [...] level: Recent serum level of vitamin B12 of 194. Patient had been taking weekly B12 injections in office, advised patient to take a few week hiatus and then can resume B12 injections at intervals of every 2 to 4 weeks. MICC received today and tolerated well. All questions have been answered to patient's satisfaction. Patient verbalized understanding of diagnosis and treatments explained. Advised to call sooner prior to next visit it any questions/concerns arise. Case discussed with collaborating physician Erin Reeves who reviewed the assessment and plan. Chart, medications, labs, vital signs reviewed. Dictation was accomplished with the use of [employer] voice recognition software, which is prone to [...] mg in the office and received a [facility] injection. He will follow-up in the [...] Dictation was accomplished with the use of [employer] voice recognition software, which is prone to [...] mg in the office and received [facility]. He will follow-up in [...] Dictation was accomplished with the use of [employer] voice recognition software, which is prone to [...] Dictation was accomplished with the use of [employer] voice recognition software, which is prone to [...] mg in the office and received a [facility] injection. He will follow-up in the [...] Dictation was accomplished with the use of [employer] voice recognition software, which is prone to [...] Consider using apps like 7 minute excercise, [employer], lose it, stick as needed for self-monitoring and weight management. Consider group exercises. Consider hiring a personal development mentor. Regular exercise is mederos to sustainable health [...] counseling and psychiatry and Dr Mccall at [email or web address]. We would like to cover regular topics [...] Dictation was accomplished with the use of [employer] voice recognition software, prone to medical misidentifications [...] mg in the office and received a [facility] injection. He will follow-up in the [...] reading books called The Food Rules by aPvan Coleman and Eat Fat Get Lean by [...] Consider using apps like 7 minute excercise, [employer], lose it, stick as needed for self-monitoring and weight management. Consider group exercises. Consider hiring a personal development mentor. Regular exercise is mederos to sustainable health [...] counseling and psychiatry and Dr Mccall at [email or web address]. We would like to cover regular topics [...] Dictation was accomplished with the use of [employer] voice recognition software, prone to medical misidentifications [...] mg in the office and received a [facility] injection. He will follow-up in the [...] Dictation was accomplished with the use of [employer] voice recognition software, which is prone to [...] mg in the office and received a [facility] injection. He will follow-up in the [...] Dictation was accomplished with the use of [employer] voice recognition software, which is prone to [...] mg in the office and received a [facility] injection. He will follow-up in the [...] Dictation was accomplished with the use of [employer] voice recognition software, which is prone to [...] mg in the office and received a [facility] injection. He will follow-up in the [...] Dictation was accomplished with the use of [employer] voice recognition software, which is prone to medical misidentifications and grammatical errors. This are unintentional and the practitioner does try to identify and correct these, but some could still be present. Please do not hesitate to contact practitioner for clarification. 03/06/2025 Mixed hyperlipidemia (ICD-10 - E78.2) Patient is [...] mg in the office and received a [facility] injection. He will follow-up in the [...] follow-up in approximately 4 to 6 weeks. 03/06/2025: Weight 251 pounds, BMI 39.39. Seca scan completed and discussed with the patient. Patient is down 8 pounds from his last visit. He is down 9 pounds of fat mass. Fat mass index has reduced from 17.8-16.5. He has now increased amounts of muscle composition, previously 25.8% of his body weight, now 26.5%. Visceral adiposity reducing from 6.5 L to 5.2 L. He currently is on Wegovy 2.4 mg weekly. He endorses some constipation on the medication. Reports very high suppression of appetite and like to consider decreasing dose. Had trialed every other week dosing. He otherwise has been doing very well in this program, therefore at this time plan will be to decrease dose to 1.7 mg weekly and follow-up in 4 to 6 weeks. MICC administered today in office as well. # Hypertension: Blood pressure stable in office today 110/70. Continue lisinopril 5 mg once daily. Discussed [...] level: Recent serum level of vitamin B12 of 1946. Patient had been taking weekly B12 injections in office, advised patient to take a few week hiatus and then can resume B12 injections at intervals of every 2 to 4 weeks. MICC received today and tolerated well. All questions have been answered to patient's satisfaction. Patient verbalized understanding of diagnosis and treatments explained. Advised to call sooner prior to next visit it any questions/concerns arise. Case discussed with collaborating physician Erin Reeves who reviewed the assessment and plan. Chart, medications, labs, vital signs reviewed. Dictation was accomplished with the use of [employer] voice recognition software, which is prone to [...] mg in the office and received a [facility] injection. He will follow-up in the [...] Dictation was accomplished with the use of [employer] voice recognition software, which is prone to [...] mg in the office and received a [facility] injection. He will follow-up in the [...] Dictation was accomplished with the use of [employer] voice recognition software, which is prone to medical misidentifications and grammatical errors. This are unintentional and the practitioner does try to identify and correct these, but some could still be present. Please do not hesitate to contact practitioner for clarification. 03/06/2025 Coronary artery disease involving other coronary artery [...] mg in the office and received [facility] injection. He will follow-up in [...] follow-up in approximately 4 to 6 weeks. 03/06/2025: Weight 251 pounds, BMI 39.39. Seca scan completed and discussed with the patient. Patient is down 8 pounds from his last visit. He is down 9 pounds of fat mass. Fat mass index has reduced from 17.8-16.5. He has now increased amounts of muscle composition, previously 25.8% of his body weight, now 26.5%. Visceral adiposity reducing from 6.5 L to 5.2 L. He currently is on Wegovy 2.4 mg weekly. He endorses some constipation on the medication. Reports very high suppression of appetite and like to consider decreasing dose. Had trialed every other week dosing. He otherwise has been doing very well in this program, therefore at this time plan will be to decrease dose to 1.7 mg weekly and follow-up in 4 to 6 weeks. MICC administered today in office as well. # Hypertension: Blood pressure stable in office today 110/70. Continue lisinopril 5 mg once daily. Discussed [...] level: Recent serum level of vitamin B12 of 1946. Patient had been taking weekly B12 injections in office, advised patient to take a few week hiatus and then can resume B12 injections at intervals of every 2 to 4 weeks. MICC received today and tolerated well. All questions have been answered to patient's satisfaction. Patient verbalized understanding of diagnosis and treatments explained. Advised to call sooner prior to next visit it any questions/concerns arise. Case discussed with collaborating physician Erin Reeves who reviewed the assessment and plan. Chart, medications, labs, vital signs reviewed. Dictation was accomplished with the use of [employer] voice recognition software, which is prone to [...] mg in the office and received a [facility] injection. He will follow-up in the [...] Dictation was accomplished with the use of [employer] voice recognition software, which is prone to [...] mg in the office and received a [facility] injection. He will follow-up in the [...] Dictation was accomplished with the use of [employer] voice recognition software, which is prone to [...] mg in the office and received a [facility] injection. He will follow-up in the [...] Dictation was accomplished with the use of [employer] voice recognition software, which is prone to [...] mg in the office and received a [facility] injection. He will follow-up in the [...] Dictation was accomplished with the use of [employer] voice recognition software, which is prone to [...] Consider using apps like 7 minute excercise, [employer], lose it, stick as needed for self-monitoring and weight management. Consider group exercises. Consider hiring a personal development mentor. Regular exercise is mederos to sustainable health [...] counseling and psychiatry and Dr Mccall at [email or web address]. We would like to cover regular topics [...] Dictation was accomplished with the use of [employer] voice recognition software, prone to medical misidentifications [...] mg in the office and received a [facility] injection. He will follow-up in the [...] Dictation was accomplished with the use of [employer] voice recognition software, which is prone to [...] mg in the office and received a [facility] injection. He will follow-up in the [...] Consider using apps like 7 minute excercise, [employer], lose it, stick as needed for self-monitoring and weight management. Consider group exercises. Consider hiring a personal development mentor. Regular exercise is mederos to sustainable health [...] counseling and psychiatry and Dr Mccall at [email or web address]. We would like to cover regular topics [...] Timoteo Reeves). Case discussed with collaborating physician Peenlope Reeves who reviewed the assessment and plan. Chart, medications, labs, vital signs reviewed. Dictation was accomplished with the use of [employer] voice recognition software, prone to medical misidentifications [...] mg in the office and received a [facility] injection. He will follow-up in the [...] Dictation was accomplished with the use of [employer] voice recognition software, which is prone to [...] mg in the office and received a [facility] injection. He will follow-up in the [...] Dictation was accomplished with the use of [employer] voice recognition software, which is prone to [...] Dictation was accomplished with the use of [employer] voice recognition software, which is prone to [...] mg in the office and received a [facility] injection. He will follow-up in the [...] Dictation was accomplished with the use of [employer] voice recognition software, which is prone to medical misidentifications and grammatical errors. This are unintentional and the practitioner does try to identify and correct these, but some could still be present. Please do not hesitate to contact practitioner for clarification. 03/06/2025 COPD without exacerbation (ICD-10 - J44.9) Patient [...] mg in the office and received a [facility] injection. He will follow-up in the [...] follow-up in approximately 4 to 6 weeks. 03/06/2025: Weight 251 pounds, BMI 39.39. Seca scan completed and discussed with the patient. Patient is down 8 pounds from his last visit. He is down 9 pounds of fat mass. Fat mass index has reduced from 17.8-16.5. He has now increased amounts of muscle composition, previously 25.8% of his body weight, now 26.5%. Visceral adiposity reducing from 6.5 L to 5.2 L. He currently is on Wegovy 2.4 mg weekly. He endorses some constipation on the medication. Reports very high suppression of appetite and like to consider decreasing dose. Had trialed every other week dosing. He otherwise has been doing very well in this program, therefore at this time plan will be to decrease dose to 1.7 mg weekly and follow-up in 4 to 6 weeks. MICC administered today in office as well. # Hypertension: Blood pressure stable in office today 110/70. Continue lisinopril 5 mg once daily. Discussed [...] level: Recent serum level of vitamin B12 of 1946. Patient had been taking weekly B12 injections in office, advised patient to take a few week hiatus and then can resume B12 injections at intervals of every 2 to 4 weeks. MICC received today and tolerated well. All questions have been answered to patient's satisfaction. Patient verbalized understanding of diagnosis and treatments explained. Advised to call sooner prior to next visit it any questions/concerns arise. Case discussed with collaborating physician Erin Reeves who reviewed the assessment and plan. Chart, medications, labs, vital signs reviewed. Dictation was accomplished with the use of [employer] voice recognition software, which is prone to [...] mg in the office and received a [facility] injection. He will follow-up in [...] Dictation was accomplished with the use of [employer] voice recognition software, which is prone to medical misidentifications and grammatical errors. This are unintentional and the practitioner does try to identify and correct these, but some could still be present. Please do not hesitate to contact practitioner for clarification. 03/06/2025 Elevated vitamin B12 level (ICD-10 - R79.89) [...] follow-up in approximately 4 to 6 weeks. 03/06/2025: Weight 251 pounds, BMI 39.39. Seca scan completed and discussed with the patient. Patient is down 8 pounds from his last visit. He is down 9 pounds of fat mass. Fat mass index has reduced from 17.8-16.5. He has now increased amounts of muscle composition, previously 25.8% of his body weight, now 26.5%. Visceral adiposity reducing from 6.5 L to 5.2 L. He currently is on Wegovy 2.4 mg weekly. He endorses some constipation on the medication. Reports very high suppression of appetite and like to consider decreasing dose. Had trialed every other week dosing. He otherwise has been doing very well in this program, therefore at this time plan will be to decrease dose to 1.7 mg weekly and follow-up in 4 to 6 weeks. MICC administered today in office as well. # Hypertension: Blood pressure stable in office today 110/70. Continue lisinopril 5 mg once daily. Discussed [...] level: Recent serum level of vitamin B12 of 1946. Patient had been taking weekly B12 injections in office, advised patient to take a few week hiatus and then can resume B12 injections at intervals of every 2 to 4 weeks. MICC received today and tolerated well. All questions have been answered to patient's satisfaction. Patient verbalized understanding of diagnosis and treatments explained. Advised to call sooner prior to next visit it any questions/concerns arise. Case discussed with collaborating physician Erin Reeves who reviewed the assessment and plan. Chart, medications, labs, vital signs reviewed. Dictation was accomplished with the use of [employer] voice recognition software, which is prone to [...] mg in the office and received a [facility] injection. He will follow-up in the [...] Dictation was accomplished with the use of [employer] voice recognition software, which is prone to [...] mg in the office and received a [facility] injection. He will follow-up in the [...] Dictation was accomplished with the use of [employer] voice recognition software, which is prone to [...] mg in the office and received a [facility] injection. He will follow-up in the [...] Dictation was accomplished with the use of [employer] voice recognition software, which is prone to [...] mg in the office and received a [facility] injection. He will follow-up in [...] Dictation was accomplished with the use of [employer] voice recognition software, which is prone to medical misidentifications and grammatical errors. This are unintentional and the practitioner does try to identify and correct these, but some could still be present. Please do not hesitate to contact practitioner for clarification. 03/06/2025 Nutritional counseling (ICD-10 - Z71.3) Patient is [...] follow-up in approximately 4 to 6 weeks. 03/06/2025: Weight 251 pounds, BMI 39.39. Seca scan completed and discussed with the patient. Patient is down 8 pounds from his last visit. He is down 9 pounds of fat mass. Fat mass index has reduced from 17.8-16.5. He has now increased amounts of muscle composition, previously 25.8% of his body weight, now 26.5%. Visceral adiposity reducing from 6.5 L to 5.2 L. He currently is on Wegovy 2.4 mg weekly. He endorses some constipation on the medication. Reports very high suppression of appetite and like to consider decreasing dose. Had trialed every other week dosing. He otherwise has been doing very well in this program, therefore at this time plan will be to decrease dose to 1.7 mg weekly and follow-up in 4 to 6 weeks. MICC administered today in office as well. # Hypertension: Blood pressure stable in office today 110/70. Continue lisinopril 5 mg once daily. Discussed [...] level: Recent serum level of vitamin B12 of 1946. Patient had been taking weekly B12 injections in office, advised patient to take a few week hiatus and then can resume B12 injections at intervals of every 2 to 4 weeks. MICC received today and tolerated well. All questions have been answered to patient's satisfaction. Patient verbalized understanding of diagnosis and treatments explained. Advised to call sooner prior to next visit it any questions/concerns arise. Case discussed with collaborating physician Erin Reeves who reviewed the assessment and plan. Chart, medications, labs, vital signs reviewed. Dictation was accomplished with the use of [employer] voice recognition software, which is prone to medical misidentifications and grammatical errors. This are unintentional and the practitioner does try to identify and correct these, but some could still be present. Please do not hesitate to contact practitioner for clarification. Plan Of Treatment No Information Insurance Providers Payer Name Payer Address Payer Phone Subscriber Number Group Number Insured Name Patient Relationship to Insured Coverage Start Date Coverage End Date [facility] [address] [facility] [place] [id number] [phone] [id number] Rudi Trivedi Self - patient is the insured Medications Administered Medication Instructions Date of Administration [...] 01/13/2025 MICC B12 INJECTION 01/20/2025 1 mL MICC B12 INJECTION 03/06/2025 1 mL Semaglutide 08/29/2024 .25 mg Medical (General) History Medical History History ICD Code high blood pressure hearing loss thyroid disease weight gain/loss Surgical History Surgery Date(Month/Year) BYPASS 2022
[2025-05-07 11:05] VITALS: BP 126/80; PULSE 75; TEMP 36.9; O2SAT 97; BMI 35.2
--- NOTE | 2025-05-07 11:05 | MHC.OFFWIV ---
Intake Vital Signs 05/07/25 11:05 Height 5 ft 11 in Weight 252 lb 6 oz BMI 35.2 BP 126/80 Blood Pressure Location Rt brachial Position Sitting Pulse 75 Pulse Source Pulse Oximeter Temp 98.5 F Temp Source Oral Pulse Oximetry (%) 97 Oxygen Delivery Method Room Air Intake Visit Reasons: EP Swelling, pain in LT foot Patient Tobacco Use Status: Former Tobacco user Adult Protective Caseworker Required: No Allergies amoxicillin Allergy (Unknown, Verified 04/09/25 07:15) anaphylaxis Do you need a note to return to daycare/school/sports/work: Yes HPI HPI Comments History of Present Illness Details History of Present Illness - The patient is a 60-year-old male presenting with foot pain and swelling. - The patient reports pain on the inside of the left foot, which began approximately three weeks ago without any known injury or trauma. The pain migrated to the top inside of the foot. - The pain is exacerbated by standing or walking, with a sensation of pressure when the foot is placed down. - Patient wore deepak shoes 2 days ago and now worse, with some bruising, he thinks from the straps. - The patient has attempted using ice and ibuprofen with limited relief. Physical Exam General: Cooperative, healthy appearing, comfortable, no acute distress and well developed Orientation: Patient oriented x3 Limitations: No limitations Head: Normal to inspection Ears: Hearing grossly normal bilaterally Nose: Normal External nose present Face and sinus: Normal facial exam Eyes: Appearance normal, both eyes and all related structures Neck: Normal visual inspection and Yes full ROM Respiratory: Normal respiratory effort and able to speak in complete sentences. Skin: No rashes or lesions noted Neuro: Patient oriented x3 Extremities: left foot with edema, no erythema, TTP navicular bone and top of midfoot, no TTP toes, toes with full ROM and NVI. [facility], LAT[facility] Medical History Obesity (BMI 30-39.9) Hyperlipemia History of myocardial infarction Nicotine dependence, cigarettes, uncomplicated Sensorineural hearing loss (SNHL) of both ears CAD (coronary artery disease) Surgical History S/P CABG x 4 (~2022) History of heart artery stent (~2005) Family History Unknown No problems noted. Father Aorta aneurysm Social History Housing: House Alcohol intake: never Patient Tobacco Use Status: Former Tobacco user Cigarettes Per Day: 8 Years Smoked: (onset 19yo, 1/2-1ppd x 38yrs, 30pyh) e-Cigarette/Vaping Use: Never Used Second Hand Smoke Exposure: No service: No Current occupational status: employed Current occupation: [employer] Current occupational exposures/hazards: Yes Cognitive needs: No Hearing needs: No Vision needs: No Review of Systems Const All systems reviewed & are unremarkable except as noted in HPI and below Physical Exam Vital Signs: Last Vital Signs Temp 98.5 F 05/07/25 11:05 Pulse 75 05/07/25 11:05 BP 126/80 05/07/25 11:05 Pulse Ox 97 05/07/25 11:05 Oxygen Delivery Method Room Air 05/07/25 11:05 BMI result Body Mass Index 35.2 Assessment & Plan Assessment & Plan (1) Left foot pain: Code(s): M79.672 - Pain in left foot Plan: Plan - An x-ray of the left foot is recommended to rule out any fractures or dislocations. - My interpretation of XR is no acute fx or dislocation. Pending final rads read - Will treat with 5 day 40mg prednisone burst, unclear if gout (though no erythema), vs arthritis vs other. - Continue with current pain management strategies, including ice and rest, as needed. - Patient declined ADRIAN wrap, boot or crutches. Patient was informed and verbally consented to the use of an ambient scribe for clinic note documentation during this visit. Orders: Orders XR foot LT min 3V Today M79.672 - Pain in left foot Medications: New prednisone 40 mg (2 x 20 mg) PO QAM 10 tabs 0RF Coding Level of Care Code Est Pt Level 4 (29015) Diagnoses Left foot pain M79.672
== END 2025-05-07 12:44 | disposition home or self-care (01) ==
PROVIDERS: PCP Nurse Practitioner Family; Visit Provider Physician Assistant
DX: M79.672 Pain in left foot (principal)

== ENCOUNTER → 2025-05-07 12:18 | Outpatient (BNV) | payer OTHER, SELFPAY | PROVIDERS: PCP Nurse Practitioner Family; Visit Provider Radiology Diagnostic Radiology | DX: M79.672 Pain in left foot (principal) | CPT/HCPCS: 73630 ==

== ENCOUNTER → 2025-05-22 13:23 | Outpatient (REF) | payer OTHER, SELFPAY ==
--- NOTE | 2025-05-22 13:26 | CA_ITS ---
Transthoracic Echocardiogram Patient (Last, First, Middle): Rudi Trivedi T Gender: M Date of : 1965 Age: 60 Procedure Date: 05/22/2025 Procedure Type: Transthoracic Echocardiogram Location: OP Height: 180.34 cm Weight: 114.31 kg BSA: 2.33 m2 Heart Rate: 94 bpm BP: 126 / 80 mmHg Sanitarian Aide: SB Referring MD: Jamaal Fisher MD Symptoms: I25.5 - Ischemic cardiomyopathy Study Quality: Adequate w contrast ECG Rhythm: Sinus with PVCs Conclusions: - Visually estimated LVEF about 40-50%. - Suspect inferolateral akinesis, but difficult to assess. - No obvious valvular pathology seen on this study. Findings Procedure Information The quality of the study was technically difficult. The study quality is limited by patients body habitus and lung artifact. Left Ventricle Mildly increased left ventricular cavity size. There is mildly increased left ventricular wall thickness. The left ventricular systolic function is mildly decreased. Diastolic function is normal for age. Suspect inferolateral akinesis, but difficult to assess. Visually estimated LVEF about 40-50%. Right Ventricle Mildly increased right ventricular cavity size. There is normal right ventricular systolic function. Atria Both atria are normal in size. Aortic Valve There is a normal trileaflet aortic valve. There is mild calcification of the aortic valve. There is no aortic valve stenosis. There is no aortic valve regurgitation. Mitral Valve The mitral valve appears normal. There is no mitral valve regurgitation. There is no mitral valve stenosis. Pulmonic Valve The pulmonic valve is likely normal. Tricuspid Valve There is no tricuspid valve regurgitation. Tricuspid regurgitation envelope is inadequate for calculation of right ventricular systolic pressure. Great Vessels The asc aorta is normal in size. Venous The inferior vena cava is normal in size and collapses greater than 50% with inspiration. Pericardium/Pleural There is no evidence of pericardial effusion. Prior Study Comparison No significant change compared to prior study dated: 10/13/2023. Wall motion similar. Recommendations, Care & Conclusions No obvious valvular pathology seen on this study. Measurements 2D Linear Measurements IVSd: 1.23 0.6-0.9/0.6-1.0 cm LVIDd: 6.14 3.9-5.3/4.2-5.9 cm LVIDd Index: 2.64 2.4-3.2/2.2-3.1 cm/m2 LVIDs: 5.02 2.0-3.6 cm LVPWd: 1.05 0.7-1.1 cm Ao Root: 3.80 2.1-3.5 cm LA Diam: 3.30 2.7-3.8/3.0-4.0 cm LAIDs Index: 1.42 1.5-2.3 cm/m2 LV Mass: 380.09 67-162/88-224 g LV Mass Index: 163.13 43-95/49-115 g/m2 LVOT Diam: 2.10 3.0+(-)1.3 cm 2D Systolic Function EF 4C: 56.00 >55% EF 2C: 46.90 >55% EF BiP: 51.20 >55% Mitral Valve MV Pk E: 0.86 MV PK A: 1.11 MV Decel Time: 211.00 E/A: 0.80 E'Lateral: 10.70 E'Medial: 5.66 E/E' Med: 15.20 E/E' Lat: 8.00 PHT: 62.00 MVA PHT: 3.55 Decel Roberts: 4.08 Aortic Valve AoV Pk David: 1.34 AoV Pk Grad: 7.00 [place]TE: 3.22 LVOT LVOT Pk David: 1.22 LVOT Mn David: 0.85 LVOT VTI: 0.20 LVOT Pk Grad: 6.00 LVOT Mn Grad: 3.00 LVOT Diam: 2.10 LVOT Area: 3.46 Diastolic Function MV Pk E: 0.86 MV Pk A: 1.11 E/A: 0.80 E'Medial: 5.66 E/E' Med: 15.20 E' Laterial: 10.70 E/E' Lat: 8.00 Right Ventricle TAPSE (mm): 17.50 TVS' David: 12.40 Tricuspid Valve RA Press: 3.00 Great Vessels Aorta Ao Root-2D: 3.80 2.0-3.7 cm Ao Asc: 3.80 2.1-3.4 cm Pulmonary Veins Pulm Vein S/D 1.50 Pulmonary Valve PV Pk David: 1.28 Peak PV Grad: 7.00 Updated in Other Vendor System with Status of Final Jamaal Fisher MD electronically signed on 05/23/2025 10:08:08 AM with status of Final
== END ==
LOC: HO.CARD 13:23
PROVIDERS: PCP Nurse Practitioner Family; Visit Provider Internal Medicine
DX: I25.5 Ischemic cardiomyopathy (principal)
CPT/HCPCS: 93306; Q9957

== ENCOUNTER → 2025-05-22 13:26 | Outpatient (BNV) | payer OTHER, SELFPAY | PROVIDERS: PCP Nurse Practitioner Family; Visit Provider Internal Medicine | DX: I25.5 Ischemic cardiomyopathy (principal) | CPT/HCPCS: 93306 ==

== ENCOUNTER 2025-05-28 16:45 | Emergency (ER) | payer OTHER, SELFPAY ==
--- OUTSIDE RECORDS SUMMARY | 2025-01-13 07:00 | XMS_ITS ---
Author Organization [facility] Address [address] [place] [address] Care Team Providers Care Mogul Operator Name Role Phone JEANNETTE LEON Unavailable [phone] KELVIN REEVES Unavailable [phone] REASON FOR VISIT pt here for micc [...] Active Encounters Encounter Location Date Provider Diagnosis [facility] [address] [place] [address] 01/13/2025 KELVIN REEVES Plan Of Treatment No Information Medications Administered Medication Instructions Date of Administration Dosage Notes MICC B12 INJECTION 01/13/2025 Progress Notes * Rudi TRIVEDIDOB:1965 (60 yo M)Acc No.[id number]:01/13/2025 Progress Note Patient: Rudi HERNANDEZ Provider: Dayne Reeves MD :1965 A ge:59 Y S ex:Male Date:01/13/2025 Address:[address], [place] Subjective: * Chief Complaints: * 1 . [...] Electronic signature of JOCE REEVES MD on 05/28/2025 at 07:59 PM EDT Sign off status: Pending * Provider: Dayne Reeves MD Date: 0 01/13/2025 Generated for Roverto lopez/Edith/Cecily on: 0 05/28/2025 07:59 PM EDT
--- OUTSIDE RECORDS SUMMARY | 2025-01-20 07:15 | XMS_ITS ---
Author Organization [facility] [address] Address [address] [place] [address] Care Team Providers Care Emergency Response Coordinator Name Role Phone JEANNETTE LEON Unavailable [phone] KELVIN REEVES Unavailable [phone] REASON FOR VISIT pt here for a [...] Active Encounters Encounter Location Date Provider Diagnosis [facility] [address] [place] [address] 01/20/2025 KELVIN REEVES Plan Of Treatment No Information Medications Administered Medication Instructions Date of Administration Dosage Notes MICC B12 INJECTION 01/20/2025 1 mL Progress Notes * Rudi TRIVEDIDOB:1965 (60 yo M)Acc No.[id number]:01/20/2025 Progress Note Patient: Rudi HERNANDEZ Provider: Dayne Reeves MD :1965 A ge:59 Y S ex:Male Date:01/20/2025 Address:[address], [place] Subjective: * Chief Complaints: * 1 . [...] of JOCE REEVES MD on 05/28/2025 at 08:00 PM EDT Sign off status: Pending * Provider: Dayne Reeves MD Date: 0 01/20/2025 Generated for Roverto lopez/Edith/Cecily on: 0 05/28/2025 08:00 PM EDT
--- OUTSIDE RECORDS SUMMARY | 2025-04-17 09:00 | XMS_ITS ---
Author Organization [facility] [address] Address [address] [place] [address] Care Team Providers Care Rfid Engineer Name Role Phone JEANNETTE LEON [phone] Encounters Encounter Location Date Provider Diagnosis [facility] [address] [address] 04/17/2025 JEANNETTE LEON Plan Of Treatment No Information Progress Notes * Rudi TRIVEDIDOB:1965 (60 yo M)Acc No.[id number]:04/17/2025 Patient: Jean Rudi BARILLAS Provider: Lu LEON :1965 A ge:60 Y S ex:Male Date:04/17/2025 Address: [address], [id number] Subjective: * Chief Complaints: * * Medical History: Objective: * Vitals: Assessment: Plan: * Treatment: * Images: Billing Information: * Visit Code: * Procedure Codes: * Electronic signature of DAMIR LEON PA-C, [id number] on 05/28/2025 at 08:00 PM EDT Sign off status: Pending * Provider: Lu LEON Date: 0 04/17/2025 Generated for Roverto lopez/Edith/eTnettiesmitting on: 05/28/2025 08:00 PM EDT
--- NOTE | ~2025-05-28 | US_ITS ---
CLINICAL HISTORY: pain, swelling, concern for DVT Venous duplex ultrasound left lower extremity Comparison: None provided Findings: There is deep venous thrombosis within the popliteal vein, gastrocnemius vein, peroneal and posterior tibial veins. No filling defects seen within the left common femoral vein, greater saphenous vein, femoral vein, with normal phasicity and compressibility. No popliteal cyst. IMPRESSION: 1. Positive for deep vein thrombosis in the left popliteal vein, gastrocnemius vein, peroneal and posterior tibial veins. This document has been electronically signed by: Rafa Cameron MD on 05/28/2025 19:29:49
[2025-05-28 17:00] VITALS: BP 126/71; PULSE 85; RESP 20; TEMP 37.1; O2SAT 92; BMI 36.0
--- NOTE | 2025-05-28 17:01 | ED.GENADULT ---
HPI - General Adult General Chief complaint: Extremity Injury, Lower Stated complaint: Swollen left leg (? blood clot) Time Seen by Provider: 05/28/25 20:34 History of Present Illness HPI narrative: 60-year-old male presents today with having swollen left leg for the last 2 days. Had a history of working in a closed environment for long hours. 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 No fever no chills no chest pain or shortness of breath no diaphoresis no long travel. Patient denies any history of cancer. Related Data Previous Rx's ?Medication ?Instructions ?Recorded aspirin 81 mg tablet,delayed 81 mg PO DAILY #90 tabs 03/30/23 release (Adult Aspirin Regimen) fluticasone fur. 200 mcg-umeclid 1 inh inhalation DAILY #60 ea 08/14/24 62.5 mcg-vilant 25 mcg inhalat.powder (Trelegy Ellipta) metoprolol succinate 25 mg 75 mg (3 x 25 mg) PO DAILY 90 days 11/10/24 tablet,extended release 24 hr #270 tabs rosuvastatin 20 mg tablet 20 mg PO BEDTIME #90 tabs 12/10/24 levothyroxine 25 mcg tablet 25 mcg PO DAILY #90 tabs 01/10/25 prednisone 20 mg tablet 40 mg (2 x 20 mg) PO QAM #10 tabs 05/07/25 lisinopril 5 mg tablet 5 mg PO DAILY 90 days #90 tabs 05/09/25 apixaban 5 mg (74 tabs) tablets in 5 mg PO BID #74 ea 05/28/25 a dose pack (Eliquis DVT-PE Treat 30D Start) Allergies Allergy/AdvReac Type Severity Reaction Status Date / Time amoxicillin Allergy Unknown anaphylaxis Verified 05/28/25 17:03 Review of Systems Review of Systems: Positive leg swelling on the left side Yes all other systems are reviewed and are negative [facility] Past Medical History Attestation statement: The following information was validated with the patient. Medical History Obesity (BMI 30-39.9) Hyperlipemia History of myocardial infarction Nicotine dependence, cigarettes, uncomplicated Sensorineural hearing loss (SNHL) of both ears CAD (coronary artery disease) Surgical History S/P CABG x 4 (~2022) History of heart artery stent (~2005) Family History Family History Unknown No problems noted. Father Aorta aneurysm Social History Social History Housing: House Alcohol intake: never Patient Tobacco Use Status: Former Tobacco user Cigarettes Per Day: 8 Years Smoked: (onset 19yo, 1/2-1ppd x 38yrs, 30pyh) e-Cigarette/Vaping Use: Never Used Second Hand Smoke Exposure: No Advance Directives: No Advance Directives Information Provided: Yes Do you have a plan to hurt others: No Plan service: No Current occupational status: employed Current occupation: [employer] Current occupational exposures/hazards: Yes Cognitive needs: No Hearing needs: No Vision needs: No Physical Exam ED Exam Exam: Appearance: Alert. Oriented X3. No acute distress. Eyes: Pupils equal, round and reactive to light. ENT: Pharynx normal. Neck: Normal inspection. Neck supple. No lymph nodes noted. No crepitus CVS: Normal heart rate and rhythm. Pulses normal. Normal S1 and S2 Respiratory: No respiratory distress. Breath sounds normal. No Wheezing. No rales Abdomen: Soft and nontender. No rigidity. No distention. good BS x4 Skin: Skin warm and dry. Normal skin color. Normal skin turgor. Extremities: No lower extremity edema. Neurovascular intact to all extremities. Left leg from the area [id number] there is some redness it is definitely enlarged when compared to the right. There is calf tenderness on the left side. There is good distal pulses sensation intact. Neuro: Oriented X 3. No motor deficit. No sensory deficit. Moving all extermities. No slurred speech Vital Signs: Vital Signs - 24 hr 05/28/25 17:00 05/28/25 20:05 05/28/25 22:18 Temperature 98.7 F 97.8 F 98.4 F Pulse Rate 85 78 76 Respiratory Rate 20 16 16 Blood Pressure 126/71 110/73 109/67 Pulse Oximetry 92 96 94 Oxygen Delivery Method Room Air Room Air Room Air BMI result Body Mass Index 36.0 Course Course Course Narrative: Rapid medical examination performed in triage by Kaylie Chung PA-C. Patient is a 60 year old assigned male at presenting to the emergency department with left lower leg swelling. Patient states that he used to be on blood thinners and is not anymore. Patient states that he recently noticed worsening left lower leg swelling. Detailed physical exam and review of systems are deferred to the billing clinician. Imaging ordered. Patient placed back in the waiting room pending room availability and results. Medical Decision Making Medical Decision Making [facility] Narrative: Patient is ultrasound showed a significant DVT. It is at the popliteal at the gastrocnemius at the peroneal. Posterior tibialis. There is good distal pulses there is some slight redness noted in the leg I discussed the case with Dr. Broderick from vascular suggested for patient to be started on Eliquis twice a day. Follow-up on an outpatient basis. In no acute distress. Will require repeat ultrasound in 1 week. Will have patient get the slipped and tried to get the ultrasound next week. In stable condition. Differential Diagnosis Differential Diagnoses: The differential diagnosis associated with the presentation includes DVT versus Nur cyst Admission/Observation Consideration of admission/observation: Escalation of care including admission/observation considered Consult Healthcare Provider Management of the patient was discussed with: Sky Line Yarder (Vascular surgery) Lab Data [facility] Lab Attestation statement: I reviewed the patient's lab results. 05/28/25 21:06 05/28/25 21:06 Labs: Lab Results 05/28/25 Range/Units 21:06 WBC 10.3 (4.8-10.8) X10*3/uL RBC 4.50 L (4.60-5.80) X10*6/uL Hgb 13.8 L (14.0-18.0) g/dl Hct 40.1 L (42.0-52.0) % MCV 89.1 (80.0-98.0) fL MCH 30.7 (27.0-33.0) pg MCHC 34.4 (31.0-36.0) g/dl RDW 13.4 (11.0-16.0) % Plt Count 140 L D (160-400) X10*3/uL MPV 8.5 L (9.4-12.4) fL Immature Gran % (Auto) 0.6 H (0.0-0.4) % Neut % (Auto) 69.2 (45-73) % Lymph % (Auto) 20.6 (20-40) % [place] % (Auto) 7.1 (2-11) % Eos % (Auto) 2.2 (0-4) % Baso % (Auto) 0.3 (0-2) % Lymph # (Auto) 2.1 (1.2-4.9) X10*3/uL [place] # (Auto) 0.7 (0.1-1.2) X10*3/uL Eos # (Auto) 0.2 (0.0-0.4) X10*3/uL Baso # (Auto) 0.0 (0.0-0.2) X10*3/uL Abs Immat Gran (auto) 0.06 H (0.00-0.03) X10*3/uL Absolute Neuts (auto) 7.1 (2.0-8.3) x10*3/uL Absolute Nucleated RBC 0.000 (0.0-0.012) X10*3/uL Nucleated RBC % (auto) 0.0 (0.0-0.2) /100WBC PT 14.4 H (10.9-12.4) SEC INR 1.3 H (0.9-1.1) Sodium 142 (135-145) mmol/L Potassium 4.0 (3.3-5.1) mmol/L Chloride 106 (96-108) mmol/L Carbon Dioxide 26 (22-29) mmol/L Anion Gap 14 (12-20) BUN 14 (9-16) mg/dL Creatinine 0.85 (0.5-1.4) mg/dL Estim Creat Clear Calc 118.2 Estimated GFR > 60 Random Glucose 90 (60-115) mg/dL Calcium 8.7 D (8.4-10.2) mg/dL Independent Interpretation I performed an independent interpretation of an: Ultrasound (Positive DVT) Radiology Impression Discussion of test interpretation with radiology: I have reviewed the radiologist's reading. External Record Review External record reviewed: Inpatient record Chronic Conditions History of coronary artery disease Social Determinants Patient?s care significantly limited by Social Determinants of Health including: Problems related to primary support group Discharge Plan Discharge Clinical Impression: DVT (deep venous thrombosis) Patient Disposition: Home, Self-Care Instructions: Deep Vein Thrombosis (ED) Additional Instructions: Please get Doppler ultrasound repeated in 1 week. Please follow-up with vascular. Increasing shortness of breath come back. Prescriptions: New Mounakeyshawnelvi DVT-PE Treat 30D Start 5 mg (74 tabs) tablets,dose pack 5 mg PO BID Qty: 74 0RF No Action aspirin [Adult Aspirin Regimen] 81 mg tablet,delayed release (DR/EC) 81 mg PO DAILY Qty: 90 0RF Trelegy Ellipta 200-62.5-25 mcg blister with device 1 inh inhalation DAILY Qty: 60 0RF Rx Instructions: rinse mouth out with water after each use metoprolol succinate 25 mg tablet extended release 24 hr 75 mg PO DAILY 90 Days Qty: 270 3RF rosuvastatin 20 mg tablet 20 mg PO BEDTIME Qty: 90 1RF levothyroxine 25 mcg tablet 25 mcg PO DAILY Qty: 90 1RF lisinopril 5 mg tablet 5 mg PO DAILY 90 Days Qty: 90 3RF prednisone 20 mg tablet 40 mg PO QAM Qty: 10 0RF Referrals: Julio Broderick MD [Physician, Vascular Surgery] - 06/01/25 Print Language: Occitan
--- OUTSIDE RECORDS SUMMARY | 2025-05-28 20:00 | XMS_ITS | Patient Health Record ---
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 Name Role Phone JEANNETTE LEON Unavailable [phone] REZA REEVES Unavailable [phone] Allergies Allergen (clinical drug ingredient) Drug/Non Drug [...] W/U Status Risk Notes Problem Mixed hyperlipidemia (094351092) Mixed hyperlipidemia (E78.2) Active confirmed Problem Essential hypertension (27624951) Essential hypertension (I10) Active confirmed Problem Body mass index 40+ - morbidly obese (925150996) BMI 40.0-44.9, adult (Z68.41) Active confirmed Problem Obese class II (406520271715080) BMI 39.0-39.9,adult (Z68.39) Active confirmed Problem Adult-onset obesity (837251777) Adult-onset obesity (E66.9) Active confirmed Problem Chronic obstructive lung disease (79500210) COPD without exacerbation (J44.9) Active confirmed Problem Arteriosclerosis of coronary artery bypass graft (337653901) Coronary artery disease involving other coronary artery [...] Diagnosis [facility] [address] [place] [address] 09/09/2024 TALAL REEVES [facility] [address] [place], [place] 09/16/2024 TALAL REEVES [facility] [address] [place] [address] 09/23/2024 TALAL REEVES [facility] [address] [place] [address] 09/30/2024 TALAL REEVES [facility] [address] [place] [address] 10/07/2024 TALAL REEVES [facility] [address] [place] [address] 10/14/2024 TALAL REEVES [facility] [address] [place] [address] 10/21/2024 TALAL REEVES [facility] [address] [place] [address] 10/28/2024 TALAL REEVES [facility] [address] [place] [address] 12/16/2024 TALAL REEVES [facility] [address] [place] [address] 12/23/2024 TALAL REEVES [facility] [address] [place] [address] 12/30/2024 TALAL REEVES [facility] [address] [place] [address] 01/06/2025 TALAL REEVES [facility] [address] [place] [address] 01/13/2025 TALHEDY REEVES [facility] [address] [place] [address] 01/20/2025 DARNELLHEDY REEVES [facility] [address] [address] 08/29/2024 JEANNETTE LEON Adult-onset obesity E66.9 ; BMI 40.0-44.9, adult Z68.41 ; Essential hypertension I10 ; Mixed hyperlipidemia E78.2 ; Coronary artery disease involving other coronary artery bypass graft without angina pectoris I25.810 and COPD without exacerbation J44.9 [facility] [address] [address] 09/26/2024 JEANNETTE LEON Adult-onset obesity E66.9 ; BMI 40.0-44.9, adult Z68.41 ; Essential hypertension I10 ; Mixed hyperlipidemia E78.2 ; Coronary artery disease involving other coronary artery bypass graft without angina pectoris I25.810 and COPD without exacerbation J44.9 [facility] [address] [address] 10/24/2024 JEANNETTE LEON Adult-onset obesity E66.9 ; BMI 40.0-44.9, adult Z68.41 ; Essential hypertension I10 ; Mixed hyperlipidemia E78.2 ; Coronary artery disease involving other coronary artery bypass graft without angina pectoris I25.810 and COPD without exacerbation J44.9 [facility] [address] [address] 11/21/2024 JEANNETTE LEON Adult-onset obesity E66.9 ; BMI 40.0-44.9, adult Z68.41 ; Essential hypertension I10 ; Mixed hyperlipidemia E78.2 ; Coronary artery disease involving other coronary artery bypass graft without angina pectoris I25.810 and COPD without exacerbation J44.9 [facility] [address] [address] 12/19/2024 JEANNETTE LEON Adult-onset obesity E66.9 ; BMI 40.0-44.9, adult Z68.41 ; Essential hypertension I10 ; Mixed hyperlipidemia E78.2 ; Coronary artery disease involving other coronary artery bypass graft without angina pectoris I25.810 and COPD without exacerbation J44.9 [facility] [address] [facility] [address] [place] [address] 01/23/2025 JEANNETTE LEON Adult-onset obesity E66.9 ; BMI 40.0-44.9, adult Z68.41 ; Essential hypertension I10 ; Mixed hyperlipidemia E78.2 ; Coronary artery disease involving other coronary artery bypass graft without angina pectoris I25.810 ; COPD without exacerbation J44.9 ; Elevated vitamin B12 level R79.89 and Nutritional counseling Z71.[address] [facility] [address] [facility] [address] [place] [address] 03/06/2025 JEANNETTE LEON BMI 39.0-39.9,adult Z68.39 ; Adult-onset obesity E66.9 ; Essential hypertension I10 ; Mixed hyperlipidemia E78.2 ; Coronary artery disease involving other coronary artery bypass graft without angina pectoris I25.810 ; COPD without exacerbation J44.9 ; Elevated vitamin B12 level R79.89 and Nutritional counseling Z71.3 [facility] [address] [facility] [address] [place] [address] 08/29/2024 JEANNETTE LEON [facility] [address] [facility] [address] [place] [address] 03/09/2025 JEANNETTE LEON Assessments Encounter Date Diagnosis [...] management. Consider group exercises. Consider hiring a safety trainer. Regular exercise is mederos to sustainable health [...] counseling and psychiatry and Dr Mccall at [facility]. We would like to cover regular topics [...] Dictation was accomplished with the use of Elderscan voice recognition software, prone to medical misidentifications [...] mg in the office and received a [facility] injection. He will follow-up in [...] Consider using apps like 7 minute excercise, [employer], lose it, stick as needed for self-monitoring and weight management. Consider group exercises. Consider hiring a safety trainer. Regular exercise is mederos to sustainable health [...] counseling and psychiatry and Dr Mccall at [facility]. We would like to cover regular topics [...] Dictation was accomplished with the use of [employer] voice recognition software, prone to medical misidentifications [...] mg in the office and received a [facility] injection. He will follow-up in [...] Dictation was accomplished with the use of [employer] voice recognition software, which is prone to [...] mg in the office and [facility]. He will follow-up in the [...] Dictation was accomplished with the use of [employer] voice recognition software, which is prone to [...] mg in the office and received a [facility] injection. He will follow-up in [...] Dictation was accomplished with the use of [employer]ers[employer] voice recognition software, which is prone to [...] mg in the office and [facility]. He will follow-up in the [...] Dictation was accomplished with the use of [employer] voice recognition software, which is prone to [...] mg in the office and received a [facility] injection. He will follow-up in [...] Dictation was accomplished with the use of [employer] voice recognition software, which is prone to [...] Dictation was accomplished with the use of [employer] voice recognition software, which is prone to [...] mg in the office and received a [facility] injection. He will follow-up in [...] Dictation was accomplished with the use of [employer] voice recognition software, which is prone to [...] mg in the office and received a [facility] injection. He will follow-up in [...] Dictation was accomplished with the use of [employer] voice recognition software, which is prone to [...] mg in the office and received a [facility] injection. He will follow-up in [...] Dictation was accomplished with the use of [employer] voice recognition software, which is prone to [...] mg in the office and received a [facility] injection. He will follow-up in [...] Dictation was accomplished with the use of [employer] voice recognition software, which is prone to [...] Dictation was accomplished with the use of [employer] voice recognition software, which is prone to [...] mg in the office and received a [facility] injection. He will follow-up in [...] Dictation was accomplished with the use of [employer] voice recognition software, which is prone to [...] mg in the office and [facility]. He will follow-up in the [...] Dictation was accomplished with the use of [employer] voice recognition software, which is prone to [...] Dictation was accomplished with the use of [employer]ers[employer] voice recognition software, which is prone to [...] mg in the office and received a [facility] injection. He will follow-up in [...] Dictation was accomplished with the use of [employer] voice recognition software, which is prone to [...] Consider using apps like 7 minute excercise, [employer], lose it, stick as needed for self-monitoring and weight management. Consider group exercises. Consider hiring a safety trainer. Regular exercise is mederos to sustainable health [...] counseling and psychiatry and Dr Mccall at [facility]. We would like to cover regular topics [...] Dictation was accomplished with the use of [employer]can voice recognition software, prone to medical misidentifications [...] mg in the office and received a [facility] injection. He will follow-up in [...] Consider using apps like 7 minute excercise, [employer], lose it, stick as needed for self-monitoring and weight management. Consider group exercises. Consider hiring a safety trainer. Regular exercise is mederos to sustainable health [...] counseling and psychiatry and Dr Mccall at [facility]. We would like to cover regular topics [...] Dictation was accomplished with the use of [employer] voice recognition software, prone to medical misidentifications [...] mg in the office and received a [facility] injection. He will follow-up in [...] Dictation was accomplished with the use of [employer]ers[employer] voice recognition software, which is prone to [...] mg in the office and received a [facility] injection. He will follow-up in [...] Dictation was accomplished with the use of [employer] voice recognition software, which is prone to [...] mg in the office and received a [facility] injection. He will follow-up in [...] Dictation was accomplished with the use of [employer] voice recognition software, which is prone to [...] mg in the office and received a [facility] injection. He will follow-up in [...] Dictation was accomplished with the use of [employer]ers[employer] voice recognition software, which is prone to [...] mg in the office and received a [facility] injection. He will follow-up in [...] Dictation was accomplished with the use of [employer] voice recognition software, which is prone to [...] mg in the office and received a [facility] injection. He will follow-up in [...] Dictation was accomplished with the use of [employer]ers[employer] voice recognition software, which is prone to [...] mg in the office and received a [facility] injection. He will follow-up in [...] Dictation was accomplished with the use of [employer] voice recognition software, which is prone to [...] mg in the office and [facility]. He will follow-up in the [...] Dictation was accomplished with the use of [employer]ers[employer] voice recognition software, which is prone to [...] mg in the office and received a [facility] injection. He will follow-up in [...] Dictation was accomplished with the use of [employer] voice recognition software, which is prone to [...] mg in the office and received a [facility] injection. He will follow-up in [...] Dictation was accomplished with the use of [employer]ers[employer] voice recognition software, which is prone to [...] mg in the office and received a [facility] injection. He will follow-up in [...] Dictation was accomplished with the use of [employer] voice recognition software, which is prone to [...] mg in the office and received a [facility] injection. He will follow-up in [...] Dictation was accomplished with the use of Elderscan voice recognition software, which is prone to [...] Consider using apps like 7 minute excercise, [employer], lose it, stick as needed for self-monitoring and weight management. Consider group exercises. Consider hiring a safety trainer. Regular exercise is mederos to sustainable health [...] counseling and psychiatry and Dr Mccall at [facility]. We would like to cover regular topics [...] Dictation was accomplished with the use of Elderscan voice recognition software, prone to medical misidentifications [...] mg in the office and received a [facility] injection. He will follow-up in [...] Dictation was accomplished with the use of [employer] voice recognition software, which is prone to [...] mg in the office and received a [facility] injection. He will follow-up in [...] Consider using apps like 7 minute excercise, [employer], lose it, stick as needed for self-monitoring and weight management. Consider group exercises. Consider hiring a safety trainer. Regular exercise is mederos to sustainable health [...] counseling and psychiatry and Dr Mccall at [facility]. We would like to cover regular topics [...] Dictation was accomplished with the use of Elderscan voice recognition software, prone to medical misidentifications [...] mg in the office and received a [facility] injection. He will follow-up in [...] Dictation was accomplished with the use of [employer] voice recognition software, which is prone to [...] mg in the office and received a [facility] injection. He will follow-up in [...] Dictation was accomplished with the use of [employer]ers[employer] voice recognition software, which is prone to [...] Dictation was accomplished with the use of [employer]ers[employer] voice recognition software, which is prone to [...] mg in the office and received a [facility] injection. He will follow-up in [...] Dictation was accomplished with the use of [employer]ers[employer] voice recognition software, which is prone to [...] mg in the office and received a [facility] injection. He will follow-up in [...] Dictation was accomplished with the use of [employer]ers[employer] voice recognition software, which is prone to [...] mg in the office [facility]. He will follow-up in the [...] Dictation was accomplished with the use of [employer]ers[employer] voice recognition software, which is prone to [...] Dictation was accomplished with the use of [employer]ers[employer] voice recognition software, which is prone to [...] mg in the office and received a [facility] injection. He will follow-up in [...] Dictation was accomplished with the use of Elderscan voice recognition software, which is prone to [...] mg in the office and received a [facility] injection. He will follow-up in [...] Dictation was accomplished with the use of [employer]ers[employer] voice recognition software, which is prone to [...] mg in the office and received a [facility] injection. He will follow-up in [...] Dictation was accomplished with the use of [employer]ers[employer] voice recognition software, which is prone to [...] mg in the office and [facility]. He will follow-up in the [...] Dictation was accomplished with the use of Elderscan voice recognition software, which is prone to [...] Dictation was accomplished with the use of [employer]erscan voice recognition software, which is prone to [...] Insured Coverage Start Date Coverage End Date [facility] [address] [facility] [place] [id number] Rudi Trivedi Self - patient is the [...]
[2025-05-28 20:05] VITALS: BP 110/73; PULSE 78; RESP 16; TEMP 36.6; O2SAT 96
[2025-05-28 21:22] LABS: MANUAL DIFF FLAG NO
[2025-05-28 21:24] LABS: Hematocrit 40.1 % (42.0-52.0); Hemoglobin 13.8 g/dl (14.0-18.0); Imm Gran Abs Auto 0.06 X10*3/uL (0.00-0.03); Imm Gran Pct Auto 0.6 % (0.0-0.4); Lymphocytes Absolute Auto 2.1 X10*3/uL (1.2-4.9); Mean Corpuscular HGB Conc 34.4 g/dl (31.0-36.0); Mean Corpuscular Hemoglobin 30.7 pg (27.0-33.0); Mean Corpuscular Volume 89.1 fL (80.0-98.0); NRBC Abs Auto 0.000 X10*3/uL (0.0-0.012); NRBC Pct Auto 0.0 /100WBC (0.0-0.2); Platelet Count 140 X10*3/uL (160-400); Red Blood Count 4.50 X10*6/uL (4.60-5.80); White Blood Count 10.3 X10*3/uL (4.8-10.8)
[2025-05-28 21:30] LABS: INTERNATIONAL NORM RATIO 1.3 (0.9-1.1); Prothrombin Time 14.4 SEC (10.9-12.4)
[2025-05-28 21:38] LABS: Anion Gap 14 (12-20); Blood Urea Nitrogen 14 mg/dL (9-16); Calcium 8.7 mg/dL (8.4-10.2); Carbon Dioxide 26 mmol/L (22-29); Chloride 106 mmol/L (96-108); Creatinine Clr Calc Pharmacy 118.2; Estimated Glomerular Filt Rate > 60; Potassium 4.0 mmol/L (3.3-5.1); Sodium 142 mmol/L (135-145)
[2025-05-28 22:18] VITALS: BP 109/67; PULSE 76; RESP 16; TEMP 36.9; O2SAT 94
[2025-05-28 23:11] VITALS: BP 109/67; PULSE 76; RESP 16; TEMP 36.9; O2SAT 94
== END 2025-05-28 23:12 | disposition home or self-care (01) ==
PROVIDERS: Emergency Provider Emergency Medicine Emergency Medical Services; PCP Nurse Practitioner Family
DX: I82.432 Acute embolism and thrombosis of left popliteal vein (principal); M79.605 Pain in left leg
CPT/HCPCS: 36415; 80048; 85025; 85610; 93971; 99284

== ENCOUNTER → 2025-05-28 17:02 | Outpatient (BNV) | payer OTHER, SELFPAY | PROVIDERS: PCP Nurse Practitioner Family; Visit Provider Radiology Diagnostic Radiology | DX: I82.432 Acute embolism and thrombosis of left popliteal vein (principal) | CPT/HCPCS: 93971 ==

== ENCOUNTER 2025-05-30 10:13 | Outpatient (AMB) | payer OTHER, SELFPAY ==
--- OUTSIDE RECORDS SUMMARY | 2025-01-13 07:00 | XMS_ITS ---
Author Organization [facility] Address [address] [place] [address] Care Team Providers Care It Quality Analyst Name Role Phone JEANNETTE LEON Unavailable [phone] KELVIN REEVES Unavailable [phone] REASON FOR VISIT pt here for micc [...] Active Encounters Encounter Location Date Provider Diagnosis [facility] [address] [place] [address] 01/13/2025 KELVIN REEVES Plan Of Treatment No Information Medications Administered Medication Instructions Date of Administration Dosage Notes MICC B12 INJECTION 01/13/2025 Progress Notes * Rudi TRIVEDIDOB:1965 (60 yo M)Acc No.[id number]:01/13/2025 Progress Note Patient: Rudi HERNANDEZ Provider: Dayne Reeves MD :1965 A ge:59 Y S ex:Male Date:01/13/2025 Address:[address], [place] Subjective: * Chief Complaints: * 1 . [...] Electronic signature of JOCE REEVES MD on 05/30/2025 at 12:24 PM EDT Sign off status: Pending * Provider: Dayne Reeves MD Date: 0 01/13/2025 Generated for Roverto lopez/Edith/Cecily on: 0 05/30/2025 12:24 PM EDT
--- OUTSIDE RECORDS SUMMARY | 2025-01-20 07:15 | XMS_ITS ---
Author Organization [facility] [address] Address [address] [place] [address] Care Team Providers Care Wind Energy Systems Installer Name Role Phone JEANNETTE LEON Unavailable [phone] KELVIN REEVES Unavailable [phone] REASON FOR VISIT pt here for a [...] Active Encounters Encounter Location Date Provider Diagnosis [facility] [address] [place] [address] 01/20/2025 KELVIN REEVES Plan Of Treatment No Information Medications Administered Medication Instructions Date of Administration Dosage Notes MICC B12 INJECTION 01/20/2025 1 mL Progress Notes * Rudi TRIVEDIDOB:1965 (60 yo M)Acc No.[id number]:01/20/2025 Progress Note Patient: Rudi HERNANDEZ Provider: Dayne Reeves MD :1965 A ge:59 Y S ex:Male Date:01/20/2025 Address:[address], [place] Subjective: * Chief Complaints: * 1 . [...] of JOCE REEVES MD on 05/30/2025 at 12:25 PM EDT Sign off status: Pending * Provider: Dayne Reeves MD Date: 0 01/20/2025 Generated for Roverto lopez/Edith/Cecily on: 0 05/30/2025 12:25 PM EDT
--- OUTSIDE RECORDS SUMMARY | 2025-04-17 09:00 | XMS_ITS ---
Author Organization [facility] [address] Address [address] [place] [address] Care Team Providers Care Duplicating Machine Servicer Name Role Phone JEANNETTE LEON [phone] Encounters Encounter Location Date Provider Diagnosis [facility] [address] [address] 04/17/2025 JEANNETTE LEON Plan Of Treatment No Information Progress Notes * Rudi TRIVEDIDOB:1965 (60 yo M)Acc No.[id number]:04/17/2025 Patient: Jean Rudi BARILLAS Provider: Lu LEON :1965 A ge:60 Y S ex:Male Date:04/17/2025 Address: [address], [id number] Subjective: * Chief Complaints: * * Medical History: Objective: * Vitals: Assessment: Plan: * Treatment: * Images: Billing Information: * Visit Code: * Procedure Codes: * Electronic signature of DAMIR LEON PA-C, [id number] on 05/30/2025 at 12:25 PM EDT Sign off status: Pending * Provider: Lu LEON Date: 0 04/17/2025 Generated for Roverto lopez/Edith/eTransmitting on: 0 05/30/2025 12:25 PM EDT
--- NOTE | 2025-05-30 10:20 | A.OFFVIS_ITS ---
Vital Signs 05/30/25 10:21 Height 5 ft 10 in Weight 251 lb 5.231 oz BMI 36.1 BP 116/62 Blood Pressure Location Lt brachial Position Sitting Pulse 74 Pulse Source Monitor Intake Visit Reasons: 6 mth f/up echo Allergies amoxicillin Allergy (Unknown, Verified 05/28/25 17:03) anaphylaxis Medication List - Last Reconciled 05/30/25 by Jamaal Fisher MD apixaban (Eliquis) 5 mg PO BID aspirin (Adult Aspirin Regimen) 81 mg PO DAILY pgfmciobudd-nhpuuvgxu-ahjshzhf 200-62.5-25 mcg (Trelegy Ellipta) 1 inh inhalation DAILY levothyroxine 25 mcg PO DAILY lisinopril 5 mg PO DAILY 90 days metoprolol succinate ER 75 mg (3 x 25 mg) PO DAILY 90 days rosuvastatin 20 mg PO BEDTIME HPI Comments Details: Rudi returns for follow-up regarding coronary disease and cardiomyopathy. To recall, in 2022, he underwent a routine echocardiogram and that showed severe LV dysfunction. Then underwent cardiac catheterization showing multivessel coronary artery disease leading to coronary artery bypass surgery. From the cardiac, he has had no new issues. No clear-cut angina or any other cardiac symptoms. It seems that he got diagnosed with a DVT and has been put on Eliquis. [facility] Medical History Obesity (BMI 30-39.9) Hyperlipemia History of myocardial infarction Nicotine dependence, cigarettes, uncomplicated Sensorineural hearing loss (SNHL) of both ears CAD (coronary artery disease) Surgical History S/P CABG x 4 (~2022) History of heart artery stent (~2005) Family History Unknown No problems noted. Father Aorta aneurysm Social History Housing: House Alcohol intake: never Patient Tobacco Use Status: Former Tobacco user Cigarettes Per Day: 8 Years Smoked: (onset 19yo, 1/2-1ppd x 38yrs, 30pyh) e-Cigarette/Vaping Use: Never Used Second Hand Smoke Exposure: No service: No Current occupational status: employed Current occupation: [employer] Current occupational exposures/hazards: Yes Cognitive needs: No Hearing needs: No Vision needs: No Review of Systems Const Denies weakness ENT Denies dizziness Card Denies chest pain, Denies chest pain with activity, Denies syncope, Denies rapid heart rate, Denies pedal edema, Denies edema, Denies leg edema, Denies lightheadedness, Denies palpitations, Denies dyspnea, Denies dyspnea on exertion and Denies orthopnea Resp Denies cough, Denies dyspnea and Denies dyspnea on exertion GI Denies hematochezia and Denies change in stool character Musc Denies abnormal gait, Denies muscle cramps, Denies muscle weakness, Denies numbness, Denies radiating pain into limb and Denies tingling Neuro Denies abnormal gait, Denies dizziness, Denies syncope, Denies numbness, Denies tingling and Denies weakness Endo Denies palpitations Physical Exam Vital Signs: Last Vital Signs Pulse 74 05/30/25 10:21 BP 116/62 05/30/25 10:21 BMI result Body Mass Index 36.1 Const General: comfortable and no acute distress Orientation/consciousness: patient oriented x3 HEENT Other: Unremarkable Head: Yes normal to inspection Neck Neck: Yes normal visual inspection Chest Chest palpation & inspection: normal inspection of the chest Resp Auscultation: clear to auscultation bilaterally Cardio Palpation: normal PMI Heart sounds: S1 normal heart sound present, S2 normal heart sound present, no gallops, no murmurs and no rubs GI Palpation (GI): Soft to palpation Back/Spine/Pelvis Other: unremarkable Skin General skin exam: no rashes or lesions noted Neuro General: patient oriented x3 Extrem General: Yes normal to inspection Psych Mental Status: mental status grossly normal Office Procedures EKG Details: EKG with underlying sinus rhythm at 74/Min; inferior and anterolateral T inversions. Normal MS and corrected QT. similar to prior. 13889-[id number], Complete Assessment & Plan Assessment & Plan (1) CAD (coronary artery disease): Comment: (2 stents age 41, CABG x 4 age 58) Code(s): I25.10 - Atherosclerotic heart disease of [place] coronary artery without angina pectoris Category: Medical Qualifiers: Associated angina: with other forms of angina Coronary Disease- Associated Artery/Lesion type: [place] artery [place] vs. transplanted heart: [place] heart Qualified Code(s): I25.118 - Atherosclerotic heart disease of [place] coronary artery with other forms of angina pectoris Plan: Cardiac catheterization with severe multivessel disease. Now status post coronary artery bypass surgery from 07/2023. Continue aspirin, beta-blockers and statins. Last LDL cholesterol 51 mg/dL. Triglycerides 90 mg/dL. (2) Cardiomyopathy: Code(s): I42.9 - Cardiomyopathy, unspecified Category: Medical Qualifiers: Cardiomyopathy type: unspecified Qualified Code(s): I42.9 - Cardiomyopathy, unspecified Plan: Initial echocardiogram with LVEF of 28%. In the most recent echocardiogram, LVEF is 40-50%. No symptoms or signs of congestive heart failure. (3) Obesity: Code(s): E66.9 - Obesity, unspecified Category: Medical Plan: Seems weight was as much as 285 lb in the past but currently around 250 lb. He is still needs to lose weight. We discussed about this today. Plan Total time spent including review of data, counseling, documentation, coordination of care-35 minutes. Coding Level of Care Code Est Pt Level 4 (26875) Complex EM visit Add On G2211 Diagnoses Coronary artery disease involving [place] coronary artery of [place] heart with other form of angina pectoris I25.118 Associated angina: with other forms of angina Coronary Disease-Associated Artery/Lesion type: [place] artery [place] vs. transplanted heart: [place] heart Cardiomyopathy, unspecified type I42.9 Cardiomyopathy type: unspecified Obesity E66.9 CPT Codes EKG - CPT: 70225-Yysmwawmveegclwas, Complete ([id number])
[2025-05-30 10:21] VITALS: BP 116/62; PULSE 74; BMI 36.1
--- OUTSIDE RECORDS SUMMARY | 2025-05-30 12:25 | XMS_ITS | Patient Health Record ---
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 Role Phone JEANNETTE LEON Unavailable [phone] REZA REEVES Unavailable [phone] Allergies Allergen (clinical drug ingredient) Drug/Non Drug [...] W/U Status Risk Notes Problem Mixed hyperlipidemia (444756386) Mixed hyperlipidemia (E78.2) Active confirmed Problem Essential hypertension (68285002) Essential hypertension (I10) Active confirmed Problem Body mass index 40+ - morbidly obese (023118861) BMI 40.0-44.9, adult (Z68.41) Active confirmed Problem Obese class II (405120178694337) BMI 39.0-39.9,adult (Z68.39) Active confirmed Problem Adult-onset obesity (808977103) Adult-onset obesity (E66.9) Active confirmed Problem Chronic obstructive lung disease (85579977) COPD without exacerbation (J44.9) Active confirmed Problem Arteriosclerosis of coronary artery bypass graft (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) Coronary artery disease involving other coronary artery [...] Diagnosis [facility] [address] [place] [address] 09/09/2024 TALAL REEVES [facility] [address] [place], [place] 09/16/2024 TALAL REEVES [facility] [address] [place] [address] 09/23/2024 TALAL REEVES [facility] [address] [place] [address] 09/30/2024 TALAL REEVES [facility] [address] [place] [address] 10/07/2024 TALAL REEVES [facility] [address] [place] [address] 10/14/2024 TALAL REEVES [facility] [address] [place] [address] 10/21/2024 TALAL REEVES [facility] [address] [place] [address] 10/28/2024 TALAL REEEVS [facility] [address] [place] [address] 12/16/2024 TALAL REEVES [facility] [address] [place] [address] 12/23/2024 TALAL REEVES [facility] [address] [place] [address] 12/30/2024 TALAL REEVES [facility] [address] [place] [address] 01/06/2025 TALAL REEVES [facility] [address] [place] [address] 01/13/2025 TALHEDY REEVES [facility] [address] [place] [address] 01/20/2025 DARNELLHEDY REEVES [facility] [address] [address] 08/29/2024 JEANNETTE LEON Adult-onset obesity E66.9 ; BMI 40.0-44.9, adult Z68.41 ; Essential hypertension I10 ; Mixed hyperlipidemia E78.2 ; Coronary artery disease involving other coronary artery bypass graft without angina pectoris I25.810 and COPD without exacerbation J44.9 [facility] [address] [address] 09/26/2024 JEANNETTE LEON Adult-onset obesity E66.9 ; BMI 40.0-44.9, adult Z68.41 ; Essential hypertension I10 ; Mixed hyperlipidemia E78.2 ; Coronary artery disease involving other coronary artery bypass graft without angina pectoris I25.810 and COPD without exacerbation J44.9 [facility] [address] [address] 10/24/2024 JEANNETTE LEON Adult-onset obesity E66.9 ; BMI 40.0-44.9, adult Z68.41 ; Essential hypertension I10 ; Mixed hyperlipidemia E78.2 ; Coronary artery disease involving other coronary artery bypass graft without angina pectoris I25.810 and COPD without exacerbation J44.9 [facility] [address] [address] 11/21/2024 JEANNETTE LEON Adult-onset obesity E66.9 ; BMI 40.0-44.9, adult Z68.41 ; Essential hypertension I10 ; Mixed hyperlipidemia E78.2 ; Coronary artery disease involving other coronary artery bypass graft without angina pectoris I25.810 and COPD without exacerbation J44.9 [facility] [address] [address] 12/19/2024 JEANNETTE LEON Adult-onset obesity E66.9 ; BMI 40.0-44.9, adult Z68.41 ; Essential hypertension I10 ; Mixed hyperlipidemia E78.2 ; Coronary artery disease involving other coronary artery bypass graft without angina pectoris I25.810 and COPD without exacerbation J44.9 [facility] [address] [facility] [address] [place] [address] 01/23/2025 JEANNETTE LEON Adult-onset obesity E66.9 ; BMI 40.0-44.9, adult Z68.41 ; Essential hypertension I10 ; Mixed hyperlipidemia E78.2 ; Coronary artery disease involving other coronary artery bypass graft without angina pectoris I25.810 ; COPD without exacerbation J44.9 ; Elevated vitamin B12 level R79.89 and Nutritional counseling Z71.[address] [facility] [address] [facility] [address] [place] [address] 03/06/2025 JEANNETTE LEON BMI 39.0-39.9,adult Z68.39 ; Adult-onset obesity E66.9 ; Essential hypertension I10 ; Mixed hyperlipidemia E78.2 ; Coronary artery disease involving other coronary artery bypass graft without angina pectoris I25.810 ; COPD without exacerbation J44.9 ; Elevated vitamin B12 level R79.89 and Nutritional counseling Z71.3 [facility] [address] [facility] [address] [place] [address] 08/29/2024 JEANNETTE LEON [facility] [address] [facility] [address] [place] [address] 03/09/2025 JEANNETTE LEON Assessments Encounter Date Diagnosis [...] management. Consider group exercises. Consider hiring a sports medicine trainer. Regular exercise is mederos to sustainable [...] counseling and psychiatry and Dr Mccall at [facility]. We would like to cover regular topics [...] Dictation was accomplished with the use of Xtime voice recognition software, prone to medical misidentifications [...] Consider using apps like 7 minute excercise, [employer], lose it, stick as needed for self-monitoring and weight management. Consider group exercises. Consider hiring a sports medicine trainer. Regular exercise is mederos to sustainable [...] counseling and psychiatry and Dr Mccall at [facility]. We would like to cover regular topics [...] Dictation was accomplished with the use of Xtime voice recognition software, prone to medical misidentifications [...] Dictation was accomplished with the use of Xtime voice recognition software, which is prone to [...] in the office and received a [facility]. He will follow-up in [...] Dictation was accomplished with the use of Xtime voice recognition software, which is prone to [...] in the office and received a [facility]. He will follow-up in [...] Dictation was accomplished with the use of Xtime voice recognition software, which is prone to [...] in the office and received a [facility]. He will follow-up in [...] Dictation was accomplished with the use of Xtime voice recognition software, which is prone to [...] Dictation was accomplished with the use of Xtime voice recognition software, which is prone to [...] in the office and received a [facility] injection. He will follow-up in [...] Dictation was accomplished with the use of Xtime voice recognition software, which is prone to [...] in the office and received a [facility]. He will follow-up in [...] Dictation was accomplished with the use of Xtime voice recognition software, which is prone to [...] Dictation was accomplished with the use of Xtime voice recognition software, which is prone to [...] Dictation was accomplished with the use of Xtime voice recognition software, which is prone to [...] Dictation was accomplished with the use of Xtime voice recognition software, which is prone to [...] Dictation was accomplished with the use of Xtime voice recognition software, which is prone to [...] Dictation was accomplished with the use of Xtime voice recognition software, which is prone to [...] Dictation was accomplished with the use of Xtime voice recognition software, which is prone to [...] Dictation was accomplished with the use of Xtime voice recognition software, which is prone to [...] Dictation was accomplished with the use of Xtime voice recognition software, which is prone to [...] Consider using apps like 7 minute excercise, [employer], lose it, stick as needed for self-monitoring and weight management. Consider group exercises. Consider hiring a sports medicine trainer. Regular exercise is mederos to sustainable [...] counseling and psychiatry and Dr Mccall at [facility]. We would like to cover regular topics [...] Dictation was accomplished with the use of Xtime voice recognition software, prone to medical misidentifications [...] Consider using apps like 7 minute excercise, [employer], lose it, stick as needed for self-monitoring and weight management. Consider group exercises. Consider hiring a sports medicine trainer. Regular exercise is mederos to sustainable [...] counseling and psychiatry and Dr Mccall at [facility]. We would like to cover regular topics [...] Dictation was accomplished with the use of Xtime voice recognition software, prone to medical misidentifications [...] Dictation was accomplished with the use of Xtime voice recognition software, which is prone to [...] Dictation was accomplished with the use of Xtime voice recognition software, which is prone to [...] Dictation was accomplished with the use of Xtime voice recognition software, which is prone to [...] Dictation was accomplished with the use of Xtime voice recognition software, which is prone to [...] Dictation was accomplished with the use of Xtime voice recognition software, which is prone to [...] Dictation was accomplished with the use of Xtime voice recognition software, which is prone to [...] Dictation was accomplished with the use of Xtime voice recognition software, which is prone to [...] Dictation was accomplished with the use of Xtime voice recognition software, which is prone to [...] Dictation was accomplished with the use of Xtime voice recognition software, which is prone to [...] Dictation was accomplished with the use of Xtime voice recognition software, which is prone to [...] Dictation was accomplished with the use of Xtime voice recognition software, which is prone to [...] in the office and received a [facility] injection. He will follow-up in [...] Dictation was accomplished with the use of Xtime voice recognition software, which is prone to [...] Consider using apps like 7 minute excercise, [employer], lose it, stick as needed for self-monitoring and weight management. Consider group exercises. Consider hiring a sports medicine trainer. Regular exercise is mederos to sustainable [...] counseling and psychiatry and Dr Mccall at [facility]. We would like to cover regular topics [...] Dictation was accomplished with the use of Xtime voice recognition software, prone to medical misidentifications [...] Dictation was accomplished with the use of Xtime voice recognition software, which is prone to [...] Consider using apps like 7 minute excercise, [employer], lose it, stick as needed for self-monitoring and weight management. Consider group exercises. Consider hiring a sports medicine trainer. Regular exercise is mederos to sustainable [...] counseling and psychiatry and Dr Mccall at [facility]. We would like to cover regular topics [...] Dictation was accomplished with the use of Xtime voice recognition software, prone to medical misidentifications and grammatical errors. This is unintentional and the practitioner does try to identify and correct these, but some could still be present. Please do not hesitate to contact practitioner for clarification. All questions answered to patients satisfaction. Patient verbalized understanding of diagnosis and treatments explained. To call sooner prior to next visit it any questions/concerns arise. 11/21/2024 Coronary artery disease involving other coronary [...] Dictation was accomplished with the use of Xtime voice recognition software, which is prone to [...] Dictation was accomplished with the use of Xtime voice recognition software, which is prone to [...] Dictation was accomplished with the use of Xtime voice recognition software, which is prone to [...] in the office and received a [facility] injection. He will follow-up in [...] Dictation was accomplished with the use of Xtime voice recognition software, which is prone to medical misidentifications and grammatical errors. This are unintentional and the practitioner does try to identify and correct these, but some could still be present. Please do not hesitate to contact practitioner for clarification. 10/24/2024 Coronary artery disease involving other coronary [...] Dictation was accomplished with the use of Xtime voice recognition software, which is prone to [...] in the office and received a [facility] injection. He will follow-up in [...] Dictation was accomplished with the use of Xtime voice recognition software, which is prone to [...] Dictation was accomplished with the use of Xtime voice recognition software, which is prone to [...] Dictation was accomplished with the use of Xtime voice recognition software, which is prone to [...] Dictation was accomplished with the use of Xtime voice recognition software, which is prone to [...] Dictation was accomplished with the use of Xtime voice recognition software, which is prone to [...] in the office and received a [facility]. He will follow-up in [...] Dictation was accomplished with the use of Xtime voice recognition software, which is prone to [...] Dictation was accomplished with the use of Xtime voice recognition software, which is prone to [...] Insured Coverage Start Date Coverage End Date [facility] [address] [facility] [place] [address] [phone] [id number] Rudi Trivedi Self - patient is the [...]
== END 2025-05-30 10:49 | disposition home or self-care (01) ==
LOC: HO.HCS 10:14
PROVIDERS: PCP Nurse Practitioner Family; Visit Provider Internal Medicine
DX: I25.118 Atherosclerotic heart disease of native coronary artery with other forms of angina pectoris (principal); I42.9 Cardiomyopathy, unspecified; E66.9 Obesity, unspecified
CPT/HCPCS: 93010; 99214; G2211

== ENCOUNTER → 2025-05-30 10:13 | Outpatient (BNVA) | payer OTHER, SELFPAY | PROVIDERS: PCP Nurse Practitioner Family; Visit Provider Internal Medicine | DX: I25.118 Atherosclerotic heart disease of native coronary artery with other forms of angina pectoris (principal); I42.9 Cardiomyopathy, unspecified; E66.9 Obesity, unspecified; R94.31 Abnormal electrocardiogram [ECG] [EKG]; Z68.36 Body mass index [BMI] 36.0-36.9, adult | CPT/HCPCS: 93005 ==

== ENCOUNTER 2025-05-31 10:33 | Outpatient (AMB) | payer OTHER, SELFPAY ==
[2025-05-31 10:49] VITALS: BP 118/72; PULSE 83; RESP 18; TEMP 36.9; O2SAT 94; BMI 36.2
--- NOTE | 2025-05-31 10:49 | A.OFFPC_ITS ---
Vital Signs 05/31/25 10:49 Height 5 ft 10 in Weight 252 lb BMI 36.2 BP 118/72 Blood Pressure Location Lt brachial Position Sitting Respiration 18 Pulse 83 Pulse Source Pulse Oximeter Temp 98.4 F Temp Source Oral Pulse Oximetry (%) 94 Oxygen Delivery Method Room Air Intake Visit Reasons: follow up Allergies amoxicillin Allergy (Unknown, Verified 05/31/25 10:50) anaphylaxis Tobacco use date assessed: 05/31/25 Dental Screening Dental Screen Date: 09/25/24 HPI HPI Comments History of Present Illness Details Patient is a 60-year-old male here for a emergency room discharge follow-up. He went to the emergency department on May 28 complaining of left lower extremity swelling and pain, he had a LE US which was Positive for deep vein thrombosis in the left popliteal vein, gastrocnemius vein, peroneal and posterior tibial veins. He was started on Eliquis twice daily x7 days then BID and told to have a repeat ultrasound in one week or return to ED if shortness of breath occurs. Today, he tells me he has been taking his Eliquis as prescribed, has a follow up with Vascular Surgery and his leg swelling and pain have improved. He denies any shortness of breath or heart racing. Physical Exam General: Cooperative, healthy appearing, comfortable, no acute distress and well developed Orientation: Patient oriented x3 Limitations: No limitations Head: Normal to inspection Ears: Hearing grossly normal bilaterally Nose: Normal External nose present Face and sinus: Normal facial exam Mouth: normal, moist oral mucosa Eyes: Appearance normal, both eyes and all related structures Neck: Normal visual inspection and Yes full ROM Respiratory: Normal respiratory effort and able to speak in complete sentences. Skin: no rashes or lesions noted Neuro: Patient oriented x3 Extremities: moving all extremities normally, but left leg significantly edema, TTP. [facility] Medical History Obesity (BMI 30-39.9) Hyperlipemia History of myocardial infarction Nicotine dependence, cigarettes, uncomplicated Sensorineural hearing loss (SNHL) of both ears CAD (coronary artery disease) Surgical History S/P CABG x 4 (~2022) History of heart artery stent (~2005) Family History Unknown No problems noted. Father Aorta aneurysm Social History Housing: House Alcohol intake: never Patient Tobacco Use Status: Former Tobacco user Cigarettes Per Day: 8 Years Smoked: (onset 19yo, 1/2-1ppd x 38yrs, 30pyh) Packs per year/per ci.00 e-Cigarette/Vaping Use: Never Used Second Hand Smoke Exposure: No service: No Current occupational status: employed Current occupation: [employer] Current occupational exposures/hazards: Yes Cognitive needs: No Hearing needs: No Vision needs: No Questionnaire PHQ-9 Over the last 2 weeks, how often have you been bothered by any of the following problems? Depression Screening Interpretation: Negative Depression Screening Done: Yes Source: Developed by Drs. Rock Guevara, Sana Freeman, Cody Mcwilliams and colleagues, with an educational otis from [employer]. Thrive Questionnaire Date Thrive assessed: 09/25/24 I am a: Patient What is your living situation today?: I have a steady place to live Within the past 12 months, did the food you bought not last and you didn't have the money to get more?: Never true Within the past 12 months, did you worry whether your food would run out before you got money to buy more?: Never true Do you have trouble paying for medicines?: No Do you have trouble getting transportation to medical appointments?: No Do you have trouble paying your heating and electricity bill?: No Do you have trouble taking care of your child, family member or friend?: No Do you have trouble with day-to-day activities such as bathing, preparing meals, shopping, managing finances, etc.?: No Are you currently unemployed and looking for a job?: No Are you interested in more education?: No Please select the resources that you would like help with: None Currently or been in a relationship where the following occur: No concerns reported THRIVE Score: 0 AUDIT C Alcohol Use Questionnaire (AUDIT-C) 2. How many drinks containing alcohol do you have on a typical day when you are drinking?: 1 or 2 3. How often do you have six or more drinks on one occasion?: Never Total Score: 0 CHRISTIANNE-7 AMB Questionnaire CHRISTIANNE-7 Date CHRISTIANNE - 7 assessed: 01/24/25 Source: Developed by Drs. Rock Guevara, Sana Freeman, Cody Mcwilliams and colleagues, with an educational otis from [employer]. Review of Systems Const All systems reviewed & are unremarkable except as noted in HPI and below Physical exam (Primary Care) Vital Signs: Last Vital Signs Temp 98.4 F 05/31/25 10:49 Pulse 83 05/31/25 10:49 Resp 18 05/31/25 10:49 BP 118/72 05/31/25 10:49 Pulse Ox 94 05/31/25 10:49 Oxygen Delivery Method Room Air 05/31/25 10:49 BMI result Body Mass Index 36.2 Tobacco/Smoking Status: Tobacco use Status Tobacco use date assessed 05/31/25 05/31/25 10:51 Patient Tobacco Use Status Former Tobacco user 05/31/25 10:51 e-Cigarette/Vaping Use Never Used 05/31/25 10:51 Depression Screening Interpretation: Negative Thrive Assessment: Date of Thrive Assessment Date Thrive assessed 09/25/24 05/31/25 10:51 Currently or been in a relationship where the following occur: No concerns reported Coding Level of Care Code Est Pt Level 4 (27594) Diagnoses Acute deep vein thrombosis (DVT) of popliteal vein of left lower extremity I82.432 Affected thrombotic vein of extremity: popliteal Chronicity: acute DVT location: lower extremity Laterality: left Assessment & Plan Assessment & Plan (1) DVT (deep venous thrombosis): Code(s): I82.409 - Acute embolism and thrombosis of unspecified deep veins of unspecified lower extremity Category: Medical Qualifiers: Affected thrombotic vein of extremity: popliteal Chronicity: acute DVT location: lower extremity Laterality: left Qualified Code(s): I82.432 - Acute embolism and thrombosis of left popliteal vein Plan: Plan Patient was informed and verbally consented to the use of an ambient scribe for clinic note documentation during this visit Unprovoked Left sided Deep Vein Thrombosis - The patient is on Eliquis 5 mg twice daily, initially two tablets twice daily for seven days, then one tablet twice daily. - Follow-up ultrasound has been ordered to assess the clot's status as per Vascular surgery. Referral sent. - Referred to Heme/Onc for unprovoked DVT workup as per discussion with PCP. - The patient is advised to monitor for symptoms such as shortness of breath and to seek immediate medical attention if they occur. - Pain management with Tylenol as needed. - Monitoring of swelling and pain progression. Orders: Referrals Vascular Surgery Referral I82.409 - Acute embolism and thrombosis of unspecif ied deep veins of unspecified lower extremity Hematology & Oncology Referral I82.409 - Acute embolism and thrombosis of unspecified deep veins of unspecified lower extremity
== END 2025-05-31 12:42 | disposition home or self-care (01) ==
LOC: HO.HMCC 10:34
PROVIDERS: PCP Nurse Practitioner Family; Visit Provider Physician Assistant
DX: I82.432 Acute embolism and thrombosis of left popliteal vein (principal)

== ENCOUNTER 2025-06-06 06:56 | Outpatient (REF) | payer OTHER, SELFPAY ==
--- OUTSIDE RECORDS SUMMARY | 2025-01-13 07:00 | XMS_ITS ---
Author Organization [facility] Address [address] [place] [address] Care Team Providers Care Blind Installer Name Role Phone JEANNETTE LEON Unavailable [phone] KELVIN REEVES Unavailable [phone] REASON FOR VISIT pt here for micc [...] Active Encounters Encounter Location Date Provider Diagnosis [facility] [address] [place] [address] 01/13/2025 KELVIN REEVES Plan Of Treatment No Information Medications Administered Medication Instructions Date of Administration Dosage Notes MICC B12 INJECTION 01/13/2025 Progress Notes * Rudi TRIVEDIDOB:1965 (60 yo M)Acc No.[id number]:01/13/2025 Progress Note Patient: Rudi HERNANDEZ Provider: Dayne Reeves MD :1965 A ge:59 Y S ex:Male Date:01/13/2025 Address:[address], [place] Subjective: * Chief Complaints: * 1 . [...] Electronic signature of JOCE REEVES MD on 06/06/2025 at 06:58 AM EDT Sign off status: Pending * Provider: Dayne Reeves MD Date: 0 01/13/2025 Generated for Roverto lopez/Edith/Cecily on: 0 06/06/2025 06:58 AM EDT
--- OUTSIDE RECORDS SUMMARY | 2025-01-20 07:15 | XMS_ITS ---
Author Organization [facility] [address] Address [address] [place] [address] Care Team Providers Care Milk Route Supervisor Name Role Phone JEANNETTE LEON Unavailable [phone] KELVIN REEVES Unavailable [phone] REASON FOR VISIT pt here for a [...] Active Encounters Encounter Location Date Provider Diagnosis [facility] [address] [place] [address] 01/20/2025 KELVIN REEVES Plan Of Treatment No Information Medications Administered Medication Instructions Date of Administration Dosage Notes MICC B12 INJECTION 01/20/2025 1 mL Progress Notes * Rudi TRIVEDIDOB:1965 (60 yo M)Acc No.[id number]:01/20/2025 Progress Note Patient: Rudi HERNANDEZ Provider: Dayne Reeves MD :1965 A ge:59 Y S ex:Male Date:01/20/2025 Address:[address], [place] Subjective: * Chief Complaints: * 1 . [...] 01/20/2025 Generated for Roverto lopez/Edith/Cecily on: 0 06/06/2025 06:58 AM EDT
--- OUTSIDE RECORDS SUMMARY | 2025-04-17 09:00 | XMS_ITS ---
Author Organization [facility] [address] Address [address] [place] [address] Care Team Providers Care Vault Cashier Name Role Phone JEANNETTE LEON [phone] Encounters Encounter Location Date Provider Diagnosis [facility] [address] [address] 04/17/2025 JEANNETTE LEON Plan Of Treatment No Information Progress Notes * Rudi TRIVEDIDOB:1965 (60 yo M)Acc No.[id number]:04/17/2025 Patient: Jean Rudi BARILLAS Provider: Lu LEON :1965 A ge:60 Y S ex:Male Date:04/17/2025 Address: [address], [id number] Subjective: * Chief Complaints: * * Medical History: Objective: * Vitals: Assessment: Plan: * Treatment: * Images: Billing Information: * Visit Code: * Procedure Codes: * Electronic signature of DAMIR LEON PA-C, [id number] on 06/06/2025 at 06:58 AM EDT Sign off status: Pending * Provider: Lu LEON Date: 0 04/17/2025 Generated for Roverto lopez/Edith/eTransmitting on: 06/06/2025 06:58 AM EDT
--- NOTE | ~2025-06-06 | US_ITS ---
EXAMINATION: US TRIPLEX LOWER EXTREMITY, LEFT CLINICAL INFORMATION: Known DVT left lower extremity, anticoagulated. COMPARISON: 05/28/2025. TECHNIQUE: Color-flow triplex imaging with spectral analysis and compression Doppler were performed on the left lower extremity. FINDINGS: There is essentially unchanged noncompressible thrombus again noted in the left popliteal vein, extending into the proximal gastroc vein, the tibioperoneal trunk, and into the peroneal vein proximal to distal and posterior tibial vein proximal to distal. The common femoral vein, and superficial femoral vein are patent. There is no Nur's cyst. US/US venous duplex LE LT IMPRESSION: Known DVT of the left lower extremity without change. Electronically signed by: Ismael Snow MD 06/06/2025 08:28 AM EDT
--- OUTSIDE RECORDS SUMMARY | 2025-06-06 06:59 | XMS_ITS | Patient Health Record ---
[facility] [address] [address] Address [address] [place] [address] Care Team Providers Care School Age Program Associate Name Role Phone JEANNETTE LEON Unavailable [phone] REZA REEVES Unavailable [phone] Allergies Allergen (clinical drug ingredient) Drug/Non Drug [...] W/U Status Risk Notes Problem Mixed hyperlipidemia (450185499) Mixed hyperlipidemia (E78.2) Active confirmed Problem Essential hypertension (66832087) Essential hypertension (I10) Active confirmed Problem Body mass index 40+ - morbidly obese (040351432) BMI 40.0-44.9, adult (Z68.41) Active confirmed Problem Obese class II (963460964525621) BMI 39.0-39.9,adult (Z68.39) Active confirmed Problem Adult-onset obesity (833666019) Adult-onset obesity (E66.9) Active confirmed Problem Chronic obstructive lung disease (58671662) COPD without exacerbation (J44.9) Active confirmed Problem 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) Coronary artery disease involving other coronary artery [...] Diagnosis [facility] [address] [place] [address] 09/09/2024 TALAL REEVES [facility] [address] [place], [place] 09/16/2024 TALAL REEVES [facility] [address] [place] [address] 09/23/2024 TALAL REEVES [facility] [address] [place] [address] 09/30/2024 TALAL REEVES [facility] [address] [place] [address] 10/07/2024 TALAL REEVES [facility] [address] [place] [address] 10/14/2024 TALAL REEVES [facility] [address] [place] [address] 10/21/2024 TALAL REEVES [facility] [address] [place] [address] 10/28/2024 TALAL REEVES [facility] [address] [place] [address] 12/16/2024 TALAL REEVES [facility] [address] [place] [address] 12/23/2024 TALAL REEVES [facility] [address] [place] [address] 12/30/2024 TALAL REEVES [facility] [address] [place] [address] 01/06/20[address]EEVES [facility] [address] [place] [address] 01/13/2025 TALHEDY REEVES [facility] [address] [place] [address] 01/20/2025 DARNELLHEDY REEVES [facility] [address] [address] 08/29/2024 JEANNETTE LEON Adult-onset obesity E66.9 ; BMI 40.0-44.9, adult Z68.41 ; Essential hypertension I10 ; Mixed hyperlipidemia E78.2 ; Coronary artery disease involving other coronary artery bypass graft without angina pectoris I25.810 and COPD without exacerbation J44.9 [facility] [address] [address] 09/26/2024 JEANNETTE LEON Adult-onset obesity E66.9 ; BMI 40.0-44.9, adult Z68.41 ; Essential hypertension I10 ; Mixed hyperlipidemia E78.2 ; Coronary artery disease involving other coronary artery bypass graft without angina pectoris I25.810 and COPD without exacerbation J44.9 [facility] [address] [address] 10/24/2024 JEANNETTE LEON Adult-onset obesity E66.9 ; BMI 40.0-44.9, adult Z68.41 ; Essential hypertension I10 ; Mixed hyperlipidemia E78.2 ; Coronary artery disease involving other coronary artery bypass graft without angina pectoris I25.810 and COPD without exacerbation J44.9 [facility] [address] [address] 11/21/2024 JEANNETTE LEON Adult-onset obesity E66.9 ; BMI 40.0-44.9, adult Z68.41 ; Essential hypertension I10 ; Mixed hyperlipidemia E78.2 ; Coronary artery disease involving other coronary artery bypass graft without angina pectoris I25.810 and COPD without exacerbation J44.9 [facility] [address] [address] 12/19/2024 JEANNETTE LEON Adult-onset obesity E66.9 ; BMI 40.0-44.9, adult Z68.41 ; Essential hypertension I10 ; Mixed hyperlipidemia E78.2 ; Coronary artery disease involving other coronary artery bypass graft without angina pectoris I25.810 and COPD without exacerbation J44.9 [facility] [address] [facility] [address] [place] [address] 01/23/2025 JEANNETTE LEON Adult-onset obesity E66.9 ; BMI 40.0-44.9, adult Z68.41 ; Essential hypertension I10 ; Mixed hyperlipidemia E78.2 ; Coronary artery disease involving other coronary artery bypass graft without angina pectoris I25.810 ; COPD without exacerbation J44.9 ; Elevated vitamin B12 level R79.89 and Nutritional counseling Z71.[address] [facility] [address] [facility] [address] [place] [address] 03/06/2025 JEANNETTE LEON BMI 39.0-39.9,adult Z68.39 ; Adult-onset obesity E66.9 ; Essential hypertension I10 ; Mixed hyperlipidemia E78.2 ; Coronary artery disease involving other coronary artery bypass graft without angina pectoris I25.810 ; COPD without exacerbation J44.9 ; Elevated vitamin B12 level R79.89 and Nutritional counseling Z71.3 [facility] [address] [facility] [address] [place] [address] 08/29/2024 JEANNETTE LEON [facility] [address] [facility] [address] [place] [address] 03/09/2025 JEANNETTE LEON Assessments Encounter Date Diagnosis [...] management. Consider group exercises. Consider hiring a computer technology trainer. Regular exercise is mederos to sustainable [...] counseling and psychiatry and Dr Mccall at [email or web address]. We would like to cover regular topics [...] Dictation was accomplished with the use of [employer] voice recognition software, prone to medical misidentifications [...] mg in the office and received a [facility] injection. He will follow-up in the office [...] Consider using apps like 7 minute excercise, myAsk Ziggypal, lose it, stick as needed for self-monitoring and weight management. Consider group exercises. Consider hiring a computer technology trainer. Regular exercise is mederos to sustainable [...] counseling and psychiatry and Dr Mccall at [email or web address]. We would like to cover regular topics [...] Dictation was accomplished with the use of [employer] voice recognition software, prone to medical misidentifications [...] mg in the office and received a [facility] injection. He will follow-up in the office [...] Dictation was accomplished with the use of [employer] voice recognition software, which is prone to [...] in the office and received a [facility]. He will follow-up in the office [...] Dictation was accomplished with the use of [employer] voice recognition software, which is prone to [...] mg in the office and received a [facility] injection. He will follow-up in the office [...] Dictation was accomplished with the use of [employer] voice recognition software, which is prone to [...] in the office and received a [facility] injection. He will follow-up in the office [...] Dictation was accomplished with the use of [employer] voice recognition software, which is prone to [...] mg in the office and received a [facility] injection. He will follow-up in the office [...] Dictation was accomplished with the use of [employer] voice recognition software, which is prone to [...] Dictation was accomplished with the use of [employer] voice recognition software, which is prone to [...] mg in the office and received a [facility] injection. He will follow-up in the office [...] Dictation was accomplished with the use of [employer] voice recognition software, which is prone to [...] mg in the office and received a [facility] injection. He will follow-up in the office [...] Dictation was accomplished with the use of [employer] voice recognition software, which is prone to [...] mg in the office and received a [facility] injection. He will follow-up in the office [...] Dictation was accomplished with the use of [employer] voice recognition software, which is prone to [...] mg in the office and received a [facility] injection. He will follow-up in the office [...] Dictation was accomplished with the use of [employer] voice recognition software, which is prone to [...] Dictation was accomplished with the use of [employer] voice recognition software, which is prone to [...] mg in the office and received a [facility] injection. He will follow-up in the office [...] Dictation was accomplished with the use of [employer] voice recognition software, which is prone to [...] in the office and received a [facility] injection. He will follow-up in the office [...] Dictation was accomplished with the use of [employer] voice recognition software, which is prone to [...] Dictation was accomplished with the use of [employer] voice recognition software, which is prone to [...] mg in the office and received a [facility] injection. He will follow-up in the office [...] Dictation was accomplished with the use of [employer] voice recognition software, which is prone to [...] Consider using apps like 7 minute excercise, myAsk Ziggypal, lose it, stick as needed for self-monitoring and weight management. Consider group exercises. Consider hiring a computer technology trainer. Regular exercise is mederos to sustainable [...] counseling and psychiatry and Dr Mccall at [email or web address]. We would like to cover regular topics [...] Dictation was accomplished with the use of [employer] voice recognition software, prone to medical misidentifications [...] mg in the office and received a [facility] injection. He will follow-up in the office [...] Consider using apps like 7 minute excercise, [employer], lose it, stick as needed for self-monitoring and weight management. Consider group exercises. Consider hiring a computer technology trainer. Regular exercise is mederos to sustainable [...] counseling and psychiatry and Dr Mccall at [email or web address]. We would like to cover regular topics [...] Dictation was accomplished with the use of [employer] voice recognition software, prone to medical misidentifications [...] mg in the office and received a [facility] injection. He will follow-up in the office [...] Dictation was accomplished with the use of [employer] voice recognition software, which is prone to [...] mg in the office and received a [facility] injection. He will follow-up in the office [...] Dictation was accomplished with the use of [employer] voice recognition software, which is prone to [...] mg in the office and received a [facility] injection. He will follow-up in the office [...] Dictation was accomplished with the use of [employer] voice recognition software, which is prone to [...] mg in the office and received a [facility] injection. He will follow-up in the office [...] Dictation was accomplished with the use of [employer] voice recognition software, which is prone to [...] mg in the office and received a [facility] injection. He will follow-up in the office [...] Dictation was accomplished with the use of [employer] voice recognition software, which is prone to [...] mg in the office and received a [facility] injection. He will follow-up in the office [...] Dictation was accomplished with the use of [employer] voice recognition software, which is prone to [...] mg in the office and received a [facility] injection. He will follow-up in the office [...] Dictation was accomplished with the use of [employer] voice recognition software, which is prone to [...] in the office and received a [facility] injection. He will follow-up in the office [...] Dictation was accomplished with the use of [employer] voice recognition software, which is prone to [...] mg in the office and received a [facility] injection. He will follow-up in the office [...] Dictation was accomplished with the use of [employer] voice recognition software, which is prone to [...] mg in the office and received a [facility] injection. He will follow-up in the office [...] Dictation was accomplished with the use of [employer] voice recognition software, which is prone to [...] mg in the office and received a [facility] injection. He will follow-up in the office [...] Dictation was accomplished with the use of [employer] voice recognition software, which is prone to [...] mg in the office and received a [facility] injection. He will follow-up in the office [...] Dictation was accomplished with the use of [employer] voice recognition software, which is prone to [...] Consider using apps like 7 minute excercise, [employer], lose it, stick as needed for self-monitoring and weight management. Consider group exercises. Consider hiring a computer technology trainer. Regular exercise is mederos to sustainable [...] counseling and psychiatry and Dr Mccall at [email or web address]. We would like to cover regular topics [...] Dictation was accomplished with the use of [employer] voice recognition software, prone to medical misidentifications [...] mg in the office and received a [facility] injection. He will follow-up in the office [...] Dictation was accomplished with the use of [employer] voice recognition software, which is prone to [...] mg in the office and received a [facility] injection. He will follow-up in the office [...] Consider using apps like 7 minute excercise, [employer], lose it, stick as needed for self-monitoring and weight management. Consider group exercises. Consider hiring a computer technology trainer. Regular exercise is mederos to sustainable [...] counseling and psychiatry and Dr Mccall at [email or web address]. We would like to cover regular topics [...] Dictation was accomplished with the use of [employer] voice recognition software, prone to medical misidentifications [...] mg in the office and received a [facility] injection. He will follow-up in the office [...] Dictation was accomplished with the use of [employer] voice recognition software, which is prone to [...] mg in the office and received a [facility] injection. He will follow-up in the office [...] Dictation was accomplished with the use of [employer] voice recognition software, which is prone to [...] Dictation was accomplished with the use of [employer] voice recognition software, which is prone to [...] mg in the office and received a [facility] injection. He will follow-up in the office [...] Dictation was accomplished with the use of [employer] voice recognition software, which is prone to [...] mg in the office and received a [facility] injection. He will follow-up in the office [...] Dictation was accomplished with the use of [employer] voice recognition software, which is prone to [...] in the office and received a [facility]. He will follow-up in the office [...] Dictation was accomplished with the use of [employer] voice recognition software, which is prone to [...] Dictation was accomplished with the use of [employer] voice recognition software, which is prone to [...] mg in the office and received a [facility] injection. He will follow-up in the office [...] Dictation was accomplished with the use of [employer] voice recognition software, which is prone to [...] mg in the office and received a [facility] injection. He will follow-up in the office [...] Dictation was accomplished with the use of [employer] voice recognition software, which is prone to [...] mg in the office and received a [facility] injection. He will follow-up in the office [...] Dictation was accomplished with the use of [employer] voice recognition software, which is prone to [...] in the office and received a [facility]. He will follow-up in the office [...] Dictation was accomplished with the use of [employer] voice recognition software, which is prone to [...] Dictation was accomplished with the use of [employer] voice recognition software, which is prone to [...] Insured Coverage Start Date Coverage End Date [facility] [address] [facility] [place] [id number] Rudi Trivedi Self - patient is the [...]
== END 2025-06-06 06:57 | disposition home or self-care (01) ==
LOC: HO.US 06:56
PROVIDERS: PCP Nurse Practitioner Family; Visit Provider Nurse Practitioner Family
DX: I82.402 Acute embolism and thrombosis of unspecified deep veins of left lower extremity (principal)
CPT/HCPCS: 93971

== ENCOUNTER → 2025-06-06 06:58 | Outpatient (BNV) | payer OTHER, SELFPAY | PROVIDERS: PCP Nurse Practitioner Family; Visit Provider Radiology Diagnostic Radiology | DX: I82.402 Acute embolism and thrombosis of unspecified deep veins of left lower extremity (principal) | CPT/HCPCS: 93971 ==

== ENCOUNTER 2025-06-26 14:25 | Outpatient (AMB) | payer OTHER, SELFPAY ==
--- NOTE | 2025-06-26 14:32 | A.OFFVIS_ITS ---
Vital Signs 06/26/25 14:33 Height 5 ft 10 in Weight 252 lb BMI 36.2 Intake Visit Reasons: ED follow up for DVT Intake Note: ED follow up DVT Left LE s/p fall at work. Pt states that he had CABG and was on a blood thinner previously. Direct Marketing Representative Required: No Accompanied by: Self / Same As Patient Allergies amoxicillin Allergy (Unknown, Verified 06/26/25 14:36) anaphylaxis HPI HPI ED follow up for DVT: Details: The patient is a 60-year-old male presenting for evaluation of Deep Vein Thrombosis (DVT). He was initially seen in the emergency room for a blood clot and was started on Eliquis. The patient experienced a fall at work, leading to pain that began in his foot and progressed up his leg. The pain was severe enough to limit ambulation, prompting a visit to a clinic where x-rays showed no fractures. The pain subsided with medication but later progressed to his leg, accompanied by swelling. The patient reports improvement in symptoms since starting treatment, though some swelling persists. [facility] Medical History Obesity (BMI 30-39.9) Hyperlipemia History of myocardial infarction Nicotine dependence, cigarettes, uncomplicated Sensorineural hearing loss (SNHL) of both ears CAD (coronary artery disease) Surgical History S/P CABG x 4 (~2022) History of heart artery stent (~2005) Family History Unknown No problems noted. Father Aorta aneurysm Social History Housing: House Alcohol intake: never Patient Tobacco Use Status: Former Tobacco user Cigarettes Per Day: 8 Years Smoked: (onset 19yo, 1/2-1ppd x 38yrs, 30pyh) e-Cigarette/Vaping Use: Never Used Second Hand Smoke Exposure: No service: No Current occupational status: employed Current occupation: [employer] Current occupational exposures/hazards: Yes Cognitive needs: No Hearing needs: No Vision needs: No Review of Systems Const All systems reviewed & are unremarkable except as noted in HPI and below Reports no additional complaints ENT Reports Normal hearing present Card Denies chest pain, Denies chest pain at rest, Denies chest pain with activity and Denies pedal edema Resp Denies cough GI Denies abdominal pain Musc Denies abnormal gait, Denies muscle cramps and Denies radiating pain into limb Skin/Breast Denies skin ulcer and Denies wounds Neuro Reports Normal hearing present and Denies abnormal gait Psych Reports no additional complaints Physical Exam Vital Signs: BMI result Body Mass Index 36.2 Const General: cooperative, healthy appearing and comfortable Orientation/consciousness: oriented to person, oriented to place and oriented to time HEENT Head: Yes normal to inspection Neck Neck: Yes normal visual inspection Carotids: no bruits Chest Chest palpation & inspection: normal inspection of the chest Resp Effort & Inspection: normal respiratory effort and able to speak in complete sentences Auscultation: clear to auscultation bilaterally, no crackles, no rales, no rhonchi and no wheezes Cardio Rate: regular rate Rhythm: regular rhythm Heart sounds: S1 normal heart sound present and S2 normal heart sound present Bruits: no carotid bruits Peripheral pulses: Peripheral pulses 2+ throughout GI Inspection: Yes normal to inspection Skin Wounds: no wounds Hair: normal Neuro General: oriented to person, oriented to place and oriented to time Cranial nerves: Yes CN's II-XII intact bilaterally and Yes Normal hearing present Cognition (Neuro): normal cognition Motor exam (neuro): 5/5 motor strength present throughout Extrem Other: venous exam: +1 edema, left greater than right General: No clubbing, No cyanosis and Yes edema Psych Appearance: grossly normal Mental Status: mental status grossly normal Speech and movement: Normal speech and movement present Assessment & Plan Assessment & Plan (1) DVT (deep venous thrombosis): Code(s): I82.409 - Acute embolism and thrombosis of unspecified deep veins of unspecified lower extremity Category: Medical Qualifiers: Affected thrombotic vein of extremity: popliteal Chronicity: acute DVT location: lower extremity Laterality: left Qualified Code(s): I82.432 - Acute embolism and thrombosis of left popliteal vein Plan: It appears that his left leg is doing significantly better. The emergency room was concerned about the amount of edema in that leg and consulted us.I discussed with the patient the nature of his deep vein thrombosis and the importance of continuing anticoagulation therapy with Eliquis for six months. We also talked about the use of compression stockings to manage swelling and the need for follow-up with his primary care physician for ongoing management. Plan Patient was informed and verbally consented to the use of an ambient scribe for clinic note documentation during this visit. Patient Instructions: - Continue taking Eliquis as prescribed for six months. - Wear compression stockings to help with leg swelling. - Follow up with your primary care doctor for ongoing management of your condition. Coding Level of Care Code New Pt Level 4 (15270) Diagnoses Acute deep vein thrombosis (DVT) of popliteal vein of left lower extremity I82.432 Affected thrombotic vein of extremity: popliteal Chronicity: acute DVT location: lower extremity Laterality: left
[2025-06-26 14:33] VITALS: BMI 36.2
== END 2025-06-26 14:53 | disposition home or self-care (01) ==
PROVIDERS: PCP Nurse Practitioner Family; Visit Provider Surgery Vascular Surgery
DX: I82.432 Acute embolism and thrombosis of left popliteal vein (principal)
CPT/HCPCS: 99204

== ENCOUNTER → 2025-07-17 14:47 | Outpatient (BNV) | payer OTHER, SELFPAY | PROVIDERS: PCP Nurse Practitioner Family; Visit Provider Internal Medicine Medical Oncology | DX: I82.432 Acute embolism and thrombosis of left popliteal vein (principal); Z79.01 Long term (current) use of anticoagulants | CPT/HCPCS: 99204 ==

== ENCOUNTER 2025-07-23 12:27 | Outpatient (AMB) | payer OTHER, SELFPAY ==
--- OUTSIDE RECORDS SUMMARY | 2024-12-16 07:15 | XMS_ITS ---
Author Organization [facility] [address] Address [address] [place] [address] Care Team Providers Care Allergy And Immunology Chief Name Role Phone JEANNETTE LEON Unavailable [phone] KELVIN REEVES Unavailable [phone] REASON FOR VISIT pt here for MICC injection; pt signed consent; 1mL administered intramuscularly into left deltoid; pt tolerated well and left in stable condition Medications Medication SIG (Take, Route, Frequency, Duration) Notes Start Date End Date Status Rosuvastatin Calcium 20 MG Oral; Duration: 90 Days Active Wegovy 1 MG/0.5ML Inject 1 mg Subcutan eous once weekly; Duration: 28 days 08/29/2024 Active Levothyroxine Sodium 25 MCG Oral; Duration: 30 Days Active Furosemide 20 MG Oral; Duration: 90 Days Active Metoprolol Succinate ER 25 MG Oral; Duration: 90 Days Acti ve Trelegy Ellipta 200-62.5-25 MCG/ACT Inhalation; Duration: 30 Days Active Lisinopril 5 MG Oral; Duration: 90 Days Active Encounters Encounter Location Date Provider Diagnosis [facility] [address] [place] [address] 12/16/2024 KELVIN REEVES Plan Of Treatment No Information Medications Administered Medication Instructions Date of Administration Dosage Notes MICC B12 INJECTION 12/16/2024 1 mL Progress Notes * uRdi TRIVEDIDOB:1965 (60 yo M)Acc No.[id number]:12/16/2024 Progress Note Patient: Jean ARELLANODWIGHTRudi Provider: Dayne Reeves MD :1965 A ge:59 Y S ex:Male Date:12/16/2024 Address:[address] [place], [id number] Subjective: * Chief Complaints: * 1 . pt here for MICC injection; pt signed consent; 1mL administered intramuscularly into left deltoid; pt tolerated well and left in stable condition. * Medical History: * Medications: T danii Manriquez Ellipta 200-62.5-25 MCG/ACT Aerosol Powder Breath Activated [...] Auto-injector Inject 1 mg Subcutaneous once weekly Objective: * Vitals: Assessment: Plan: * Treatment: * Therapeutic Injections: MICC B12 INJECTION : 1 mL (Route: Intramuscular) given by Shannan Lopez on left deltoid Care Plan: * Problems: * Images: Billing Information: * Visit Code: * Procedure Codes: Care Plan Details* * Electronic signature of JOCE REEVES MD on 07/23/2025 at 03:34 PM EST Sign off status: Pending * Provider: Dayne Reeves MD Date: 0 12/16/2024 Generated for Roverto lopez/Edith/Cecily on: 09/22/2024 03:34 PM EST
--- OUTSIDE RECORDS SUMMARY | 2024-12-23 06:15 | XMS_ITS ---
Author Organization [facility] Address [address] [place] [address] Care Team Providers Care Travelift Operator Name Role Phone JEANNETTE LEON Unavailable [phone] KELVIN REEVES Unavailable [phone] REASON FOR VISIT pt here for micc inj pt tolerated well consent form signed Medications Medication SIG (Take, Route, Frequency, Duration) Notes Start Date End Date Status Lisinopril 5 MG Oral; Duration: 90 Days Active Trelegy Ellipta 200-62.5-25 MCG/ACT Inhalation; Duration: 30 Days Active Levothyroxine Sodium 25 MCG Oral; Duration: 30 Days Acti ve Metoprolol Succinate ER 25 MG Oral; Duration: 90 Days Acti ve Wegovy 1.7 MG/0.75ML Inject 1.7 mg Subcutaneous once weekly; Duration: 28 days 08/29/2024 Active Rosuvastatin Calcium 20 MG Oral; Duration: 90 Days Acti ve Furosemide 20 MG Oral; Duration: 90 Days Not-Taking Encounters Encounter Location Date Provider Diagnosis [facility] [address] [place] [address] 12/23/2024 KELVIN REEVES Plan Of Treatment No Information Medications Administered Medication Instructions Date of Administration Dosage Notes MICC B12 INJECTION 12/23/2024 1 Progress Notes * Rudi TRIVEDIDOB:1965 (60 yo M)Acc No.[id number]:12/23/2024 Progress Note Patient: Rudi HERNANDEZ Provider: Dayne Reeves MD :1965 A ge:59 Y S ex:Male Date:12/23/2024 Address:[address], [place] Subjective: * Chief Complaints: * 1 . Pt here for micc inj pt tolerated well consent form signed. * Medical History: * Medications: Dayne Manriquez Ellipta 200-62.5-25 MCG/ACT Aerosol Powder Breath Activated Inhalation , Taking Lisinopril 5 MG Tablet Oral , Taking Metoprolol Succinate ER 25 MG Tablet Extended Release 24 Hour Oral , Taking Levothyroxine Sodium 25 MCG Tablet Oral , Taking Rosuvastatin Calcium 20 MG Tablet Oral , Taking Wegovy 1.7 MG/0.75ML Solution Auto-injector Inject 1.7 mg Subcutaneous once weekly , Not-Taking Furosemide 20 MG Tablet Oral Objective: * Vitals: Assessment: Plan: * Treatment: * Therapeutic Injections: MICC B12 INJECTION : 1 (Route: Intramuscular) given by Lisa Mallory on left deltoid Care Plan: * Problems: * Images: Billing Information: * Visit Code: * Procedure Codes: Care Plan Details* * Electronic signature of JOCE REEVES MD on 07/23/2025 at 03:35 PM EST Sign off status: Pending * Provider: Dayne Reeves MD Date: 0 12/23/2024 Generated for Roverto lopez/Edith/Cecily on: 1 09/22/2024 03:35 PM EST
--- OUTSIDE RECORDS SUMMARY | 2024-12-30 04:15 | XMS_ITS ---
Author Organization [facility] Address [address] [place] [address] Care Team Providers Care Stadium Manager Name Role Phone JEANNETTE LEON Unavailable [phone] KELVIN REEVES Unavailable [phone] REASON FOR VISIT Pt here for MICC injection, pt tolerated well with no reaction. Medications Medication SIG (Take, Route, Frequency, Duration) Notes Start Date End Date Status Rosuvastatin Calcium 20 MG Oral; Duration: 90 Days Acti ve Wegovy 1.7 MG/0.75ML Inject 1.7 mg Subcutaneous once weekly; Duration: 28 days 08/29/2024 Active Metoprolol Succinate ER 25 MG Oral; Duration: 90 Days Acti ve Levothyroxine Sodium 25 MCG Oral; Duration: 30 Days Acti ve Furosemide 20 MG Oral; Duration: 90 Days Not-Taking Trelegy Ellipta 200-62.5-25 MCG/ACT Inhalation; Duration: 30 Days Active Lisinopril 5 MG Oral; Duration: 90 Days Active Encounters Encounter Location Date Provider Diagnosis [facility] [address] [place] [address] 12/30/2024 KELVIN REEVES Plan Of Treatment No Information Medications Administered Medication Instructions Date of Administration Dosage Notes MICC B12 INJECTION 12/30/2024 Progress Notes * Rudi TRIVEDIDOB:1965 (60 yo M)Acc No.[id number]:12/30/2024 Progress Note Patient: Rudi HERNANDEZ Provider: Dayne Reeves MD :1965 A ge:59 Y S ex:Male Date:12/30/2024 Address:[address], [place] Subjective: * Chief Complaints: * 1 . Pt here for MICC injection, pt tolerated well with no reaction.. * Medical History: * Medications: Dayne Manriquez [...] Treatment: * Therapeutic Injections: MICC B12 INJECTION (Route: Intramuscular) given by Eloy Grissom on right arm subcutaneous Care Plan: * Problems: * Images: Billing Information: * Visit Code: * Procedure Codes: Care Plan Details* * Electronic signature of JOCE REEVES MD on 07/23/2025 at 03:34 PM EST Sign off status: Pending * Provider: Dayne Reeves MD Date: 0 12/30/2024 Generated for Roverto lopez/Edith/Cecily on: 1 09/22/2024 03:34 PM EST
--- OUTSIDE RECORDS SUMMARY | 2025-01-06 05:45 | XMS_ITS ---
Author Organization [facility] [address] Address [address] [place] [address] Care Team Providers Care Brokerage Office Manager Name Role Phone JEANNETTE LEON Unavailable [phone] KELVIN REEVES Unavailable [phone] REASON FOR VISIT [facility] Encounters Encounter Location Date Provider Diagnosis [facility] [address] [place] [address] 01/06/2025 KELVIN REEVES Plan Of Treatment No Information Progress Notes * FAROOQ RudiDOB:1965 (60 yo M)Acc No.[id number]:01/06/2025 Progress Note Patient: Rudi HERNANDEZ Provider: Dayne Reeves MD :1965 A ge:59 Y S ex:Male Date:01/06/2025 Address:[address], [place] Subjective: * Chief Complaints: * 1 . Micc. * Medical History: Objective: * Vitals: Assessment: Plan: * Treatment: Care Plan: * Problems: * Images: Billing Information: * Visit Code: * Procedure Codes: Care Plan Details* * Electronic signature of JOCE REEVES MD on 07/23/2025 at 03:35 PM EST Sign off status: Pending * Provider: Dayne Reeves MD Date: 01/06/2025 Generated for Roverto lopez/Edith/Cecily on: 09/22/2024 03:35 PM EST
--- OUTSIDE RECORDS SUMMARY | 2025-01-13 06:00 | XMS_ITS ---
Author Organization [facility] Address [address] [place] [address] Care Team Providers Care Finish Remover Name Role Phone JEANNETTE LEON Unavailable [phone] KELVIN REEVES Unavailable [phone] REASON FOR VISIT pt here for micc injection pt tolerated well consent form signed Medications Medication SIG (Take, Route, Frequency, Duration) Notes Start Date End Date Status Metoprolol Succinate ER 25 MG Oral; Duration: 90 Days Acti ve Furosemide 20 MG Oral; Duration: 90 Days Not-Taking Levothyroxine Sodium 25 MCG Oral; Duration: 30 Days Acti ve Wegovy 1.7 MG/0.75ML Inject 1.7 mg Subcutaneous once weekly; Duration: 28 days 08/29/2024 Active Rosuvastatin Calcium 20 MG Oral; Duration: 90 Days Acti ve Lisinopril 5 MG Oral; Duration: 90 Days Active Trelegy Ellipta 200-62.5-25 MCG/ACT Inhalation; Duration: 30 Days Active Encounters Encounter Location Date Provider Diagnosis [facility] [address] [place] [address] 01/13/2025 KELVIN REEVES Plan Of Treatment No Information Medications Administered Medication Instructions Date of Administration Dosage Notes MICC B12 INJECTION 01/13/2025 Progress Notes * Rudi TRIVEDIDOB:1965 (60 yo M)Acc No.[id number]:01/13/2025 Progress Note Patient: Rudi HERNANDEZ Provider: Dayne Reeves MD :1965 A ge:59 Y S ex:Male Date:01/13/2025 Address:[address], [place] Subjective: * Chief Complaints: * 1 . Pt here for micc injection pt tolerated well consent form signed. * [...] MICC B12 INJECTION (Route: Intramuscular) given by Lisa Mallory on left deltoid Care Plan: * Problems: * Images: Billing Information: * Visit Code: * Procedure Codes: Care Plan Details* * Electronic signature of JOCE REEVES MD on 07/23/2025 at 03:34 PM EST Sign off status: Pending * Provider: Dayne Reeves MD Date: 0 01/13/2025 Generated for Roverto lopez/Edith/Cecily on: 1 09/22/2024 03:34 PM EST
--- OUTSIDE RECORDS SUMMARY | 2025-01-20 06:15 | XMS_ITS ---
Author Organization [facility] [address] Address [address] [place] [address] Care Team Providers Care Natural Fabricator Name Role Phone JEANNETTE LEON Unavailable [phone] KELVIN REEVES Unavailable [phone] REASON FOR VISIT pt here for a micc inj, tolerated well Medications Medication SIG (Take, Route, Frequency, Duration) Notes Start Date End Date Status Rosuvastatin Calcium 20 MG Oral; Duration: 90 Days Acti ve Wegovy 1.7 MG/0.75ML Inject 1.7 mg Subcutaneous once weekly; Duration: 28 days 08/29/2024 Active Levothyroxine Sodium 25 MCG Oral; Duration: 30 Days Acti ve Furosemide 20 MG Oral; Duration: 90 Days Not-Taking Metoprolol Succinate ER 25 MG Oral; Duration: 90 Days Acti ve Lisinopril 5 MG Oral; Duration: 90 Days Active Trelegy Ellipta 200-62.5-25 MCG/ACT Inhalation; Duration: 30 Days Active Encounters Encounter Location Date Provider Diagnosis [facility] [address] [place] [address] 01/20/2025 KELVIN REEVES Plan Of Treatment No Information Medications Administered Medication Instructions Date of Administration Dosage Notes MICC B12 INJECTION 01/20/2025 1 mL Progress Notes * Rudi TRIVEDIDOB:1965 (60 yo M)Acc No.[id number]:01/20/2025 Progress Note Patient: Rudi HERNANDEZ Provider: Dayne Reeves MD :1965 A ge:59 Y S ex:Male Date:01/20/2025 Address:[address], [place] Subjective: * Chief Complaints: * 1 . Pt here for a micc inj, tolerated well. * Medical History: * Medications: Dayne Newbylelashawn Ellipta 200-62.5-25 MCG/ACT Aerosol Powder Breath Activated [...] : 1 mL (Route: Intramuscular) given by Myriam Rodríguez on left arm intramuscular Care Plan: * Problems: * Images: Billing Information: * Visit Code: * Procedure Codes: Care Plan Details* * Electronic signature of JOCE REEVES MD on 07/23/2025 at 03:35 PM EST Sign off status: Pending * Provider: Dayne Reeves MD Date: 0 01/20/2025 Generated for Roverto lopez/Edith/Eloinaitting on: 1 09/22/2024 03:35 PM EST
--- OUTSIDE RECORDS SUMMARY | 2025-04-17 08:00 | XMS_ITS ---
Author Organization [facility] [address] Address [address] [place] [address] Care Team Providers Care Horseback Riding Instructor Name Role Phone JEANNETTE LEON [phone] Encounters Encounter Location Date Provider Diagnosis [facility] [address] [address] 04/17/2025 JEANNETTE LEON Plan Of Treatment No Information Progress Notes * Rudi TRIVEDIDOB:1965 (60 yo M)Acc No.[id number]:04/17/2025 Patient: Jean Rudi BARILLAS Provider: Lu LEON :1965 A ge:60 Y S ex:Male Date:04/17/2025 Address: [address], [id number] Subjective: * Chief Complaints: * * Medical History: Objective: * Vitals: Assessment: Plan: * Treatment: * Images: Billing Information: * Visit Code: * Procedure Codes: * Electronic signature of DAMIR LEON PA-C, [id number] on 07/23/2025 at 03:35 PM EST Sign off status: Pending * Provider: Lu LEON Date: 0 04/17/2025 Generated for Roverto lopez/Edith/eTnettiesmitting on: 1 09/22/2024 03:35 PM EST
[2025-07-23 12:34] VITALS: BP 114/68; PULSE 84; RESP 16; TEMP 36.9; O2SAT 95; BMI 36.2
--- NOTE | 2025-07-23 12:34 | A.OFFPC_ITS ---
Vital Signs 07/23/25 12:34 Height 5 ft 10 in Weight 252 lb BMI 36.2 BP 114/68 Blood Pressure Location Lt brachial Position Sitting Respiration 16 Pulse 84 Pulse Source Pulse Oximeter Temp 98.5 F Temp Source Oral Pulse Oximetry (%) 95 Oxygen Delivery Method Room Air Intake Visit Reasons: 6m follow up Intake Note: Pt is here today for 6 months follow up visit. Allergies amoxicillin Allergy (Unknown, Verified 07/17/25 15:42) anaphylaxis Medication List - Last Reconciled 07/23/25 by KELLY Escobar- apixaban (Eliquis) 5 mg PO BID 30 days aspirin (Adult Aspirin Regimen) 81 mg PO DAILY rkfbizrjalu-wflpimudq-zmepylka 200-62.5-25 mcg (Trelegy Ellipta) 1 ea PO DAILY levothyroxine 25 mcg PO DAILY lisinopril 5 mg PO DAILY 90 days metoprolol succinate ER 75 mg (3 x 25 mg) PO DAILY 90 days rosuvastatin 20 mg PO BEDTIME Tobacco use date assessed: 07/23/25 Dental Screening Dental Screen Date: 07/23/25 Did you have a dental visit in the last 12 months?: Yes Did you have a dental problem in the last 6 months where you did not have access to dental care?: No Was dental information given to patient?: Patient has dentist HPI 6m follow up HPI Details Chief Complaint The patient presents for a follow-up visit. History of Present Illness The patient is a 60-year-old male presenting for a follow-up visit. He has a history of a suspected provoked deep vein thrombosis (DVT) in the left lower extremity after falling into a ditch. He is currently treated with Eliquis twice a day and is followed by hematology for a full hypercoagulable workup and monitoring. The patient also has a history of dyslipidemia and is on a statin. Social History Health Maintenance - Lipid panel will be repeated in the ne ar future to monitor dyslipidemia. Review of Systems - Cardiovascular: Denies chest pain. - Eyes: Denies blurred vision. - Neurological: Denies headaches. - Respiratory: Denies shortness of breat h. Physical Exam General: Cooperative, healthy appearing, comfortable, no acute distress and well developed Orientation: Patient oriented x3 Limitations: No limitations Head: Normal to inspection Ears: Hearing grossly normal bilaterally Nose: Normal external nose present Face and sinus: Normal facial exam Eyes: Appearance normal, both eyes and all related structures Neck: Normal visual inspection and Yes full ROM Respiratory: Normal respiratory effort and able to speak in complete sentences. Clear to auscultation bilaterally Cardiovascular: Regular rate and rhythm. Normal S1 and S2 GI: Normal to inspection. Soft to palpation and nontender Skin: No rashes or lesions noted Neuro: Patient oriented x3 Extremities: Normal to inspection, history of DVT in left lower extremity Results Plan 1. Deep Vein Thrombosis Of Left Lower Ex tremity The patient has a history of a provoked deep vein thrombosis in the left lower extremity. He will continue taking Eliquis twice a day and follow up with hematology for a complete hypercoagulable workup and ongoing monitoring. 2. Dyslipidemia The patient has a history of dyslipidemia and is managed on a statin. Lipids will be rechecked in the near future. Discussion Notes I discussed the patient's ongoing management for his provoked DVT and dyslipidemia. I advised him to continue his current dose of Eliquis and to maintain his follow-up with the hematology service for a full hypercoagulable workup. I also informed him that I will be repeating his lipid panel to monitor his dyslipidemia. Patient Instructions - Continue to take your blood thinner, E liquis, twice a day as prescribed. - Make sure to follow up with your hemat ology (blood specialist) appointment for further tests and monitoring. - We will be checking your cholesterol l evels with a blood test soon. [facility] Medical History Obesity (BMI 30-39.9) Hyperlipemia History of myocardial infarction Nicotine dependence, cigarettes, uncomplicated Sensorineural hearing loss (SNHL) of both ears CAD (coronary artery disease) Surgical History S/P CABG x 4 (~2022) History of heart artery stent (~2005) Family History Unknown No problems noted. Father Aorta aneurysm Social History Household Members: Spouse and Children Housing: House Are you a primary care aid to a significant other at home: No Do you presently have visiting nurse or other home services: No Alcohol intake: never Patient Tobacco Use Status: Former Tobacco user Tobacco use type: Cigarette Years Smoked: (onset 19yo, 1/2-1ppd x 38yrs, 30pyh) e-Cigarette/Vaping Use: Never Used Second Hand Smoke Exposure: No Use of substances other than those prescribed or required for medical reasons: No Have you been hit, kicked, punched, or otherwise hurt by someone within the past year? If so, by whom?: No Do you feel safe in your current relationship?: Yes Do you have thoughts of harming others: None Do you have a plan to hurt others: No Plan service: No Current occupational status: employed Current occupation: [employer] Current occupational exposures/hazards: Yes Cognitive needs: No Hearing needs: No Vision needs: No Questionnaire Thrive Questionnaire Date Thrive assessed: 09/25/24 I am a: Patient What is your living situation today?: I have a steady place to live Within the past 12 months, did the food you bought not last and you didn't have the money to get more?: Never true Within the past 12 months, did you worry whether your food would run out before you got money to buy more?: Never true Do you have trouble paying for medicines?: No Do you have trouble getting transportation to medical appointments?: No Do you have trouble paying your heating and electricity bill?: No Do you have trouble taking care of your child, family member or friend?: No Do you have trouble with day-to-day activities such as bathing, preparing meals, shopping, managing finances, etc.?: No Are you currently unemployed and looking for a job?: No Are you interested in more education?: No Please select the resources that you would like help with: None Currently or been in a relationship where the following occur: No concerns reported THRIVE Score: 0 CHRISTIANNE-7 AMB Questionnaire CHRISTIANNE-7 Date CHRISTIANNE - 7 assessed: 01/24/25 Source: Developed by Drs. Rock Guevara, Sana Freeman, Cody Mcwilliams and colleagues, with an educational otis from [employer]. Physical exam (Primary Care) Vital Signs: Last Vital Signs Temp 98.5 F 07/23/25 12:34 Pulse 84 07/23/25 12:34 Resp 16 07/23/25 12:34 BP 114/68 07/23/25 12:34 Pulse Ox 95 07/23/25 12:34 Oxygen Delivery Method Room Air 07/23/25 12:34 BMI result Body Mass Index 36.2 Tobacco/Smoking Status: Tobacco use Status Tobacco use date assessed 07/23/25 07/23/25 12:40 Patient Tobacco Use Status Former Tobacco user 07/23/25 12:40 Tobacco use type Cigarette 07/23/25 12:40 e-Cigarette/Vaping Use Never Used 07/23/25 12:40 Thrive Assessment: Date of Thrive Assessment Date Thrive assessed 09/25/24 07/23/25 12:40 Currently or been in a relationship where the following occur: No concerns reported Coding Level of Care Code Est Pt Level 3 (21574) Diagnoses Left leg DVT I82.402 Hyperlipemia E78.5 Assessment & Plan Assessment & Plan (1) Left leg DVT: Code(s): I82.402 - Acute embolism and thrombosis of unspecified deep veins of left lower extremity Category: Medical (2) Hyperlipemia: Code(s): E78.5 - Hyperlipidemia, unspecified Category: Medical Plan . Orders: Orders Comprehensive [place]. Panel Fast Today E78.5 - Hyperlipidemia, unspecified, I82.402 - Acute embolism and thrombosis of unspecified deep veins of left lower extremity TSH reflex Free T4 Today E78.5 - Hyperlipidemia, unspecified Lipid Panel Today E78.5 - Hyperlipidemia, unspecified, I82.402 - Acute embolism and thrombosis of unspecified deep veins of left lower extremity UA CC w/rflx Micro + Cult Today E78.5 - Hyperlipidemia, unspecified
--- OUTSIDE RECORDS SUMMARY | 2025-07-23 15:35 | XMS_ITS | Patient Health Record ---
[facility] [address] [address] Address [address] [place] [address] Care Team Providers Care Supervisor Cartography Name Role Phone JEANNETTE LEON Unavailable [phone] REZA REEVES Unavailable [phone] Allergies Allergen (clinical drug ingredient) Drug/Non Drug [...] W/U Status Risk Notes Problem Mixed hyperlipidemia (574306951) Mixed hyperlipidemia (E78.2) Active confirmed Problem Essential hypertension (15177423) Essential hypertension (I10) Active confirmed Problem Body mass index 40+ - morbidly obese (709773912) BMI 40.0-44.9, adult (Z68.41) Active confirmed Problem Obese class II (255871880573257) BMI 39.0-39.9,adult (Z68.39) Active confirmed Problem Adult-onset obesity (942388906) Adult-onset obesity (E66.9) Active confirmed Problem Chronic obstructive lung disease (20828589) COPD without exacerbation (J44.9) Active confirmed Problem Arteriosclerosis of coronary artery bypass graft (539909513) Coronary artery disease involving other coronary artery [...] Diagnosis [facility] [address] [place] [address] 09/09/2024 TALAL REEVES [facility] [address] [place], [place] 09/16/2024 TALAL REEVES [facility] [address] [place] [address] 09/23/2024 TALAL REEVES [facility] [address] [place] [address] 09/30/2024 TALAL REEVES [facility] [address] [place] [address] 10/07/2024 TALAL REEVES [facility] [address] [place] [address] 10/14/2024 TALAL REEVES [facility] [address] [place] [address] 10/21/2024 TALAL REEVES [facility] [address] [place] [address] 10/28/2024 TALAL REEVES [facility] [address] [place] [address] 12/16/2024 TALAL REEVES [facility] [address] [place] [address] 12/23/2024 TALAL REEVES [facility] [address] [place] [address] 12/30/2024 TALAL REEVES [facility] [address] [place] [address] 01/06/2025 TALAL REEVES [facility] [address] [place] [address] 01/13/2025 TALHEDY REEVES [facility] [address] [place] [address] 01/20/2025 DARNELLHEDY REEVES [facility] [address] [address] 08/29/2024 JEANNETTE LEON Adult-onset obesity E66.9 ; BMI 40.0-44.9, adult Z68.41 ; Essential hypertension I10 ; Mixed hyperlipidemia E78.2 ; Coronary artery disease involving other coronary artery bypass graft without angina pectoris I25.810 and COPD without exacerbation J44.9 [facility] [address] [address] 09/26/2024 JEANNETTE LEON Adult-onset obesity E66.9 ; BMI 40.0-44.9, adult Z68.41 ; Essential hypertension I10 ; Mixed hyperlipidemia E78.2 ; Coronary artery disease involving other coronary artery bypass graft without angina pectoris I25.810 and COPD without exacerbation J44.9 [facility] [address] [address] 10/24/2024 JEANNETTE LEON Adult-onset obesity E66.9 ; BMI 40.0-44.9, adult Z68.41 ; Essential hypertension I10 ; Mixed hyperlipidemia E78.2 ; Coronary artery disease involving other coronary artery bypass graft without angina pectoris I25.810 and COPD without exacerbation J44.9 [facility] [address] [address] 11/21/2024 JEANNETTE LEON Adult-onset obesity E66.9 ; BMI 40.0-44.9, adult Z68.41 ; Essential hypertension I10 ; Mixed hyperlipidemia E78.2 ; Coronary artery disease involving other coronary artery bypass graft without angina pectoris I25.810 and COPD without exacerbation J44.9 [facility] [address] [address] 12/19/2024 JEANNETTE LEON Adult-onset obesity E66.9 ; BMI 40.0-44.9, adult Z68.41 ; Essential hypertension I10 ; Mixed hyperlipidemia E78.2 ; Coronary artery disease involving other coronary artery bypass graft without angina pectoris I25.810 and COPD without exacerbation J44.9 [facility] [address] [facility] [address] [place] [address] 01/23/2025 JEANNETTE LEON Adult-onset obesity E66.9 ; BMI 40.0-44.9, adult Z68.41 ; Essential hypertension I10 ; Mixed hyperlipidemia E78.2 ; Coronary artery disease involving other coronary artery bypass graft without angina pectoris I25.810 ; COPD without exacerbation J44.9 ; Elevated vitamin B12 level R79.89 and Nutritional counseling Z71.[address] [facility] [address] [facility] [address] [place] [address] 03/06/2025 JEANNETTE LEON BMI 39.0-39.9,adult Z68.39 ; Adult-onset obesity E66.9 ; Essential hypertension I10 ; Mixed hyperlipidemia E78.2 ; Coronary artery disease involving other coronary artery bypass graft without angina pectoris I25.810 ; COPD without exacerbation J44.9 ; Elevated vitamin B12 level R79.89 and Nutritional counseling Z71.3 [facility] [address] [facility] [address] [place] [address] 08/29/2024 JEANNETTE LEON [facility] [address] [facility] [address] [place] [address] 03/09/2025 JEANNETTE LEON Assessments Encounter Date Diagnosis [...] counseling and psychiatry and Dr Mccall at [employer] We would like to cover regular topics [...] Dictation was accomplished with the use of [employer] voice recognition software, prone to medical misidentifications [...] mg in the office and received a [facility] injection. He will follow-up in the [...] Consider using apps like 7 minute excercise, [employer], lose it, stick as needed for self-monitoring [...] counseling and psychiatry and Dr Mccall at [employer] We would like to cover regular topics [...] Dictation was accomplished with the use of [employer] voice recognition software, prone to medical misidentifications [...] mg in the office and received a [facility] injection. He will follow-up in the [...] Dictation was accomplished with the use of [employer] voice recognition software, which is prone to [...] mg in the office and [facility]. He will follow-up in the [...] Dictation was accomplished with the use of [employer] voice recognition software, which is prone to [...] mg in the office and received a [facility] injection. He will follow-up in the [...] Dictation was accomplished with the use of [employer] voice recognition software, which is prone to [...] mg in the office and received [facility]. He will follow-up in the [...] Dictation was accomplished with the use of [employer] voice recognition software, which is prone to [...] mg in the office and received a [facility] injection. He will follow-up in the [...] Dictation was accomplished with the use of [employer] voice recognition software, which is prone to [...] Dictation was accomplished with the use of [employer] voice recognition software, which is prone to [...] mg in the office and received a [facility] injection. He will follow-up in the [...] Dictation was accomplished with the use of [employer] voice recognition software, which is prone to [...] mg in the office and received a [facility] injection. He will follow-up in the [...] Dictation was accomplished with the use of [employer] voice recognition software, which is prone to [...] mg in the office and received a [facility] injection. He will follow-up in the [...] Dictation was accomplished with the use of [employer] voice recognition software, which is prone to [...] mg in the office and received a [facility] injection. He will follow-up in the [...] Dictation was accomplished with the use of [employer] voice recognition software, which is prone to [...] Dictation was accomplished with the use of [employer] voice recognition software, which is prone to [...] mg in the office and received a [facility] injection. He will follow-up in the [...] Dictation was accomplished with the use of [employer] voice recognition software, which is prone to [...] mg in the office and [facility]. He will follow-up in the [...] Dictation was accomplished with the use of [employer] voice recognition software, which is prone to [...] Dictation was accomplished with the use of [employer] voice recognition software, which is prone to [...] mg in the office and received a [facility] injection. He will follow-up in the [...] Dictation was accomplished with the use of [employer] voice recognition software, which is prone to [...] Consider using apps like 7 minute excercise, [employer], lose it, stick as needed for self-monitoring [...] counseling and psychiatry and Dr Mccall at [employer] We would like to cover regular topics [...] Dictation was accomplished with the use of [employer] voice recognition software, prone to medical misidentifications [...] mg in the office and received a [facility] injection. He will follow-up in the [...] Consider using apps like 7 minute excercise, [employer], lose it, stick as needed for self-monitoring [...] counseling and psychiatry and Dr Mccall at [employer] We would like to cover regular topics [...] Dictation was accomplished with the use of [employer] voice recognition software, prone to medical misidentifications [...] mg in the office and received a [facility] injection. He will follow-up in the [...] Dictation was accomplished with the use of [employer] voice recognition software, which is prone to [...] mg in the office and received a [facility] injection. He will follow-up in the [...] Dictation was accomplished with the use of [employer] voice recognition software, which is prone to [...] mg in the office and received a [facility] injection. He will follow-up in the [...] Dictation was accomplished with the use of [employer] voice recognition software, which is prone to [...] mg in the office and received a [facility] injection. He will follow-up in the [...] Dictation was accomplished with the use of [employer] voice recognition software, which is prone to [...] mg in the office and received a [facility] injection. He will follow-up in the [...] Dictation was accomplished with the use of [employer] voice recognition software, which is prone to [...] mg in the office and received a [facility] injection. He will follow-up in the [...] Dictation was accomplished with the use of [employer] voice recognition software, which is prone to [...] mg in the office and received a [facility] injection. He will follow-up in the [...] Dictation was accomplished with the use of [employer] voice recognition software, which is prone to [...] mg in the office and [facility]. He will follow-up in the [...] Dictation was accomplished with the use of [employer] voice recognition software, which is prone to [...] mg in the office and received a [facility] injection. He will follow-up in the [...] Dictation was accomplished with the use of [employer] voice recognition software, which is prone to [...] mg in the office and received a [facility] injection. He will follow-up in the [...] Dictation was accomplished with the use of [employer] voice recognition software, which is prone to [...] mg in the office and received a [facility] injection. He will follow-up in the [...] Dictation was accomplished with the use of [employer] voice recognition software, which is prone to [...] mg in the office and received a [facility] injection. He will follow-up in the [...] arise. Case discussed with collaborating physician Erin Reevse who reviewed the assessment and plan. Chart, medications, labs, vital signs reviewed. Dictation was accomplished with the use of [employer] voice recognition software, which is prone to [...] Consider using apps like 7 minute excercise, Trib[employer], lose it, stick as needed for self-monitoring [...] counseling and psychiatry and Dr Mccall at [employer] We would like to cover regular topics [...] Dictation was accomplished with the use of [employer] voice recognition software, prone to medical misidentifications [...] mg in the office and received a [facility] injection. He will follow-up in the [...] Dictation was accomplished with the use of [employer] voice recognition software, which is prone to [...] mg in the office and received a [facility] injection. He will follow-up in the [...] Consider using apps like 7 minute excercise, [employer], lose it, stick as needed for self-monitoring [...] counseling and psychiatry and Dr Mccall at [employer] We would like to cover regular topics [...] Dictation was accomplished with the use of [employer] voice recognition software, prone to medical misidentifications [...] mg in the office and received a [facility] injection. He will follow-up in the [...] Dictation was accomplished with the use of [employer] voice recognition software, which is prone to [...] mg in the office and received a [facility] injection. He will follow-up in the [...] Dictation was accomplished with the use of [employer] voice recognition software, which is prone to [...] Dictation was accomplished with the use of [employer] voice recognition software, which is prone to [...] mg in the office and received a [facility] injection. He will follow-up in the [...] Dictation was accomplished with the use of [employer] voice recognition software, which is prone to [...] mg in the office and received a [facility] injection. He will follow-up in the [...] Dictation was accomplished with the use of [employer] voice recognition software, which is prone to [...] mg in the office and [facility]. He will follow-up in the [...] Dictation was accomplished with the use of [employer] voice recognition software, which is prone to [...] Dictation was accomplished with the use of [employer] voice recognition software, which is prone to [...] mg in the office and received a [facility] injection. He will follow-up in the [...] Dictation was accomplished with the use of [employer] voice recognition software, which is prone to [...] mg in the office and received a [facility] injection. He will follow-up in the [...] Dictation was accomplished with the use of [employer] voice recognition software, which is prone to [...] mg in the office and received a [facility] injection. He will follow-up in the [...] Dictation was accomplished with the use of [employer] voice recognition software, which is prone to [...] mg in the office and [facility]. He will follow-up in the [...] Dictation was accomplished with the use of [employer] voice recognition software, which is prone to [...] Dictation was accomplished with the use of [employer] voice recognition software, which is prone to [...] Insured Coverage Start Date Coverage End Date [facility] [address] [facility] [place] [id number] [phone] [id number] Rudi Trivedi Self - patient is the [...]
== END 2025-07-23 13:34 | disposition home or self-care (01) ==
LOC: HO.HMCC 12:28
PROVIDERS: PCP Nurse Practitioner Family; Visit Provider Nurse Practitioner Family
DX: I82.402 Acute embolism and thrombosis of unspecified deep veins of left lower extremity (principal); E78.5 Hyperlipidemia, unspecified

== ENCOUNTER 2025-08-25 11:03 | Outpatient (AMB) | payer OTHER, SELFPAY ==
--- NOTE | 2025-08-25 11:52 | MHC.OFFWIV ---
Intake Vital Signs 08/25/25 11:53 Height 5 ft 10 in BMI Reason not done Patient refused/unable BP 120/78 Blood Pressure Location Lt brachial Position Sitting Pulse 83 Pulse Source Pulse Oximeter Temp 98.2 F Temp Source Oral Pulse Oximetry (%) 95 Intake Visit Reasons: EP Cough, chest tightness when coughing Intake Note: pt is here for cough, chest tightness when coughing, dry cough, unable to spit up phlem Patient Tobacco Use Status: Former Tobacco user Allergies amoxicillin Allergy (Unknown, Verified 08/25/25 11:53) anaphylaxis Do you need a note to return to daycare/school/sports/work: No HPI HPI Comments History of Present Illness Details This is a 60-year-old male with PMHx: CAD s/p CABG, DVT on apixaban, COPD, HTN, HLD who presented to the walk-in clinic complaining of a cough x 3 days. He states that he feels congested but is having a hard time coughing up mucus. He reports chills but denies fevers. He denies any nasal congestion, rhinorrhea, or sore throat. He denies shortness of breath. He reports right-sided chest pain with coughing. He denies any radiation of pain into his arm, neck or back and he denies any nausea/vomiting or diaphoresis. [facility] Medical History Obesity (BMI 30-39.9) Hyperlipemia History of myocardial infarction Nicotine dependence, cigarettes, uncomplicated Sensorineural hearing loss (SNHL) of both ears CAD (coronary artery disease) Surgical History S/P CABG x 4 (~2022) History of heart artery stent (~2005) Family History Unknown No problems noted. Father Aorta aneurysm Social History Household Members: Spouse and Children Housing: House Are you a primary progressive care unit registered nurse to a significant other at home: No Do you presently have visiting nurse or other home services: No Alcohol intake: never Patient Tobacco Use Status: Former Tobacco user Tobacco use type: Cigarette Years Smoked: (onset 19yo, 1/2-1ppd x 38yrs, 30pyh) e-Cigarette/Vaping Use: Never Used Second Hand Smoke Exposure: No service: No Current occupational status: employed Current occupation: [employer] Current occupational exposures/hazards: Yes Cognitive needs: No Hearing needs: No Vision needs: No Review of Systems Const All systems reviewed & are unremarkable except as noted in HPI and below Reports no additional complaints Eyes Reports no additional complaints ENT Reports no additional complaints Card Reports no additional complaints Resp Reports no additional complaints GI Reports no additional complaints Reports no additional complaints Musc Reports no additional complaints Skin/Breast Reports system reviewed and no additional complaints, except as documented Neuro Reports no additional complaints Psych Reports no additional complaints Endo Reports no additional complaints Kedar/Lymph Reports no additional complaints Aller/Immun Reports no additional complaints Physical Exam Exam Exam: Vital signs reviewed. Constitutional: Non-toxic appearing. No acute distress. Well-developed and well-nourished. HEENT: Normocephalic and atraumatic. PERRL/EOMI. Tympanic membranes without erythema, edema, or bulging bilaterally. External auditory canals without erythema or edema bilaterally. Moist mucous membranes. No pharyngeal erythema or exudates. Skin: Warm and dry. No rashes or lesions noted. Neck: Full and painless range of motion. No cervical lymphadenopathy. Cardio: Regular rate and rhythm. No murmurs, gallops, or rubs. No lower extremity edema. No JVD. Reproducible right-sided chest wall pain. Pulmonary: No respiratory distress. No accessory muscle usage. There is scattered inspiratory and expiratory wheezing without rhonchi or crackles. Gastrointestinal: Soft, non-tender, and non-distended in all 4 quadrants. Normoactive bowel sounds in all 4 quadrants. Genitourinary: No CVA tenderness. Musculoskeletal: Normal range of motion in joints throughout the body. No deformity or other signs of injury. Neuro: Alert and oriented x4. Cranial nerves 2-12 grossly intact. No focal deficits appreciated. Psych: Normal mood and affect. Vital Signs: Last Vital Signs Temp 98.2 F 08/25/25 11:53 Pulse 83 08/25/25 11:53 BP 120/78 08/25/25 11:53 Pulse Ox 95 08/25/25 11:53 Assessment & Plan Assessment & Plan (1) Acute bronchitis: Code(s): J20.9 - Acute bronchitis, unspecified Qualifiers: Bronchitis organism: unspecified organism Qualified Code(s): J20.9 - Acute bronchitis, unspecified Plan 60-year-old male with PMHx: CAD s/p CABG, DVT on apixaban, COPD, HTN, HLD who presented to the walk-in clinic complaining of a cough x 3 days. ON physical examination, patient has scattered inspiratory and expiratory wheezing consistent with acute bronchitis versus acute COPD exacerbation. Patient sent home with PO azithromycin 500 mg x 1 followed by 250 mg daily x 4 days, PO prednisone 40 mg daily x 5 days, and an as needed albuterol inhaler. I also recommended guaifenesin for decongestant and mucuociliary clearance. He he was instructed to follow up here or the emergency room if he develops shortness of breath, worsening sputum production/purulence, hemoptysis, or fevers/chills. Patient verbalized understanding and is agreeable with the plan. Medications: New albuterol sulfate 90 mcg/actuation (Ventolin HFA) 1 puff inhalation Q4-6H PRN 6.7 grams 0RF shortness of breath or wheezing prednisone 40 mg (2 x 20 mg) PO DAILY 10 tabs 0RF azithromycin For 250 mg dose pack: take 500 mg today (day 1), then 250 mg for 4 days (days 2-5) PO 6 tabs 0RF Coding Level of Care Code Est Pt Level 3 (05371) Diagnoses Acute bronchitis, unspecified organism J20.9 Bronchitis organism: unspecified organism
[2025-08-25 11:53] VITALS: BP 120/78; PULSE 83; TEMP 36.8; O2SAT 95
== END 2025-08-25 13:01 | disposition home or self-care (01) ==
PROVIDERS: PCP Nurse Practitioner Family; Visit Provider Physician Assistant Medical
DX: J20.9 Acute bronchitis, unspecified (principal)